=== PATIENT | female | born 1940 | race Caucasian/White ===

== ENCOUNTER 2022-12-30 10:27 | Outpatient (OUT) | payer MEDICARE, SELFPAY ==
[2022-12-30 11:38] LABS: Anion Gap 12.8; Carbon Dioxide 26.4 mmol/L (21.0-32.0); Chloride 93 mmol/L (98-107); Potassium 4.2 mmol/L (3.5-5.1); Sodium 128 mmol/L (136-145)
== END 2022-12-30 10:28 | disposition home or self-care (01) ==
LOC: LAB 10:27
PROVIDERS: PCP Internal Medicine
DX: E87.5 Hyperkalemia (principal)
CPT/HCPCS: 36415; 80051

== ENCOUNTER 2023-03-26 13:39 | Outpatient (OUT) | payer MEDICARE, SELFPAY ==
[2023-03-26 14:15] LABS: Bilirubin Urine NEGATIVE (NEGATIVE); Blood Urine NEGATIVE (NEGATIVE); Clarity Urine CLEAR (CLEAR); Color Urine LT. YELLOW (YELLOW); Glucose Urine UA NEGATIVE (NEGATIVE); Ketones Urine NEGATIVE (NEGATIVE); Leukocyte Esterase Urine NEGATIVE (NEGATIVE); Nitrite Urine NEGATIVE (NEGATIVE); Protein Urine NEGATIVE (NEG/TRACE); Specific Gravity Urine <=1.005 (1.005-1.025); Urobilinogen Urine 0.2 EU/dL (0.2-1.0)
[2023-03-26 14:23] LABS: Urine Microscopic Indicated NO
== END 2023-03-26 13:40 | disposition home or self-care (01) ==
LOC: LAB 13:39
DX: N39.0 Urinary tract infection, site not specified (principal)
CPT/HCPCS: 81003

== ENCOUNTER 2023-03-31 13:05 | Outpatient (REF) | payer MEDICARE, SELFPAY ==
[2023-03-31 14:43] LABS: SARS-CoV-2 Ag NEGATIVE (NEGATIVE)
[2023-03-31 16:39] LABS: SARS-CoV-2 NAA NOT DETECTED (NOT DETECTE)
== END 2023-03-31 13:06 | disposition home or self-care (01) ==
LOC: LAB 13:05
DX: Z20.822 Contact with and (suspected) exposure to COVID-19 (principal)
CPT/HCPCS: 87635; 87811; U0003

== ENCOUNTER 2023-05-22 12:22 | Outpatient (OUT) | payer MEDICARE, SELFPAY ==
[2023-05-22 13:47] LABS: Anion Gap 14.7; Carbon Dioxide 24.6 mmol/L (21.0-32.0); Chloride 94 mmol/L (98-107); Potassium 4.3 mmol/L (3.5-5.1); Sodium 129 mmol/L (136-145); Thyroid Stimulating Hormone 0.538 uIU/mL (0.358-3.740)
== END 2023-05-22 12:23 | disposition home or self-care (01) ==
LOC: LAB 12:22
PROVIDERS: PCP Internal Medicine; Visit Provider Internal Medicine
DX: E87.5 Hyperkalemia (principal); E87.1 Hypo-osmolality and hyponatremia; I50.40 Unspecified combined systolic (congestive) and diastolic (congestive) heart failure; I10 Essential (primary) hypertension
CPT/HCPCS: 36415; 80051; 83880; 84443

== ENCOUNTER 2023-10-22 13:05 | Outpatient (RCR) | payer MEDICARE, SELFPAY | END 2023-11-19 12:56 | disposition home or self-care (01) | LOC: PT 13:05 | PROVIDERS: PCP Internal Medicine; Visit Provider Internal Medicine | DX: R53.1 Weakness (principal); Z91.81 History of falling | CPT/HCPCS: 97110; 97112; 97162; 97530 ==

== ENCOUNTER 2023-11-13 13:03 | Outpatient (OUT) | payer MEDICARE, SELFPAY ==
--- NOTE | 2023-11-13 13:06 | MM_ITS ---
Patient Name: LELA CHAIREZ MR#: [id number] : 1940 Exam Date: 11/13/2023 Ordering Doctor: DR BART SCHULTZ D.O. RADIOLOGY REPORT PROCEDURE: MM SCREENING MAMMO BI COMPARISON: MG MAMM SCREEN ROSANGELA W CAD, 11/11/2022. MG MAMM SCREEN 3D ROSANGELA CAD, 11/06/2021. MG MAMM LT DIAG W CAD, 09/26/2020. MG MAMM ROSANGELA SCRN W CAD DIG, 10/25/2013. INDICATIONS: screening Calculator Name NCI Breast Cancer Risk Assessment Tool 5 Year Breast Cancer Risk 3.70% Lifetime Breast Cancer Risk 3.70% Personal Breast Cancer No Personal Ovarian Cancer No Treatments None Family Cancers Sister with breast cancer at age 45; Father with throat cancer at age 67; Brother with lung cancer at age 55. LOCATION: [facility] BREAST COMPOSITION: The breasts are heterogeneously dense,which may obscure small masses. FINDINGS: DIAGNOSTIC CATEGORY 2--BENIGN FINDING: RIGHT BREAST: No significant suspicious finding. Scattered benign-appearing calcifications are present. No significant change has occurred. LEFT BREAST: No significant suspicious finding. Scattered benign-appearing calcifications are present. No significant change has occurred. RECOMMENDATIONS: ROUTINE MAMMOGRAM AND CLINICAL EVALUATION IN 12 MONTHS. PLEASE NOTE: A NORMAL MAMMOGRAM DOES NOT EXCLUDE THE POSSIBILITY OF BREAST CANCER. A CLINICALLY SUSPICIOUS PALPABLE LUMP SHOULD BE BIOPSIED. Dictated by: Brady Harry M.D. on 11/14/2023 at 15:14 Approved by: Brady Harry M.D. on 11/14/2023 at 15:18
== END 2023-11-13 13:04 | disposition home or self-care (01) ==
LOC: MAMMO 13:03
PROVIDERS: PCP Internal Medicine; Visit Provider Internal Medicine
DX: Z12.31 Encounter for screening mammogram for malignant neoplasm of breast (principal)
CPT/HCPCS: 77067

== ENCOUNTER 2024-01-08 09:09 | Emergency (ER) | payer MEDICARE, SELFPAY ==
--- NOTE | 2024-01-08 | XR_ITS ---
The [address] [address] Patient Name: LELA CHAIREZ MRN: [id number] date: 1940 Sex: F Assigned Patient Location: ER Current Patient Location: ER Accession/Order Number: [id number] Exam Date: 01/08/2024 10:10 Report Date: 01/08/2024 11:32 At the request of: BARON REYES Procedure: XR hip RT 2V w/ pelvis PROCEDURE: XR lumbar spine 2-3V, XR hip RT 2V w/ pelvis, 01/08/2024 9:56 AM EDT CLINICAL INDICATIONS: Traumatic injury, fall, lumbar spine, right hip pain, weakness COMPARISON: None TECHNIQUE: Lumbar spine 2 views. AP pelvis right hip, 5 views. FINDINGS: LUMBAR SPINE: 5 lumbar type vertebral segments are seen with mild dextroconvex curvature, accentuated lumbar lordosis. There is grade 1 retrolisthesis; 0.8 cm L1-2 0.9 cm L2-3 0.5 cm L3-4 L4-5 interbody disc fusion, dorsal laminectomy, L4-S1 transpedicular screw and isis fixation, transverse stabilizer noted. There is fracture of the right proximal S1 pedicular screw, age undetermined. Additional hardware complication is not demonstrated. Multilevel disc degeneration spondylosis is severe throughout the lower thoracic, L1-L3 levels Acture of the proximal aspect of the sacral screw fixation likely on the right, Mid and lower lumbar facet arthropathy is seen. Convincing sign of acute fracture is not demonstrated. Paraspinal abnormality is not seen. Regional soft tissues normal. PELVIS: Generalized osteopenia the bony structures is noted. 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 Acute pelvic fracture is not demonstrated. Visualized sacral foramina and sacroiliac joints are symmetric. Pelvic and trochanteric enthesopathy is present bilaterally. Moderate left hip osteoarthrosis and chondrocalcinosis is seen. Pelvic phleboliths are seen. Regional soft tissues normal. RIGHT HIP: Severe right hip osteoarthrosis, [id number] abutment, marginal osteophytosis, buttressing the femoral neck is seen. Acute osseous pathology is not demonstrated. Regional soft tissues normal. XR/XR hip RT 2V w/ pelvis IMPRESSION: 1. No convincing sign of acute traumatic osseous lumbar spine, pelvic or right hip pathology. If the hip pain persists or if the patient cannot bear weight on the hip, then an MRI may be of benefit in evaluation of a possible occult fracture. 2. Mild dextroconvex curvature, accentuated lumbar lordosis with L1 through L4 grade 1 anterior spondylolisthesis 3. L4-5 interbody disc fusion, L4 through S1 transpedicular screw, isis fixation, transverse stabilizer. There is a fracture of the proximal right S1 pedicular screw, age undetermined. 4. Multilevel lumbar spine disc degeneration, spondylosis most apparent lower thoracic through L3 levels. 5. Mid and lower lumbar facet arthropathy 6. 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 Pelvic and bilateral trochanteric enthesopathy 8. Severe right, moderate left hip osteoarthrosis with chondrocalcinosis Electronically authenticated by: WILLIAM MARMOLEJO Date: 01/08/2024 11:32
--- OUTSIDE RECORDS SUMMARY | 2024-01-08 09:15 | XMS_ITS ---
Patient Summarization (C-CDA 2.1 CCD) Created on: January 08, 2024 MIHAELAASHLYLELA J : 1940 Sex: Female Author Organization Sample organization Care Team Providers Care Photographic Lithographer Name Role Phone Bigg Schultz Primary Care Provider BIGG SCHULTZ JR Primary Care Physician MARION, DR ARRIAGA Primary Care Unavailable VALONE, DR ARRIAGA Admitting Unavailable VALONE, DR ARRIAGA Attending Unavailable VALONE, DR ARRIAGA Primary Care Unavailable VALONE, DR ARRIAGA Admitting Unavailable VALONE, DR ARRIAGA Attending Unavailable VALONE, DR ARRIAGA Consulting Unavailable VALONE, DR ARRIAGA Primary Care Unavailable VALONE, DR ARRIAGA Admitting Unavailable VALONE, DR ARRIAGA Attending Unavailable VALONE, DR ARRIAGA Consulting Unavailable ZieberBrady Consulting Unavailable [facility], DR FAIRCHILD Attending Unavailable MISC, DR FAIRCHILD Admitting Unavailable VALONE, DR ARRIAGA Primary Care Unavailable YOGESH DEL REAL Attending Unavailable CARRENO, Lyle Feldman Attending Unavailable CARRENO, Lyle Feldman Attending Unavailable Allergies Allergy Classification Reported Allergen(s) Allergy Type Date of Onset Reaction(s) Facility (1 source) Meperidine Drug Allergy 7 [facility] (1 source) Risedronate Drug Allergy 8 [facility] (1 source) Sertraline Drug Allergy 7 [facility] (1 source) Sulfonamides (Antibiotic) Propensity to adverse reactions 7 [facility] (5 sources) Tetracycline; Translations: [tetracycline] Drug Allergy 7 Unknown (qualifier value) [facility] (1 source) venlafaxine Drug Allergy 7 [facility] (4 sources) Citalopram; Translations: [citalopram] Drug Allergy Unknown (qualifier value) [facility] (4 sources) DULoxetine; Translations: [duloxetine] Drug Allergy Unknown (qualifier value) [facility] (4 sources) Meperidine; Translations: [meperidine] Drug Allergy Unknown (qualifier value) [facility] (4 sources) Sertraline; Translations: [sertraline] Drug Allergy Unknown (qualifier value) [facility] (4 sources) Sulfonamides (Antibiotic); Translations: [sulfa drugs] Drug allergy Unknown (qualifier value) [facility] (4 sources) telmisartan; Translations: [telmisartan] Drug Allergy Unknown (qualifier value) [facility] (4 sources) venlafaxine; Translations: [venlafaxine] Drug Allergy Unknown (qualifier value) [facility] (1 source) Citalopram Drug Allergy [facility] (1 source) DULoxetine Drug Allergy 5 [facility] (1 source) Meperidine Drug Allergy 3 [facility] (1 source) Sertraline Drug Allergy 3 [facility] (1 source) Sulfonamides (Antibiotic) Drug allergy (disorder) 3 [facility] (1 source) telmisartan Drug Allergy 3 [facility] (1 source) Tetracycline Drug Allergy 3 [facility] (1 source) venlafaxine Drug Allergy 3 [facility] Encounters Encounter Date Encounter Type Care Provider Facility Start: 05-03-2024 ambulatory Lyle Evangelista ty:[facility] Start: 10-10-2023 End: 10-11-2023 ambulatory Lyle CARRENO Facility:[facility] Start: 10-10-2023 End: 10-10-2023 Patient encounter procedure Lyle CARRENO [facility] Start: 09-30-2023 End: 09-30-2023 ambulatory YOGESH DEL REAL Not Available Start: 11-11-2022 End: 11-12-[address] BIGG SCHULTZ Facility:[facility] Start: 10-04-2022 End: 10-04-2022 Patient encounter procedure Lyle CARRENO [facility] Start: 06-17-2022 End: 06-18-[address] BIGG SCHULTZ Facility:[facility] Start: 01-03-2022 End: 01-31-[address] BIGG SCHULTZ Facility:[facility] Start: 11-22-2021 End: 12-15-[address] DOCTOR COREAS Facility:[facility] Start: 10-01-2021 End: 10-01-2021 Patient encounter procedure Lyle CARRENO [facility] Start: 12-16-1920 End: 12-16-1920 Patient encounter procedure Jose Almonte Work Phone: [facility] Start: 12-16-1920 Results Only Jose Almonte Work Phone: [facility] Immunizations Immunization Date Immunization Notes Care Provider Fa [facility] 04-18-2023 influenza virus vacc ine, unspecified formulation Lyle CARRENO [facility] 03-29-2022 SARS-CoV-2 (COVID-19 ) [id number] Lyle CARRENO [facility] Comment on above: Result Comment: 2023: [id number] 11-02-2021 SARS-CoV-2 mRNA (ybcjzqbiayw-pcqm-uszsts e) vaccine Lyle CARRENO [facility] Comment on above: Result Comment: 2023: [id number] 04-16-2021 SARS-CoV-2 (COVID-19 ) mRNA BNT-162b2 vax Lyle CARRENO [facility] Comment on above: Result Comment: 2023: [id number] 08-23-2020 SARS-CoV-2 (COVID-19 ) mRNA BNT-162b2 vax Lyle CARRENO [facility] 07-31-2020 SARS-CoV-2 (COVID-19 ) mRNA BNT-162b2 vax Lyle CARRENO [facility] Comment on above: Result Comment: 2nd dose given 08/23/2020 07-23-2018 zoster vaccine recombinant Lyle CARRENO [facility] 11-28-2017 zoster vaccine recombinant Lylelexi CARRENO [facility] 03-23-2014 pneumococcal polysaccharide vaccine, 23 valent Lyle PASQUALE [facility] 05-05-2013 zoster vaccine, live Lyle CARRENO [facility] 04-25-2009 influenza, whole Lyle CARBALLO [facility] Medications Current Medications Medication Drug Class(es) Dates Sig (Normalized) Sig (Original) baclofen 10 mg oral tablet (3 sources) gamma-Aminobutyric Acid-ergic Agonist Start: 10-01-2021 baclofen 10 mg Tab Refills(s) 0 Start Date: 10/01/21 Status: Ordered busPIRone hydrochloride 10 mg oral tablet (3 sources) Start: 10-01-2021 busPIRone 10 mg Tab Refills(s) 0 Start Date: 10/01/21 Status: Ordered candesartan cilexetil 32 mg oral tablet (3 sources) Angiotensin 2 Receptor Kenney Start: 10-01-2021 candesartan 32 mg Tab Refills(s) 0 Start Date: 10/01/21 Status: Ordered carvedilol 6.25 mg oral tablet (3 sources) alpha-Adrenergic Kenney, beta-Adrenergic Kenney Start: 10-01-2021 carvedilol 6.25 mg Tab Refills(s) 0 Start Date: 10/01/21 Status: Ordered clobetasol propionate 0.0005 mg/mg topical ointment (1 source) Corticosteroid Start: 10-10-2023 clobetasol propionate 0.05% top oint 1 cornelia, Topical, Daily Rash, 45 gm, Refill(s) 1, Daily as needed for vaginal irritation, [id number], 165, cm, 10/10/23 10:56:00 EDT, Height/Length Dosing, 55, kg, 10/10/23 10:56:00 EDT, Weight Dosing Start Date: 10/10/23 Status: Ordered empagliflozin 10 mg oral tablet (1 source) Sodium-Glucose Cotransporter 2 Inhibitor Start: 10-04-2022 Jardiance 10 mg oral tablet Refills(s) 0 Start Date: 10/04/22 Status: Ordered estrogens, conjugated (fci) 0.625 mg/ml vaginal cream (2 sources) Estrogen Start: 08-12-2023 Premarin Vaginal 0.625 mg/g cream with applicator 1 gram, Vaginal, MonWedFri, 42.5 gram, Refill(s) 3, [facility], 165, cm, 10/04/22 10:37:00 EDT, Height/Length Dosing, 65, kg, 10/04/22 10:37:00 EDT, Weight Dosing Start Date: 08/12/23 Status: Ordered Start: 01-02-2022 Premarin Vagin al 0.625 mg/g cream with applicator 1 gram, Vaginal, MonWedFri, 42.5 gram, Refill(s) 3, [facility], 162, cm, 10/06/20 10:19:00 EDT, Height/Length Dosing, 70.5, kg, 04/02/21 10:19:00 EDT, Weight Dosing Start Date: 01/02/22 Status: Ordered famotidine 20 mg oral tablet (2 sources) Histamine-2 Receptor Antagonist Start: 10-04-2022 famotidine 20 mg Tab Refills(s) 0 Start Date: 10/04/22 Status: Ordered gabapentin 100 mg oral capsule (3 sources) Anti-epileptic Agent Start: 10-01-2021 gabapenti n 100 mg Cap Refills(s) 0 Start Date: 10/01/21 Status: Ordered levothyroxine sodium 0.025 mg oral tablet (3 sources) l-Thyroxine Start: 10-01-2021 levothyroxine 25 mcg (0.025 mg) Tab Refills(s) 0 Start Date: 10/01/21 Status: Ordered Start: 10-01-2021 levothyroxine 25 mcg (0.025 mg) Tab Refills(s) 0 Start Date: 10/01/21 Status: Ordered montelukast 10 mg oral tablet (3 sources) Leukotriene Receptor Antagonist Start: 10-01-2021 montelukast 10 mg Ta b Refills(s) 0 Start Date: 10/01/21 Status: Ordered Premarin Vaginal 0.625 mg/g cream with applicator (1 source) Start: 08-29-2020 Premarin Vagin al 0.625 mg/g cream with applicator 1 gram, Vaginal, MonWedFri, 42.5 gram, Refill(s) 3, [facility], 162, cm, 04/10/20 12:12:00 EDT, Height/Length Dosing, 70, kg, 04/10/20 12:12:00 EDT, Weight Dosing Start Date: 08/29/20 Status: Ordered Payers Date Payer Category Payer Medicare [id number] 1961 Medicare [id number] 1940 Unknown [id number] 2.16.84 [id number] 1940 Unknown [id number] 2.16.84 [id number] 1940 Unknown [id number] 2.16.84 [id number] 1940 Unknown [id number] 2.16.84 [id number] 1940 Unknown [id number] 2.16.84 [id number] 1940 Unknown [id number] 2.16.8 [id number] 1940 Unknown [id number] [id number] Plan of Treatment Date Care Activity Detail Author Start: 03-07-2020 Influenza vaccination INFLUENZA (#1) [facility] Start: 01-26-2010 DIABETES SCREEN DIABETES SCREEN [facility] Start: 2003 ADVANCE DIRECTIVE DISCUSSION ADVANCE DIRECTIVE DISCUSSION [facility] Start: 2003 BONE DENSITY BONE DENSITY [facility] Start: 2003 PNEUMOVAX AGE 65 AND OVER WITH 5YR LOOKBACK (#1) PNEUMOVAX AGE 65 AND OVER WITH 5YR LOOKBACK (#1) [facility] Start: 1988 SHINGRIX VACCINE (1 of 2) LOBATO GRIX VACCINE (1 of 2) [facility] Start: 1957 Urine microalbumin profile DTAP,TDAP ,TD (1 - Tdap) [facility] Problems Active Problems Problem Classification Problem Date Documented Da te Episodic/Chronic Anal and rectal conditions (2 sources) Disorder of rectum 10-04-2022 Episodic Essential hypertension (7 sources) Hypertensive disorder; Translations: [Essential (primary) hypertension] Onset: 06-17-2022 08-26-2019 Chronic Genitourinary symptoms and ill-defined conditions (7 sources) Overflow incontinence of urine; Translations: [Urge incontinence of urine] Onset: 10-10-2023 09-06-2019 Chronic Genitourinary symptoms and ill-defined conditions (9 sources) Nocturia; Translations: [Poor stream of urine] 10-06-2020 Episodic Osteoarthritis (3 sources) Osteoarthritis 08-26-2019 Chronic Other and unspecified benign neoplasm (3 sources) Adrenal adenoma 08-26-2019 Episodic Other bone disease and musculoskeletal deformities (3 sources) Osteopenia 08-26-2019 Episodic Other diseases of bladder and urethra (2 sources) Urethral stricture; Translations: [Unspecified urethral stricture, female] Onset: 10-10-2023 Episodic Other endocrine disorders (1 source) Disorder of adrenal gland; Translations: [Unspecified disorder of adrenal glands] Onset: 02-09-2008 02-09-2008 Chronic Other nervous system disorders (1 source) Other chronic pain; Translations: [OTHER CHRONIC PAIN] Onset: 01-03-2022 Chronic Other screening for suspected conditions (not mental disorders or infectious disease) (4 sources) Encounter for screening mammogram for malignant neoplasm of breast; Translations: [ENC SCR MAMMO MALIG NEOPLASM BREAST] Onset: 11-11-2022 Episodic Prolapse of female genital organs (6 sources) Uterovaginal prolapse; Translations: [Uterovaginal prolapse, unspecified] Onset: 10-04-2022 Chronic Residual codes; unclassified (3 sources) Sleep apnea 08-26-2019 Chronic Residual codes; unclassified (1 source) Family history of malignant neoplasm of breast; Translations: [FAMILY HX MALIG NEOPLASM OF BREAST] Onset: 11-14-2022 Episodic Residual codes; unclassified (1 source) Family history of malignant neoplasm of trachea, bronchus and lung; Translations: [FAM HX MALIG NEOPLSM TRACH BRON LNG] Onset: 11-14-2022 Episodic Residual codes; unclassified (1 source) Family history of malignant neoplasm of digestive organs; Translations: [FAM HX MALIG NEOPLASM DIGESTIV ORGN] Onset: 11-14-2022 Episodic Thyroid disorders (3 sources) Hypothyroidism 08-26-2019 Chronic Unclassified (1 source) LOW BACK PAIN, UNSPECIFIED; Translations: [LOW BACK PAIN, UNSPECIFIED] Onset: 01-03-2022 Urinary tract infections (6 sources) Chronic cystitis; Translations: [Other chronic cystitis without hematuria] Onset: 10-01-2021 Chronic Urinary tract infections (5 sources) Postinfective urethral stricture of female; Translations: [Postinfective urethral stricture, not elsewhere classified, female] Onset: 10-01-2021 Episodic Past or Other Problems Problem Classification Problem Date Documented Da te Episodic/Chronic Malaise and fatigue (1 source) Weakness; Translations: [WEAKNESS] Onset: 11-28-2021 Episodic Other connective tissue disease (4 sources) Impingement syndrome of right shoulder; Translations: [IMPINGEMENT SYNDROME RIGHT SHOULDER] Onset: 11-22-2021 Episodic Other nervous system disorders (4 sources) Ataxia, unspecified; Translations: [ATAXIA UNSPECIFIED] Onset: 01-03-2022 Episodic Other non-traumatic joint disorders (1 source) Pain in right shoulder; Translations: [PAIN IN RIGHT SHOULDER] Onset: 11-22-2021 Episodic Procedures Date Procedure Procedure Detail Performing Clinician Start: 10-01-2021 Dilation of urethra Pat lexi PASQUALE Start: 09-06-2019 Dilation of urethra Pat lexi CARRENO Start: 11-16-2018 Dilation of urethra Pat lexi CARRENO Start: 05-18-2018 Dilation of urethra Pat lexi CARRENO Start: 11-17-2017 Dilation of urethra Pat lexi CARRENO Start: 05-19-2017 Dilation of urethra Pat lexi PASQUALE Start: 09-10-2016 Cystourethroscopy wi th dilation of urethral stricture Lylelexi CARRENO Start: 01-19-2016 Dilation of urethra Pat lexi CARRENO Start: 07-21-2015 Dilation of urethra Pat lexi CARRENO Start: 07-18-2014 Dilation of urethra Pat lexi PASQUALE Start: 12-27-2013 Dilation of urethra Pat lexi PASQUALE Start: 07-14-2013 Procedure on neck Patri ck PASQUALE Start: 06-11-2013 Dilation of urethra Pat lexi PASQUALE Start: 08-07-2009 Dilation of urethra Pat lexi CARRENO Start: 09-04-2006 Cystourethroscopy wi th dilation of urethral stricture Lylelexi CARRENO Start: 12-16-1920 CONVERTED SURGICAL PATHOLOGY Jose Almonte Work Phone: Appendectomy Lylelexi CARRENO Breast biopsy and re lated procedures Lyle CARRENO Cataract surgery Lyle CARBALLO Colonoscopy Lyle CARRENO Dilation of urethra Lyle CARRENO Excision of lipoma Lyle FLORES eyelid lift Lyle CARRENO Hysterectomy Lyle CARRENO Nasal sinus procedure Andrea CARRENO Plantar fasciectomy Lyle CARRENO Procedure on elbow Lyle FLORSE Procedure on retina Lyle CARRENO Repair of single tendon Rosar katerin CARRENO Results Test Name Value Interpretation Reference Range Facility Ambulatory Visit Summaryon 0 10-10-2023 Ambulatory Visit Summary LELA CHAIREZ :1940 Visit Date:10/10/2023 Ambulatory Visit Instructions Your Diagnosis Unspecified urethral stricture, female Chronic cystitis without hematuria Urge incontinence Cystocele with prolapse Rectocele Your Care Team Attending Physician - PASQUALE MESA, Lyle Feldman Primary Care Physician - BIGG SCHULTZ JR, DO This Is Your Medications List clobetasol topical (clobetasol propionate 0.05% top oint) conjugated estrogens topical (Premarin Vaginal 0.625 mg/g cream with applicator) Contact prescribing physician if questions or concerns baclofen (baclofen 10 mg Tab) busPIRone (busPIRone 10 mg Tab) candesartan (candesartan 32 mg Tab) carvedilol (carvedilol 6.25 mg Tab) famotidine (famotidine 20 mg Tab) gabapentin (gabapentin 100 mg Cap) levothyroxine (levothyroxine 25 mcg (0.025 mg) Tab) montelukast (montelukast 10 mg Tab) Procedures Performed Dilation of urethra (10/01/2021), Dilation of urethra (09/06/2019), Dilation of urethra (11/16/2018), Dilation of urethra (05/18/2018), Dilation of urethra (11/17/2017), Dilation of urethra (05/19/2017), Cystourethroscopy with dilation of urethral stricture (09/10/2016), Dilation of urethra (01/19/2016), Dilation of urethra (07/21/2015), Dilation of urethra (07/18/2014), Dilation of urethra (12/27/2013), Procedure on neck (07/14/2013), Dilation of urethra (06/11/2013), Dilation of urethra (08/07/2009), Cystourethroscopy with dilation of urethral stricture (09/2006), Appendectomy, Breast biopsy and related procedures, Cataract surgery, Colonoscopy, Dilation of urethra, Excision of lipoma, eyelid lift, Hysterectomy, Nasal sinus procedure, Plantar fasciectomy, Procedure on elbow, Procedure on retina, Repair of single tendon. Discharge Vitals Heart Rate (Peripheral) 73 Respiratory Rate 16 Blood Pressure 127/79 Height 165 cm Height 65 in Weight 55 kg Weight 121 lb BMI 20.2 What to do next Scheduled Follow-Up Appointments Friday 9:15 AM EDT With: PASQUALE MESA, Lyle Feldman Where: [facility] Consent for Procedure/Surger yon 10-10-2023 Consent for Procedure/Surgery [id number] [facility] Patient Educationon 10-10-19 24 Patient Education Urology Urethral Stricture Urethral stricture is narrowing of the tube (urethra) that carries urine from the bladder out of the body. The urethra can become narrow due to scar tissue from an injury or infection. This can make it difficult to pass urine. In women, the urethra opens above the vaginal opening. In men, the urethra opens at the tip of the penis, and the urethra is much longer than it is in women. Because of the length of the male urethra, urethral stricture is much more common in men. This condition is treated with surgery. What are the causes? In both men and women, common causes of urethral stricture include: ? Urinary tract infection (UTI). ? Sexually transmitted infection (STI). ? Use of a tube placed into the urethra to drain urine from the bladder (urinary catheter). ? Urinary tract surgery. In men, common causes of urethral stricture include: ? A severe injury to the pelvis. ? Prostate surgery. ? Injury to the penis. In many cases, the cause of urethral stricture is not known. What increases the risk? You are more likely to develop this condition if you: ? Are male. Men who have had prostate surgery are at risk of developing this condition. ? Use a urinary catheter. ? Have had urinary tract surgery. What are the signs or symptoms? The main symptom of this condition is difficulty passing urine. This may cause decreased urine flow, dribbling, or spraying of urine. Other symptom of this condition may include: ? Frequent UTIs. ? Blood in the urine. ? Pain when urinating. ? Swelling of the penis in men. ? Inability to pass urine (urinary obstruction). How is this diagnosed? This condition may be diagnosed based on: ? Your medical history and a physical exam. ? Urine tests to check for infection or bleeding. ? X-rays. ? Ultrasound. ? Retrograde urethrogram. This is a type of test in which dye is injected into the urethra and then an X-ray is taken. ? Urethroscopy. This is when a thin tube with a light and camera on the end (urethroscope) is used to look at the urethra. How is this treated? This condition is treated with surgery. The type of surgery that you have depends on the severity of your condition. You may have: ? Urethral dilation. In this procedure, the narrow part of the urethra is stretched open (dilated) with dilating instruments or a small balloon. ? Urethrotomy. In this procedure, a urethroscope is placed into the urethra, and the narrow part of the urethra is cut open with a surgical blade inserted through the urethroscope. ? Open surgery. In this procedure, an incision is made in the urethra, the narrow part is removed, and the urethra is reconstructed. Follow these instructions at home: ? Take abpn-pas-csfybfz and prescription medicines only as told by your health care provider. ? If you were prescribed an antibiotic medicine, take it as told by your health care provider. Do not stop taking the antibiotic even if you start to feel better. ? Drink enough fluid to keep your urine pale yellow. ? Keep all follow-up visits as told by your health care provider. This is important. Contact a health care provider if: ? You have signs of a urinary tract infection, such as: ? Frequent urination or passing small amounts of urine frequently. ? Needing to urinate urgently. ? Pain or burning with urination. ? Urine that smells bad or unusual. ? Cloudy urine. ? Pain in the lower abdomen or back. ? Trouble urinating. ? Blood in the urine. ? Vomiting or being less hungry than normal. ? Diarrhea or abdominal pain. ? Vaginal discharge, if you are female. ? Your symptoms are getting worse instead of better. Get help right away if: ? You cannot pass urine. ? You have a fever. ? You have swelling, bruising, or discoloration of your genital area. This includes the penis, scrotum, and inner thighs for men, and the outer genital organs (vulva) and inner thighs for women. ? You develop swelling in your legs. ? You have difficulty breathing. Summary ? Urethral stricture is narrowing of the tube (urethra) that carries urine from the bladder out of the body. The urethra can become narrow due to scar tissue from an injury or infection. ? This condition can make it difficult to pass urine. ? This condition is treated with surgery. The type of surgery that you have depends on the severity of your condition. ? Contact a health care provider if your symptoms get worse or you have signs of a urinary tract infection. This information is not intended to replace advice given to you by your health care provider. Make sure you discuss any questions you have with your health care provider. Document Revised: 04/30/2022 Document Reviewed: 04/30/2022 [employer] Patient Education ? 2022 [employer]. [facility] Urology Office/Clinic Noteon 10-10-2023 Urology Office/Clinic Note Chief Complaint IO UD HPI Staff 1yr IO UD DX: Urethral Stricture, Chronic Cystitis, Cystocele w/prolapse & Rectocele *Premarin cream 1g Mon, Wed, Fri PT was having increased incontinence back in Apr/May. PCP did give Tamsulosin 0.4mg QD. Took for 1-2m then stopped due to pt not having another refill. Incontinence has improved. Has been doing Kegels. Still has mild urgency w/occasional leaking. Also when she stands up. States it is not a lot. She does feel like something has dropped down there Does wear a pad. Feels like the Lt side of her skin is sore, would like to discuss possible ointment to help. Denies UTI since last encounter. Denies current pain/burning and visible blood in urine. Stream is slower, does feel like she is done voiding, then has more when she goes to wipe. Thinks another UD would not hurt . History of Present Illness Tests reviewed: reviewed UA. I have reviewed the previous health record information and history for this patient from Dr. Carreno. I have reviewed and verified the staff HPI to be accurate for this encounter. There have been no associated fever, chills, flank pain, or blood in the urine. Denies any urinary infections since last encounter. Review of Systems PHQ Score Initial Depression Screen Score: 0 SCORE ROS - Provider Constitutional: denies weight loss, denies hot flashes. Eyes: denies eye problems. Gastrointestinal: denies nausea, denies vomiting. Cardiovascular: denies chest pain or angina. Integumentary: no dryness Musculoskeletal: denies musculoskeletal symptoms. ENMT: denies otolaryngeal symptoms. Respiratory: no shortness of breath. Heme/Lymph: denies easy bleeding tendency, denies easy bruising tendency. Psychiatric: no confusion, no anxiety. Genitourinary: See HPI. Physical Exam Vitals & Measurements HR: 73(Peripheral) RR: 16 BP: 127/79 HT: 65 in HT: 165 cm WT: 55 kg WT: 121 lb BMI: 20.2 General Appearance: alert , no acute distress, well nourished, well developed female. Procedure Operative Information Anesthesia Type: Local Procedure: Local Urethral Dilation Complications: None Surgical risks, benefits, details of the procedure have been explained to the patient. Full informed consent has been obtained. Intraoperative Information Prepped: Patient is brought back to the endoscopy suite. Patient is placed in modified dorso/lithotomy position. Patient prepped in the usual fashion with Betadine solution. 2% Xylocaine Jelly is placed per Urethra. The Urethra is: Tight The Urethra was dilated to: 22-32 Estonian with sounds. Specimens Removed: None Postoperative Information Patient is discharged home. Follow up arranged. Assessment/Plan 1. Unspecified urethral stricture, female (N35.92: Unspecified urethral stricture, female) Latest in office UD 10/04/22. Stream is slower, does feel like she is done voiding, then has more when she goes to wipe. IO UD performed today without complications. Tolerated well. Follow up in 6 months for IO UD. 2. Chronic cystitis without hematuria (N30.20: Other chronic cystitis without hematuria) Premarin cream 1g Mon, Wed, Fri. UA today shows trace-intact blood and small leuks. Asx. Denies infections since last encounter. 3. Urge incontinence (N39.41: Urge incontinence) Pt was having increased incontinence back in Apr/May. PCP did give Tamsulosin 0.4mg QD. Took for 1-2m then stopped due to pt not having another refill. Incontinence has improved. Has been doing Kegels. Still has mild urgency w/occasional leaking. Also when she stands up. Does wear a pad. Feels like the Lt side of her skin is sore, would like to discuss possible ointment to help. Will send script for Clobetasol 0.05% cream to apply daily as needed for vaginal irritation 4. Cystocele with prolapse (N81.4: Uterovaginal prolapse, unspecified) Grade 2-3. 5. Rectocele (N81.6: Rectocele) Grade 2. Follow-up With When Contact Information PASQUALE MESA, Lyle Feldman, URL [address] [id number]- Additional Instructions: 6 mos for IO UD Patient Education Urethral Stricture I, Kelly Hollis, personally scribed for Dr. Carreno on 10/10/2023 11:26:35. . Documentation recorded by the scribe, Kelly Hollis, accurately reflects the services(s) I performed and decisions made by me. Authenticated by Dr. Carreno on 10/10/2023 11:27:19. 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 Normal [facility] Comment on above: Result Comment: Elec tronically Signed By: Lyle CARRENO MD\.br\Date and Time Signed: 10/10/23 11:27 EDT\.br\Electronically Co-Signed By: Kelly Hollis.br\Date and Time Co-Signed: 10/10/23 11:26 EDT MG MAMM SCREEN ROSANGELA W CADon 0 11-11-2022 MG MAMM SCREEN ROSANGELA W CAD Patient: LELA CHAIREZ Exam Date: 11/11/2022 : 1940 Gender:F Ordering : DR BIGG SCHULTZ D.O. Admission #: [id number] Family : Order #: [id number] CLICK HERE TO VIEW EXAM RADIOLOGY REPORT PROCEDURE: MAMMOGRAM BILATERAL SCREENING DIGITAL WITH COMPUTER AIDED DETECTION COMPARISON: MG MAMM SCREEN 3D ROSANGELA CAD, 11/06/2021. MG MAMM LT DIAG W CAD, 09/26/2020. MAMMO POST BIOPSY LEFT, 02/03/2020. DIGITIZED_MAMMO, 07/06/2008. INDICATIONS: Screening mammography Calculator Name NCI Breast Cancer Risk Assessment Tool 5 Year Breast Cancer Risk 4.00% Lifetime Breast Cancer Risk 4.50% Personal Breast Cancer No Personal Ovarian Cancer No Treatments None Family Cancers Sister with breast cancer at age 45; Father with throat cancer at age 67; Brother with lung cancer at age 55. LOCATION: [facility] BREAST COMPOSITION: Heterogeneously dense,which may obscure small masses. FINDINGS: DIAGNOSTIC CATEGORY 2--BENIGN FINDING: RIGHT BREAST: No significant suspicious finding. Scattered benign-appearing calcifications are present. No significant change has occurred. LEFT BREAST: No significant suspicious finding. Scattered benign-appearing calcifications are present. Biopsy marker clip within posterior lower-inner quadrant. No significant change has occurred. RECOMMENDATIONS: ROUTINE MAMMOGRAM AND CLINICAL EVALUATION IN 12 MONTHS. PLEASE NOTE: A NORMAL MAMMOGRAM DOES NOT EXCLUDE THE POSSIBILITY OF BREAST CANCER. A CLINICALLY SUSPICIOUS PALPABLE LUMP SHOULD BE BIOPSIED. Dictated by: Brady Harry M.D. on 11/11/2022 at 13:40 Approved by: Brady Harry M.D. on 11/11/2022 at 13:50 Normal [facility] ELECTROLYTESon 12-12-2022 Anion gap [Moles/Vol] 10.9 mmol/L Normal [facility] Comment on above: Performed By: #### E LEC, TSH #### [facility] [address] [place] [address] Dr. Lillian Hurley Chloride [Moles/Vol] 92 mmol/L Critically low 98-107 [facility] Comment on above: Performed By: #### E LEC, TSH #### [facility] [address] [place] [address] Dr. Lillian Hurley CO2 [Moles/Vol] 30.4 mmol/L Normal 21.0-32.0 [facility] Comment on above: Performed By: #### E LEC, TSH #### [facility] [address] [place] [address] Dr. Lillian Hruley Potassium [Moles/Vol] 4.3 mmol/L Normal 3.5-5.1 [facility] Comment on above: Performed By: #### E LEC, TSH #### [facility] [address] [place] [address] Dr. Lillian Hurley Sodium [Moles/Vol] 129 mmol/L Critically low 136-145 [facility] Comment on above: Performed By: #### E LEC, TSH #### [facility] [address] [place] [address] Dr. Lillian Hurley TSHon 06-17-2022 TSH 0.675 uIU/mL Normal 0.358-3.740 [facility] Comment on above: Performed By: #### E LEC, TSH #### [facility] [address] [place] [address] Dr. Lillian Hurley Otheron 12-22-2000 CONVERTED ELECTRONIC SIGNATURE GNE HENDRIX M.D., PATHOLOGIST (Electronic signature on file) Final Signed Out: 12/22/2000 14:36 [facility] CONVERTED FINAL DIAGNOSIS BONE, RIGHT ELBOW, EXCISION - SEGMENTS OF OSSEOUS TISSUE WITH CHANGES CONSISTENT WITH CHANGES OF DEGENERATIVE OSTEOARTHROPATHY. REACTIVE SYNOVIUM WITH FOCAL OLD HEMORRHAGE. [facility] CONVERTED ORDERING PROVIDER Ordering Provider: JOSE ALMONTE [facility] Social History Date Type Detail Facility Start: 09-06-2019 End: 04-05-2024 Tobacco smoking status Never smoked tobacco (finding) [facility] Tobacco smoking stat us NHIS Unknown if ever smoked [facility] Sex Assigned At Not on file [facility] Sex Assigned At Female [facility] Tobacco smoking status Never [facility] Vital Signs Date Time Vital Sign Value Performing Clinician Dion ryan 10-10-2023 10:54-0400 Blood Pressure Location Lyle CARRNEO [facility] 10-10-2023 10:54-0400 Diastolic blood pressure 79 mm[Hg] Lyle CARRENO [facility] 10-10-2023 10:54-0400 Heart rate 73 /min Lyle CARRENO [facility] 10-10-2023 10:54-0400 Respiratory rate 16 /min Lyleelxi CARRENO [facility] 10-10-2023 10:54-0400 Systolic blood pressure 127 mm[Hg] Lyle CARRENO [facility] 10-04-2022 10:17-0400 Blood Pressure Location Lyle CARRENO [facility] 10-04-2022 10:17-0400 Diastolic blood pressure 71 mm[Hg] Lylelexi CARRENO [facility] 10-04-2022 10:17-0400 Heart rate 60 /min Lylelexi CARRENO [facility] 10-04-2022 10:17-0400 Respiratory rate 16 /min Lyle CARRENO [facility] 10-04-2022 10:17-0400 Systolic blood pressure 125 mm[Hg] Lyle CARRENO [facility] Functional Status Date Assessment Result Facility 10-10-2023 Functional Status N/A [facility] 10-04-2022 Functional Status N/A [facility] Hospital Discharge instructions 10-10-2023 Note Date & Type Note Facility 10-10-2023 Hospital Discharg e instructions Patient Education 10/10/2023 11:25:49 Urethral Stricture Urethral Stricture Urethral stricture is narrowing of the tube (urethra) that carries urine from the bladder out of the body. The urethra can become narrow due to scar tissue from an injury or infection. This can make it difficult to pass urine. In women, the urethra opens above the vaginal opening. In men, the urethra opens at the tip of the penis, and the urethra is much longer than it is in women. Because of the length of the male urethra, urethral stricture is much more common in men. This condition is treated with surgery. What are the causes? In both men and women, common causes of urethral stricture include: Urinary tract infection (UTI). Sexually transmitted infection (STI). Use of a tube placed into the urethra to drain urine from the bladder (urinary catheter). Urinary tract surgery. In men, common causes of urethral stricture include: A severe injury to the pelvis. Prostate surgery. Injury to the penis. In many cases, the cause of urethral stricture is not known. What increases the risk? You are more likely to develop this condition if you: Are male. Men who have had prostate surgery are at risk of developing this condition. Use a urinary catheter. Have had urinary tract surgery. What are the signs or symptoms? The main symptom of this condition is difficulty passing urine. This may cause decreased urine flow, dribbling, or spraying of urine. Other symptom of this condition may include: Frequent UTIs. Blood in the urine. Pain when urinating. Swelling of the penis in men. Inability to pass urine (urinary obstruction). How is this diagnosed? This condition may be diagnosed based on: Your medical history and a physical exam. Urine tests to check for infection or bleeding. X-rays. Ultrasound. Retrograde urethrogram. This is a type of test in which dye is injected into the urethra and then an X-ray is taken. Urethroscopy. This is when a thin tube with a light and camera on the end (urethroscope) is used to look at the urethra. How is this treated? This condition is treated with surgery. The type of surgery that you have depends on the severity of your condition. You may have: Urethral dilation. In this procedure, the narrow part of the urethra is stretched open (dilated) with dilating instruments or a small balloon. Urethrotomy. In this procedure, a urethroscope is placed into the urethra, and the narrow part of the urethra is cut open with a surgical blade inserted through the urethroscope. Open surgery. In this procedure, an incision is made in the urethra, the narrow part is removed, and the urethra is reconstructed. Follow these instructions at home: Take wpmu-bsr-xlfwrwv and prescription medicines only as told by your health care provider. If you were prescribed an antibiotic medicine, take it as told by your health care provider. Do not stop taking the antibiotic even if you start to feel better. Drink enough fluid to keep your urine pale yellow. Keep all follow-up visits as told by your health care provider. This is important. Contact a health care provider if: You have signs of a urinary tract infection, such as: ?Frequent urination or passing small amounts of urine frequently. ?Needing to urinate urgently. ?Pain or burning with urination. ?Urine that smells bad or unusual. ?Cloudy urine. ?Pain in the lower abdomen or back. ?Trouble urinating. ?Blood in the urine. ?Vomiting or being less hungry than normal. ?Diarrhea or abdominal pain. ?Vaginal discharge, if you are female. Your symptoms are getting worse instead of better. Get help right away if: You cannot pass urine. You have a fever. You have swelling, bruising, or discoloration of your genital area. This includes the penis, scrotum, and inner thighs for men, and the outer genital organs (vulva) and inner thighs for women. You develop swelling in your legs. You have difficulty breathing. Summary Urethral stricture is narrowing of the tube (urethra) that carries urine from the bladder out of the body. The urethra can become narrow due to scar tissue from an injury or infection. This condition can make it difficult to pass urine. This condition is treated with surgery. The type of surgery that you have depends on the severity of your condition. Contact a health care provider if your symptoms get worse or you have signs of a urinary tract infection. This information is not intended to replace advice given to you by your health care provider. Make sure you discuss any questions you have with your health care provider. Document Revised: 04/30/2022 Document Reviewed: 04/30/2022 [employer] Patient Education 2022 [employer]. Follow Up Care 10/04/2022 10:57:38 With:PASQUALE MESA, Lyle Feldman, URL Address: [address] [place] [address]- When: Unknown [facility] Hospital Discharge instructions 10-04-2022 Note Date & Type Note Facility 10-04-2022 Hospital Discharg e instructions Patient Education 10/04/2022 10:43:19 Urethral Dilation Urethral Dilation Urethral dilation is a procedure to stretch open (dilate) the urethra. The urethra is the tube that drains urine from the bladder out of the body. In women, the urethra opens above the vaginal opening. In men, the urethra opens at the tip of the penis. Urethral dilation is usually done to treat narrowing of the urethra (urethral stricture), which can make it difficult to pass urine. Urethral dilation widens the urethra so that you can pass urine normally. Urethral dilation is done through the urethral opening. There are no incisions made during the procedure. Tell a health care provider about: Any allergies you have. All medicines you are taking, including vitamins, herbs, eye drops, creams, and nxhp-mqp-fdudvih medicines. Any problems you or family members have had with anesthetic medicines. Any blood disorders you have. Any surgeries you have had. Any medical conditions you have. Whether you are or may be . What are the risks? Generally, this is a safe procedure. However, problems may occur, including: Bleeding. Infection. A return of urethral stricture, which requires repeating the dilation procedure. Damage to the urethra, which may require reconstructive surgery. Allergic reactions to medicines. What happens before the procedure? Medicines Ask your health care provider about: Changing or stopping your regular medicines. This is especially important if you are taking diabetes medicines or blood thinners. Taking medicines such as aspirin and ibuprofen. These medicines can thin your blood. Do not take these medicines unless your health care provider tells you to take them. Taking ypfe-dvn-zeajfgh medicines, vitamins, herbs, and supplements. General instructions Follow instructions from your health care provider about eating or drinking restrictions. Plan to have someone take you home from the hospital or clinic. If you will be going home right after the procedure, plan to have someone with you for 24 hours. Ask your health care provider what steps will be taken to help prevent infection. These may include: ?Washing skin with a germ-killing soap. ?Taking antibiotic medicine. What happens during the procedure? An IV may be inserted into one of your veins. You will be given one or more of the following medicines: ?A local anesthetic to numb your urethral opening. This will be applied as a gel that will also lubricate the urethral opening. ?A sedative to help you relax. A thin tube with a light and camera on the end (cystoscope) will be inserted into your urethra. Your urethra will be rinsed (irrigated) with a germ-free (sterile) water solution. Narrow parts of your urethra will be stretched open using a dilator tool. Your surgeon will start with a very thin dilator, then use wider dilators as needed. A thin tube with an inflatable balloon on the tip may be inserted into your urethra. The balloon may be inflated to help stretch your urethra open. Your urethra will be irrigated. The procedure may vary among health care providers and hospitals. What can I expect after the procedure? After the procedure, it is common to have: ?Burning pain when urinating. ?Blood in your urine. ?A need to urinate frequently. You will be asked to urinate before you leave the hospital or clinic. Your urine flow should improve within a few days. Follow these instructions at home: Medicines Take orda-yzz-csobign and prescription medicines only as told by your health care provider. If you were prescribed an antibiotic medicine, take it as told by your health care provider. Do not stop taking the antibiotic even if you start to feel better. Ask your health care provider if the medicine prescribed to you: ?Requires you to avoid driving or using heavy machinery. ?Can cause constipation. You may need to take these actions to prevent or treat constipation: ?Take xlrr-vjs-lbjiofp or prescription medicines. ?Eat foods that are high in fiber, such as beans, whole grains, and fresh fruits and vegetables. ?Limit foods that are high in fat and processed sugars, such as fried or sweet foods. General instructions Do not drive for 24 hours if you were given a sedative during your procedure. If you were sent home with a small, lubricated tube (catheter) to help keep your urethra open, follow your health care provider's instructions about how and when to use it. Drink enough fluid to keep your urine pale yellow. Return to your normal activities as told by your health care provider. Ask your health care provider what activities are safe for you. Keep all follow-up visits as told by your health care provider. This is important. Contact a health care provider if: Your urine is cloudy and smells bad. You develop new bleeding when you urinate. You pass blood clots when you urinate. You have pain that does not get better with medicine. You have a fever. You have swelling, bruising, or discoloration of your genital area. This includes the penis, scrotum, and inner thighs for men, and the outer genital organs (vulva) and inner thighs for women. Get help right away if: You develop new bleeding that does not stop. You cannot pass urine. Summary Urethral dilation is a procedure to stretch open (dilate) the urethra. Urethral dilation is usually done to treat narrowing of the urethra (urethral stricture), which can make it difficult to pass urine. Ask your health care provider about changing or stopping your regular medicines before the procedure. After the procedure, it is common to have burning pain when urinating, blood in your urine, and a need to urinate frequently. This information is not intended to replace advice given to you by your health care provider. Make sure you discuss any questions you have with your health care provider. Document Released: 07/19/2016 Document Revised: 08/05/2019 Document Reviewed: 08/05/2019 [employer] Patient Education 2020 [employer] Follow Up Care 10/01/2021 13:26:16 With:PASQUALE MESA, Lyle Feldman, URL Address: [address] [place] [address] [place] [address]- When: Unknown [facility] Hospital Discharge instructions 10-01-2021 Note Date & Type Note Facility 10-01-2021 Hospital Discharg e instructions Patient Education 10/01/2021 13:21:33 Urethral Stricture Urethral Stricture Urethral stricture is narrowing of the tube (urethra) that carries urine from the bladder out of the body. The urethra can become narrow due to scar tissue from an injury or infection. This can make it difficult to pass urine. In women, the urethra opens above the vaginal opening. In men, the urethra opens at the tip of the penis, and the urethra is much longer than it is in women. Because of the length of the male urethra, urethral stricture is much more common in men. This condition is treated with surgery. What are the causes? In both men and women, common causes of urethral stricture include: Urinary tract infection (UTI). Sexually transmitted infection (STI). Use of a tube placed into the urethra to drain urine from the bladder (urinary catheter). Urinary tract surgery. In men, common causes of urethral stricture include: A severe injury to the pelvis. Prostate surgery. Injury to the penis. In many cases, the cause of urethral stricture is not known. What increases the risk? You are more likely to develop this condition if you: Are male. Men who have had prostate surgery are at risk of developing this condition. Use a urinary catheter. Have had urinary tract surgery. What are the signs or symptoms? The main symptom of this condition is difficulty passing urine. This may cause decreased urine flow, dribbling, or spraying of urine. Other symptom of this condition may include: Frequent UTIs. Blood in the urine. Pain when urinating. Swelling of the penis in men. Inability to pass urine (urinary obstruction). How is this diagnosed? This condition may be diagnosed based on: Your medical history and a physical exam. Urine tests to check for infection or bleeding. X-rays. Ultrasound. Retrograde urethrogram. This is a type of test in which dye is injected into the urethra and then an X-ray is taken. Urethroscopy. This is when a thin tube with a light and camera on the end (urethroscope) is used to look at the urethra. How is this treated? This condition is treated with surgery. The type of surgery that you have depends on the severity of your condition. You may have: Urethral dilation. In this procedure, the narrow part of the urethra is stretched open (dilated) with dilating instruments or a small balloon. Urethrotomy. In this procedure, a urethroscope is placed into the urethra, and the narrow part of the urethra is cut open with a surgical blade inserted through the urethroscope. Open surgery. In this procedure, an incision is made in the urethra, the narrow part is removed, and the urethra is reconstructed. Follow these instructions at home: Take asly-kdd-lkqknvi and prescription medicines only as told by your health care provider. If you were prescribed an antibiotic medicine, take it as told by your health care provider. Do not stop taking the antibiotic even if you start to feel better. Drink enough fluid to keep your urine pale yellow. Keep all follow-up visits as told by your health care provider. This is important. Contact a health care provider if: You have signs of a urinary tract infection, such as: ?Frequent urination or passing small amounts of urine frequently. ?Needing to urinate urgently. ?Pain or burning with urination. ?Urine that smells bad or unusual. ?Cloudy urine. ?Pain in the lower abdomen or back. ?Trouble urinating. ?Blood in the urine. ?Vomiting or being less hungry than normal. ?Diarrhea or abdominal pain. ?Vaginal discharge, if you are female. Your symptoms are getting worse instead of better. Get help right away if: You cannot pass urine. You have a fever. You have swelling, bruising, or discoloration of your genital area. This includes the penis, scrotum, and inner thighs for men, and the outer genital organs (vulva) and inner thighs for women. You develop swelling in your legs. You have difficulty breathing. Summary Urethral stricture is narrowing of the tube (urethra) that carries urine from the bladder out of the body. The urethra can become narrow due to scar tissue from an injury or infection. This condition can make it difficult to pass urine. This condition is treated with surgery. The type of surgery that you have depends on the severity of your condition. Contact a health care provider if your symptoms get worse or you have signs of a urinary tract infection. This information is not intended to replace advice given to you by your health care provider. Make sure you discuss any questions you have with your health care provider. Document Released: 07/19/2016 Document Revised: 02/03/2019 Document Reviewed: 02/03/2019 [employer] Patient Education 2020 [employer]. [facility] [employer] Evaluation + Plan note Note Date & Type Note Facility Evaluation + Plan note Future Appointments Appointment Date:10/04/2022 09:45:00 AM Scheduled Provider:Lyle CARRENO MD Location:[facility] Appointment Type:URO Office Visit [facility] Outline Evaluation + Plan note Note Date & Type Note Facility Evaluation + Plan note Future Appointments Appointment Date:10/10/2023 10:15:00 AM Scheduled Provider:Lyle CARRENO MD Location:[facility] Appointment Type:URO Office Visit [facility] Outline Evaluation + Plan note Note Date & Type Note Facility Evaluation + Plan note Future Appointments Appointment Date:05/03/2024 09:15:00 AM Scheduled Provider:Lyle CARRENO MD Location:[facility] Appointment Type:URO Office Visit [facility] Outline Hospital course Narrative Note Date & Type Note Facility Hospital course Narrative No data available for this section [facility] Outline Progress note Note Date & Type Note Facility Progress note No data available for this section [facility] Outline Summary Purpose Family History No Family History Records FoundNo Family History Records FoundNo Family History Records Found No data available for this section Advance Directives No Advanced Directives Records FoundNo Advanced Directives Records FoundNo Advanced Directives Records Found Additional Source Comments Source Comments (unrecognize d section and content) In the event this informatio n is protected by the Federal Confidentiality of Alcohol and Drug Abuse Patient Records regulations: The Federal rules restrict any use of the information to criminally investigate or prosecute any alcohol or drug abuse patient.[facility] Patient Care team informatio n (unrecognized section and content) Personnel Name: BIGG SCHULTZ JR, DO Address: Address: [address] [place] [id number] Personnel Name: BIGG SCHULTZ JR, DO Address: Address: [address] [place] [id number] INFORMATION SOURCE (unrecogn ized section and content) DATE CREATED AUTHOR 11/15/2022 [facility] DATE CREATED AUTHOR AUTHOR'S ORGANIZ ATION 10/02/2023 [facility] EPIC DATE CREATED AUTHOR AUTHOR'S ORGANIZ ATION 10/10/2023 [facility] FOR RECORDS PERTAINING TO PATIENTS WHO ARE OR HAVE BEEN ENROLLED IN A CHEMICAL DEPENDENCY/SUBSTANCEABUSE PROGRAM, SOME INFORMATION MAY BE OMITTED. This clinical summary was aggregated from multiple sources. Caution should be exercised in using it in the provision of clinical care. This summary normalizes information from multiple sources, and as a consequence, information in this document may materially change the coding, format and clinical context of patient data. In addition, data may be omitted in some cases. CLINICAL DECISIONS SHOULD BE BASED ON THE PRIMARY CLINICAL RECORDS. [employer] [facility]. provides no warranty or guarantee of the accuracy or completeness of information in this document.
[2024-01-08 09:18] VITALS: BP 166/76; PULSE 74; TEMP 36.8; O2SAT 97; BMI 20.8
--- NOTE | 2024-01-08 09:25 | ED.FALL1 ---
HPI HPI - Fall General Chief Complaint: Head Injury Stated Complaint: fall Time Seen by Provider: 01/08/24 09:24 Source: patient and family Mode of arrival: Wheelchair Limitations: no limitations History of Present Illness HPI Narrative: This 83-year-old woman is here with a fall today. She was on her porch feeding the birds. She tried to walk backwards, even though she was using her walker there is no support when she is in reverse so to speak. She fell backwards and struck her head. Has got multiple complaint as to the trunk torso and extremities. There is no loss of consciousness. 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 She is not on any blood thinners. She has no head or neck pain and there is no loss of consciousness she is extremely bright and a very good historian. She is here with several family members. Apparently they have already started having some discussions before this fall about future living arrangements. She does not have any pain in her clavicular area or the rib area there is no shortness of breath she did not have any palpitations or fluttering before this she just merely lost her balance. Related Data Home Medications ?Medication ?Instructions ?Recorded ?Confirmed buspirone 10 mg tablet 10 mg PO DAILY 01/08/24 01/08/24 candesartan 32 mg tablet 32 mg PO DAILY 01/08/24 01/08/24 carvedilol 6.25 mg tablet 6.25 mg PO DAILY 01/08/24 01/08/24 famotidine 40 mg tablet 40 mg PO DAILY 01/08/24 01/08/24 levothyroxine 25 mcg tablet 25 mcg PO DAILY 01/08/24 01/08/24 montelukast 10 mg tablet 10 mg PO DAILY 01/08/24 01/08/24 Allergies Allergy/AdvReac Type Severity Reaction Status Date / Time Unable to Assess Allergy Verified 01/08/24 09:16 Opioid HPI Opioid Management Most Recent Pain and Opioid Data: No Data to Display Exam Narrative Exam Narrative: Awake alert [place] x 3 GCS 15 no evidence of head or neck injury. There is no confusion or evidence of a concussion syndrome. Her vital signs are stable her skin is warm and dry mucous membranes are moist and pink. It seems unlikely that there is a orthostatic event with this. Head and neck are nontender. There are some abrasions over the left temporal area there is no CSF otorrhea or rhinorrhea no hemotympanum. Cranial nerves II through XII are intact. She is not repeating herself. Her ribs chest and sternal area not tender. Abdomen she has no abdominal pain or nausea. Some abrasions are noted over the distal extremities. She does not have mid back pain. She has had previous surgery to the lower lumbar area and this is where most of the discomfort is at. Skin and integument were normal professional perfusion to the peripheral extremities is normal as well. Constitutional Vital Signs, click to edit/add: Last Vital Signs Temp 98.2 F 01/08/24 09:18 Pulse 72 01/08/24 10:24 Resp 18 01/08/24 10:24 BP 156/74 H 01/08/24 10:24 Pulse Ox 97 01/08/24 10:24 O2 Del Method Room Air 01/08/24 09:18 Course Vital Signs Vital signs: Vital Signs Temperature 98.2 F 01/08/24 09:18 Pulse Rate 74 01/08/24 09:18 Respiratory Rate 18 01/08/24 09:18 Blood Pressure 166/76 H 01/08/24 09:18 Pulse Oximetry 97 01/08/24 09:18 Oxygen Delivery Method Room Air 01/08/24 09:18 Temperature 98.2 F 01/08/24 09:18 Pulse Rate 72 01/08/24 10:24 Respiratory Rate 18 01/08/24 10:24 Blood Pressure 156/74 H 01/08/24 10:24 Pulse Oximetry 97 01/08/24 10:24 Oxygen Delivery Method Room Air 01/08/24 09:18 MDM - Fall MDM Narrative Medical decision making narrative: We were very liberal with imaging on this patient. Her head is normal. There is a lot of arthritic changes throughout the areas imaged. She may have a small avulsion type fracture off the tarsal navicular area of her ankle. We do not have a perfect immobilizing device but we will get her in the least cumbersome device and have her follow-up with Dr. Peyman Earl. Family members are going to try to help her out at home. She did get up and ambulate with no assistance here in the emergency room. Discharge Plan Discharge Stand Alone Forms: Portal Instructions Chief Complaint: Head Injury Clinical Impression: Closed head injury, Foot fracture, right Patient Disposition: Home, Self-Care Time of Disposition Decision: 12:01 Prescriptions / Home Meds: No Action buspirone 10 mg tablet 10 mg PO DAILY candesartan 32 mg tablet 32 mg PO DAILY carvedilol 6.25 mg tablet 6.25 mg PO DAILY famotidine 40 mg tablet 40 mg PO DAILY levothyroxine 25 mcg tablet 25 mcg PO DAILY montelukast 10 mg tablet 10 mg PO DAILY Print Language: Kazakh Additional Instructions: Follow-up with Dr. Peyman Earl on Friday for further evaluation of your foot. Ice/elevation Referrals: BART SCHULTZ DO [Primary Care Provider] - 1 week
--- NOTE | 2024-01-08 09:30 | XR_ITS ---
The [address] [address] Patient Name: LELA CHAIREZ MRN: [id number] date: 1940 Sex: F Assigned Patient Location: ER Current Patient Location: ER Accession/Order Number: [id number] Exam Date: 01/08/2024 09:56 Report Date: 01/08/2024 11:20 At the request of: BARON REYES Procedure: XR foot RT min 3V PROCEDURE: XR ankle RT min 3V, XR foot RT min 3V, XR knee RT 3V, 01/08/2024 9:56 AM EDT CLINICAL INDICATIONS: Traumatic injury, fall, right lower extremity abrasions, pain, weakness COMPARISON: None TECHNIQUE: Right knee 3 views. Right ankle 3 views. Right foot 3 views. FINDINGS: RIGHT KNEE: Generalized osteopenia noted. Tricompartment osteoarthrosis most apparent medial femoral-tibial and patellofemoral joint levels. Quadriceps enthesopathy. No knee effusion. Subcutaneous edema favored. Chondrocalcinosis seen. RIGHT ANKLE: Generalized osteopenia. Mild to moderate ankle osteoarthrosis seen. Minimal ossific irregularity inferior aspect of the medial malleolus. Age undetermined possibly remote. Ankle mortise is intact. No ankle effusion. Regional soft tissues normal. RIGHT FOOT: Acute closed traumatic avulsion fracture of the dorsal aspect of the tarsonavicular is likely. Localized soft tissue swelling at this level noted. Plantar calcaneal enthesopathy, mild calcific plantar fasciitis noted. Hallux valgus deformity with lateral subluxation and deviation of first phalanges is seen. Severe first metatarsophalangeal osteoarthrosis is noted with heterotopic calcification, median eminence hypertrophic change, heterotopic calcification and soft tissue swelling at this level. Intertarsal, tarsometatarsal and interphalangeal osteoarthrosis noted. There is likely hammertoe deformity of the forefoot. XR/XR foot RT min 3V IMPRESSION: 1. Acute closed traumatic avulsion fracture the dorsal tarsonavicular with mild distracted fragment, soft tissue swelling. 2. Ossific irregularity inferior medial malleolus. Avulsion fracture age-indeterminate considered. No localized soft tissue swelling at this level. 3. Generalized osteopenia without convincing sign of acute traumatic right knee pathology . 4. Osteoarthrosis of the right knee, ankle and foot as described. Right knee chondrocalcinosis noted. 5. Right quadriceps enthesopathy 6. Quadriceps and calcaneal enthesopathy, mild calcific plantar fasciitis. 7. Right foot hallux valgus deformity with lateral deviation, subluxation of first phalanges, median eminence hypertrophic change and heterotopic calcification. Possible hammertoe of the forefoot Electronically authenticated by: WILLIAM MARMOLEJO Date: 01/08/2024 11:20
--- NOTE | 2024-01-08 09:30 | XR_ITS ---
The [address] [address] Patient Name: LELA CHAIREZ MRN: [id number] date: 1940 Sex: F Assigned Patient Location: ER Current Patient Location: ER Accession/Order Number: [id number] Exam Date: 01/08/2024 09:56 Report Date: 01/08/2024 11:11 At the request of: BARON REYES Procedure: XR shoulder LT min 2V PROCEDURE: XR shoulder LT min 2V, 01/08/2024 9:56 AM EDT CLINICAL INDICATIONS: Traumatic injury and fall COMPARISON: None TECHNIQUE: Left shoulder, 3 views FINDINGS: Generalized osteopenia noted. Mild glenohumeral osteoarthrosis is seen. Superior glenohumeral subluxation is suspected. There is widening of the acromioclavicular joint up to 0.6 cm. Calcification adjacent to the greater tuberosity seen. Chest wall abnormality is not evident. Anterior superior endplate mid thoracic vertebral fracture identified. Anterior column involvement is seen. Age undetermined. Incompletely evaluated. Regional soft tissues are unremarkable. XR/XR shoulder LT min 2V IMPRESSION: 1. Generalized osteopenia, no acute traumatic osseous shoulder pathology 2. Mild superior glenohumeral subluxation, possible calcific rotator cuff tendinopathy. 3. Mild acromioclavicular joint space widening. Type II acromioclavicular strain considered, age undetermined. 4. Glenohumeral osteoarthrosis 5. Mid thoracic vertebral segment fracture, anterior column involvement, age undetermined, incompletely assessed Electronically authenticated by: WILLIAM MARMOLEJO Date: 01/08/2024 11:11
--- NOTE | 2024-01-08 09:30 | CT_ITS ---
The [address] [address] Patient Name: LELA CHAIREZ MRN: [id number] date: 1940 Sex: F Assigned Patient Location: ER Current Patient Location: ER Accession/Order Number: [id number] Exam Date: 01/08/2024 09:50 Report Date: 01/08/2024 10:56 At the request of: BARON REYES Procedure: CT head/brain wo con EXAMINATION: CT head/brain wo con HISTORY: fall COMPARISON: No relevant comparison available. TECHNIQUE: Axial CT images were obtained without IV contrast. Dose reduction techniques were achieved by using automated exposure control and/or adjustment of mA and/or kV according to patient size and/or use of iterative reconstruction technique. FINDINGS: BRAIN: No edema, hemorrhage, mass, acute infarction, or inappropriate atrophy. CSF SPACES: No hydrocephalus, subarachnoid hemorrhage, or mass. Appropriate for age. SKULL: No fracture, mass, or other significant visible lesion. SINUSES: Left maxillary chronic sinusitis. ORBITS: No appreciable abnormality on the limited views. OTHER: Subcutaneous bruising over left temporal region. CT/CT head/brain wo con IMPRESSION: 1. No acute cranial hemorrhage or acute abnormality brain. Age consistent chronic changes. 2. Left temporal region subcutaneous bruising. No fracture. Electronically authenticated by: ROBIN MITCHELL Date: 01/08/2024 10:56
--- NOTE | 2024-01-08 09:30 | XR_ITS ---
The [address] [address] Patient Name: LELA CHAIREZ MRN: [id number] date: 1940 Sex: F Assigned Patient Location: ER Current Patient Location: ER Accession/Order Number: [id number] Exam Date: 01/08/2024 09:56 Report Date: 01/08/2024 11:20 At the request of: BARON REYES Procedure: XR ankle RT min 3V PROCEDURE: XR ankle RT min 3V, XR foot RT min 3V, XR knee RT 3V, 01/08/2024 9:56 AM EDT CLINICAL INDICATIONS: Traumatic injury, fall, right lower extremity abrasions, pain, weakness COMPARISON: None TECHNIQUE: Right knee 3 views. Right ankle 3 views. Right foot 3 views. FINDINGS: RIGHT KNEE: Generalized osteopenia noted. Tricompartment osteoarthrosis most apparent medial femoral-tibial and patellofemoral joint levels. Quadriceps enthesopathy. No knee effusion. Subcutaneous edema favored. Chondrocalcinosis seen. RIGHT ANKLE: Generalized osteopenia. Mild to moderate ankle osteoarthrosis seen. Minimal ossific irregularity inferior aspect of the medial malleolus. Age undetermined possibly remote. Ankle mortise is intact. No ankle effusion. Regional soft tissues normal. RIGHT FOOT: Acute closed traumatic avulsion fracture of the dorsal aspect of the tarsonavicular is likely. Localized soft tissue swelling at this level noted. Plantar calcaneal enthesopathy, mild calcific plantar fasciitis noted. Hallux valgus deformity with lateral subluxation and deviation of first phalanges is seen. Severe first metatarsophalangeal osteoarthrosis is noted with heterotopic calcification, median eminence hypertrophic change, heterotopic calcification and soft tissue swelling at this level. Intertarsal, tarsometatarsal and interphalangeal osteoarthrosis noted. There is likely hammertoe deformity of the forefoot. XR/XR ankle RT min 3V IMPRESSION: 1. Acute closed traumatic avulsion fracture the dorsal tarsonavicular with mild distracted fragment, soft tissue swelling. 2. Ossific irregularity inferior medial malleolus. Avulsion fracture age-indeterminate considered. No localized soft tissue swelling at this level. 3. Generalized osteopenia without convincing sign of acute traumatic right knee pathology . 4. Osteoarthrosis of the right knee, ankle and foot as described. Right knee chondrocalcinosis noted. 5. Right quadriceps enthesopathy 6. Quadriceps and calcaneal enthesopathy, mild calcific plantar fasciitis. 7. Right foot hallux valgus deformity with lateral deviation, subluxation of first phalanges, median eminence hypertrophic change and heterotopic calcification. Possible hammertoe of the forefoot Electronically authenticated by: WILLIAM MARMOLEJO Date: 01/08/2024 11:20
--- NOTE | 2024-01-08 09:30 | XR_ITS ---
The [address] [address] Patient Name: LELA CHAIREZ MRN: [id number] date: 1940 Sex: F Assigned Patient Location: ER Current Patient Location: ER Accession/Order Number: [id number] Exam Date: 01/08/2024 09:56 Report Date: 01/08/2024 11:20 At the request of: BARON REYES Procedure: XR knee RT 3V PROCEDURE: XR ankle RT min 3V, XR foot RT min 3V, XR knee RT 3V, 01/08/2024 9:56 AM EDT CLINICAL INDICATIONS: Traumatic injury, fall, right lower extremity abrasions, pain, weakness COMPARISON: None TECHNIQUE: Right knee 3 views. Right ankle 3 views. Right foot 3 views. FINDINGS: RIGHT KNEE: Generalized osteopenia noted. Tricompartment osteoarthrosis most apparent medial femoral-tibial and patellofemoral joint levels. Quadriceps enthesopathy. No knee effusion. Subcutaneous edema favored. Chondrocalcinosis seen. RIGHT ANKLE: Generalized osteopenia. Mild to moderate ankle osteoarthrosis seen. Minimal ossific irregularity inferior aspect of the medial malleolus. Age undetermined possibly remote. Ankle mortise is intact. No ankle effusion. Regional soft tissues normal. RIGHT FOOT: Acute closed traumatic avulsion fracture of the dorsal aspect of the tarsonavicular is likely. Localized soft tissue swelling at this level noted. Plantar calcaneal enthesopathy, mild calcific plantar fasciitis noted. Hallux valgus deformity with lateral subluxation and deviation of first phalanges is seen. Severe first metatarsophalangeal osteoarthrosis is noted with heterotopic calcification, median eminence hypertrophic change, heterotopic calcification and soft tissue swelling at this level. Intertarsal, tarsometatarsal and interphalangeal osteoarthrosis noted. There is likely hammertoe deformity of the forefoot. XR/XR knee RT 3V IMPRESSION: 1. Acute closed traumatic avulsion fracture the dorsal tarsonavicular with mild distracted fragment, soft tissue swelling. 2. Ossific irregularity inferior medial malleolus. Avulsion fracture age-indeterminate considered. No localized soft tissue swelling at this level. 3. Generalized osteopenia without convincing sign of acute traumatic right knee pathology . 4. Osteoarthrosis of the right knee, ankle and foot as described. Right knee chondrocalcinosis noted. 5. Right quadriceps enthesopathy 6. Quadriceps and calcaneal enthesopathy, mild calcific plantar fasciitis. 7. Right foot hallux valgus deformity with lateral deviation, subluxation of first phalanges, median eminence hypertrophic change and heterotopic calcification. Possible hammertoe of the forefoot Electronically authenticated by: WILLIAM MARMOLEJO Date: 01/08/2024 11:20
--- NOTE | 2024-01-08 09:32 | XR_ITS ---
The [address] [address] Patient Name: LELA CHAIREZ MRN: [id number] date: 1940 Sex: F Assigned Patient Location: ER Current Patient Location: ER Accession/Order Number: [id number] Exam Date: 01/08/2024 09:56 Report Date: 01/08/2024 11:32 At the request of: BARON REYES Procedure: XR lumbar spine 2-3V PROCEDURE: XR lumbar spine 2-3V, XR hip RT 2V w/ pelvis, 01/08/2024 9:56 AM EDT CLINICAL INDICATIONS: Traumatic injury, fall, lumbar spine, right hip pain, weakness COMPARISON: None TECHNIQUE: Lumbar spine 2 views. AP pelvis right hip, 5 views. FINDINGS: LUMBAR SPINE: 5 lumbar type vertebral segments are seen with mild dextroconvex curvature, accentuated lumbar lordosis. There is grade 1 retrolisthesis; 0.8 cm L1-2 0.9 cm L2-3 0.5 cm L3-4 L4-5 interbody disc fusion, dorsal laminectomy, L4-S1 transpedicular screw and isis fixation, transverse stabilizer noted. There is fracture of the right proximal S1 pedicular screw, age undetermined. Additional hardware complication is not demonstrated. Multilevel disc degeneration spondylosis is severe throughout the lower thoracic, L1-L3 levels Acture of the proximal aspect of the sacral screw fixation likely on the right, Mid and lower lumbar facet arthropathy is seen. Convincing sign of acute fracture is not demonstrated. Paraspinal abnormality is not seen. Regional soft tissues normal. PELVIS: Generalized osteopenia the bony structures is noted. 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 Acute pelvic fracture is not demonstrated. Visualized sacral foramina and sacroiliac joints are symmetric. Pelvic and trochanteric enthesopathy is present bilaterally. Moderate left hip osteoarthrosis and chondrocalcinosis is seen. Pelvic phleboliths are seen. Regional soft tissues normal. RIGHT HIP: Severe right hip osteoarthrosis, [id number] abutment, marginal osteophytosis, buttressing the femoral neck is seen. Acute osseous pathology is not demonstrated. Regional soft tissues normal. XR/XR lumbar spine 2-3V IMPRESSION: 1. No convincing sign of acute traumatic osseous lumbar spine, pelvic or right hip pathology. If the hip pain persists or if the patient cannot bear weight on the hip, then an MRI may be of benefit in evaluation of a possible occult fracture. 2. Mild dextroconvex curvature, accentuated lumbar lordosis with L1 through L4 grade 1 anterior spondylolisthesis 3. L4-5 interbody disc fusion, L4 through S1 transpedicular screw, isis fixation, transverse stabilizer. There is a fracture of the proximal right S1 pedicular screw, age undetermined. 4. Multilevel lumbar spine disc degeneration, spondylosis most apparent lower thoracic through L3 levels. 5. Mid and lower lumbar facet arthropathy 6. 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 Pelvic and bilateral trochanteric enthesopathy 8. Severe right, moderate left hip osteoarthrosis with chondrocalcinosis Electronically authenticated by: WILLIAM MARMOLEJO Date: 01/08/2024 11:32
[2024-01-08 10:24] VITALS: BP 156/74; PULSE 72; O2SAT 97
== END 2024-01-08 12:15 | disposition home or self-care (01) ==
PROVIDERS: Emergency Provider Emergency Medicine Emergency Medical Services; PCP Internal Medicine
DX: S09.8XXA Other specified injuries of head, initial encounter (principal); S92.251A Displaced fracture of navicular [scaphoid] of right foot, initial encounter for closed fracture; W19.XXXA Unspecified fall, initial encounter
CPT/HCPCS: 70450; 72100; 73030; 73502; 73562; 73610; 73630; 99285

== ENCOUNTER 2024-02-27 10:20 | Outpatient (RCR) | payer MEDICARE, SELFPAY | END 2024-04-06 11:21 | disposition home or self-care (01) | LOC: PT 10:20 | PROVIDERS: PCP Internal Medicine; Visit Provider Internal Medicine | DX: R26.0 Ataxic gait (principal); R29.6 Repeated falls; R26.89 Other abnormalities of gait and mobility; R29.3 Abnormal posture | CPT/HCPCS: 97110; 97112; 97161; 97530 ==

== ENCOUNTER 2024-04-07 10:57 | Outpatient (OUT) | payer MEDICARE, SELFPAY ==
--- OUTSIDE RECORDS SUMMARY | 2024-04-07 11:16 | XMS_ITS | CCD ---
Author Organization [facility] Care Team Providers Care Chief Orthoptist Name Role Phone Bigg Schultz Primary Care Provider [phone] BIGG SCHULTZ JR Primary Care Physician MARION, DR ARRIAGA Primary Care Unavailable VALEUGENIA, DR ARRIAGA Admitting Unavailable VALEUGENIA, DR ARRIAGA Attending Unavailable VALONE, DR ARRIAGA Primary Care Unavailable VALONE, DR ARRIAGA Admitting Unavailable VALONE, DR ARRIAGA Attending Unavailable VALONE, DR ARRIAGA Consulting Unavailable VALONE, DR ARRIAGA Primary Care Unavailable VALONE, DR ARRIAGA Admitting Unavailable VALONE, DR ARRIAGA Attending Unavailable VALONE, DR ARRIAGA Consulting Unavailable ZiebBrady dove Consulting Unavailable MISC, DR FAIRCHILD Attending Unavailable MISC, DR FAIRCHILD Admitting Unavailable VALONE, DR ARRIAGA Primary Care Unavailable LIEBEYOGESH SHIRLEY Attending Unavailable CARRENO, Lyle Feldman Attending Unavailable CARRENO, Lyle Feldman Attending Unavailable Allergies Allergy Classification Reported Allergen(s) Allergy Type Date of Onset Reaction(s) Facility (1 source) Meperidine Drug Allergy 7 [facility] (1 source) Risedronate Drug Allergy 8 [facility] (1 source) Sertraline Drug Allergy 7 [facility] (1 source) Sulfonamides (Antibiotic) Propensity to adverse reactions 7 [facility] (5 sources) Tetracycline; Translations: [tetracycline] Drug Allergy 7 Unknown (qualifier value) [facility] (1 source) venlafaxine Drug Allergy 7 [facility] (4 sources) Citalopram; Translations: [citalopram] Drug Allergy Unknown (qualifier value) [facility] (4 sources) DULoxetine; Translations: [duloxetine] Drug Allergy Unknown (qualifier value) [facility] (4 sources) Meperidine; Translations: [meperidine] Drug Allergy Unknown (qualifier value) [facility] (4 sources) Sertraline; Translations: [sertraline] Drug Allergy Unknown (qualifier value) [facility] (4 sources) Sulfonamides (Antibiotic); Translations: [sulfa drugs] Drug allergy Unknown (qualifier value) [facility] (4 sources) telmisartan; Translations: [telmisartan] Drug Allergy Unknown (qualifier value) [facility] (4 sources) venlafaxine; Translations: [venlafaxine] Drug Allergy Unknown (qualifier value) [facility] (1 source) Citalopram Drug Allergy [facility] (1 source) DULoxetine Drug Allergy 5 [facility] (1 source) Meperidine Drug Allergy 3 [facility] (1 source) Sertraline Drug Allergy 3 [facility] (1 source) Sulfonamides (Antibiotic) Drug allergy (disorder) 3 [facility] (1 source) telmisartan Drug Allergy 3 [facility] (1 source) Tetracycline Drug Allergy 3 [facility] (1 source) venlafaxine Drug Allergy 3 [facility] Medications Current Medications Medication Drug Class(es) Dates [...] 1, Daily as needed for vaginal irritation, [facility]/pharmacy #[id number], 165, cm, 10/10/23 10:56:00 EDT, Height/Length Dosing, 55, kg, 10/10/23 10:56:00 EDT, Weight Dosing Start Date: 10/10/23 Status: Ordered empagliflozin 10 mg oral tablet (1 source) Sodium-Glucose Cotransporter 2 Inhibitor Start: 10-04-2022 Jardiance 10 mg oral tablet Refills(s) 0 Start Date: 10/04/22 Status: Ordered estrogens, conjugated (long term) 0.625 mg/ml vaginal cream (2 sources) Estrogen [...] 10/06/20 10:19:00 EDT, Height/Length Dosing, 70.5, kg, 10/06/20 10:19:00 EDT, Weight Dosing Start Date: 01/02/22 [...] Weight Dosing Start Date: 08/29/20 Status: Ordered Problems Active Problems Problem Classification Problem Date [...] [PAIN IN RIGHT SHOULDER] Onset: 11-22-2021 Episodic Results Test Name Value Interpretation Reference Range [...] MESA, Lyle Feldman Where: [facility] Consent for Procedure/Surger yon 10-10-2023 Consent for Procedure/Surgery [id number] [facility] Patient Educationon 10-10-19 24 Patient Education [...] Follow these instructions at home: ? Take qzlj-tip-ggsdame and prescription medicines only as told by [...] provider. Document Revised: 04/30/2022 Document Reviewed: 04/30/2022 [employer] Patient Education ? 2022 [employer]. Rahul [facility] Urology Office/Clinic Noteon 10-10-2023 Urology Office/Clinic Note [...] Tight The Urethra was dilated to: 22-32 Kinyarwanda with sounds. Specimens Removed: None Postoperative Information [...] When Contact Information PASQUALE MESA, Lyle Feldman, [place] [phone]- Additional Instructions: 6 mos for IO UD [...] (09/06/2019), Dila (more content not included)... Normal [facility] Comment on above: Result Comment: Elec tronically Signed By: PASQUALE MESA, Lyle Feldman\.br\Date and Time Signed: 10/10/23 11:27 EDT\.br\Electronically Co-Signed By: Kelly Hollis\Date and Time Co-Signed: 10/10/23 11:26 EDT MG MAMM SCREEN ROSANGELA W CADon 0 11-11-2022 MG MAMM SCREEN ROSANGELA W CAD Patient: LELA CHAIREZ Exam Date: 11/11/2022 : 1940 Gender:F Ordering : DR BIGG SCHULTZ D.O. Admission #: [id number] Family : Order #: [id number] CLICK HERE TO VIEW EXAM RADIOLOGY REPORT [...] age 53. LOCATION: [facility] BREAST COMPOSITION: Heterogeneously dense,which may obscure small [...] at 13:50 Normal [facility] ELECTROLYTESon 06-17-2022 Anion gap [Moles/Vol] 10.9 mmol/L Normal [facility] Comment on above: Performed By: #### E LEC, TSH #### [facility] [address] [place] [address] Dr. Lillian Hurley Chloride [Moles/Vol] 92 mmol/L Critically low 98-107 [facility] Comment on above: Performed By: #### E LEC, TSH #### [facility] [address] [address] [address] Lillian Hurley CO2 [Moles/Vol] 30.4 mmol/L Normal 21.0-32.0 [facility] Comment on above: Performed By: #### E LEC, TSH #### [facility] [address] [address] [address] Lillian Hurley Potassium [Moles/Vol] 4.3 mmol/L Normal 3.5-5.1 [facility] Comment on above: Performed By: #### E LEC, TSH #### [facility] [address] [place] [address] Dr. Lillian Hurley Sodium [Moles/Vol] 129 mmol/L Critically low 136-145 [facility] Comment on above: Performed By: #### E LEC, TSH #### [facility] [address] [place] [address] Dr. Lillian Hurley TSHon 06-17-2022 TSH 0.675 uIU/mL Normal 0.358-3.740 [facility] Comment on above: Performed By: #### E LEC, TSH #### [facility] [address] [place] [address] Dr. Lillian Hurley Otheron 12-22-2000 CONVERTED ELECTRONIC SIGNATURE GEN HENDRIX M.D., PATHOLOGIST (Electronic signature on file) Final Signed Out: 12/22/2000 14:36 [facility] CONVERTED FINAL DIAGNOSIS BONE, RIGHT ELBOW, EXCISION - SEGMENTS OF OSSEOUS TISSUE WITH CHANGES CONSISTENT WITH CHANGES OF DEGENERATIVE OSTEOARTHROPATHY. REACTIVE SYNOVIUM WITH FOCAL OLD HEMORRHAGE. [facility] CONVERTED ORDERING PROVIDER Ordering Provider: JOSE ALMONTE [facility] Vital Signs Date Time Vital Sign Value Performing Clinician Dion ryan 10-10-2023 10:54-0400 Blood Pressure Location Lyle CARRENO [facility] 10-10-2023 10:54-0400 Diastolic blood pressure 79 mm[Hg] Lyle CARRENO [facility] 10-10-2023 10:54-0400 Heart rate 73 /min Lylelexi CARRENO [facility] 10-10-2023 10:54-0400 Respiratory rate 16 /min Lylelexi CARRENO [facility] 10-10-2023 10:54-0400 Systolic blood pressure 127 mm[Hg] Lylelexi CARRENO [facility] 10-04-2022 10:17-0400 Blood Pressure Location Lyle CARRENO [facility] 10-04-2022 10:17-0400 Diastolic blood pressure 71 mm[Hg] Lyle CARRENO [facility] 10-04-2022 10:17-0400 Heart rate 60 /min Lylelexi CARRENO [facility] 10-04-2022 10:17-0400 Respiratory rate 16 /min Lyle CARRENO [facility] 10-04-2022 10:17-0400 Systolic blood pressure 125 mm[Hg] Lyle CARRENO [facility] Encounters Encounter Date Encounter Type Care Provider Facility Start: 05-03-2024 ambulatory Lyle Jacomei ty:[facility] Start: 10-10-2023 End: 10-11-2023 ambulatory Lyle CARRENO Facility:[facility] Start: 10-10-2023 End: 10-10-2023 Patient encounter procedure Lyle CARRENO [facility] Start: 09-30-2023 End: 09-30-2023 ambulatory YOGESH DEL REAL Not Available Start: 11-11-2022 End: 11-12-[address] BIGG SCHULTZ Facility:[facility] Start: 10-04-2022 End: 10-04-2022 Patient encounter procedure Lylelexi CARRENO [facility] Start: 06-17-2022 End: 06-18-[address] BIGG SCHULTZ Facility:[facility] Start: 01-03-2022 End: 01-31-[address] BIGG SCHULTZ Facility:[facility] Start: 11-22-2021 End: 12-15-[address] DOCTOR COREAS Facility:[facility] Start: 10-01-2021 End: 10-01-2021 Patient encounter procedure Lyle CARRENO [facility] Start: 12-16-1920 End: 12-16-1920 Patient encounter procedure Jose Almonte Work Phone: [facility] Start: 12-16-1920 Results Only Jose Almonte Work Phone: [facility] Procedures Date Procedure Procedure Detail Performing Clinician Start: 10-01-2021 Dilation of urethra Pat lexi CARRENO Start: 09-06-2019 Dilation of urethra Pat lexi CARRENO Start: 11-16-2018 Dilation of urethra Pat lexi CARRENO Start: 05-18-2018 Dilation of urethra Pat lexi CARRENO Start: 11-17-2017 Dilation of urethra Pat lexi CARRENO Start: 05-19-2017 Dilation of urethra Pat lexi CARRENO Start: 09-10-2016 Cystourethroscopy wi dilation of urethral stricture Lyle CARRENO Start: 07-15-2016 Dilation of urethra Pat lexi CARRENO Start: 07-21-2015 Dilation of urethra Rosa CARRENO Start: 07-18-2014 Dilation of urethra Rosa CARRENO Start: 12-27-2013 Dilation of urethra Rosa CARRENO Start: 07-14-2013 Procedure on neck Patri pernell CARRENO Start: 06-11-2013 Dilation of urethra Rosa CARRENO Start: 08-07-2009 Dilation of urethra Rosa CARRENO Start: 09-04-2006 [facility]roscopy [facility] dilation of urethral stricture Lyle CARRENO Start: 12-16-1920 CONVERTED SURGICAL PATHOLOGY Jose Feldman [place] Work Phone: Appendectomy Lyle CARRENO Breast biopsy and re lated procedures Lyle CARRENO Cataract surgery Lyle CARBALLO Colonoscopy Lyle CARRENO Dilation of urethra Lyle CARRENO Excision of lipoma Lyle FLORES eyelid lift Lyle CARRENO Hysterectomy Lyle CARRENO Nasal sinus procedure Andrea k PASQUALE Plantar fasciectomy Lyle CARRENO Procedure on elbow Lyle W ATERS Procedure on retina Lyle CARRENO Repair of single tendon Rosar katerin CARRENO Plan of Treatment Date Care Activity Detail Author Start: 03-07-2020 Influenza vaccination INFLUENZA (#1) [facility] Start: 01-26-2010 DIABETES SCREEN DIABETES SCREEN [facility] Start: 2003 ADVANCE DIRECTIVE DISCUSSION ADVANCE DIRECTIVE DISCUSSION [facility] Start: 2003 BONE DENSITY BONE DENSITY [facility] Start: 2003 PNEUMOVAX AGE 65 AND OVER WITH 5YR LOOKBACK (#1) PNEUMOVAX AGE 65 AND OVER WITH 5YR LOOKBACK (#1) [facility] Start: 1988 SHINGRIX VACCINE (1 of 2) LOBATO GRIX VACCINE (1 of 2) [facility] Start: 1957 Urine microalbumin profile DTAP,TDAP ,TD (1 - Tdap) [facility] Immunizations Immunization Date Immunization Notes Care Provider Fa keyanna 04-18-2023 influenza virus vacc ine, unspecified formulation Lyle CARRENO [facility] 03-29-2022 SARS-CoV-2 (COVID-19 ) [id number] Lyle CARRENO [facility] Comment on above: Result Comment: 2023: [id number] 11-02-2021 SARS-CoV-2 mRNA (zdcogxzjbcd-bimb-ximuit e) vaccine Lyle CARRENO [facility] Comment on above: Result Comment: 2023: TPV80 04-16-2021 SARS-CoV-2 (COVID-19 ) mRNA BNT-162b2 vax Lyle CARRENO [facility] Comment on above: Result Comment: 2023: TPV80 08-23-2020 SARS-CoV-2 (COVID-19 ) mRNA BNT-162b2 vax Lyle CARRENO [facility] 07-31-2020 SARS-CoV-2 (COVID-19 ) mRNA BNT-162b2 vax Lyel CARRENO [facility] Comment on above: Result Comment: 2nd dose given 08/23/2020 07-23-2018 zoster vaccine recombinant Lyle CARRENO [facility] 11-28-2017 zoster vaccine recombinant Lyle CARRENO [facility] 03-23-2014 pneumococcal polysaccharide vaccine, 23 valent Lyle CARRENO [facility] 05-05-2013 zoster vaccine, live Lyle CARRENO [facility] 04-25-2009 influenza, whole Lyle CONKLIN HARIS [facility] Payers Date Payer Category Payer Medicare [id number] 1961 Medicare [id number] 1940 Unknown [id number] 2.16.84 [id number] 1940 Unknown [id number] 2.16.84 [id number] 1940 Unknown [id number] 2.16.84 [id number] 1940 Unknown [id number] 2.16.84 [id number] 1940 Unknown [id number] 2.16.84 [id number] 1940 Unknown [id number] 2.16.8 [id number] 1940 Unknown [id number] 2.16.8 [id number] Social History Date Type Detail Facility Tobacco smoking stat [facility] Unknown if ever smoked [facility] Sex Assigned At Not on file [facility] Start: 09-06-2019 End: 10-10-2023 Tobacco smoking status Never smoked tobacco (finding) [facility] Sex Assigned At Female [facility] Tobacco smoking status Never [facility] Functional Status Date Assessment Result Facility 10-10-2023 Functional Status N/A [facility] 10-04-2022 Functional Status N/A [facility] Hospital Discharge instructions 10-10-2023 Note Date & [...] reconstructed. Follow these instructions at home: Take dpcl-hhj-rovyiqb and prescription medicines only as told by [...] provider. Document Revised: 04/30/2022 Document Reviewed: 04/30/2022 [employer] Patient Education 2022 [employer]. Follow Up Care 10/04/2022 10:57:38 With:PASQUALE MESA, Lyle Feldman, URL Address: [address] [place], [place] [id number]- When: Unknown [facility] Hospital Discharge instructions 10-04-2022 Note Date [...] including vitamins, herbs, eye drops, creams, and vugw-okn-tnqqwfo medicines. Any problems you or family members [...] provider tells you to take them. Taking rslv-rkg-xueoowv medicines, vitamins, herbs, and supplements. General instructions [...] Follow these instructions at home: Medicines Take nhdo-qkd-gdbimoo and prescription medicines only as told by [...] actions to prevent or treat constipation: ?Take zrsw-ilt-okwujpx or prescription medicines. ?Eat foods that are [...] 07/19/2016 Document Revised: 08/05/2019 Document Reviewed: 08/05/2019 Elsevier Patient Education 2020 [employer] Follow Up Care 10/01/2021 13:26:16 With:PASQUALE MESA, Lyle Feldman, URL Address: [address] [place] [address] When: Unknown [facility] Hospital Discharge instructions 10-01-2021 Note Date [...] reconstructed. Follow these instructions at home: Take alhz-yym-swjrvxv and prescription medicines only as told by [...] 07/19/2016 Document Revised: 02/03/2019 Document Reviewed: 02/03/2019 [employer] Patient Education 2020 [employer]. [facility] [employer] Evaluation + Plan note Note Date & Type Note Facility Evaluation + Plan note Future Appointments Appointment Date:10/04/2022 09:45:00 AM Scheduled Provider:Lyle CARRENO MD Location:[facility] Appointment Type:URO Office Visit [facility] [employer] Evaluation + Plan note Note Date & Type Note Facility Evaluation + Plan note Future Appointments Appointment Date:10/10/2023 10:15:00 AM Scheduled Provider:Lyle CARRENO MD Location:[facility] Appointment Type:URO Office Visit [facility] [employer] Evaluation + Plan note Note Date & Type Note Facility Evaluation + Plan note Future Appointments Appointment Date:05/03/2024 09:15:00 AM Scheduled Provider:Lyle CARRENO MD Location:[facility] Appointment Type:URO Office Visit [facility] [employer] Hospital course Narrative Note Date & Type Note Facility Hospital course Narrative No data available for this section [facility] [employer] Progress note Note Date & Type Note Facility Progress note No data available for this section [facility] [employer] Summary Purpose Family History No Family History [...] or prosecute any alcohol or drug abuse patient.[facility] Patient Care team informatio n (unrecognized section and content) Personnel Name: BIGG SCHULTZ JR, DO Address: Address: [address] [place] [phone] Personnel Name: BIGG SCHULTZ JR, DO Address: Address: [address] [place] [id number] INFORMATION SOURCE (unrecogn ized section and content) DATE CREATED AUTHOR 11/15/2022 [facility] DATE CREATED AUTHOR AUTHOR'S ORGANIZ ATION 10/02/2023 [facility] DATE CREATED AUTHOR AUTHOR'S ORGANIZ ATION 10/10/2023 [facility] FOR RECORDS PERTAINING TO PATIENTS WHO ARE [...] BE BASED ON THE PRIMARY CLINICAL RECORDS. [facility] [employer] provides no warranty or guarantee of the accuracy or completeness of information in this document.
--- NOTE | 2024-04-07 11:42 | P.CN_ITS ---
Consult Note: HPI Data of Consult Patient: new to practice Requesting Physician: Zakia Claros NP Primary Care Provider: BART SCHULTZ DO Consult Narrative Reason for consult: cervical radiculopathy Narrative: Hailey Cheng a pleasant 84 year old female presents for evaluation of cervical radiculopathy. Patient has a longstanding hx of neck pain and generalized pain, had 3 falls without injury January 2024 and has had increased pain since. Patient has had a C5-6 C6-7 fusion in 2013, aslo hx of right elbow replacement in 2000. Patient has been following with her PC and has completed 6 weeks of PT without improvement, mild relief with baclofen 5mg HS PRN gabapentin 100ma AM, tylenol 500-1000mg daily, CBD oil, voltaren cream HS with mild improvement. Patient rating pain 5-6 grabbing shooting lightening bolt pain 5- 6/10 increasing to 8/10 with reaching, pushing, pulling, learning on her arm, and lifting. Pain improved with massage heat and ice. no advanced imaging available for review. cc:: CC: Zakia Claros NP Review of Systems ROS Status of ROS 10 or more systems reviewed and unremark able except as noted in history and below Musculoskeletal Reports: neck pain and extremity pain Meds Home Medications and Allergies Home Medications ?Medication ?Instructions ?Recorded ?Confirmed ?Type buspirone 10 mg tablet 10 mg PO DAILY 01/08/24 01/08/24 History candesartan 32 mg tablet 32 mg PO DAILY 01/08/24 01/08/24 History carvedilol 6.25 mg tablet 6.25 mg PO DAILY 01/08/24 01/08/24 History famotidine 40 mg tablet 40 mg PO DAILY 01/08/24 01/08/24 History levothyroxine 25 mcg tablet 25 mcg PO DAILY 01/08/24 01/08/24 History montelukast 10 mg tablet 10 mg PO DAILY 01/08/24 01/08/24 History Allergies Allergy/AdvReac Type Severity Reaction Status Date / Time Unable to Assess Allergy Verified 01/08/24 09:16 Exam Constitutional Documenting provider has reviewed patient's vital signs: yes Common normals: no apparent distress, oriented x3, healthy appearing, alert and well nourished General appearance: cooperative HENMT Common normals: normocephalic, hearing grossly normal bilaterally and moist oral mucous membranes Head and scalp: normocephalic Eye Common normals: PERRL Pupil: PERRL Neck & C-Spine Common normals: full ROM General: normal visual inspection Cervical spine: pain with cervical ROM and cervical spine tenderness; no paracervical muscle tenderness, no paracervical muscle spasm and no trapezius muscle tenderness Other: positive spurlings strength 3.5/5 in RUE 5/5 in LUE decreased sensation to right C5,6,7 pattern Chest Common normals: inspection of chest normal Respiratory Common normals: normal respiratory effort, no retractions and no use of accessory muscles Neuro Common normals: oriented x3, CN's II-XII intact bilaterally, moves all extremities, no focal motor deficits, no sensory deficits noted and deep tendon reflexes 2+ bilaterally Sensorium/orientation: alert Motor exam: strength 5/5 throughout and no movement abnormalities noted Psych Common normals: mental status grossly normal, thought process normal, cooperative, affect normal, speech normal and activity/motor behavior normal Speech: normal speech Thought process: normal thought process Results Additional Findings Additional findings: If on a controlled substance or opioids, I have checked an OARRS report on this patient and there are no aberrancies noted in the prescribing history.??If on a controlled substance or opioid a drug screen was completed and reviewed within the last year, and if there has not been a drug screen completed we ordered one today to monitor higher risk, state monitored pain medication use. As part of providing excellent, safe, comprehensive care, the following was completed at our patient's visit: 1. A medication reconciliation and review to ensure accurate knowledge of c urrent/active medications, including asking our patients to inform us about any ldyl-ofy-okobyig medications or herbal remedies/nutritional supplements/alternative remedies. 2. A review to specifically ensure our patients have had annual screening for screening for depression, screening for tobacco use, and screening for unhealthy alcohol use. For concerning screenings had a discussion with the patient, provided patient education, and recommended follow-up with primary care provider when appropriate. If patient noted with a risk of falling, they received education on strength, gait, and balance training to prevent future risk of falling. Assessment and Plan Assessment and Plan (1) Cervical radiculopathy: (2) Status post cervical spinal fusion: Plan update cervical MRI without contrast to evaluate cervical radiculopathy unresponsive to greater than 6 weeks of PT, tylenol, heat/ice, and rest. 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
== END 2024-04-07 10:58 | disposition home or self-care (01) ==
LOC: PM 10:57
PROVIDERS: PCP Internal Medicine; Visit Provider Nurse Practitioner
DX: M54.12 Radiculopathy, cervical region (principal); M43.22 Fusion of spine, cervical region
CPT/HCPCS: G0463

== ENCOUNTER 2024-04-13 07:33 | Outpatient (OUT) | payer MEDICARE, SELFPAY ==
--- OUTSIDE RECORDS SUMMARY | 2024-04-13 07:37 | XMS_ITS | CCD ---
Author Organization [facility] Care Team Providers Care Fisher Line Name Role Phone Bigg Schultz Primary Care [...] Facility (1 source) Meperidine Drug Allergy 7 [facility] (1 source) Risedronate Drug Allergy 8 [facility] (1 source) Sertraline Drug Allergy 7 [facility] (1 source) Sulfonamides (Antibiotic) Propensity to adverse reactions 7 [facility] (5 sources) Tetracycline; Translations: [tetracycline] Drug Allergy 7 Unknown (qualifier value) [facility] (1 source) venlafaxine Drug Allergy 7 [facility] (4 sources) Citalopram; Translations: [citalopram] Drug Allergy Unknown (qualifier value) [facility] (4 sources) DULoxetine; Translations: [duloxetine] Drug Allergy Unknown (qualifier value) [facility] (4 sources) Meperidine; Translations: [meperidine] Drug Allergy Unknown (qualifier value) [facility] (4 sources) Sertraline; Translations: [sertraline] Drug Allergy Unknown (qualifier value) [facility] (4 sources) Sulfonamides (Antibiotic); Translations: [sulfa drugs] Drug allergy Unknown (qualifier value) [facility] (4 sources) telmisartan; Translations: [telmisartan] Drug Allergy Unknown (qualifier value) [facility] (4 sources) venlafaxine; Translations: [venlafaxine] Drug Allergy Unknown (qualifier value) [facility] (1 source) Citalopram Drug Allergy [facility] (1 source) DULoxetine Drug Allergy 5 [facility] (1 source) Meperidine Drug Allergy 3 [facility] (1 source) Sertraline Drug Allergy 3 [facility] (1 source) Sulfonamides (Antibiotic) Drug allergy (disorder) 3 [facility] (1 source) telmisartan Drug Allergy 3 [facility] (1 source) Tetracycline Drug Allergy 3 [facility] (1 source) venlafaxine Drug Allergy 3 [facility] Medications Current Medications Medication Drug Class(es) [...] 1, Daily as needed for vaginal irritation, [facility]/pharmacy #[id number], 165, cm, 10/10/23 10:56:00 EDT, Height/Length Dosing, 55, kg, 10/10/23 10:56:00 EDT, Weight Dosing Start Date: 10/10/23 Status: Ordered empagliflozin 10 mg oral tablet (1 source) Sodium-Glucose Cotransporter 2 Inhibitor Start: 10-04-2022 Jardiance 10 mg oral tablet Refills(s) 0 Start Date: 10/04/22 Status: Ordered estrogens, conjugated (alf) 0.625 mg/ml vaginal cream (2 sources) Estrogen [...] MESA, Lyle Feldman Where: [facility] Consent for Procedure/Surger yon 10-10-2023 Consent for Procedure/Surgery [id number] [facility] Patient Educationon 10-10-19 24 Patient Education [...] Follow these instructions at home: ? Take wota-wxe-uqyouuu and prescription medicines only as told by [...] provider. Document Revised: 04/30/2022 Document Reviewed: 04/30/2022 [employer] Patient Education ? 2022 [email or web address]. Rahul [facility] Urology Office/Clinic Noteon 10-10-2023 Urology Office/Clinic Note [...] Tight The Urethra was dilated to: 22-32 Indonesian with sounds. Specimens Removed: None Postoperative Information [...] When Contact Information PASQUALE MESA, Lyle Feldman, [place] [id number]- Additional Instructions: 6 mos for IO UD [...] (09/06/2019), Dila (more content not included)... Normal [facility] Comment on above: Result Comment: Elec tronically Signed By: PASQUALE MESA, Lyle Feldman\.br\Date and Time Signed: 10/10/23 11:27 EDT\.br\Electronically Co-Signed By: Kelly Hollis\Date and Time Co-Signed: 10/10/23 11:26 EDT MG MAMM SCREEN ROSANGELA W CADon 0 11-11-2022 MG MAMM SCREEN ROSANGELA W CAD Patient: LELA CHAIREZ Exam Date: 11/11/2022 : 1940 Gender:F Ordering : DR BIGG SCHULTZ D.O. Admission #: [id number] Family : Order #: [id number] CLICK HERE TO VIEW EXAM RADIOLOGY REPORT [...] lung cancer at age 53. LOCATION: [facility] BREAST COMPOSITION: Heterogeneously dense,which may obscure small [...] M.D. on 11/11/2022 at 13:50 Normal [facility] ELECTROLYTESon 06-17-2022 Anion gap [Moles/Vol] 10.9 mmol/L Normal [facility] Comment on above: Performed By: #### E LEC, TSH #### [facility] [address] [place] [address] Dr. Lillian Hurley Chloride [Moles/Vol] 92 mmol/L Critically low 98-107 [facility] Comment on above: Performed By: #### E LEC, TSH #### [facility] [address] [address] [address] Lillian Hurley CO2 [Moles/Vol] 30.4 mmol/L Normal 21.0-32.0 [facility] Comment on above: Performed By: #### E LEC, TSH #### [facility] [address] [address] [address] Lillian Hurley Potassium [Moles/Vol] 4.3 mmol/L Normal 3.5-5.1 [facility] Comment on above: Performed By: #### E LEC, TSH #### [facility] [address] [place] [address] Dr. Lillian Hurley Sodium [Moles/Vol] 129 mmol/L Critically low 136-145 [facility] Comment on above: Performed By: #### E LEC, TSH #### [facility] [address] [place] [address] Dr. Lillian Hurley TSHon 06-17-2022 TSH 0.675 uIU/mL Normal 0.358-3.740 [facility] Comment on above: Performed By: #### E LEC, TSH #### [facility] [address] [place] [address] Dr. Lillian Hurley Otheron 12-22-2000 CONVERTED ELECTRONIC SIGNATURE GEN HENDRIX M.D., PATHOLOGIST (Electronic signature on file) Final Signed Out: 12/22/2000 14:36 [facility] CONVERTED FINAL DIAGNOSIS BONE, RIGHT ELBOW, EXCISION - SEGMENTS OF OSSEOUS TISSUE WITH CHANGES CONSISTENT WITH CHANGES OF DEGENERATIVE OSTEOARTHROPATHY. REACTIVE SYNOVIUM WITH FOCAL OLD HEMORRHAGE. [facility] CONVERTED ORDERING PROVIDER Ordering Provider: JOSE ALMONTE [facility] Vital Signs Date Time Vital Sign Value Performing Clinician Dion ryan 10-10-2023 10:54-0400 Blood Pressure Location Lyle CARRENO [facility] 10-10-2023 10:54-0400 Diastolic blood pressure 79 mm[Hg] Lyle CARRENO [facility] 10-10-2023 10:54-0400 Heart rate 73 /min Lylelexi CARRENO [facility] 10-10-2023 10:54-0400 Respiratory rate 16 /min Lylelexi CARRENO [facility] 10-10-2023 10:54-0400 Systolic blood pressure 127 mm[Hg] Lylelexi CARRENO [facility] 10-04-2022 10:17-0400 Blood Pressure Location Lyle CARRENO [facility] 10-04-2022 10:17-0400 Diastolic blood pressure 71 mm[Hg] Lyle CARRENO [facility] 10-04-2022 10:17-0400 Heart rate 60 /min Lylelexi CARRENO [facility] 10-04-2022 10:17-0400 Respiratory rate 16 /min Lyle CARRENO [facility] 10-04-2022 10:17-0400 Systolic blood pressure 125 mm[Hg] Lyle CARRENO [facility] Encounters Encounter Date Encounter Type Care Provider Facility Start: 05-03-2024 ambulatory Lyle Jacomei ty:[facility] Start: 10-10-2023 End: 10-11-2023 ambulatory Lyle CARRENO Facility:[facility] Start: 10-10-2023 End: 10-10-2023 Patient encounter procedure Lyle CARRENO [facility] Start: 09-30-2023 End: 09-30-2023 ambulatory YOGESH DEL REAL Not Available Start: 11-11-2022 End: 11-12-[address] BIGG SCHULTZ Facility:[facility] Start: 10-04-2022 End: 10-04-2022 Patient encounter procedure Lylelexi CARRENO [facility] Start: 06-17-2022 End: 06-18-[address] BIGG SCHULTZ Facility:[facility] Start: 01-03-2022 End: 01-31-[address] BIGG SCHULTZ Facility:[facility] Start: 11-22-2021 End: 12-15-[address] DOCTOR COREAS Facility:[facility] Start: 10-01-2021 End: 10-01-2021 Patient encounter procedure Lyle CARRENO [facility] Start: 12-16-1920 End: 12-16-1920 Patient encounter procedure Jose Almonte Work Phone: [facility] Start: 12-16-1920 Results Only Jose Almonte Work Phone: [facility] Procedures Date Procedure Procedure Detail Performing [...] of urethra Rosa CARRENO Start: 09-04-2006 [facility]ral stricture Lyle CARRENO [...] Author Start: 03-07-2020 Influenza vaccination INFLUENZA (#1) [facility] Start: 01-26-2010 DIABETES SCREEN DIABETES SCREEN [facility] Start: 2003 ADVANCE DIRECTIVE DISCUSSION ADVANCE DIRECTIVE DISCUSSION [facility] Start: 2003 BONE DENSITY BONE DENSITY [facility] Start: 2003 PNEUMOVAX AGE 65 AND OVER WITH 5YR LOOKBACK (#1) PNEUMOVAX AGE 65 AND OVER WITH 5YR LOOKBACK (#1) [facility] Start: 1988 SHINGRIX VACCINE (1 of 2) LOBATO GRIX VACCINE (1 of 2) [facility] Start: 1957 Urine microalbumin profile DTAP,TDAP ,TD (1 - Tdap) [facility] Immunizations Immunization Date Immunization Notes Care Provider Fa keyanna 04-18-2023 influenza virus vacc ine, unspecified formulation Lyle CARRENO [facility] 03-29-2022 SARS-CoV-2 (COVID-19 ) [id number] Lyle CARRENO [facility] Comment on above: Result Comment: 2023: [id number] 11-02-2021 SARS-CoV-2 mRNA (snebcmdiyrn-ljuz-cwfpig e) vaccine Lyle CARRENO [facility] Comment on above: Result Comment: 2023: TPV80 04-16-2021 SARS-CoV-2 (COVID-19 ) mRNA BNT-162b2 vax Lyle CARRENO [facility] Comment on above: Result Comment: 2023: TPV80 08-23-2020 SARS-CoV-2 (COVID-19 ) mRNA BNT-162b2 vax Lyle CARRENO [facility] 07-31-2020 SARS-CoV-2 (COVID-19 ) mRNA BNT-162b2 vax Lyle CARRENO [facility] Comment on above: Result Comment: 2nd dose given 08/23/2020 07-23-2018 zoster vaccine recombinant Lyle CARRENO [facility] 11-28-2017 zoster vaccine recombinant Lyle CARRENO [facility] 03-23-2014 pneumococcal polysaccharide vaccine, 23 valent Lyle CARRENO [facility] 05-05-2013 zoster vaccine, live Lyle CARRENO [facility] 04-25-2009 influenza, whole Lyle CONKLIN HARIS [facility] Payers Date Payer Category Payer Medicare [id number] 1961 Medicare [id number] 1940 Unknown [id number] 2.16.84 [id number] 1940 Unknown [id number] 2.16.84 [id number] 1940 Unknown [id number] 2.16.84 [id number] 1940 Unknown [id number] 2.16.84 [id number] 1940 Unknown [id number] 2.16.84 [id number] 1940 Unknown [id number] 2.16.8 [id number] 1940 Unknown [id number] 2.16.8 [id number] Social History Date Type Detail Facility Tobacco smoking stat [facility] Unknown if ever smoked [facility] Sex Assigned At Not on file [facility] Start: 09-06-2019 End: 10-10-2023 Tobacco smoking status Never smoked tobacco (finding) [facility] Sex Assigned At Female [facility] Tobacco smoking status Never [facility] Functional Status Date Assessment Result Facility 10-10-2023 Functional Status N/A [facility] 10-04-2022 Functional Status N/A [facility] Hospital Discharge instructions 10-10-2023 Note Date [...] reconstructed. Follow these instructions at home: Take drdn-cog-hqgeyvh and prescription medicines only as told by [...] provider. Document Revised: 04/30/2022 Document Reviewed: 04/30/2022 [employer] Patient Education 2022 [email or web address]. Follow Up Care 10/04/2022 10:57:38 With:PASQUALE MESA, Lyle Feldman, URL Address: [address] [place], [place] [id number]- When: Unknown [facility] Hospital Discharge instructions 10-04-2022 Note Date [...] including vitamins, herbs, eye drops, creams, and uwxt-lzy-dqkbuit medicines. Any problems you or family members [...] provider tells you to take them. Taking hvdv-zkl-sasgqmf medicines, vitamins, herbs, and supplements. General instructions [...] Follow these instructions at home: Medicines Take gwtu-upc-feelyrl and prescription medicines only as told by [...] actions to prevent or treat constipation: ?Take mahy-ugv-spssshr or prescription medicines. ?Eat foods that are [...] Document Reviewed: 08/05/2019 Elsevier Patient Education 2020 [employer] Follow Up Care 10/01/2021 13:26:16 With:PASQUALE MESA, Lyle Feldman, URL Address: [address] [place] [id number]- When: Unknown [facility] Hospital Discharge instructions 10-01-2021 Note Date [...] reconstructed. Follow these instructions at home: Take yhsb-rjb-qaxcbfs and prescription medicines only as told by [...] 07/19/2016 Document Revised: 02/03/2019 Document Reviewed: 02/03/2019 [employer] Patient Education 2020 [email or web address]. [facility] [place] Evaluation + Plan note Note Date & Type Note Facility Evaluation + Plan note Future Appointments Appointment Date:10/04/2022 09:45:00 AM Scheduled Provider:Lyle CARRENO MD Location:[facility] Appointment Type:URO Office Visit [facility] [place] Evaluation + Plan note Note Date & Type Note Facility Evaluation + Plan note Future Appointments Appointment Date:10/10/2023 10:15:00 AM Scheduled Provider:Lyle CARRENO MD Location:[facility] Appointment Type:URO Office Visit [facility] [place] Evaluation + Plan note Note Date & Type Note Facility Evaluation + Plan note Future Appointments Appointment Date:05/03/2024 09:15:00 AM Scheduled Provider:Lyle CARRENO MD Location:[facility] Appointment Type:URO Office Visit [facility] Hospital course Narrative Note Date & Type Note Facility Hospital course Narrative No data available for this section [facility] Progress note Note Date & Type Note Facility Progress note No data available for this section [facility] Summary Purpose Family History No Family History [...] or prosecute any alcohol or drug abuse patient.[facility] Patient Care team informatio n (unrecognized section and content) Personnel Name: BIGG SCHULTZ JR, DO Address: Address: [address] [place] [id number] Personnel Name: BIGG SCHULTZ JR, DO Address: Address: [address] [place] [id number] INFORMATION SOURCE (unrecogn ized section and content) DATE CREATED AUTHOR 11/15/2022 [facility] DATE CREATED AUTHOR AUTHOR'S ORGANIZ ATION 10/02/2023 [facility] DATE CREATED AUTHOR AUTHOR'S ORGANIZ ATION 10/10/2023 [facility] FOR RECORDS PERTAINING TO PATIENTS WHO ARE [...] BE BASED ON THE PRIMARY CLINICAL RECORDS. [facility] [employer] provides no warranty or guarantee of the accuracy or completeness of information in this document.
--- NOTE | 2024-04-13 07:43 | MR_ITS ---
The [address] [address] Patient Name: LELA CHAIREZ MRN: [facility]:[id number] date: 1940 Sex: F Assigned Patient Location: MRI Current Patient Location: MRI Accession/Order Number: [id number] Exam Date: 04/13/2024 07:52 Report Date: 04/13/2024 15:24 At the request of: HAIR CRUMP Procedure: MR cervical spine wo con EXAM: MR cervical spine wo con HISTORY: Cervical Radiculopathy COMPARISON: None. TECHNIQUE: Multiplanar multisequence MR imaging of the cervical spine was performed without intravenous contrast. FINDINGS: Alignment: There is straightening of the normal cervical lordosis. Approximately 3 mm anterolisthesis of C6 on C7 and trace anterolisthesis of C7 on T1. Vertebrae: Chronic minimal anterior wedging of C7. No marrow signal abnormality to suggest neoplasm. Spinal cord: Spinal cord demonstrates normal signal and contour. Craniocervical junction: Prominent soft tissue enhancement circumferentially surrounding the dens with associated cystic change of the dens and significant dental erosive change which does place patient at increased risk for fracture. The pannus measures approximately 9.4 mm in AP diameter moderately narrowing the craniocervical junction. Degenerative changes: C1-C2: Mild degenerative change of the C1-C2 articulation bilaterally. C2-C3: No substantial canal or foraminal stenosis. C3-C4: Mild bilateral uncovertebral arthropathy. Moderate right and mild left facet arthropathy. No substantial canal stenosis at mild left and minimal right foraminal stenosis. C4-C5: Mild bilateral uncovertebral arthropathy with minimal posterior disc osteophyte complex. Moderate to advanced bilateral facet arthropathy. Moderate canal stenosis. Moderate left and siyx-de-fyggqmef right foraminal stenosis. C5-C6: Fusion across the disc space. Mild to moderate bilateral uncovertebral and moderate left, mild right facet arthropathy. Bnxs-ij-lrmiwjbr canal stenosis. Moderate left and mild/moderate right foraminal stenosis. C6-C7: Advanced disc height loss with uncovering of the disks secondary to anterolisthesis. Advanced uncovertebral arthropathy. Moderate to advanced left facet arthropathy. Mild right facet arthropathy. Mild canal stenosis. Moderate to advanced bilateral foraminal stenosis. C7-T1: Moderate left uncovertebral arthropathy. Moderate left facet arthropathy. No substantial canal stenosis. Moderate left foraminal stenosis. No substantial canal or foraminal stenosis. Visualized portion of the thoracic spine: Disc bulge resulting in moderate canal stenosis with superimposed facet arthropathy and thickening of ligamentum flavum at T1-T2. Visualized soft tissues of the neck appear grossly unremarkable. MR/MR cervical spine wo con IMPRESSION: 1. Prominent circumferential soft tissue pannus surrounding the dens with dental erosive change and cystic change involving the central dense with resulting moderate narrowing of the craniocervical junction. No overt fractures seen at this time although this does place patient at increased risk for dens fracture. This finding is nonspecific most commonly relating to sequela of calcium pyrophosphate deposition disorder of the seen in the setting of other spondyloarthropathies. 2. Moderate degenerative change of the cervical spine with moderate canal stenosis at C4-C5 and to a lesser extent C5-C6. 3. There are degrees of foraminal stenosis, moderate and/or advanced at multiple levels. 4. No abnormal spinal cord signal. Electronically authenticated by: JAI HEATH Date: 04/13/2024 15:24
== END 2024-04-13 07:34 | disposition home or self-care (01) ==
LOC: MRI 07:34
PROVIDERS: PCP Internal Medicine; Visit Provider Nurse Practitioner
DX: M54.12 Radiculopathy, cervical region (principal); M48.02 Spinal stenosis, cervical region
CPT/HCPCS: 72141

== ENCOUNTER 2024-04-27 09:45 | Outpatient (OUT) | payer MEDICARE, SELFPAY ==
--- NOTE | 2024-04-27 | CONS_ITS ---
CONSULTATION DATE: 04/27/2024 TO: Bigg Otero D.O. CHIEF COMPLAINT: Includes right arm pain. HISTORY OF PRESENT ILLNESS: Review of systems, past medical/surgical history were obtained and documented on the health questionnaire and is available upon request. She is an 84-year-old female, who has undergone previous anterior cervical fusion, details of which are unavailable. She had good response, and she was doing quite well until approximately six months ago, when she has had gradual recurrence of her pain symptoms. She has undergone what was described as a trigger point injection, which also offered her significant reduction in pain symptoms. Despite this, she reports that she still has significant pain rated at least 5-7/10 pain, exacerbated with lifting maneuvers, pushing/pulling maneuvers. She feels most comfortable in the semi-recumbent position. She denies any change in bowel and bladder. Reports progressive weakness of her right upper extremity. Her MARILYN on today?s visit was 35. MEDICATION: Includes gabapentin, baclofen and Voltaren, as well as Tylenol. She reports that she has significant reduction of pain with the use of gabapentin, as well as the baclofen. She denies any side effects with the use of the same. EXAM: Her examination is notable for patient having hypoesthesia along the right C5-C6 dermatome, weakness of her right deltoid, right biceps and right brachioradialis, depressed right brachioradialis reflux. She also had reduced strength for finger flexion on the right side. Her strength overall is rated 3- 5/10 in the above mentioned muscle groups that were weak. She had no appreciable Spurling?s sign. She had no signs consistent with myelopathy involving her upper or lower extremities. She had significant myofascial spasm with myalgia of the cervical paravertebral muscles, as well as the trapezius. IMAGING: The cervical MRI was reviewed. Details of the MRI were discussed with the patient. The patient does express the desire to avoid surgery if at all possible. IMPRESSION: Our impression is patient with right C5-C6 radiculopathy. RECOMMENDATIONS: I recommend she continue with the gabapentin and baclofen as ordered, and proceed with a right sided C5 and C6 transforaminal epidural steroid injection under fluoroscopic guidance, and added physical therapy with modalities to include cervical traction. As part of providing excellent, safe, comprehensive care, the following was completed at our patient's visit: 1. A medication reconciliation and review to ensure accurate knowledge of current/active medications, including asking our patients to inform us about any lfkf-jjh-gzmfpfh medications or herbal remedies/nutritional supplements/alternative remedies. 2. A review to specifically ensure our patients have had annual screening for: elevated body mass index (BMI, see intake chart for exact total), tobacco use, screening for depression, and screening for unhealthy alcohol use. When screening is concerning, patients are provided with education and the specific recommendation to discuss the concerning health issue and treatment options with their primary care provider. KAROLYN
--- OUTSIDE RECORDS SUMMARY | 2024-04-28 10:54 | XMS_ITS | CCD ---
Author Organization [facility] Care Team Providers Care [place] Man Name Role Phone Bigg Schultz Primary Care [...] Facility (1 source) Meperidine Drug Allergy 7 [facility] (1 source) Risedronate Drug Allergy 8 [facility] (1 source) Sertraline Drug Allergy 7 [facility] (1 source) Sulfonamides (Antibiotic) Propensity to adverse reactions 7 [facility] (5 sources) Tetracycline; Translations: [tetracycline] Drug Allergy 7 Unknown (qualifier value) [facility] (1 source) venlafaxine Drug Allergy 7 [facility] (4 sources) Citalopram; Translations: [citalopram] Drug Allergy Unknown (qualifier value) [facility] (4 sources) DULoxetine; Translations: [duloxetine] Drug Allergy Unknown (qualifier value) [facility] (4 sources) Meperidine; Translations: [meperidine] Drug Allergy Unknown (qualifier value) [facility] (4 sources) Sertraline; Translations: [sertraline] Drug Allergy Unknown (qualifier value) [facility] (4 sources) Sulfonamides (Antibiotic); Translations: [sulfa drugs] Drug allergy Unknown (qualifier value) [facility] (4 sources) telmisartan; Translations: [telmisartan] Drug Allergy Unknown (qualifier value) [facility] (4 sources) venlafaxine; Translations: [venlafaxine] Drug Allergy Unknown (qualifier value) [facility] (1 source) Citalopram Drug Allergy [facility] (1 source) DULoxetine Drug Allergy 5 [facility] (1 source) Meperidine Drug Allergy 3 [facility] (1 source) Sertraline Drug Allergy 3 [facility] (1 source) Sulfonamides (Antibiotic) Drug allergy (disorder) 3 [facility] (1 source) telmisartan Drug Allergy 3 [facility] (1 source) Tetracycline Drug Allergy 3 [facility] (1 source) venlafaxine Drug Allergy 3 [facility] Medications Current Medications Medication Drug Class(es) [...] Daily as needed for vaginal irritation, [facility]/pharmacy #[id number], 165, cm, 10/10/23 10:56:00 EDT, Height/Length Dosing, 55, kg, 10/10/23 10:56:00 EDT, Weight Dosing Start Date: 10/10/23 Status: Ordered empagliflozin 10 mg oral tablet (1 source) Sodium-Glucose Cotransporter 2 Inhibitor Start: 10-04-2022 Jardiance 10 mg oral tablet Refills(s) 0 Start Date: 10/04/22 Status: Ordered estrogens, conjugated (detention) 0.625 mg/ml vaginal cream (2 sources) Estrogen [...] MESA, Lyle Feldman Where: [facility] Consent for Procedure/Surger yon 10-10-2023 Consent for Procedure/Surgery [id number] [facility] Patient Educationon 10-10-19 24 Patient Education [...] Follow these instructions at home: ? Take prnl-etm-gzsbqmw and prescription medicines only as told by [...] provider. Document Revised: 04/30/2022 Document Reviewed: 04/30/2022 [employer] Patient Education ? 2022 [employer]. Rahul [facility] Urology Office/Clinic Noteon 10-10-2023 Urology Office/Clinic [...] Tight The Urethra was dilated to: 22-32 [place] with sounds. Specimens Removed: None Postoperative Information [...] When Contact Information PASQUALE MESA, Lyle Feldman, [place] [id number]- Additional Instructions: 6 mos for IO UD [...] (09/06/2019), Dila (more content not included)... Normal [facility] Comment on above: Result Comment: Elec tronically Signed By: PASQUALE MESA, Lyle Feldman\.br\Date and Time Signed: 10/10/23 11:27 EDT\.br\Electronically Co-Signed By: Kelly Hollis\Date and Time Co-Signed: 10/10/23 11:26 EDT MG MAMM SCREEN ROSANGELA W CADon 0 11-11-2022 MG MAMM SCREEN ROSANGELA W CAD Patient: LELA CHAIREZ Exam Date: 11/11/2022 : 1940 Gender:F Ordering : DR BIGG SCHULTZ D.O. Admission #: [id number] Family : Order #: [id number] CLICK HERE TO VIEW EXAM RADIOLOGY REPORT [...] lung cancer at age 53. LOCATION: [facility] BREAST COMPOSITION: Heterogeneously dense,which may obscure small [...] M.D. on 11/11/2022 at 13:50 Normal [facility] ELECTROLYTESon 06-17-2022 Anion gap [Moles/Vol] 10.9 mmol/L Normal [facility] Comment on above: Performed By: #### E LEC, TSH #### [facility] [address] [place] [address] Dr. Lillian Hurley Chloride [Moles/Vol] 92 mmol/L Critically low 98-107 [facility] Comment on above: Performed By: #### E LEC, TSH #### [facility] [address] [address] [address] Lillian Hurley CO2 [Moles/Vol] 30.4 mmol/L Normal 21.0-32.0 [facility] Comment on above: Performed By: #### E LEC, TSH #### [facility] [address] [address] [address] Lillian Hurley Potassium [Moles/Vol] 4.3 mmol/L Normal 3.5-5.1 [facility] Comment on above: Performed By: #### E LEC, TSH #### [facility] [address] [place] [address] Dr. Lillian Hurley Sodium [Moles/Vol] 129 mmol/L Critically low 136-145 [facility] Comment on above: Performed By: #### E LEC, TSH #### [facility] [address] [place] [address] Dr. Lillian Hurley TSHon 06-17-2022 TSH 0.675 uIU/mL Normal 0.358-3.740 [facility] Comment on above: Performed By: #### E LEC, TSH #### [facility] [address] [place] [address] Dr. Lillian Hurley Otheron 12-22-2000 CONVERTED ELECTRONIC SIGNATURE GEN HENDRIX M.D., PATHOLOGIST (Electronic signature on file) Final Signed Out: 12/22/2000 14:36 [facility] CONVERTED FINAL DIAGNOSIS BONE, RIGHT ELBOW, EXCISION - SEGMENTS OF OSSEOUS TISSUE WITH CHANGES CONSISTENT WITH CHANGES OF DEGENERATIVE OSTEOARTHROPATHY. REACTIVE SYNOVIUM WITH FOCAL OLD HEMORRHAGE. [facility] CONVERTED ORDERING PROVIDER Ordering Provider: JOSE ALMONTE [facility] Vital Signs Date Time Vital Sign Value Performing Clinician Dion ryan 10-10-2023 10:54-0400 Blood Pressure Location Lyle CARRENO [facility] 10-10-2023 10:54-0400 Diastolic blood pressure 79 mm[Hg] Lyle CARRENO [facility] 10-10-2023 10:54-0400 Heart rate 73 /min Lylelexi CARRENO [facility] 10-10-2023 10:54-0400 Respiratory rate 16 /min Lylelexi CARRENO [facility] 10-10-2023 10:54-0400 Systolic blood pressure 127 mm[Hg] Lylelexi CARRENO [facility] 10-04-2022 10:17-0400 Blood Pressure Location Lyle CARRENO [facility] 10-04-2022 10:17-0400 Diastolic blood pressure 71 mm[Hg] Lyle CARRENO [facility] 10-04-2022 10:17-0400 Heart rate 60 /min Lylelexi CARRENO [facility] 10-04-2022 10:17-0400 Respiratory rate 16 /min Lyle CARRENO [facility] 10-04-2022 10:17-0400 Systolic blood pressure 125 mm[Hg] Lyle CARRENO [facility] Encounters Encounter Date Encounter Type Care Provider Facility Start: 05-03-2024 ambulatory Lyle Jacomei ty:[facility] Start: 10-10-2023 End: 10-11-2023 ambulatory Lyle CARRENO Facility:[facility] Start: 10-10-2023 End: 10-10-2023 Patient encounter procedure Lyle CARRENO [facility] Start: 09-30-2023 End: 09-30-2023 ambulatory YOGESH DEL REAL Not Available Start: 11-11-2022 End: 11-12-[address] BIGG SCHULTZ Facility:[facility] Start: 10-04-2022 End: 10-04-2022 Patient encounter procedure Lylelexi CARRENO [facility] Start: 06-17-2022 End: 06-18-[address] BIGG SCHULTZ Facility:[facility] Start: 01-03-2022 End: 01-31-[address] BIGG SCHULTZ Facility:[facility] Start: 11-22-2021 End: 12-15-[address] DOCTOR COREAS Facility:[facility] Start: 10-01-2021 End: 10-01-2021 Patient encounter procedure Lyle CARRENO [facility] Start: 12-16-1920 End: 12-16-1920 Patient encounter procedure Jose Almonte Work Phone: [facility] Start: 12-16-1920 Results Only Jose Almonte Work Phone: [facility] Procedures Date Procedure Procedure Detail Performing Clinician [...] of urethra Rosa CARRENO Start: 09-04-2006 Cystourethroscopy [facility] dilation of urethral stricture Lyle CARRENO [...] Author Start: 03-07-2020 Influenza vaccination INFLUENZA (#1) [facility] Start: 01-26-2010 DIABETES SCREEN DIABETES SCREEN [facility] Start: 2003 ADVANCE DIRECTIVE DISCUSSION ADVANCE DIRECTIVE DISCUSSION [facility] Start: 2003 BONE DENSITY BONE DENSITY [facility] Start: 2003 PNEUMOVAX AGE 65 AND OVER WITH 5YR LOOKBACK (#1) PNEUMOVAX AGE 65 AND OVER WITH 5YR LOOKBACK (#1) [facility] Start: 1988 SHINGRIX VACCINE (1 of 2) LOBATO GRIX VACCINE (1 of 2) [facility] Start: 1957 Urine microalbumin profile DTAP,TDAP ,TD (1 - Tdap) [facility] Immunizations Immunization Date Immunization Notes Care Provider Fa keyanna 04-18-2023 influenza virus vacc ine, unspecified formulation Lyle CARRENO [facility] 03-29-2022 SARS-CoV-2 (COVID-19 ) [id number] Lyle CARRENO [facility] Comment on above: Result Comment: 2023: TPV80 11-02-2021 SARS-CoV-2 mRNA (thfrbntceev-tioi-owfpse e) vaccine Lyle CARRENO [facility] Comment on above: Result Comment: 2023: TPV80 04-16-2021 SARS-CoV-2 (COVID-19 ) mRNA BNT-162b2 vax Lyle CARRENO [facility] Comment on above: Result Comment: 2023: TPV80 08-23-2020 SARS-CoV-2 (COVID-19 ) mRNA BNT-162b2 vax Lyle CARRENO [facility] 07-31-2020 SARS-CoV-2 (COVID-19 ) mRNA BNT-162b2 vax Lyle CARRENO [facility] Comment on above: Result Comment: 2nd dose given 08/23/2020 07-23-2018 zoster vaccine recombinant Lyle CARRENO [facility] 11-28-2017 zoster vaccine recombinant Lyle CARRENO [facility] 03-23-2014 pneumococcal polysaccharide vaccine, 23 valent Lyle CARRENO [facility] 05-05-2013 zoster vaccine, live Lyle CARRENO [facility] 04-25-2009 influenza, whole Lyle CONKLIN HARIS [facility] Payers Date Payer Category Payer Medicare [id number] 1961 Medicare [id number] 1940 Unknown [id number] 2.16.84 [id number] 1940 Unknown [id number] 2.16.84 [id number] 1940 Unknown [id number] 2.16.84 [id number] 1940 Unknown [id number] 2.16.84 [id number] 1940 Unknown [id number] 2.16.84 [id number] 1940 Unknown [id number] 2.16.8 [id number] 1940 Unknown [id number] 2.16.8 [id number] Social History Date Type Detail Facility Tobacco smoking stat [facility] Unknown if ever smoked [facility] Sex Assigned At Not on file [facility] Start: 09-06-2019 End: 10-10-2023 Tobacco smoking status Never smoked tobacco (finding) [facility] Sex Assigned At Female [facility] Tobacco smoking status Never [facility] Functional Status Date Assessment Result Facility 10-10-2023 Functional Status N/A [facility] 10-04-2022 Functional Status N/A [facility] Hospital Discharge instructions 10-10-2023 Note Date [...] reconstructed. Follow these instructions at home: Take ysyq-zel-ingdhve and prescription medicines only as told by [...] provider. Document Revised: 04/30/2022 Document Reviewed: 04/30/2022 [employer] Patient Education 2022 [employer]. Follow Up Care 10/04/2022 10:57:38 With:PASQUALE MESA, Lyle Feldman, URL Address: [address] [place], [place] [id number]- When: Unknown [facility] Hospital Discharge instructions 10-04-2022 Note Date [...] including vitamins, herbs, eye drops, creams, and tdro-jqf-vnpbfho medicines. Any problems you or family members [...] provider tells you to take them. Taking oztc-ske-tdjerva medicines, vitamins, herbs, and supplements. General instructions [...] Follow these instructions at home: Medicines Take pjrf-nwu-lnftpqa and prescription medicines only as told by [...] actions to prevent or treat constipation: ?Take orec-qeo-cntluso or prescription medicines. ?Eat foods that are [...] Document Reviewed: 08/05/2019 Elsevier Patient Education 2020 [employer] Follow Up Care 10/01/2021 13:26:16 With:PASQUALE MESA, Lyle Feldman, URL Address: [address] [place] [id number]- When: Unknown [facility] Hospital Discharge instructions 10-01-2021 Note Date [...] reconstructed. Follow these instructions at home: Take cwas-vdz-kamyvnq and prescription medicines only as told by [...] 07/19/2016 Document Revised: 02/03/2019 Document Reviewed: 02/03/2019 [employer] Patient Education 2020 [employer]. [facility] Evaluation + Plan note Note Date & Type Note Facility Evaluation + Plan note Future Appointments Appointment Date:10/04/2022 09:45:00 AM Scheduled Provider:Lyle CARRENO MD Location:[facility] Appointment Type:URO Office Visit [facility] Evaluation + Plan note Note Date & Type Note Facility Evaluation + Plan note Future Appointments Appointment Date:10/10/2023 10:15:00 AM Scheduled Provider:Lyle CARRENO MD Location:[facility] Appointment Type:URO Office Visit [facility] Evaluation + Plan note Note Date & Type Note Facility Evaluation + Plan note Future Appointments Appointment Date:05/03/2024 09:15:00 AM Scheduled Provider:Lyle CARRENO MD Location:[facility] Appointment Type:URO Office Visit [facility] Hospital course Narrative Note Date & Type Note Facility Hospital course Narrative No data available for this section [facility] Progress note Note Date & Type Note Facility Progress note No data available for this section [facility] Summary Purpose Family History No Family History [...] or prosecute any alcohol or drug abuse patient.[facility] Patient Care team informatio n (unrecognized section and content) Personnel Name: BIGG SCHULTZ JR, DO Address: Address: [address] [place] [id number] Personnel Name: BIGG SCHULTZ JR, DO Address: Address: [address] [place] [phone] INFORMATION SOURCE (unrecogn ized section and content) DATE CREATED AUTHOR 11/15/2022 [facility] DATE CREATED AUTHOR AUTHOR'S ORGANIZ ATION 10/02/2023 [facility] DATE CREATED AUTHOR AUTHOR'S ORGANIZ ATION 10/10/2023 [facility] FOR RECORDS PERTAINING TO PATIENTS WHO ARE [...] BE BASED ON THE PRIMARY CLINICAL RECORDS. [facility] [employer] provides no warranty or guarantee of the accuracy or completeness of information in this document.
== END 2024-04-27 09:46 | disposition home or self-care (01) ==
LOC: PM 04-28 10:33
PROVIDERS: PCP Internal Medicine; Visit Provider Nurse Practitioner
DX: M54.12 Radiculopathy, cervical region (principal); M54.2 Cervicalgia
CPT/HCPCS: G0463

== ENCOUNTER 2024-05-03 09:15 | Day surgery (SDC) | payer MEDICARE, SELFPAY ==
[2024-05-03 09:30] VITALS: BP 118/61; PULSE 73; TEMP 36.2; O2SAT 99
--- OUTSIDE RECORDS SUMMARY | 2024-05-03 09:34 | XMS_ITS | CCD ---
Author Organization [facility] Care Team Providers Care Chief Learning Officer Name Role Phone Bigg Schultz Primary Care Provider BIGG SCHULTZ JR Primary Care Physician [phone] MARION, DR ARRIAGA Primary Care Unavailable VALEUGENIA, [...] MISC, DR FAIRCHILD Attending Unavailable MISC, DR FAIRCHIDL Admitting Unavailable VALONE, DR ARRIAGA Primary Care Unavailable LIEBEYOGESH SHIRLEY Attending Unavailable CARRENO, Lyle Feldman Attending Unavailable CARRENO, Lyle Feldman Attending Unavailable Allergies Allergy Classification Reported Allergen(s) Allergy Type Date of Onset Reaction(s) Facility (1 source) Meperidine Drug Allergy 7 [facility] (1 source) Risedronate Drug Allergy 8 [facility] (1 source) Sertraline Drug Allergy 7 [facility] (1 source) Sulfonamides (Antibiotic) Propensity to adverse reactions 7 [facility] (5 sources) Tetracycline; Translations: [tetracycline] Drug Allergy 7 Unknown (qualifier value) [facility] (1 source) venlafaxine Drug Allergy 7 [facility] (4 sources) Citalopram; Translations: [citalopram] Drug Allergy Unknown (qualifier value) [facility] (4 sources) DULoxetine; Translations: [duloxetine] Drug Allergy Unknown (qualifier value) [facility] (4 sources) Meperidine; Translations: [meperidine] Drug Allergy Unknown (qualifier value) [facility] (4 sources) Sertraline; Translations: [sertraline] Drug Allergy Unknown (qualifier value) [facility] (4 sources) Sulfonamides (Antibiotic); Translations: [sulfa drugs] Drug allergy Unknown (qualifier value) [facility] (4 sources) telmisartan; Translations: [telmisartan] Drug Allergy Unknown (qualifier value) [facility] (4 sources) venlafaxine; Translations: [venlafaxine] Drug Allergy Unknown (qualifier value) [facility] (1 source) Citalopram Drug Allergy [facility] (1 source) DULoxetine Drug Allergy 5 [facility] (1 source) Meperidine Drug Allergy 3 [facility] (1 source) Sertraline Drug Allergy 3 [facility] (1 source) Sulfonamides (Antibiotic) Drug allergy (disorder) 3 [facility] (1 source) telmisartan Drug Allergy 3 [facility] (1 source) Tetracycline Drug Allergy 3 [facility] (1 source) venlafaxine Drug Allergy 3 [facility] Medications Current Medications Medication Drug [...] 1, Daily as needed for vaginal irritation, [facility][id number], 165, cm, 10/10/23 10:56:00 EDT, Height/Length Dosing, 55, kg, 10/10/23 10:56:00 EDT, Weight Dosing Start Date: 10/10/23 Status: Ordered empagliflozin 10 mg oral tablet (1 source) Sodium-Glucose Cotransporter 2 Inhibitor Start: 10-04-2022 Jardiance 10 mg oral tablet Refills(s) 0 Start Date: 10/04/22 Status: Ordered estrogens, conjugated (nursing home) 0.625 mg/ml vaginal cream (2 sources) Estrogen [...] for Procedure/Surger yon 10-10-2023 Consent for Procedure/Surgery [id number] [facility] Patient Educationon 10-10-19 24 Patient Education [...] Follow these instructions at home: ? Take wvan-cue-ctcelbh and prescription medicines only as told by [...] provider. Document Revised: 04/30/2022 Document Reviewed: 04/30/2022 [employer] Patient Education ? 2022 [employer] Rahul [facility] Urology Office/Clinic Noteon 10-10-2023 Urology Office/Clinic Note [...] Tight The Urethra was dilated to: 22-32 Singaporean with sounds. Specimens Removed: None Postoperative Information [...] When Contact Information PASQUALE MESA, Lyle Feldman, [place] [id number]- Additional Instructions: 6 mos for IO UD [...] (09/06/2019), Dila (more content not included)... Normal [facility] Comment on above: Result Comment: Elec tronically Signed By: PASQUALE MESA, Lyle Feldman\.br\Date and Time Signed: 10/10/23 11:27 EDT\.br\Electronically Co-Signed By: Kelly Hollis\Date and Time Co-Signed: 10/10/23 11:26 EDT MG MAMM SCREEN ROSANGELA W CADon 0 11-11-2022 MG MAMM SCREEN ROSANGELA W CAD Patient: LELA CHAIREZ Exam Date: 11/11/2022 : 1940 Gender:F Ordering : DR BIGG SCHULTZ D.O. Admission #: [id number] Family : Order #: [id number] CLICK HERE TO VIEW EXAM RADIOLOGY REPORT [...] lung cancer at age 53. LOCATION: [facility] BREAST COMPOSITION: Heterogeneously dense,which may obscure [...] M.D. on 11/11/2022 at 13:50 Normal [facility] ELECTROLYTESon 06-17-2022 Anion gap [Moles/Vol] 10.9 mmol/L Normal [facility] Comment on above: Performed By: #### E LEC, TSH #### [facility] [address] [place] [address] Dr. Lillian Hurley Chloride [Moles/Vol] 92 mmol/L Critically low 98-107 [facility] Comment on above: Performed By: #### E LEC, TSH #### [facility] [address] [address] [address] Lillian Hurley CO2 [Moles/Vol] 30.4 mmol/L Normal 21.0-32.0 [facility] Comment on above: Performed By: #### E LEC, TSH #### [facility] [address] [address] [address] Lillian Hurley Potassium [Moles/Vol] 4.3 mmol/L Normal 3.5-5.1 [facility] Comment on above: Performed By: #### E LEC, TSH #### [facility] [address] [place] [address] Dr. Lillian Hurley Sodium [Moles/Vol] 129 mmol/L Critically low 136-[address] [facility] Comment on above: Performed By: #### E LEC, TSH #### [facility] [address] [place] [address] Dr. Lillian Hurley TSHon 06-17-2022 TSH 0.675 uIU/mL Normal 0.358-3.740 [facility] Comment on above: Performed By: #### E LEC, TSH #### [facility] [address] [place] [address] Dr. Lillian Hurley Otheron 12-22-2000 CONVERTED ELECTRONIC SIGNATURE GEN HENDRIX M.D., PATHOLOGIST (Electronic signature on file) Final Signed Out: 12/22/2000 14:36 [facility] CONVERTED FINAL DIAGNOSIS BONE, RIGHT ELBOW, EXCISION - SEGMENTS OF OSSEOUS TISSUE WITH CHANGES CONSISTENT WITH CHANGES OF DEGENERATIVE OSTEOARTHROPATHY. REACTIVE SYNOVIUM WITH FOCAL OLD HEMORRHAGE. [facility] CONVERTED ORDERING PROVIDER Ordering Provider: JOSE ALMONTE [facility] Vital Signs Date Time Vital Sign Value Performing Clinician Dion ryan 10-10-2023 10:54-0400 Blood Pressure Location Lyle CARRENO [facility] 10-10-2023 10:54-0400 Diastolic blood pressure 79 mm[Hg] Lyle CARRENO [facility] 10-10-2023 10:54-0400 Heart rate 73 /min Lylelexi CARRENO [facility] 10-10-2023 10:54-0400 Respiratory rate 16 /min Lylelexi CARRENO [facility] 10-10-2023 10:54-0400 Systolic blood pressure 127 mm[Hg] Lylelexi CARRENO [facility] 10-04-2022 10:17-0400 Blood Pressure Location Lyle CARRENO [facility] 10-04-2022 10:17-0400 Diastolic blood pressure 71 mm[Hg] Lyle CARRNEO [facility] 10-04-2022 10:17-0400 Heart rate 60 /min Lylelexi CARRENO [facility] 10-04-2022 10:17-0400 Respiratory rate 16 /min Lyle CARRENO [facility] 10-04-2022 10:17-0400 Systolic blood pressure 125 mm[Hg] Lyle CARRENO [facility] Encounters Encounter Date Encounter Type Care Provider Facility Start: 05-24-2024 ambulatory Lyle CARRENO Facili ty:[facility] Start: 10-10-2023 End: 10-10-2023 ambulatory Lyle CARRENO Facility:[facility] Start: 10-10-2023 End: 10-10-2023 Patient encounter procedure Lyle CARRENO [facility] Start: 09-30-2023 End: 09-30-2023 ambulatory YOGESH DEL REAL Not Available Start: 11-11-2022 End: 11-12-[address] BIGG SCHULTZ Facility:[facility] Start: 10-04-2022 End: 10-04-2022 Patient encounter procedure Lylelexi CARRENO [facility] Start: 06-17-2022 End: 06-18-[address] BIGG SCHULTZ Facility:[facility] Start: 01-03-2022 End: 01-31-[address] BIGG SCHULTZ Facility:[facility] Start: 11-22-2021 End: 12-15-[address] DOCTOR COREAS Facility:[facility] Start: 10-01-2021 End: 10-01-2021 Patient encounter procedure Lyle CARRENO [facility] Start: 12-16-1920 End: 12-16-1920 Patient encounter procedure Jose Almonte Work Phone: [facility] Start: 12-16-1920 Results Only Jose Almonte Work Phone: [facility] Procedures Date Procedure Procedure Detail Performing [...] of urethra Rosa CARRENO Start: 09-04-2006 Cystourethroscopy [facility] dilation of urethral stricture Lyle CARRENO Start: [...] Author Start: 03-07-2020 Influenza vaccination INFLUENZA (#1) [facility] Start: 01-26-2010 DIABETES SCREEN DIABETES SCREEN [facility] Start: 2003 ADVANCE DIRECTIVE DISCUSSION ADVANCE DIRECTIVE DISCUSSION [facility] Start: 2003 BONE DENSITY BONE DENSITY [facility] Start: 2003 PNEUMOVAX AGE 65 AND OVER WITH 5YR LOOKBACK (#1) PNEUMOVAX AGE 65 AND OVER WITH 5YR LOOKBACK (#1) [facility] Start: 1988 SHINGRIX VACCINE (1 of 2) LOBATO GRIX VACCINE (1 of 2) [facility] Start: 1957 Urine microalbumin profile DTAP,TDAP ,TD (1 - Tdap) [facility] Immunizations Immunization Date Immunization Notes Care Provider Fa keyanna 04-18-2023 influenza virus vacc ine, unspecified formulation Lyle CARRENO [facility] 03-29-2022 SARS-CoV-2 (COVID-19 ) [id number] Lyle CARRENO [facility] Comment on above: Result Comment: 2023: TPV80 11-02-2021 SARS-CoV-2 mRNA (ssnzdroiruf-plvy-qntxtg e) vaccine Lyle CARRENO [facility] Comment on above: Result Comment: 2023: TPV80 04-16-2021 SARS-CoV-2 (COVID-19 ) mRNA BNT-162b2 vax Lyle CARRENO [facility] Comment on above: Result Comment: 2023: TPV80 08-23-2020 SARS-CoV-2 (COVID-19 ) mRNA BNT-162b2 vax Llye CARRENO [facility] 07-31-2020 SARS-CoV-2 (COVID-19 ) mRNA BNT-162b2 vax Lyle CARRENO [facility] Comment on above: Result Comment: 2nd dose given 08/23/2020 07-23-2018 zoster vaccine recombinant Lyle CARRENO [facility] 11-28-2017 zoster vaccine recombinant Lyle CARRENO [facility] 03-23-2014 pneumococcal polysaccharide vaccine, 23 valent Lyle CARRENO [facility] 05-05-2013 zoster vaccine, live Lyle CARRENO [facility] 04-25-2009 influenza, whole Lyle CONKLIN HARIS [facility] Payers Date Payer Category Payer Medicare [id number] 1961 Medicare [id number] 1940 Unknown [id number] 2.16.84 [id number] 1940 Unknown [id number] 2.16.84 [id number] 1940 Unknown [id number] 2.16.84 [id number] 1940 Unknown [id number] 2.16.84 [id number] 1940 Unknown [id number] 2.16.84 [id number] 1940 Unknown [id number] 2.16.8 [id number] 1940 Unknown [id number] 2.16.8 [id number] Social History Date Type Detail Facility Tobacco smoking stat [facility] Unknown if ever smoked [facility] Sex Assigned At Not on file [facility] Start: 09-06-2019 End: 10-10-2023 Tobacco smoking status Never smoked tobacco (finding) [facility] Sex Assigned At Female [facility] Tobacco smoking status Never [facility] Functional Status Date Assessment Result Facility 10-10-2023 Functional Status N/A [facility] 10-04-2022 Functional Status N/A [facility] Hospital Discharge instructions 10-10-2023 Note [...] reconstructed. Follow these instructions at home: Take xcii-rtf-qageuhr and prescription medicines only as told by [...] provider. Document Revised: 04/30/2022 Document Reviewed: 04/30/2022 [employer] Patient Education 2022 [employer]. Follow Up Care 10/04/2022 10:57:38 With:PASQUALE MESA, Lyle Feldman, URL Address: [address] [place], [place] [id number]- When: Unknown [facility] Discharge instructions 10-04-2022 Note Date & [...] including vitamins, herbs, eye drops, creams, and hifh-rrn-mfrizzv medicines. Any problems you or family members [...] provider tells you to take them. Taking izua-rjw-qgxrygf medicines, vitamins, herbs, and supplements. General instructions [...] Follow these instructions at home: Medicines Take tgmw-sqe-sxojzjt and prescription medicines only as told by [...] actions to prevent or treat constipation: ?Take allz-fiu-wzjynni or prescription medicines. ?Eat foods that are [...] Document Reviewed: 08/05/2019 Else[employer] Patient Education 2020 [employer] Follow Up Care 10/01/2021 13:26:16 With:PASQUALE MESA, Lyle Feldman, URL Address: [address] [place] [address]- When: Unknown [facility] Discharge instructions 10-01-2021 Note Date & [...] reconstructed. Follow these instructions at home: Take edij-eht-ascxtfx and prescription medicines only as told by [...] 07/19/2016 Document Revised: 02/03/2019 Document Reviewed: 02/03/2019 [employer] Patient Education 2020 [employer] [facility] Evaluation + Plan note Note Date & Type Note Facility Evaluation + Plan note Future Appointments Appointment Date:10/04/2022 09:45:00 AM Scheduled Provider:Lyle CARRENO MD Location:[facility] Appointment Type:URO Office Visit [facility] Evaluation + Plan note Note Date & Type Note Facility Evaluation + Plan note Future Appointments Appointment Date:10/10/2023 10:15:00 AM Scheduled Provider:Lyle CARRENO MD Location:[facility] Appointment Type:URO Office Visit [facility] Evaluation + Plan note Note Date & Type Note Facility Evaluation + Plan note Future Appointments Appointment Date:05/03/2024 09:15:00 AM Scheduled Provider:Lyle CARRENO MD Location:[facility] Appointment Type:URO Office Visit [facility] Hospital course Narrative Note Date & Type Note Facility Hospital course Narrative No data available for this section [facility] Progress note Note Date & Type Note Facility Progress note No data available for this section [facility] Summary Purpose Family History No Family History Records FoundNo Family History Records Found No data available for this section No Family History Records Found Advance Directives No Advanced Directives Records FoundNo [...] or prosecute any alcohol or drug abuse patient.[facility] Patient Care team informatio n (unrecognized section and content) Personnel Name: BIGG SCHULTZ JR, DO Address: Address: [address] [place] [phone] Personnel Name: BIGG SCHULTZ JR, DO Address: Address: [address] [place] [id number] INFORMATION SOURCE (unrecogn ized section and content) DATE CREATED AUTHOR 11/15/2022 [facility] DATE CREATED AUTHOR AUTHOR'S ORGANIZ ATION 10/02/2023 [facility] DATE CREATED AUTHOR AUTHOR'S ORGANIZ ATION 04/29/2024 [facility] FOR RECORDS PERTAINING TO PATIENTS WHO [...] BE BASED ON THE PRIMARY CLINICAL RECORDS. [facility] [employer] provides no warranty or guarantee of the accuracy or completeness of information in this document.
[2024-05-03 10:00] VITALS: BP 131/62; BP 135/63; PULSE 71; PULSE 73; O2SAT 95; O2SAT 96
--- NOTE | 2024-05-03 10:02 | P.ON_ITS ---
Date of procedure: 05/03/24 Pre-op diagnosis: M54.12 Post-op diagnosis: same as pre-op Procedure: Procedure: Right C5-6 transforaminal epidural steroid injection Medications: Bupivacaine 0.25% 1cc, lidocaine 2% 1cc, dexamethasone 10mg The patient was seen and examined in the preoperative holding area.? Informed consent was obtained and placed on the chart.? Patient was brought to the medical procedure unit and placed in the prone position where a timeout was completed verifying the correct patient, procedure site, position, and planned special equipment using sterile aseptic technique.? Under direct fluoroscopic visualization a 25-gauge Quincke tipped spinal needle was advanced to the designated neural foramen where contrast dye was injected to show adequate spread.? The needle was inserted at level right C5-6. There was no evidence of vascular or adverse uptake.? Epidural spread was appreciated.? The above- mentioned injectate was then placed in a 1.5 mL aliquot preceded by negative aspiration.? The needle was removed.? The surgery site was covered.? Patient was taken to the postprocedural recovery area and monitored for an appropriate length of time before found suitable for discharge in the accompaniment of a responsible adult. Anesthesia: Local Surgeon: Rhoda Gutierrez Pathology: none sent Condition: stable Disposition: no change
[2024-05-03] MEDS: LIDOCAINE HCL 2% 400 MG/20 ML MDV INJ (10:03)
[2024-05-03] MEDS: DEXAMETHASONE SOD PHOS 10 MG/ML VIAL INJ (10:03)
[2024-05-03] MEDS: BUPIVACAINE HCL 0.25% PF 25 MG/10 ML VIAL INJ (10:03)
[2024-05-03] MEDS: IOHEXOL 240 MG/ML - 10 ML VIAL 12 MG INJ (10:03)
== END 2024-05-03 10:08 | disposition home or self-care (01) ==
LOC: SURGOUT 09:15
PROVIDERS: PCP Internal Medicine; Visit Provider Anesthesiology
DX: M54.12 Radiculopathy, cervical region (principal)
CPT/HCPCS: 64479; J0665; J1100; Q9966

== ENCOUNTER 2024-05-12 10:28 | Outpatient (OUT) | payer MEDICARE, SELFPAY ==
--- NOTE | 2024-05-12 12:31 | P.CN_ITS ---
Consult Note: HPI Data of Consult Patient: new to practice Requesting Physician: Zakia Claros NP Primary Care Provider: BART SCHULTZ DO Consult Narrative Reason for consult: cervical radiculopathy Narrative: Hailey Cheng a pleasant 84 year old female presents for evaluation of cervical radiculopathy. Patient has a longstanding hx of neck pain and generalized pain, had 3 falls without injury January 2024 and has had increased pain since. Patient has had a C5-6 C6-7 fusion in 2013, aslo hx of right elbow replacement in 2000. Patient has been following with her PC and has completed 6 weeks of PT without improvement, mild relief with baclofen 5mg HS PRN gabapentin 100mg AM, tylenol 500-1000mg daily, CBD oil, voltaren cream HS with mild improvement. Patient rating pain 4 deep ache increasing to 5/10 with reaching, pushing, pulling, learning on her arm, and lifting. Pain improved with massage heat and ice. recently underwent right C5/6 TFESI with 70% improvement overall. Patient reports increased right thoracic and subscapular pain. cc:: CC: Zakia Claros NP Review of Systems 2 ROS0 Status of ROS 10 or more systems reviewed and unremark able except as noted in history and below Musculoskeletal Reports: back pain and neck pain Meds Home Medications and Allergies Home Medications ?Medication ?Instructions ?Recorded ?Confirmed ?Type buspirone 10 mg tablet 5 mg PO BID 01/08/24 05/03/24 History candesartan 32 mg tablet 32 mg PO DAILY 01/08/24 05/03/24 History carvedilol 6.25 mg tablet 6.25 mg PO Q12H 01/08/24 05/03/24 History levothyroxine 25 mcg tablet 25 mcg PO DAILY 01/08/24 05/03/24 History montelukast 10 mg tablet 10 mg PO DAILY 01/08/24 05/03/24 History CALCIUM D3 04/07/24 History CBD OIL 04/07/24 History EYE PROMISE 04/07/24 History Lactobacillus acidophilus 25 mmu cells PO DAILY 04/07/24 05/03/24 History VOLTAREN CREAM PRN pain 04/07/24 History acetaminophen 500 mg tablet 500 mg PO BID PRN pain 04/07/24 05/03/24 History (Tylenol Extra Strength) baclofen 10 mg tablet mg 04/07/24 History calcium 333 mg 1 tab PO DAILY 04/07/24 05/03/24 History (carbonate)-magnesium 133 mg-zinc 5 mg (sulfate) tablet famotidine 20 mg tablet mg 04/07/24 History fluticasone propionate 50 1 spray intranasal DAILY PRN 04/07/24 05/03/24 History mcg/actuation nasal allergy symptoms spray,suspension (24 Hour Allergy Relief) folic acid 1 mg tablet 1 mg PO BID 04/07/24 05/03/24 History gabapentin 100 mg capsule 100 mg PO DAILY 04/07/24 05/03/24 History melatonin 3 mg capsule 3 mg PO DAILY 04/07/24 05/03/24 History vitamin B complex (Vitamins B 1 cap PO DAILY 04/07/24 05/03/24 History Complex capsule) polyethylene glycol 3350 17 17 g PO BID 05/03/24 05/03/24 History gram/dose oral powder (ClearLax) Allergies Allergy/AdvReac Type Severity Reaction Status Date / Time citalopram (From Celexa) Allergy Mild Confusion Verified 05/03/24 09:45 duloxetine (From Cymbalta) Allergy Mild Confusion Verified 05/03/24 09:45 meperidine (From Demerol) Allergy Mild Unknown Verified 05/03/24 09:45 sertraline (From Zoloft) Allergy Mild Confusion Verified 05/03/24 09:45 Sulfa (Sulfonamide Allergy Mild Abdominal Verified 05/03/24 09:45 Antibiotics) Pain telmisartan (From Micardis) Allergy Mild Unknown Verified 05/03/24 09:45 tetracycline Allergy Mild Abdominal Verified 05/03/24 09:45 Pain venlafaxine (From Effexor) Allergy Mild Confusion Verified 05/03/24 09:45 Exam Constitutional Documenting provider has reviewed patient's vital signs: yes Common normals: no apparent distress, oriented x3, healthy appearing, alert and well nourished General appearance: cooperative HENMT Common normals: normocephalic, hearing grossly normal bilaterally and moist oral mucous membranes Head and scalp: normocephalic Eye Common normals: PERRL Pupil: PERRL Neck & C-Spine Common normals: full ROM General: normal visual inspection Cervical spine: pain with cervical ROM, paracervical muscle tenderness, paracervical muscle spasm and trapezius muscle tenderness; no cervical spine tenderness Other: negative spurlings strength 5/5 in BUE sensation intact BUE Chest Common normals: inspection of chest normal Respiratory Common normals: normal respiratory effort, no retractions and no use of accessory muscles Back & Pelvis Thoracic spine/upper back: pain with ROM, paraspinal muscle tenderness and paraspinal muscle spasm Other: chronic pain noted below, increased with bending twisting and overhead ROM facet tenderness noted on multiple levels Back image (female): 2 1. increased chronic pain Extremity Common normals: normal to inspection and full ROM Neuro Common normals: oriented x3, CN's II-XII intact bilaterally, moves all extremities, no focal motor deficits, no sensory deficits noted and deep tendon reflexes 2+ bilaterally Sensorium/orientation: alert Motor exam: strength 5/5 throughout and no movement abnormalities noted Psych Common normals: mental status grossly normal, thought process normal, cooperative, affect normal, speech normal and activity/motor behavior normal Speech: normal speech Thought process: normal thought process Assessment and Plan Assessment and Plan (1) Thoracic spondylosis: (2) Status post cervical spinal fusion: (3) Cervical radiculopathy: (4) Cervical spondylosis: (5) Degenerative disc disease, cervical: (6) Myalgia: Plan >50% improvement ongoing from recent cervical OK update thoracic xray to assess chronic pain/tx spondylosis PT encouraged for chronic thoracic pain/spondylosis, pt declining at this time will call to schedule TENS discussed and ordered for chronic pain, myofascial pain, cervical DDD. to be utilized QID PRN for pain/spasms defer additional medication management at this time f/u 2 months, sooner if needed
== END 2024-05-12 10:29 | disposition home or self-care (01) ==
LOC: PM 10:28
PROVIDERS: PCP Internal Medicine; Visit Provider Nurse Practitioner
DX: M47.814 Spondylosis without myelopathy or radiculopathy, thoracic region (principal); Z98.1 Arthrodesis status; M47.22 Other spondylosis with radiculopathy, cervical region; M50.10 Cervical disc disorder with radiculopathy, unspecified cervical region; M79.10 Myalgia, unspecified site; M54.12 Radiculopathy, cervical region
CPT/HCPCS: 72070; G0463

== ENCOUNTER 2024-05-12 11:16 | Outpatient (OUT) | payer MEDICARE, SELFPAY ==
--- NOTE | 2024-05-12 11:22 | XR_ITS ---
The [address] [address] Patient Name: LELA CHAIREZ MRN: [id number] date: 1940 Sex: F Assigned Patient Location: [facility] Current Patient Location: [facility] Accession/Order Number: [id number] Exam Date: 05/12/2024 11:28 Report Date: 05/17/2024 07:24 At the request of: HAIR CRUMP Procedure: XR thoracic spine 2V EXAMINATION: XR thoracic spine 2V HISTORY: Thoracic Spondylosis COMPARISON: No relevant comparison available. FINDINGS: BONES: Mild widespread spondylosis and facet osteoarthritis. No visible acute bony abnormality. DISC SPACES: Normal. No significant disc height narrowing, subluxation, or endplate abnormality. PARASPINOUS: Negative. No paraspinous abnormality is seen. OTHER: Negative. XR/XR thoracic spine 2V IMPRESSION: Moderate degenerative change Electronically authenticated by: YARI DE LA O Date: 05/17/2024 07:24
--- OUTSIDE RECORDS SUMMARY | 2024-05-12 11:40 | XMS_ITS | CCD ---
Author Organization [facility] Care Team Providers Care Staff Radiologist Name Role Phone Bigg Schultz Primary Care Provider BIGG SCHULTZ JR Primary Care Physician [phone] MARION, DR ARRIAGA Primary Care Unavailable VALONE, DR ARRIAGA Admitting Unavailable VALEUGENIA, DR ARRIAGA Attending Unavailable VALONE, DR ARRIAGA Primary Care Unavailable VALONE, DR ARRIAGA Admitting Unavailable VALONE, DR ARRIAGA Attending Unavailable VALONE, DR ARRIAGA Consulting Unavailable VALEUGENIA, DR ARRIAGA Primary Care Unavailable VALONE, DR ARRIAGA Admitting Unavailable VALONE, DR ARRIAGA Attending Unavailable VALONE, DR ARRIAGA Consulting Unavailable ZiebBrady dove Consulting Unavailable MISC, DR FAIRCHILD Attending Unavailable MISC, DR FAIRCHILD Admitting Unavailable MARION, DR ARRIAGA Primary Care Unavailable YOGESH DEL REAL Attending Unavailable Lyle CARRENO Attending Unavailable Lyle CARRENO Attending Unavailable Brenda MESA, Rhoda Cervantes Attending Unavailable Allergies Allergy Classification Reported Allergen(s) Allergy Type Date of Onset Reaction(s) Facility (1 source) Meperidine Drug Allergy 7 [facility] (1 source) Risedronate Drug Allergy 8 [facility] (1 source) Sertraline Drug Allergy 7 [facility] (1 source) Sulfonamides (Antibiotic) Propensity to adverse reactions 7 [facility] (5 sources) Tetracycline; Translations: [tetracycline] Drug Allergy 7 Unknown (qualifier value) [facility] (1 source) venlafaxine Drug Allergy 7 [facility] (4 sources) Citalopram; Translations: [citalopram] Drug Allergy Unknown (qualifier value) [facility] (4 sources) DULoxetine; Translations: [duloxetine] Drug Allergy Unknown (qualifier value) [facility] (4 sources) Meperidine; Translations: [meperidine] Drug Allergy Unknown (qualifier value) [facility] (4 sources) Sertraline; Translations: [sertraline] Drug Allergy Unknown (qualifier value) [facility] (4 sources) Sulfonamides (Antibiotic); Translations: [sulfa drugs] Drug allergy Unknown (qualifier value) [facility] (4 sources) telmisartan; Translations: [telmisartan] Drug Allergy Unknown (qualifier value) [facility] (4 sources) venlafaxine; Translations: [venlafaxine] Drug Allergy Unknown (qualifier value) [facility] (1 source) Citalopram Drug Allergy [facility] (1 source) DULoxetine Drug Allergy 5 [facility] (1 source) Meperidine Drug Allergy 3 [facility] (1 source) Sertraline Drug Allergy 3 [facility] (1 source) Sulfonamides (Antibiotic) Drug allergy (disorder) 3 [facility] (1 source) telmisartan Drug Allergy 3 [facility] (1 source) Tetracycline Drug Allergy 3 [facility] (1 source) venlafaxine Drug Allergy 3 [facility] Medications Current Medications Medication [...] 1, Daily as needed for vaginal irritation, [facility]/pharmacy #[id number], 165, cm, 10/10/23 10:56:00 EDT, Height/Length [...] MESA, Lyle Feldman Where: [facility] Consent for Procedure/Surger yon 10-10-2023 Consent for Procedure/Surgery [id number] [facility] Patient Educationon 10-10-19 24 Patient [...] Follow these instructions at home: ? Take sepv-ddt-epzhqqu and prescription medicines only as told by [...] provider. Document Revised: 04/30/2022 Document Reviewed: 04/30/2022 [employer] Patient Education ? 2022 [employer]. Rahul [facility] Urology Office/Clinic Noteon 10-10-2023 Urology Office/Clinic [...] Tight The Urethra was dilated to: 22-32 [place] with sounds. Specimens Removed: None Postoperative Information [...] Contact Information PASQUALE MESA, Lyle Feldman, URL [address] [place] [address]- Additional Instructions: 6 mos for IO UD [...] Dila (more content not included)... Normal [facility] Comment on above: Result Comment: Elec tronically Signed By: Lyle CARRENO MD.br\Date and Time Signed: 10/10/23 11:27 EDT\.br\Electronically Co-Signed By: Kelly Hollis.br\Date and Time Co-Signed: 10/10/23 11:26 EDT MG MAMM SCREEN ROSANGELA W CADon 0 11-11-2022 MG MAMM SCREEN ROSANGELA W CAD Patient: LELA CHAIREZ Exam Date: 11/11/2022 : 1940 Gender:F Ordering : DR BIGG SCHULTZ D.O. Admission #: [id number] Family : Order #: [id number] CLICK HERE TO VIEW EXAM RADIOLOGY REPORT [...] lung cancer at age 53. LOCATION: [facility] BREAST COMPOSITION: Heterogeneously dense,which may [...] M.D. on 11/11/2022 at 13:50 Normal [facility] ELECTROLYTESon 06-17-2022 Anion gap [Moles/Vol] 10.9 mmol/L Normal [facility] Comment on above: Performed By: #### E LEC, TSH #### [facility] [address] [address] [address] Lillian Hurley Chloride [Moles/Vol] 92 mmol/L Critically low 98-107 [facility] Comment on above: Performed By: #### E LEC, TSH #### [facility] [address] [address] [address] Lillian Hurley CO2 [Moles/Vol] 30.4 mmol/L Normal 21.0-32.0 [facility] Comment on above: Performed By: #### E LEC, TSH #### [facility] [address] [address] [address] Lillian Hurley Potassium [Moles/Vol] 4.3 mmol/L Normal 3.5-5.1 [facility] Comment on above: Performed By: #### E LEC, TSH #### [facility] [address] [address] [address] Lillian Hurley Sodium [Moles/Vol] 129 mmol/L Critically low 136-145 [facility] Comment on above: Performed By: #### E LEC, TSH #### [facility] [address] [address] [address] [facility] TSH 0.675 uIU/mL Normal 0.358-3.740 [facility] Comment on above: Performed By: #### E LEC, TSH #### [facility] [address] [address] [address] Lillian Hurley Otheron 12-22-2000 CONVERTED ELECTRONIC SIGNATURE GEN HENDRIX M.D., PATHOLOGIST (Electronic signature on file) Final Signed Out: 12/22/2000 14:36 [facility] CONVERTED FINAL DIAGNOSIS BONE, RIGHT ELBOW, EXCISION - SEGMENTS OF OSSEOUS TISSUE WITH CHANGES CONSISTENT WITH CHANGES OF DEGENERATIVE OSTEOARTHROPATHY. REACTIVE SYNOVIUM WITH FOCAL OLD HEMORRHAGE. [facility] CONVERTED ORDERING PROVIDER Ordering Provider: JOSE ALMONTE [facility] Vital Signs Date Time Vital Sign Value Performing Clinician Dion ryan 10-10-2023 10:54-0400 Blood Pressure Location Lyle PASQUALE [facility] 10-10-2023 10:54-0400 Diastolic blood pressure 79 mm[Hg] Lyle CARRENO [facility] 10-10-2023 10:54-0400 Heart rate 73 /min Lylelexi CARRENO [facility] 10-10-2023 10:54-0400 Respiratory rate 16 /min Lylelexi CARRENO [facility] 10-10-2023 10:54-0400 Systolic blood pressure 127 mm[Hg] Lylelexi CARRENO [facility] 10-04-2022 10:17-0400 Blood Pressure Location Lylelexi CARRENO [facility] 10-04-2022 10:17-0400 Diastolic blood pressure 71 mm[Hg] Lylelexi CARRENO [facility] 10-04-2022 10:17-0400 Heart rate 60 /min Lylelexi CARRENO [facility] 10-04-2022 10:17-0400 Respiratory rate 16 /min Lyle CARRENO [facility] 10-04-2022 10:17-0400 Systolic blood pressure 125 mm[Hg] Lylelexi CARRENO [facility] Encounters Encounter Date Encounter Type Care Provider Facility Start: 05-24-2024 ambulatory Lyle Evangelista ty:[facility] Start: 05-03-2024 End: 05-03-2024 ambulatory Rhoda Gutierrez MD Facility:[facility] Start: 10-10-2023 End: 10-10-2023 ambulatory Lyle CARRENO Facility:[facility] Start: 10-10-2023 End: 10-10-2023 Patient encounter procedure Lyle CARRENO [facility] Start: 09-30-2023 End: 09-30-2023 ambulatory YOGESH DEL REAL Not Available Start: 11-11-2022 End: 11-12-[address] BIGG SCHULTZ Facility:[facility] Start: 10-04-2022 End: 10-04-2022 Patient encounter procedure Lyle CARRENO [facility] Start: 06-17-2022 End: 06-18-[address] BIGG SCHULTZ Facility:[facility] Start: 01-03-2022 End: 01-31-[address] BIGG SCHULTZ Facility:[facility] Start: 11-22-2021 End: 12-15-[address] DOCTOR COREAS Facility:[facility] Start: 10-01-2021 End: 10-01-2021 Patient encounter procedure Lyle CARRENO [facility] Start: 12-16-1920 End: 12-16-1920 Patient encounter procedure Jose Almonte Work Phone: [facility] Start: 12-16-1920 Results Only Jose Almonte Work Phone: [facility] Procedures Date Procedure Procedure Detail Performing Clinician Start: 10-01-2021 Dilation of urethra Pat lexi CARRENO Start: 09-06-2019 Dilation of urethra Pat lexi CARRENO Start: 11-16-2018 Dilation of urethra Pat lexi CARRENO Start: 05-18-2018 Dilation of urethra Pat lexi CARRENO Start: 11-17-2017 Dilation of urethra Pat lexi CARRENO Start: 05-19-2017 Dilation of urethra Pat lexi CARRENO Start: 09-10-2016 Cystourethroscopy wi th dilation of urethral stricture Lyle CARRENO Start: 01-19-2016 Dilation of urethra Rosa CARRENO Start: 07-21-2015 Dilation of urethra Pat lexi CARRENO Start: 07-18-2014 Dilation of urethra Pat lexi CARRENO Start: 12-27-2013 Dilation of urethra Pat lexi CARRENO Start: 07-14-2013 Procedure on neck Patri pernell CARRENO Start: 06-11-2013 Dilation of urethra Rosa CARRENO Start: 08-07-2009 Dilation of urethra Rosa CARRENO Start: 09-04-2006 Cystourethroscopy wi th dilation of urethral stricture Lyle CARRENO Start: 12-16-1920 CONVERTED SURGICAL PATHOLOGY Jose Almonte Work Phone: Appendectomy Lyle CARRENO Breast biopsy and re lated procedures Lyle CARRENO Cataract surgery Lyle CARBALLO Colonoscopy Lyle CARRENO Dilation of urethra Lyle CARRENO Excision of lipoma Lyle Banerjee ATELUCI eyelid lift Lyle CARRENO Hysterectomy Lyle CARRENO Nasal sinus procedure Andrea k PASQUALE Plantar fasciectomy Lyle CARRENO Procedure on elbow Lyle W ATERS Procedure on retina Lyle CARRENO Repair of single tendon Patr katerin CARRENO Plan of Treatment Date Care Activity Detail Author Start: 03-07-2020 Influenza vaccination INFLUENZA (#1) [facility] Start: 01-26-2010 DIABETES SCREEN DIABETES SCREEN [facility] Start: 2003 ADVANCE DIRECTIVE DISCUSSION ADVANCE DIRECTIVE DISCUSSION [facility] Start: 2003 BONE DENSITY BONE DENSITY [facility] Start: 2003 PNEUMOVAX AGE 65 AND OVER WITH 5YR LOOKBACK (#1) PNEUMOVAX AGE 65 AND OVER WITH 5YR LOOKBACK (#1) [facility] Start: 1988 SHINGRIX VACCINE (1 of 2) LOBATO GRIX VACCINE (1 of 2) [facility] Start: 1957 Urine microalbumin profile DTAP,TDAP ,TD (1 - Tdap) [facility] Immunizations Immunization Date Immunization Notes Care Provider Stephanie briceño 04-18-2023 influenza virus vacc ine, unspecified formulation Lyle CARRENO [facility] 03-29-2022 SARS-CoV-2 (COVID-19 ) [id number] Lyle CARRENO [facility] Comment on above: Result Comment: 2023: [id number] 11-02-2021 SARS-CoV-2 mRNA (vvqvdgjcgnd-nnmv-hcvikn e) vaccine Lyle CARRENO [facility] Comment on above: Result Comment: 2023: [id number] 04-16-2021 SARS-CoV-2 (COVID-19 ) mRNA BNT-162b2 vax Lyle CARRENO [facility] Comment on above: Result Comment: 2023: TPV80 08-23-2020 SARS-CoV-2 (COVID-19 ) mRNA BNT-162b2 vax Lyle CARRENO [facility] 07-31-2020 SARS-CoV-2 (COVID-19 ) mRNA BNT-162b2 vax Lyle CARRENO [facility] Comment on above: Result Comment: 2nd dose given 08/23/2020 07-23-2018 zoster vaccine recombinant Lyle CARRENO [facility] 11-28-2017 zoster vaccine recombinant Lyle CARRENO [facility] 03-23-2014 pneumococcal polysaccharide vaccine, 23 valent Lyle CARRENO [facility] 05-05-2013 zoster vaccine, live Lyle CARREON [facility] 04-25-2009 influenza, whole Lyle KATERIN CARBALLO [facility] Payers Date Payer Category Payer Medicare 1961 Medicare [id number] 1961 Medicare [id number] 1940 Unknown [id number] 2.16.84 [id number] 1940 Unknown [id number] 2.16.84 [id number] 1940 Unknown [id number] 2.16.84 [id number] 1940 Unknown [id number] 2.16.84 [id number] 1940 Unknown [id number] 2.16.84 [id number] 1940 Unknown [id number] 2.16.8 [id number] 1940 Unknown [id number] 2.16.8 [id number] 1940 Unknown [id number] [id number] Social History Date Type Detail Facility Tobacco smoking stat [facility] Unknown if ever smoked [facility] Sex Assigned At Not on file [facility] Start: 09-06-2019 End: 10-10-2023 Tobacco smoking status Never smoked tobacco (finding) [facility] Sex Assigned At Female [facility] Tobacco smoking status Never [facility] Functional Status Date Assessment Result Facility 10-10-2023 Functional Status N/A [facility] 10-04-2022 Functional Status N/A [facility] Hospital Discharge instructions 10-10-2023 Note Date [...] reconstructed. Follow these instructions at home: Take kvqe-zqf-beqenus and prescription medicines only as told by [...] provider. Document Revised: 04/30/2022 Document Reviewed: 04/30/2022 [employer] Patient Education 2022 [employer]. Follow Up Care 10/04/2022 10:57:38 With:PASQUALE MESA, Lyle Feldman, URL Address: [address] [place], [place] [id number]- When: Unknown [facility] Hospital Discharge instructions 10-04-2022 Note [...] including vitamins, herbs, eye drops, creams, and qhjj-gow-mxxcrkf medicines. Any problems you or family members [...] provider tells you to take them. Taking wpzm-alf-sqkulem medicines, vitamins, herbs, and supplements. General instructions [...] Follow these instructions at home: Medicines Take vzyd-mcz-lbplfgw and prescription medicines only as told by [...] actions to prevent or treat constipation: ?Take plsv-qwv-nracoit or prescription medicines. ?Eat foods that are [...] 08/05/2019 Document Reviewed: 08/05/2019 Elsevier Patient Education 2019 [employer]. Follow Up Care 10/01/2021 13:26:16 With:PASQUALE MESA, Lyle Feldman, URL Address: [address] [place] [address] [place] [address]- When: Unknown [facility] Discharge instructions 10-01-2021 Note Date & [...] reconstructed. Follow these instructions at home: Take hsde-bwk-xeadqcv and prescription medicines only as told by [...] 07/19/2016 Document Revised: 02/03/2019 Document Reviewed: 02/03/2019 [employer] Patient Education 2020 [employer]. [facility] Evaluation + Plan note Note Date & Type Note Facility Evaluation + Plan note Future Appointments Appointment Date:10/04/2022 09:45:00 AM Scheduled Provider:Lyle CARRENO MD Location:[facility] Appointment Type:URO Office Visit [facility] Evaluation + Plan note Note Date & Type Note Facility Evaluation + Plan note Future Appointments Appointment Date:10/10/2023 10:15:00 AM Scheduled Provider:Lyle CARRENO MD Location:[facility] Appointment Type:URO Office Visit [facility] [employer] Evaluation + Plan note Note Date & Type Note Facility Evaluation + Plan note Future Appointments Appointment Date:05/03/2024 09:15:00 AM Scheduled Provider:Lyle CARRENO MD Location:[facility] Appointment Type:URO Office Visit [facility] Hospital course Narrative Note Date & Type Note Facility Hospital course Narrative No data available for this section [facility] Progress note Note Date & Type Note Facility Progress note No data available for this section [facility] Summary Purpose Family History No Family History Records FoundNo Family History Records Found No data available for this section No Family History Records FoundNo Family History Records Found Advance Directives No [...] drug abuse patient.[facility] Patient Care team informatio n (unrecognized section and content) Personnel Name: MARION BIGG PARR DO Address: Address: [address] [place] [phone] Personnel Name: BIGG SCHULTZ JR, DO Address: Address: [address] [place] [id number] INFORMATION SOURCE (unrecogn ized section and content) DATE CREATED AUTHOR 11/15/2022 [facility] pital DATE CREATED AUTHOR AUTHOR'S ORGANIZ ATION 10/02/2023 [facility] dical [facility] DATE CREATED AUTHOR AUTHOR'S ORGANIZ ATION 04/29/2024 [facility] DATE CREATED AUTHOR AUTHOR'S ORGANIZ ATION 05/07/2024 [facility] FOR RECORDS PERTAINING TO PATIENTS WHO [...] BE BASED ON THE PRIMARY CLINICAL RECORDS. [employer] provides no warranty or guarantee of the accuracy or completeness of information in this document.
== END 2024-05-12 11:17 | disposition home or self-care (01) ==
LOC: RAD 11:17
PROVIDERS: PCP Internal Medicine; Visit Provider Nurse Practitioner
DX: M47.814 Spondylosis without myelopathy or radiculopathy, thoracic region (principal)
CPT/HCPCS: 72070

== ENCOUNTER 2024-07-14 10:40 | Outpatient (OUT) | payer MEDICARE, SELFPAY ==
--- NOTE | 2024-07-14 11:00 | P.CN_ITS ---
Consult Note: HPI Data of Consult Patient: new to practice Requesting Physician: Zakia Claros NP Primary Care Provider: BART SCHULTZ DO Consult Narrative Reason for consult: cervical radiculopathy Narrative: Hailey Cheng a pleasant 84 year old female presents for evaluation of cervical radiculopathy. Patient has a longstanding hx of neck pain and generalized pain, had 3 falls without injury January 2024 and has had increased pain since. Patient has had a C5-6 C6-7 fusion in 2013, aslo hx of right elbow replacement in 2000. Patient has been following with her PC and has completed 6 weeks of PT without improvement, mild relief with baclofen 5mg HS PRN gabapentin 100mg AM, tylenol 500-1000mg daily, CBD oil, voltaren cream HS with mild improvement. Patient rating pain 4 deep ache increasing to 5/10 with reaching, pushing, pulling, learning on her arm, and lifting. Pain improved with massage heat and ice. recently underwent right C5/6 TFESI with 70% improvement overall. Patient reports increased bilateral elbow pain. cc:: CC: Zakia Claros NP Review of Systems ROS Status of ROS 10 or more systems reviewed and unremark able except as noted in history and below Musculoskeletal Reports: extremity pain; Denies: back pain or neck pain Meds Home Medications and Allergies Home Medications ?Medication ?Instructions ?Recorded ?Confirmed ?Type buspirone 10 mg tablet 5 mg PO BID 01/08/24 05/03/24 History candesartan 32 mg tablet 32 mg PO DAILY 01/08/24 05/03/24 History carvedilol 6.25 mg tablet 6.25 mg PO Q12H 01/08/24 05/03/24 History levothyroxine 25 mcg tablet 25 mcg PO DAILY 01/08/24 05/03/24 History montelukast 10 mg tablet 10 mg PO DAILY 01/08/24 05/03/24 History CALCIUM D3 04/07/24 History CBD OIL 04/07/24 History EYE PROMISE 04/07/24 History Lactobacillus acidophilus 25 mmu cells PO DAILY 04/07/24 05/03/24 History VOLTAREN CREAM PRN pain 04/07/24 History acetaminophen 500 mg tablet 500 mg PO BID PRN pain 04/07/24 05/03/24 History (Tylenol Extra Strength) baclofen 10 mg tablet mg 04/07/24 History calcium 333 mg 1 tab PO DAILY 04/07/24 05/03/24 History (carbonate)-magnesium 133 mg-zinc 5 mg (sulfate) tablet famotidine 20 mg tablet mg 04/07/24 History fluticasone propionate 50 1 spray intranasal DAILY PRN 04/07/24 05/03/24 History mcg/actuation nasal allergy symptoms spray,suspension (24 Hour Allergy Relief) folic acid 1 mg tablet 1 mg PO BID 04/07/24 05/03/24 History gabapentin 100 mg capsule 100 mg PO DAILY 04/07/24 05/03/24 History melatonin 3 mg capsule 3 mg PO DAILY 04/07/24 05/03/24 History vitamin B complex (Vitamins B 1 cap PO DAILY 04/07/24 05/03/24 History Complex capsule) polyethylene glycol 3350 17 17 g PO BID 05/03/24 05/03/24 History gram/dose oral powder (ClearLax) Allergies Allergy/AdvReac Type Severity Reaction Status Date / Time citalopram (From Celexa) Allergy Mild Confusion Verified 05/03/24 09:45 duloxetine (From Cymbalta) Allergy Mild Confusion Verified 05/03/24 09:45 meperidine (From Demerol) Allergy Mild Unknown Verified 05/03/24 09:45 sertraline (From Zoloft) Allergy Mild Confusion Verified 05/03/24 09:45 Sulfa (Sulfonamide Allergy Mild Abdominal Verified 05/03/24 09:45 Antibiotics) Pain telmisartan (From Micardis) Allergy Mild Unknown Verified 05/03/24 09:45 tetracycline Allergy Mild Abdominal Verified 05/03/24 09:45 Pain venlafaxine (From Effexor) Allergy Mild Confusion Verified 05/03/24 09:45 Exam Constitutional Documenting provider has reviewed patient's vital signs: yes Common normals: no apparent distress, oriented x3, healthy appearing, alert and well nourished General appearance: cooperative HENMT Common normals: normocephalic, hearing grossly normal bilaterally and moist oral mucous membranes Head and scalp: normocephalic Eye Common normals: PERRL Pupil: PERRL Neck & C-Spine Common normals: full ROM General: normal visual inspection Cervical spine: no pain with cervical ROM, no cervical spine tenderness, no paracervical muscle tenderness, no paracervical muscle spasm and no trapezius muscle tenderness Other: negative spurlings strength 5/5 in BUE sensation intact BUE Chest Common normals: inspection of chest normal Respiratory Common normals: normal respiratory effort, no retractions and no use of accessory muscles Back & Pelvis Thoracic spine/upper back: pain with ROM, paraspinal muscle tenderness and paraspinal muscle spasm Other: chronic pain noted below, increased with bending twisting and overhead ROM facet tenderness noted on multiple levels Extremity Common normals: normal to inspection and full ROM Other: bilateral elbows tender to touch, full ROM, no edema Neuro Common normals: oriented x3, CN's II-XII intact bilaterally, moves all extremities, no focal motor deficits, no sensory deficits noted and deep tendon reflexes 2+ bilaterally Sensorium/orientation: alert Motor exam: strength 5/5 throughout and no movement abnormalities noted Psych Common normals: mental status grossly normal, thought process normal, cooperative, affect normal, speech normal and activity/motor behavior normal Speech: normal speech Thought process: normal thought process Assessment and Plan Assessment and Plan (1) Cervical radiculopathy: (2) Degenerative disc disease, cervical: (3) Cervical spondylosis: (4) Thoracic spondylosis: (5) Status post cervical spinal fusion: (6) Myalgia: (7) Bilateral elbow joint pain: Plan >50% improvement ongoing from recent cervical OK thoracic xray consistent with degenerative changes, continue chiropractor PRN defer additional medication management at this time, pt interested in trialing OTC tumeric f/u PRN
== END 2024-07-14 10:41 | disposition home or self-care (01) ==
LOC: PM 10:42
PROVIDERS: PCP Internal Medicine; Visit Provider Nurse Practitioner
DX: M54.12 Radiculopathy, cervical region (principal); M50.30 Other cervical disc degeneration, unspecified cervical region; M47.812 Spondylosis without myelopathy or radiculopathy, cervical region; M47.814 Spondylosis without myelopathy or radiculopathy, thoracic region; M43.22 Fusion of spine, cervical region; M79.18 Myalgia, other site; M25.521 Pain in right elbow; M25.522 Pain in left elbow
CPT/HCPCS: G0463

== ENCOUNTER 2025-01-06 11:31 | Outpatient (OUT) | payer MEDICARE, SELFPAY ==
--- OUTSIDE RECORDS SUMMARY | 2024-01-14 10:15 | XMS_ITS ---
Author Organization [facility] in [place] Address [address] [place] [address] Care Team Providers Care Physician Assistant Primary Care Name Role Phone None, Unknown or Primary Care Provider Unavailab Costa Cardona Unavailable [phone] Allergies Allergen (clinical drug ingredient) Drug/Non Drug Allergy documented on EMR Reaction Allergy Type Onset Date Status citalopram CeleXA Unknown Drug Allergy Active duloxetine Cymbalta Unknown Drug Allergy Active meperidine Demerol [...] Encounters Encounter Location Date Provider Diagnosis [facility] (PODIATRY) [address] [place] [address] [place] [address] 01/14/2024 Costa Lombardo Right foot pain M79.671 [...] (ICD-10 - M25.571) 01/14/2024 Other Referral from [facility] emergency department Plan Of Treatment Treatment Notes [...] new x-rays are needed Other Referral from [facility] emergency department Progress Notes * Fco CHENGhollisDOB:[birth year] (83 yo F)Acc No.[id number]:01/14/2024 New Patient Patient: Hailey MAK Provider: Lizy Lombardo DPM, MS :1940 A ge:83 Y S ex:Female Date:01/14/2024 Address:[facility] [place], [id number] Pcp:Unknown or None Check In:01:56 PM ESTCheck [...] enies. F ever d enies. W eight gain�denies. W eight loss d enies. S kin: Skin Ulcers d enies. S kin lesion(s) d enies. � C ardiovascular: Difficulty breathing on exertion d enies. L eg cramps�denies. E charles d enies. C hest pain d enies. R espiratory: Difficulty breathing d enies. D yspnea d enies.�Cough d enies. G astrointestinal: Diarrhea d enies. N ausea d enies. V omiting�denies. M usculoskeletal: Bone/Joint Symptoms d enies. C senior care Pain d enies.�Leg cramps d enies. N eurologic: Numbness d enies. T ingling d enies . G ait abnormality d enies. � H ematology: Anemia D enies. E asy bruising d enies. � A ll Other Systems: Review of Systems [...] 2010anterior cervical fusion C5-6 C6-7 2011PLIF L-45 2013RT open reduction internal fixation of condyle of humerus; Poly exchange total eblow revision; triceps repair and synovectomy of rt elbow 2015endovenous laser ablation Left 2018sclerotherapy Left Leg 2017marker left breast 2020RT elbow Replacement 2000 * [...] Cancelled) 4. O thers Notes: Referral from [facility] emergency department * Procedure Codes: * Preventive Medicine: Screenings/Counseling: B [place] ACTION PLAN Above Normal BMI Follow-up D ietary management education, guidance, and counseling F ALL RISK SCREENING Fall Risk Assessment: N o falls in the past year * * Sign off status: Completed Visit Status: C HK (Check Out) true * Provider: Lizy Lombardo DPM, MS Date: 01/14/2024 Generated for Lizandro cristina/Agustin/Macieitting on: 01/06/2025 11:33 AM EDT History and Physical Notes * [...]
--- OUTSIDE RECORDS SUMMARY | 2024-02-05 06:40 | XMS_ITS ---
Author Organization [facility] in [place] Address [address] [place] [address] Care Team Providers Care Stencil Sprayer Name Role Phone None, Unknown or Primary Care Provider Unavailab Lakisha Mercado Unavailable [phone] Allergies Allergen (clinical drug ingredient) Drug/Non Drug [...] Drug Allergy A ctive REASON FOR VISIT 3 week f/u Medications Medication SIG (Take, Route, Frequency, Duration) Notes Start Date End Date Status Famotidine 20 MG 1 tablet at bedtime as needed Orally Once a day Active Gabapentin 100 MG 1 capsule Orally Onc e a day Active Levothyroxine Sodium 25 MCG 1 tablet in the morning on an empty stomach Orally Once a day Active Montelukast Sodium 10 MG 1 tablet Orally Once a day Active Olmesartan Medoxomil 40 MG 1 tablet Oral ly Once a day Active Carvedilol 6.25 MG 1 tablet with food Orally Twice a day Active Benefiber Active busPIRone HCl 10 MG 1 tablet Orally Twic e a day Active Calcium Active Candesartan Cilexetil 32 MG 1 tablet Ora lly Once a day Active Baclofen 10 MG 1 tablet as needed Orally Twice a day Active Social History Tobacco Use: Social History Observation Description Date Details (start date - stop date) Never Smoker NA - NA Tobacco Control (Standard) Question Answer Notes Tobacco use: Nonsmoker Vital Signs Temperature 98 degrees Fahrenheit 02/05/2024 Heart Rate 73 /min 02/05/2024 Respiratory Rate 16 /min 02/05/2024 Encounters Encounter Location Date Provider Diagnosis [facility] (PODIATRY) [address] [place] [address] [place] [address] 02/05/2024 Lakisha Parnell Displaced fracture of navicular [scaphoid] of right foot, subsequent encounter for fracture with routine healing S92.251D Assessments Encounter Date Diagnosis (ICD Code) Assessment Notes Treatment Notes Treatment Clinical Notes Section Notes 02/05/2024 Displaced fracture of navicular [scaphoid] of right foot, subsequent encounter for fracture with routine healing (ICD-10 - S92.251D) Ms. Cheng presents for reevaluation of avulsion fracture of the dorsal navicular, DOI: 01/08/24. The patient states pain has resolved. She has transition to normal shoes and has no complaints in regards to her foot. She may continue to increase activities at her tolerance. Follow-up as needed. Plan Of Treatment Treatment Notes Assessment Notes Displaced fracture of navicu lar [scaphoid] of right foot, subsequent encounter for fracture with routine healing Ms. Cheng presents for reevaluation of avulsion fracture of the dorsal navicular, DOI: 01/08/24. The patient states pain has resolved. She has transition to normal shoes and has no complaints in regards to her foot. She may continue to increase activities at her tolerance. Follow-up as needed. Next Appt Details Follow Up: prn, Reason: Progress Notes * Hailey CHENGDOB:[birth year] (83 yo F)Acc No.[id number]:02/05/2024 Follow Up Patient: Hailey MAK Provider: Denise Parnell PA-C :1940 A ge:83 Y S ex:Female Date:02/05/2024 Address:[place], [id number] Pcp:Unknown or None Check In:10:30 AM ESTCheck O ut:11:29 AM EST Subjective: * Chief Complaints: * 3 week f/u * HPI: G eneral: Pt here for follow up fx right foot. States has had no pain since last visit and has been wearing normal shoes. * ROS: G eneral/Constitutional: Chills d enies. [...] M usculoskeletal: Bone/Joint Symptoms d enies. C group home Pain d enies.�Leg cramps d enies. N [...] h ysterectomy 1983breast biopsy 1988deviated septum repair 1989heel spur surgery, RT 1991Plate w/ 7 screws rt elbow 1996cataract removal 2000detached retina pneumatic retinopexy, R 2002virectomy with gas [...] Replacement 2000 * Hospitalization/Major Diagno stic Procedure: s ee above * Family History: N o Family History documented.. * Social History: T obacco Use: T [...] AllergyCeleXA: AllergyCymbalta: Allergyno[Allergies Verified] Objective: * Vitals: W t: Not Taken - Declined by Patient, Ht: Not Taken - Declined by Patient, Temp:98F, HR:73/min, RR:16/min, Pain scale:01-10. * Examination: P odiatry Examination: SKIN: s kin intact, n o sign of infection. MUSCULOSKELETAL: N o pain on palpation, Range of motion of ankle and foot is within normal limits, Muscle strength is 5/5 in all planes. NEUROLOGICAL: L ight touch sensation is intact in all nerve distributions, Negative Tinel sign. VASCULAR: P alpable pedal pulses, No swelling, No calf pain on squeeze. Assessment: * Assessment: 1. D isplaced fracture of navicular [scaphoid] of right foot, subsequent encounter for fracture with routine healing - S92.251D (Primary) Plan: * Treatment: * Procedure Codes: * Preventive Medicine: Screenings/Counseling: B [place] ACTION PLAN Above Normal BMI Follow-up D ietary management education, guidance, and counseling F ALL RISK SCREENING Fall Risk Assessment: N o falls in the past year * Follow Up: p rn * * Sign off status: Completed Visit Status: C HK (Check Out) true * Provider: Denise Parnell PA-C Date: 02/05/2024 Generated for Lizandro cristina/Agustin/Macieitting on: 01/06/2025 11:33 AM EDT History and Physical Notes * HPI (History of Present Illness) Category Sub-Category Detail Notes Category Not es General Pt here for fol low up fx right foot. States has had no pain since last visit and has been wearing normal shoes. Examination Category Sub-Category Detail Notes Category Not es Podiatry Examination SKIN: skin intact, no sign of infection MUSCULOSKELETAL: No pain on palpation , Range of motion of ankle and foot is within normal limits, Muscle strength is 5/5 in all planes NEUROLOGICAL: Light touch sensatio n is intact in all nerve distributions, Negative Tinel sign VASCULAR: Palpable pedal pulse s, No swelling, No calf pain on squeeze
--- NOTE | 2025-01-06 11:05 | PM.CN ---
Consult Note: HPI Data of Consult Patient: known to practice within the last 3 years Consult date: 01/06/25 Requesting Physician: Zakia Claros NP Primary Care Provider: BART SCHULTZ DO Consult Narrative Reason for consult: cervical radiculopathy Narrative: Hailey Cheng a pleasant 84 year old female presents for evaluation of cervical radiculopathy. Patient has a longstanding hx of neck pain and generalized pain, had 3 falls without injury January 2024 and has had increased pain since. Patient has had a C5-6 C6-7 fusion in 2013, aslo hx of right elbow replacement in 2000. Patient has been following with her PCP and has completed 6 weeks of PT without improvement, mild relief with baclofen 5mg HS PRN gabapentin 100mg AM, tylenol 500-1000mg daily, CBD oil, voltaren cream HS with mild improvement. prior right C5/6 TFESI provided >50% improvement greater than 4 months. noting increase numbness tingling weakness to BUE as well as neck pain over the last 2 months. pain today 2/10 increasing to 6/10 with activity. cc:: CC: Zakia Claros NP Review of Systems ROS Status of ROS 10 or more systems reviewed and unremarkable except as noted in history and below Musculoskeletal Reports: extremity pain; Denies: back pain or neck pain Meds Home Medications and Allergies Home Medications �Medication �Instructions �Recorded �Confirmed �Type buspirone 10 mg tablet 5 mg PO BID 01/08/24 05/03/24 History candesartan 32 mg tablet 32 mg PO DAILY 01/08/24 05/03/24 History carvedilol 6.25 mg tablet 6.25 mg PO Q12H 01/08/24 05/03/24 History levothyroxine 25 mcg tablet 25 mcg PO DAILY 01/08/24 05/03/24 History montelukast 10 mg tablet 10 mg PO DAILY 01/08/24 05/03/24 History CALCIUM D3 04/07/24 History CBD OIL 04/07/24 History EYE PROMISE 04/07/24 History Lactobacillus acidophilus 25 mmu cells PO DAILY 04/07/24 05/03/24 History VOLTAREN CREAM PRN pain 04/07/24 History acetaminophen 500 mg tablet 500 mg PO BID PRN pain 04/07/24 05/03/24 History (Tylenol Extra Strength) baclofen 10 mg tablet mg 04/07/24 History calcium 333 mg 1 tab PO DAILY 04/07/24 05/03/24 History (carbonate)-magnesium 133 mg-zinc 5 mg (sulfate) tablet famotidine 20 mg tablet mg 04/07/24 History fluticasone propionate 50 1 spray intranasal DAILY PRN 04/07/24 05/03/24 History mcg/actuation nasal allergy symptoms spray,suspension (24 Hour Allergy Relief) folic acid 1 mg tablet 1 mg PO BID 04/07/24 05/03/24 History gabapentin 100 mg capsule 100 mg PO DAILY 04/07/24 05/03/24 History melatonin 3 mg capsule 3 mg PO DAILY 04/07/24 05/03/24 History vitamin B complex (Vitamins B 1 cap PO DAILY 04/07/24 05/03/24 History Complex capsule) polyethylene glycol 3350 17 17 g PO BID 05/03/24 05/03/24 History gram/dose oral powder (ClearLax) Allergies Allergy/AdvReac Type Severity Reaction Status Date / Time citalopram (From Celexa) Allergy Mild Confusion Verified 05/03/24 09:45 duloxetine (From Cymbalta) Allergy Mild Confusion Verified 05/03/24 09:45 meperidine (From Demerol) Allergy Mild Unknown Verified 05/03/24 09:45 sertraline (From Zoloft) Allergy Mild Confusion Verified 05/03/24 09:45 Sulfa (Sulfonamide Allergy Mild Abdominal Verified 05/03/24 09:45 Antibiotics) Pain telmisartan (From Micardis) Allergy Mild Unknown Verified 05/03/24 09:45 tetracycline Allergy Mild Abdominal Verified 05/03/24 09:45 Pain venlafaxine (From Effexor) Allergy Mild Confusion Verified 05/03/24 09:45 Exam Constitutional Documenting provider has reviewed patient's vital signs: yes Common normals: no apparent distress, oriented x3, healthy appearing, alert and well nourished General appearance: cooperative HENMT Common normals: normocephalic, hearing grossly normal bilaterally and moist oral mucous membranes Head and scalp: normocephalic Eye Common normals: PERRL Pupil: PERRL Neck & C-Spine Common normals: full ROM General: normal visual inspection Cervical spine: pain with cervical ROM; no cervical spine tenderness, no paracervical muscle tenderness, no paracervical muscle spasm and no trapezius muscle tenderness Other: positive spurlings decreased sensation to bilateral c5,6 strength 4/5 in BUE Chest Common normals: inspection of chest normal Respiratory Common normals: normal respiratory effort, no retractions and no use of accessory muscles Back & Pelvis Thoracic spine/upper back: pain with ROM, paraspinal muscle tenderness and paraspinal muscle spasm Other: chronic pain noted below, increased with bending twisting and overhead ROM facet tenderness noted on multiple levels Extremity Common normals: normal to inspection and full ROM Other: bilateral elbows tender to touch, full ROM, no edema Neuro Common normals: oriented x3, CN's II-XII intact bilaterally, moves all extremities, no focal motor deficits, no sensory deficits noted and deep tendon reflexes 2+ bilaterally Sensorium/orientation: alert Motor exam: strength 5/5 throughout and no movement abnormalities noted Psych Common normals: mental status grossly normal, thought process normal, cooperative, affect normal, speech normal and activity/motor behavior normal Speech: normal speech Thought process: normal thought process Assessment and Plan Assessment and Plan (1) Cervical radiculopathy: Assessment and Plan: The patient has had over 3 months of moderate to severe neck and BUE pain with functional impairment and inadequate response to conservative care including NSAIDS (unless there are contraindication such as concurrent blood thinners), multiple oral or topical pain medications, and home exercise program/physical therapy.� Patient has completed >6 weeks of guided home exercise program and/or formal physical therapy program without relief of their symptoms.� I have reviewed the imaging of the cervical spine and no red flags were identified.� The Oswestry Disability Index was completed, and the patient scored a 22%.� We discussed the risks and benefits of the procedure with the patient, and we are NOT planning on using sedation as outlined in the guidelines from Medicare unless there is a documented reason that sedation would be strongly recommended.��The procedure will be completed with fluoroscopic guidance.� (2) Degenerative disc disease, cervical: (3) Cervical spondylosis: (4) Status post cervical spinal fusion: Plan proceed with bilateral C5,6 TFESI under fluoroscopy for cervical stenosis and cervical radiculopathy continue medication management through PCP continue HEP as tolerated continue healthcare network consultant PRN f/u 2 weeks after OK
--- OUTSIDE RECORDS SUMMARY | 2025-01-06 11:33 | XMS_ITS | Patient Health Record ---
Author Organization [facility] [place] Address [address] [place] [address] Care Team Providers Care Grounds Supervisor Name Role Phone None, Unknown or Primary Care Provider Unavailab Costa Cardona Unavailable [phone] Lakisha Parnell Unavailable [phone] Allergies Allergen (clinical drug ingredient) Drug/Non Drug [...] tetracycline Tetracycline Unknown Drug Allergy A ctive Reason For Referral No Information Medications Medication SIG (Take, Route, Frequency, Duration) Notes Start Date End Date Status Carvedilol 6.25 MG 1 tablet with food Orally Twice a day Active Famotidine 20 MG 1 tablet at bedtime as needed Orally Once a day Active Gabapentin 100 MG 1 capsule Orally Onc e a day Active Benefiber Active busPIRone HCl 10 MG 1 tablet Orally Twic e a day Active Calcium Active Candesartan Cilexetil 32 MG 1 tablet Ora lly Once a day Active Levothyroxine Sodium 25 MCG 1 tablet in the morning on an empty stomach Orally Once a day Active Montelukast Sodium 10 MG 1 tablet Orally Once a day Active Olmesartan Medoxomil 40 MG 1 tablet Oral ly Once a day Active Baclofen 10 MG 1 tablet as needed Orally Twice a day Active Social History Tobacco Use: Social History Observation Description Date Details (start date - stop date) Never Smoker NA - NA Tobacco Control (Standard) Question Answer Notes Tobacco use: Nonsmoker Problems Problem Type SNOMED Code ICD Code Onset Dates Problem Status W/U Status Risk Notes Problem Pain in right foot (458483373053248 ) Right foot pain (M79.671) Active confirmed Problem Arthralgia of the ankle and/or foot (990929392) Right ankle pain (M25.571) Active confirmed Vital Signs Heart Rate 73 /min 02/05/2024 Temperature 98 degrees Fahrenheit 02/05/2024 Respiratory Rate 16 /min 02/05/2024 Encounters Encounter Location Date Provider Diagnosis [facility] (PODIAT[facility]) [address] [place] [address] [place] [address] 02/05/2024 Lakisha Parnell Displaced fracture of navicular [scaphoid] of right foot, subsequent encounter for fracture with routine healing S92.251D [facility] (PODIATRY) [address] [place] [address] [place] [address] 01/14/2024 Costa Lombardo Right foot pain M79.671 [...] 4 weeks no new x-rays are needed 02/05/2024 Displaced fracture of navicular [scaphoid] of [...] activities at her tolerance. Follow-up as needed. 01/14/2024 Right ankle pain (ICD-10 - M25.571) 01/14/2024 Other Referral from [place] emergency department Plan Of Treatment No Information Insurance Providers Payer Name Payer Address Payer Phone Subscriber Number Group Number Insured Name Patient Relationship to Insured Coverage Start Date Coverage End Date [facility] MEDICARE [employer] [address] [address] [place] [address] [id number] Hailey Chapin Self - patient is the insured Medical (General) History Medical History History ICD Code Arthritis gastroesophageal reflux disease (GERD) high blood pressure thyroid disease joint replacement arm Surgical History Surgery Date(Month/Year) marker left breast 2019 sclerotherapy Left Leg 2018 endovenous laser ablation Left 2018 RT open reduction internal f ixation of condyle of humerus; Poly exchange total eblow revision; triceps repair and synovectomy of rt elbow 2015 eyelid surgery 2009 rt arm tendon repair 2009 repair to elbow replacement 2005 recurrent detachment w/buckle R 2004 virectomy with gas fluid exchange, R 200 3 detached retina pneumatic retinopexy, R 2001 cataract removal 2000 Plate w/ 7 screws rt elbow 1995 heel spur surgery, RT 1990 deviated septum repair 1989 breast biopsy 1988 hysterectomy 1983 RT elbow Replacement 2000 anterior cervical fusion C5-6 C6-7 2010 PLIF L-45 2013 Hospitalization History Reason Date(Month/Year) see above
--- OUTSIDE RECORDS SUMMARY | 2025-01-06 11:33 | XMS_ITS | Clinical Summary ---
Author Organization [facility] Address [address] [place], [place] [address] Care Team Providers Care Manager Floral Name Role Phone Shanna Ceja DO, Charles Lewis Primary Care Provi alok Allergies Active Allergy Reactions Criticality Noted Date Comments Risedronate Sodium 03/10/2008 cramps Meperidine (Pf) 01/26/2007 Venlafaxine Hcl 01/26/2007 Sulfa (Sulfonamide Antibiotics) 01/05 Tetracycline 01/26/2007 Sertraline Hcl 01/26/2007 Medications levothyroxine (LEVOXYL) 25 mcg ORAL Tab Take one half tablet daily. 0 01/26/2007 Active triamcinolone acetonide 55 mcg NASAL SprA as directed 0 01/26/2007 Ac tive azelastine (ASTELIN) 137 mcg NASAL SprA as needed 0 01/26/2007 Acti ve irbesartan (AVAPRO) 150 mg ORAL Tab Take one(1) tablet daily. 0 01/26/2007 Active Calcium Carbonate-Vitam in D2 (CALCIUM + VITAMIN D) 600 (1,500)-200 mg-unit ORAL Tab Take one(1) tablet daily. 0 01/26/2007 Active Flaxseed Oil 1,000 mg ORAL Cap Take one(1) tablet daily. 0 01/26/2007 Active Vit C-Vit K-Dybzoh-Xlfepy ls (OCUVITE LUTEIN) ORAL Cap Take one(1) tablet daily. 0 01/26/2007 Active [place]-3 Fatty Acids (FISH OIL) 500-100 mg ORAL Cap Take one(1) capsule daily. 0 01/26/2007 Active vitamin b complex (B-COMPLEX) ORAL Tab Take one(1) tablet daily. 0 01/26/2007 Active Guar Gum (BENEFIBER) ORAL Pack as directed 0 01/26/2007 Active Lecithin (SOYA LECITHIN) 1,200 mg ORAL Cap Take one(1) tablet daily. 0 01/26/2007 Active Ibuprofen (ADVIL) 100 mg ORAL Chew as needed 0 01/26/2007 Active lidocaine (LIDODERM) 5 %(700 mg/patch) TOPICAL PtMd as directed 0 01/26/2007 Acti ve iron ag&fum/c/fa/mv cmb11/ca-t(REPL LAN 24/01 (NEW FORMULATION) 151 MG-200 MG-1 MG-0.8 MG TAB) Take one(1) tablet daily. 0 0 03/10/2008 Active carisoprodol(SO MA 250 MG TAB) Take one(1) tablet daily at bedtime. 0 0 03/10/2008 Active famotidine(PEPC ID 20 MG TAB) Take one(1) tablet daily.at Hs 0 0 03/10/2008 Active Active Problems Problem Noted Date Diagnosed Date Unspecified disorder of adrenal glands 8 Family History Medical History Relation Comments ALS [Other] Brother At age 72 Cancer Brother Close to the aor ta. Killed him Ischemic Heart Disease Brother Cancer Father Throat cancer. U sed to smoke. Valvular heart disease [Other] Mother R heumatic fever No adrenal gland problem [Other] Other Breast Cancer Sister Diagnosed at age 50 Diabetes Son DM-1 Relation Status Comments Brother Father Mother Other Sister Son Social History Tobacco Use Types Packs/Day Years Used Date Smoking Tobacco: Never Alcohol Use Standard Drinks/Week Comments No 0 (1 standard drink = 0.6 oz pur e alcohol) Comments No Sex and Gender Information Value Date Recorded Sex Assigned at Not on file Legal Sex Female 8:07 AM EST Gender Identity Not on file Sexual Orientation Not on file Occupation Industry Job Start Date Job End Date She does not work Not on file Not on file Not on daniel e Last Filed Vital Signs Vital Sign Reading Time Taken Comments Blood Pressure 134/70 03/10/2008 8:23 AM EDT Pulse 74 03/10/2008 8:23 AM EDT Temperature - - Respiratory Rate - - Oxygen Saturation - - Inhaled Oxygen Concentration - - Weight 80.1 kg (176 lb 9.6 oz) 03/10/2008 8:23 A M EDT Height 161.3 cm (5' 3.5 ) 01/26/2007 10:59 AM ED T Body Mass Index 30.79 01/26/2007 10:59 AM EDT Plan of Treatment Health Maintenance Due Date Last Done Comments Anxiety Screening 1958 Depression Screening 1958 DTaP,Tdap,Td Vaccine (1 - Tdap) 1957 Pneumococcal Vaccine: 50+ (1 of 1 - PCV) 1988 Shingrix Vaccine (1 of 2) 1988 Bone Density Screening 2003 Diabetes Screening 01/26/2010 01/26/2007 RSV Vaccine (1 - 1-dose 75+ series) 2013 Covid-19 Vaccine ( - season) 2024 Advance Directive Discussion 07/07/2024 Influenza Vaccine (Season Ended) 2025 Procedures Procedure Name Priority Date/Time Associated Diagnosis Comments BASIC METABOLIC PANEL Routine 01/26/2007 12:26 PM EDT Abd/Pel Swell/Mass/Lump Unsp Site from Last 3 Months or Most Recently Relevant to Health Maintenance Results * (ABNORMAL) BASIC METABOLIC PNL (01/26/2007 12:26 PM EDT) Glucose 103(H) 65 - 100 mg/dL [facility] BUN 15 8 - 25 mg/dL [facility] Creatinine 0.8 0.7 - 1.4 mg/dL [facility] Sodium 134 132 - 148 mmol/L [facility] Potassium 5.4(H) 3.5 - 5.0 mmol/L [facility] Chloride 98 98 - 110 mmol/L [facility] CO2 23 23 - 32 mmol/L [facility] Anion Gap 13 0 - 15 mmol/L [facility] Calcium 9.5 8.5 - 10.5 mg/dL [facility] Blood specimen (specimen) BLOOD SPECIMEN / Unknown 01/26/2007 12:26 PM EDT Aamir Salazar MD LABORATORY Final Result [facility] [address] [place] [address] from Last 3 Months or Most Recently Relevant to Health Maintenance Insurance MEDICARE BLUE CARD PPO OOS Member Subscriber Plan / Payer (Ef fective 2014-Present) Name:Hailey Cheng Relation to Subscriber:Spouse Name:YOGESH CHENG Date of :1928 (Home) Address: [address] [place] [address] Payer ID:[id number] (NAIC) Type:PPO Address: [address] [place] [id number] Care Teams Manager Floral Relationship Specialty Start Date End Date Bigg Otero Jr., [facility] [place] [address] PCP - General 10/01/06
--- OUTSIDE RECORDS SUMMARY | 2025-01-06 11:34 | XMS_ITS | Clinical Summary ---
Author Organization [facility] Address [address] [place] [address] Care Team Providers Care Office Equipment Technician Name Role Phone Bigg Otero Primary Care Provider + [phone] Allergies Active Allergy Reactions Criticality Noted Date Comments Azithromycin 09/11/2017 Citalopram Hydrobromide 09/11/2017 Duloxetine Hcl 09/11/2017 Meperidine 09/11/2017 Duloxetine Other (See Comments),Nausea And Vomiting Low 01/24/2015 Venlafaxine 09/11/2017 Telmisartan 09/11/2017 Omeprazole 09/30/2023 Other Reaction(s): GI upset w diarrhea Risedronate Sodium 03/10/2008 cramps Sulfa Antibiotics 09/11/2017 Sulfamethoxazole-Trimeth oprim 09/30/2023 Other Reaction(s): Unknown Tetracyclines & Related 09/11/2017 Unable To Assess 01/08/2024 Sertraline Hcl 09/11/2017 Medications acetaminophen (TYLENOL) 500 MG tablet Take 1 tablet by mouth every 4 hours as needed 4 Active baclofen (LIORESAL) 10 MG tablet Take 1 tablet by mouth every 8 hours as needed Active busPIRone (BUSPAR) 10 MG tablet Take 1 tablet by mouth 2 times daily Active calcium carbonate 1500 (600 Ca) MG TABS tablet Take 1 tablet by mouth daily as needed Active CALCIUM PO CALCIUM D3 Active April 06, 2024 11:00pm 4 Active candesartan (ATACAND) 32 MG tablet Take 1 tablet by mouth daily Active carvedilol (COREG) 6.25 MG tablet Take 0.5 tablets by mouth in the morning and 0.5 tablets in the evening. Active clobetasol (TEMOVATE) 0.05 % ointment Apply topically 2 times daily 4 Active estrogens conjugated (PREMARIN) 0.625 MG/GM CREA vaginal cream Place 0.5 g vaginally daily Active folic acid (FOLVITE) 1 MG tablet Take 1 tablet by mouth daily 4 Active gabapentin (NEURONTIN) 100 MG capsule Take 1 capsule by mouth 3 times daily. Active levothyroxine (SYNTHROID) 25 MCG tablet Take 1 tablet by mouth daily Active melatonin 3 MG TABS tablet Take 1 tablet by mouth nightly as needed 4 Active montelukast (SINGULAIR) 10 MG tablet Take 1 tablet by mouth nightly Active B Complex-C (VITAMIN B + C COMPLEX PO) Take by mouth 4 Active Active Problems No known active problems Social History Tobacco Use Types Packs/Day Years Used Date Smoking Tobacco: Never Smokeless Tobacco: Never Tobacco Cessation:Counseling Given: Not Answered Alcohol Use Standard Drinks/Week Comments Never 0 (1 standard drink = 0.6 oz pur e alcohol) Comments No Sex and Gender Information Value Date Recorded Sex Assigned at Not on file Legal Sex Female 10:02 AM EST Gender Identity Not on file Sexual Orientation Not on file Last Filed Vital Signs Vital Sign Reading Time Taken Comments Blood Pressure 149/87 09/13/2024 2:28 PM EDT Pulse 79 09/13/2024 2:28 PM EDT Temperature 36.6 C (97.9 F) 09/13/2024 2:28 PM EDT Respiratory Rate - - Oxygen Saturation 95% 09/13/2024 2:28 PM EDT Inhaled Oxygen Concentration - - Weight 63.5 kg (140 lb) 07/23/2019 10:53 AM EST Height 157.5 cm (5' 2 ) 07/23/2019 10:53 AM EST Body Mass Index 25.61 07/23/2019 10:53 AM EST Plan of Treatment Health Maintenance Due Date Last Done Comments Depression Screen 1950 DTaP/Tdap/Td vaccine (1 - Tdap) 1957 Pneumococcal 50+ years Vaccine (2 of 2 - PCV) 03/23/2015 03/23/2014 Annual Wellness Visit (Medicare Advantage) 07/07/2024 COVID-19 Vaccine ( season) 2024 04/08/2024, 04/18/2023, 03/29/2022, Additional history exists Flu vaccine (#1) 02/04/2025 04/18/2023, 04/25/2009 DEXA (modify frequency per FRAX score) Discontinued 12/09/2017 Shingles vaccine Completed 07/23/2018, , 05/05/2013 Respiratory Syncytial Virus (RSV) or age 60 yrs+ Completed 04/08/2024 Hepatitis A vaccine Aged Out No longe r eligible based on patient's age to complete this topic Hepatitis B vaccine Aged Out No longe r eligible based on patient's age to complete this topic Hib vaccine Aged Out No longer eligi ble based on patient's age to complete this topic Meningococcal (ACWY) vaccine Aged Out No longer eligible based on patient's age to complete this topic Meningococcal B vaccine Aged Out No l onger eligible based on patient's age to complete this topic Polio vaccine Aged Out No longer elig ible based on patient's age to complete this topic Procedures Procedure Name Priority Date/Time Associated Diagnosis Comments DEXA BONE DENSITY AXIAL Routine 12/09/2017 from Last 3 Months or Most Recently Relevant to Health Maintenance Results * DEXA Bone Density Axial (12/09/2017) Anatomical Region Laterality Modality Hip, C-spine, T-spine, L-spine [facility] Historical Provider IMG DEXA ORDERABLES Elaine l Result from Last 3 Months or Most Recently Relevant to Health Maintenance [place] [id number] [facility] Advance Directives Documents on File Type Date Recorded Patient Surgery Scheduler Expl anation ACP-Power of Personal Lines Advisor 06/17/2018 5:06 PM [facility] POWER OF ATTORNE 06/25/18 Care Teams Office Equipment Technician Relationship Specialty Start Date End Date Bigg Otero DO [address] [place] [phone] PCP - General Internal Medicine 09/09/17
--- OUTSIDE RECORDS SUMMARY | 2025-01-06 11:34 | XMS_ITS | Clinical Summary ---
Author Organization [facility] Address [address] [place] [address] Care Team Providers Care Curb Supervisor Name Role Phone Bigg Otero MD Primary Care Provider Allergies Active Allergy Reactions Criticality Noted Date Comments Azithromycin 09/11/2017 Citalopram 09/11/2017 Other Reaction(s): Unknown Duloxetine Hcl 09/11/2017 Other Reaction(s): Unknown Meperidine 01/26/2007 Meperidine Hcl 09/30/2023 Other Reaction(s): Unknown Omeprazole 09/30/2023 Other Reaction(s): GI upset w diarrhea Risedronate Sodium 03/10/2008 cramps Sertraline 01/26/2007 Other Reaction(s): Unknown Sulfa Antibiotics 01/26/2007 Other Reaction(s): Unknown Sulfamethoxazole-Trimethoprim 2023 Other Reaction(s): Unknown Telmisartan 09/11/2017 Other Reaction(s): Unknown Tetracyclines & Related 01/26/2007 Other Reaction(s): Unknown Venlafaxine Hcl 01/26/2007 Medications baclofen (Lioresal) 10 MG tablet Take 10 mg by mouth every 8 (eight) hours if needed Active busPIRone (Buspar) 10 MG tablet Take 10 mg by mouth in the morning and 10 mg before bedtime. Active calcium carbonate 1500 (600 Ca) MG tablet every 12 (twelve) hours Active candesartan (Atacand) 32 MG tablet 1 (one) time each day at the same time Active carvedilol (Coreg) 6.25 MG tablet every 12 (twelve) hours Active Premarin 0.625 MG/GM cream as directed Vaginal Active montelukast (Singulair) 10 MG tablet 1 (one) time each day at the same time Active gabapentin (Neurontin) 100 MG capsule Take 100 capsules by mouth Active levothyroxine (Synthroid, Levoxyl) 25 MCG tablet Take 25 mcg by mouth Daily Active Active Problems Problem Noted Date Diagnosed Date Thyroid disease 09/30/2023 HTN (hypertension) 09/30/2023 GERD (gastroesophageal reflux disease) Depression 09/30/2023 Social History Tobacco Use Types Packs/Day Years Used Date Smoking Tobacco: Never Smokeless Tobacco: Never Tobacco Cessation:Counseling Given: Not Answered Comments Unknown Sex and Gender Information Value Date Recorded Sex Assigned at Not on file Legal Sex Female 7:36 PM EDT Gender Identity Not on file Sexual Orientation Not on file Last Filed Vital Signs Vital Sign Reading Time Taken Comments Blood Pressure 128/70 08/11/2024 1:54 PM EST Pulse - - Temperature - - Respiratory Rate - - Oxygen Saturation - - Inhaled Oxygen Concentration - - Weight 62.5 kg (137 lb 12.8 oz) 08/11/2024 1:54 PM EST Height 161.3 cm (5' 3.5 ) 02/22/2019 12 :00 PM EDT Body Mass Index 24.03 02/22/2019 12:00 PM EDT Plan of Treatment Health Maintenance Due Date Last Done Comments Pneumococcal Vaccine: 65+ Ye ars (2 of 2 - PCV) 03/23/2015 03/23/2014 Influenza Vaccine (Season Ended) 2025 04/18/20 23, 04/25/2009 Insurance [place] [address] Care Teams Curb Supervisor Relationship Specialty Start Date End Date Bigg Otero MD [facility] [place] [address] PCP - General Internal Medicine 09/30/23
== END 2025-01-06 11:32 | disposition home or self-care (01) ==
LOC: PM 11:31
PROVIDERS: PCP Internal Medicine; Visit Provider Nurse Practitioner
DX: M54.12 Radiculopathy, cervical region (principal); M50.30 Other cervical disc degeneration, unspecified cervical region; M47.812 Spondylosis without myelopathy or radiculopathy, cervical region; M43.22 Fusion of spine, cervical region
CPT/HCPCS: G0463

== ENCOUNTER 2025-01-10 09:52 | Day surgery (SDC) | payer MEDICARE, SELFPAY ==
--- OUTSIDE RECORDS SUMMARY | 2024-09-24 11:05 | XMS_ITS ---
Author Name Auto Generated Organization OHIP Care Team Providers Care Dual Rate Dealer Name Role Phone AALIYAH DREW Attending Unavailable Lyle CARRENO Attending Unavailable Lyle CARRENO Attending Unavailable Brenda MESA, Rhoda Cervantes Attending Unavailable PROBLEMS No Problem Records Found PROCEDURES No Procedure Records Found RESULTS PATIENT EDUCATION Observed: 09/24/2024 12:55 PM Status: F Source: [facility] Patient Education Urology Urethral Dilation Urethral dilation is a procedure to stretch open (dilate) the urethra. The urethra is the tube that drains pee (urine) from the bladder out of the body. In females, the urethra opens above the vaginal opening. In males, the urethra opens at the tip of the penis. Urethral dilation is usually done to treat narrowing of the urethra (urethral stricture), which can make it difficult to pee (urinate). Urethral strictures can be caused by scar tissue, infection, injury, or surgery. Urethral dilation widens the urethra so that you can pee normally. Urethral dilation is done through the opening of the urethra. There are no incisions made during the procedure. Tell a health care provider about: ??? Any allergies you have. ??? All medicines you are taking, including vitamins, herbs, eye drops, creams, and onwg-ytc-stvuglr medicines. ??? Any problems you or family members have had with anesthesia. ??? Any bleeding problems you have. ??? Any surgeries you have had. ??? Any medical conditions you have. ??? Whether you are or may be . What are the risks? Your health care provider will talk with you about risks. These may include: ??? Bleeding. ??? Infection. ??? A return of urethral stricture, which requires repeating the dilation procedure or more surgery. ??? Damage to the urethra, which may require reconstructive surgery. ??? Allergic reactions to medicines. What happens before the procedure? Medicines Ask your provider about: ??? Changing or stopping your regular medicines. These include any diabetes medicines or blood thinners you take. ??? Taking medicines such as aspirin and ibuprofen. These medicines can thin your blood. Do not take them unless your provider tells you to. ??? Taking lmcb-shq-kwdppvs medicines, vitamins, herbs, and supplements. General instructions ??? Follow instructions from your provider about what you may eat and drink. ??? If you will be going home right after the procedure, plan to have a responsible adult: ? Take you home from the hospital or clinic. You will not be allowed to drive. ? Care for you for the time you are told. ??? Ask your provider: ? How your surgery site will be marked. ? What steps will be taken to help prevent infection. These steps may include: ? Removing hair at the surgery site. ? Washing skin with a soap that kills germs. ? Taking antibiotics. What happens during the procedure? An IV may be inserted into one of your veins. ??? You may be given: ? A local anesthetic to numb your urethral opening. This will be applied as a gel that will also lubricate the opening of the urethra. ? A sedative. This helps you relax. ? Anesthesia. This keeps you from feeling pain. It will make you fall asleep for surgery. ??? A thin tube with a light and camera on the end (cystoscope) will be inserted into your urethra. ??? Your urethra will be rinsed (irrigated) with a germ-free (sterile) water solution. ??? Narrow parts of your urethra will be stretched open using a dilator tool. Your surgeon will start with a very thin dilator, then use wider dilators as needed. ??? A thin tube with an inflatable balloon on the tip may be inserted into your urethra. The balloon may be inflated to help stretch your urethra open. The balloon may be coated with a medicine to help the urethra stay open longer. ??? Your urethra will be irrigated. ??? A catheter will be inserted into your bladder at the end of the procedure. The procedure may vary among providers and hospitals. What happens after the procedure? After the procedure, it is common to have: ? Burning pain when peeing. ? Blood in your pee. ? A need to pee frequently. ??? You will be asked to pee before you leave the hospital or clinic. ??? Your pee flow should improve within a few days. ??? You may have a catheter in your bladder for 2?3 days following your procedure. Follow these instructions at home: Medicines ??? Take gjqf-mpv-uiaqrug and prescription medicines only as told by your provider. ??? If you were prescribed antibiotics, take them as told by your provider. Do not stop using the antibiotic even if you start to feel better. ??? Ask your provider if the medicine prescribed to you: ? Requires you to avoid driving or using machinery. ? Can cause constipation. You may need to take these actions to prevent or treat constipation: ? Take fuuj-zho-mbqgcpf or prescription medicines. ? Eat foods that are high in fiber, such as beans, whole grains, and fresh fruits and vegetables. ? Limit foods that are high in fat and processed sugars, such as fried or sweet foods. General instructions ??? If you were given a sedative during the procedure, it can affect you for several hours. Do not drive or operate machinery until your provider says that it is safe. ??? If you were sent home with a soft tube (catheter) to help keep your urethra open, follow your provider's instructions about how and when to use it. ??? Drink enough fluid to keep your pee pale yellow. ??? Return to your normal activities as told by your provider. Ask your provider what activities are safe for you. ??? Keep all follow-up visits. Your provider will check your healing and adjust your treatment plan as needed. Contact a health care provider if: ??? Your pee is cloudy and smells bad. ??? You develop new bleeding when you pee. ??? You pass blood clots when you pee. ??? You have pain that does not get better with medicine. ??? You have a fever. ??? Your genital area is swollen, bruised, or discolored. This includes: ? The penis, scrotum, and inner thighs for males. ? The outer genital organs (vulva) and inner thighs for females. Get help right away if: ??? You develop new bleeding that does not stop. ??? You cannot pee. ??? Your catheter stops draining pee. ??? You cannot pee after your catheter is removed. These symptoms may be an emergency. Get help right away. Call 911. ??? Do not wait to see if the symptoms will go away. ??? Do not drive yourself to the hospital. This information is not intended to replace advice given to you by your health care provider. Make sure you discuss any questions you have with your health care provider. Document Revised: 04/17/2023 Document Reviewed: 04/17/2023 [employer] Patient Education ? 2023 [employer] UROLOGY OFFICE/CLINIC NOTE Observed: 11:05 AM Status: F Source: [facility] Urology Office/Clinic Note Chief Complaint 6 month UD HPI Staff 84 yr old female here for 6 mth f/u with UD only Previous dx: unspecified urethral stricture in female, chronic cystitis wo hematuria, cystocele w prolapse, rectocele. *Premarin cream 1g 3x/wk History of Present Illness Tests reviewed: UA I have reviewed the previous health record information and history for this patient from Dr. Carreno. I have reviewed and verified the staff HPI to be accurate for this encounter. Review of Systems PHQ Score Initial [...] See HPI. Physical Exam Vitals & Measurements T: 37 ???C(Temporal Artery) HR: 49(Peripheral) RR: 16 BP: 124/55 HT: 165 cm HT: 65 in WT: 60 kg WT: 132.277 lb BMI: 22.04 General Appearance: alert, no distress, well nourished, well developed female. Procedure [...] is: Tight The Urethra was dilated to: 20-32 Turkmen with sounds. Specimens Removed: None Postoperative Information Patient is discharged home. Follow up arranged. Assessment/Plan 1. Postinfective urethral stricture in female (N35.12: Postinfective urethral stricture, not elsewhere classified, female) Last UD 05/24/24. Pt had IO UD today wo complications. Follow up 6 mo UD or sooner if needed. Pt understands and agrees with plan. 2. Chronic cystitis (N30.20: Other chronic cystitis without hematuria) UA shows small blood (small) wo signs of infection (small leuks). Uses Premarin cream 1g MWF. Also Clobetasol 0.05% cream qd prn for vaginal irritation. 3. Cystocele with prolapse Grade 2-3. [1] -Re-refer to Dr Drew for pessary Follow-up With When Contact Information PASQUALE MESA, Lyle Feldman, URL [facility] [address], [place] [address]- Additional Instructions: 6 mo UD Patient Education Urethral Dilation I, Katey Barraza, personally scribed for Dr. Carreno on 09/24/2024 12:57:17. . Documentation recorded by the scribe, Katey Barraza, accurately reflects the services(s) I performed and decisions made by me. Authenticated by Dr. Carreno on 09/24/2024 13:12:31. Problem List/Past Medical History Ongoing Adrenal adenoma Chronic cystitis Cystocele with prolapse Hypertension Hypothyroidism Nocturia OAB (overactive bladder) Osteoarthritis Osteopenia Overflow incontinence Postinfective urethral stricture in female Rectocele Sleep apnea Unspecified urethral stricture, female Urge incontinence Urinary urgency Vaginal wall cyst Weak urinary stream Historical No qualifying data Procedure/Surgical History Urethral dilation - female (09/24/2024), Dilation of urethra (05/24/2024), Dilation of urethra (10/01/2021), Dilation of urethra [...] Procedure on retina, Repair of single tendon. Medications baclofen 10 mg Tab busPIRone 10 mg Tab candesartan 32 mg Tab carvedilol 6.25 mg Tab clobetasol propionate 0.05% top oint, 1 cornelia, Topical, Daily, PRN, 1 refills famotidine 20 mg Tab gabapentin 100 mg Cap levothyroxine 25 mcg (0.025 mg) Tab montelukast 10 mg Tab Premarin Vaginal 0.625 mg/g cream with applicator, 1 gm, Vaginal, MonWedFri, 3 refills Allergies CeleXA (Unknown) Cymbalta (Unknown) Demerol (Unknown) Effexor (Unknown) Micardis (Unknown) Zoloft (Unknown) sulfa drugs (Unknown) tetracycline (Unknown) Social History Tobacco Never (less than 100 in lifetime) Tobacco Use:. Never Smokeless Tobacco Use:. Household tobacco concerns: No. Yes, 09/24/2024 Family History Primary malignant neoplasm of female breast: Sister. Primary malignant neoplasm of lung: Brother. Immunizations Vaccine Date Status Comments influenza virus vaccine, inactivated 04/18/2023 Recorded SARS-CoV-2 (COVID-19) mRNAMUL.[id number] 03/29/2022 Recorded 2023-10-10: TPV80 SARSCoV2 mRNA(upszdfset-gqpe-lbzadc) vac 11/02/2021 Recorded 2023-10-10: TPV80 SARS-CoV-2 (COVID-19) mRNA BNT-162b2 vax 04/16/2021 Recorded 2023-10-10: TPV80 SARS-CoV-2 (COVID-19) mRNA BNT-162b2 vax 08/23/2020 Recorded SARS-CoV-2 (COVID-19) mRNA BNT-162b2 vax 07/31/2020 Recorded 2nd dose given 08/23/2020 zoster vaccine, inactivated 07/23/2018 Recorded zoster vaccine, inactivated 11/28/2017 Recorded pneumococcal 23-valent vaccine 03/23/2014 Recorded zoster vaccine live 05/05/2013 Recorded influenza, whole 04/25/2009 Recorded Lab Results Ambulatory Point of Care Results Bilirubin Urine Dipstick: Negative (09/24/24 11:52:00) Blood Urine Dipstick: 1+ Small (09/24/24 11:52:00) Glucose Urine Dipstick: Negative (09/24/24 11:52:00) Ketones Urine Dipstick: Negative (09/24/24 11:52:00) Leukocytes Urine Dipstick: Negative (09/24/24 11:52:00) Nitrite Urine Dipstick: Negative (09/24/24 11:52:00) Protein Urine Dipstick: Negative (09/24/24 11:52:00) Specific [place] Urine Dipstick: 1.010 (09/24/24 11:52:00) Urine Appearance Urine Dipstick: Clear (09/24/24 11:52:00) Urine Color Urine Dipstick: Yellow (09/24/24 11:52:00) Urobilinogen Urine Dipstick: Normal 0.2-1 EU/dl (09/24/24 11:52:00) pH Urine Dipstick: 6 (09/24/24 11:52:00) [1] URO- IO UD; Lyle CARRENO MD 05/24/2024 10:10 EST Result Comment: Electronical ly Signed By: Lyle CARRENO MD\.br\Date and Time Signed: 09/24/24 13:12 EDT\.br\Electronically Co-Signed By: Katey Barraza\.br\Date and Time Co-Signed: 09/24/24 13:11 EDT AMBULATORY VISIT SUMMARY Observed: 09/24 11:05 AM Status: F Source: [facility] Ambulatory Visit Summary LELA CHIAREZ :1940 Visit Date:09/24/2024 Ambulatory Visit Instructions Your Diagnosis Postinfective urethral stricture in female Chronic cystitis Your Care Team Attending Physician - Lyle CARRENO MD Primary Care Physician - BART CSHULTZ JR, DO This Is Your Medications List [...] montelukast (montelukast 10 mg Tab) Procedures Performed Urethral dilation - female (09/24/2024), Dilation of urethra (05/24/2024), Dilation of urethra (10/01/2021), Dilation of urethra [...] retina, Repair of single tendon. Discharge Vitals Temperature (Temporal Artery) 37 ???C Heart Rate (Peripheral) 49 Respiratory Rate 16 Blood Pressure 124/55 Height 165 cm Height 65 in Weight 60 kg Weight 132.277 lb BMI 22.04 What to do next Scheduled Follow-Up Appointments Friday 11:30 AM EDT With: Lyle CARRENO MD Where: [facility] [address] [place] [address]- You Need to Schedule the Following Appointments Follow Up with Lyle CARRENO MD, URL When: Where: [facility] [address], [place] [address]- Medications What How Much When Instructions Unchanged clobetasol topical (clobetasol propionate 0.05% top oint) 1 Application Topical Every day as needed for Rash Daily as needed for vaginal irritation Unchanged conjugated estrogens topical (Premarin Vaginal 0.625 mg/ g cream with applicator) 1 Gram Vaginal Friday Unchanged baclofen (baclofen 10 mg Tab) Contact prescribing physician if questions or concerns Unchanged busPIRone (busPIRone 10 mg Tab) Contact prescribing physician if questions or concerns Unchanged candesartan (candesartan 32 mg Tab) Contact prescribing physician if questions or concerns Unchanged carvedilol (carvedilol 6.25 mg Tab) Contact prescribing physician if questions or concerns Unchanged famotidine (famotidine 20 mg Tab) Contact prescribing physician if questions or concerns Unchanged gabapentin (gabapentin 100 mg Cap) Contact prescribing physician if questions or concerns Unchanged levothyroxine (levothyroxine 25 mcg (0.025 mg) Tab) Contact prescribing physician if questions or concerns Unchanged montelukast (montelukast 10 mg Tab) Contact prescribing physician if questions or concerns Medications and Immunizations Administered Given lidocaine Top 2% Gel w/Appl 6 mL, 6 mL, Topical. For: Postinfective urethral stricture in female, Chronic cystitis Allergies CeleXA (Unknown) Cymbalta (Unknown) Demerol (Unknown) Effexor (Unknown) Micardis (Unknown) Zoloft (Unknown) sulfa drugs (Unknown) tetracycline (Unknown) Problems Ongoing - Any problem that you are currently receiving treatment for. Adrenal adenoma Chronic cystitis Cystocele with prolapse Hypertension Hypothyroidism Nocturia OAB (overactive bladder) Osteoarthritis Osteopenia Overflow incontinence Postinfective urethral stricture in female Rectocele Sleep apnea Unspecified urethral stricture, female Urge incontinence Urinary urgency Vaginal wall cyst Weak urinary stream Patient Survey You may receive a survey via text or e-mail asking about your office visit. Please share your experience with us by completing your survey. We appreciate your feedback and thank you for choosing us for your care. Education Materials Urethral Dilation Urethral dilation is a procedure to stretch open (dilate) the urethra. The urethra is the tube that drains pee (urine) from the bladder out of the body. In females, the urethra opens above the vaginal opening. In males, the urethra opens at the tip of the penis. Urethral dilation is usually done to treat narrowing of the urethra (urethral stricture), which can make it difficult to pee (urinate). Urethral strictures can be caused by scar tissue, infection, injury, or surgery. Urethral dilation widens the urethra so that you can pee normally. Urethral dilation is done through the opening of the urethra. There are no incisions made during the procedure. Tell a health care provider about: ??? Any allergies you have. ??? All medicines you are taking, including vitamins, herbs, eye drops, creams, and sjlk-cqo-kwxplrx medicines. ??? Any problems you or family members have had with anesthesia. ??? Any bleeding problems you have. ??? Any surgeries you have had. ??? Any medical conditions you have. ??? Whether you are or may be . What are the risks? Your health care provider will talk with you about risks. These may include: ??? Bleeding. ??? Infection. ??? A return of urethral stricture, which requires repeating the dilation procedure or more surgery. ??? Damage to the urethra, which may require reconstructive surgery. ??? Allergic reactions to medicines. What happens before the procedure? Medicines Ask your provider about: ??? Changing or stopping your regular medicines. These include any diabetes medicines or blood thinners you take. ??? Taking medicines such as aspirin and ibuprofen. These medicines can thin your blood. Do not take them unless your provider tells you to. ??? Taking qvlr-eqb-ohhfngc medicines, vitamins, herbs, and supplements. General instructions ??? Follow instructions from your provider about what you may eat and drink. ??? If you will be going home right after the procedure, plan to have a responsible adult: ? Take you home from the hospital or clinic. You will not be allowed to drive. ? Care for you for the time you are told. ??? Ask your provider: ? How your surgery site will be marked. ? What steps will be taken to help prevent infection. These steps may include: ? Removing hair at the surgery site. ? Washing skin with a soap that kills germs. ? Taking antibiotics. What happens during the procedure? An IV may be inserted into one of your veins. ??? You may be given: ? A local anesthetic to numb your urethral opening. This will be applied as a gel that will also lubricate the opening of the urethra. ? A sedative. This helps you relax. ? Anesthesia. This keeps you from feeling pain. It will make you fall asleep for surgery. ??? A thin tube with a light and camera on the end (cystoscope) will be inserted into your urethra. ??? Your urethra will be rinsed (irrigated) with a germ-free (sterile) water solution. ??? Narrow parts of your urethra will be stretched open using a dilator tool. Your surgeon will start with a very thin dilator, then use wider dilators as needed. ??? A thin tube with an inflatable balloon on the tip may be inserted into your urethra. The balloon may be inflated to help stretch your urethra open. The balloon may be coated with a medicine to help the urethra stay open longer. ??? Your urethra will be irrigated. ??? A catheter will be inserted into your bladder at the end of the procedure. The procedure may vary among providers and hospitals. What happens after the procedure? After the procedure, it is common to have: ? Burning pain when peeing. ? Blood in your pee. ? A need to pee frequently. ??? You will be asked to pee before you leave the hospital or clinic. ??? Your pee flow should improve within a few days. ??? You may have a catheter in your bladder for 2???3 days following your procedure. Follow these instructions at home: Medicines ??? Take vxft-gxd-zgpmsjm and prescription medicines only as told by your provider. ??? If you were prescribed antibiotics, take them as told by your provider. Do not stop using the antibiotic even if you start to feel better. ??? Ask your provider if the medicine prescribed to you: ? Requires you to avoid driving or using machinery. ? Can cause constipation. You may need to take these actions to prevent or treat constipation: ? Take ewtr-cxc-rflzxhc or prescription medicines. ? Eat foods that are high in fiber, such as beans, whole grains, and fresh fruits and vegetables. ? Limit foods that are high in fat and processed sugars, such as fried or sweet foods. General instructions ??? If you were given a sedative during the procedure, it can affect you for several hours. Do not drive or operate machinery until your provider says that it is safe. ??? If you were sent home with a soft tube (catheter) to help keep your urethra open, follow your provider's instructions about how and when to use it. ??? Drink enough fluid to keep your pee pale yellow. ??? Return to your normal activities as told by your provider. Ask your provider what activities are safe for you. ??? Keep all follow-up visits. Your provider will check your healing and adjust your treatment plan as needed. Contact a health care provider if: ??? Your pee is cloudy and smells bad. ??? You develop new bleeding when you pee. ??? You pass blood clots when you pee. ??? You have pain that does not get better with medicine. ??? You have a fever. ??? Your genital area is swollen, bruised, or discolored. This includes: ? The penis, scrotum, and inner thighs for males. ? The outer genital organs (vulva) and inner thighs for females. Get help right away if: ??? You develop new bleeding that does not stop. ??? You cannot pee. ??? Your catheter stops draining pee. ??? You cannot pee after your catheter is removed. These symptoms may be an emergency. Get help right away. Call 911. ??? Do not wait to see if the symptoms will go away. ??? Do not drive yourself to the hospital. This information is not intended to replace advice given to you by your health care provider. Make sure you discuss any questions you have with your health care provider. Document Revised: 04/17/2023 Document Reviewed: 04/17/2023 [employer] Patient Education ??? 2023 [employer] AMBULATORY VISIT SUMMARY Observed: 05/24 10:14 AM Status: F Source: [facility] Ambulatory Visit Summary LELA CHAIREZ :1940 Visit Date:05/24/2024 Ambulatory Visit Instructions Your Diagnosis Unspecified urethral stricture, female Chronic cystitis without hematuria Cystocele with prolapse OAB (overactive bladder) Rectocele Vaginal wall cyst Your Care Team Attending Physician - PASQUALE MESA, Lyle Feldman Primary Care Physician - BART SCHULTZ JR, DO This Is Your Medications [...] mg Tab) Procedures Performed Dilation of urethra (05/24/2024), Dilation of urethra (10/01/2021), Dilation of urethra [...] retina, Repair of single tendon. Discharge Vitals Temperature (Temporal Artery) 36.9 ???C Heart Rate (Peripheral) 67 Respiratory Rate 18 Blood Pressure 108/66 Height 165 cm Height 65 in Weight 53.8 kg Weight 118.609 lb BMI 19.76 What to do next Scheduled Follow-Up Appointments Friday. 2024 10:30 AM EDT With: Lyle CARRENO MD Where: [facility] [address] [place] [address]- You Need to Schedule the Following Appointments Follow Up with Lyle CARRENO MD, URL When: Comments: 6 mos for UD Where: [facility] [address], [facility] [place] [address] [phone] Someone Will Contact You Regarding These Appointments [facility] External Ambulatory Referral, Other (needs to be filled in), Other Referral, Referral to Gynecology for vaginal wall cyst and to discuss possible pessary, 05/24/24 10:12:00 EST, Vaginal wall cyst Cystocele with prolapse Medications What How Much When Instructions Unchanged clobetasol topical (clobetasol propionate 0.05% top oint) 1 Application Topical Every day as needed for Rash Daily as needed for vaginal irritation Unchanged conjugated estrogens topical (Premarin Vaginal 0.625 mg/ g cream with applicator) 1 Gram Vaginal Friday Unchanged baclofen (baclofen 10 mg Tab) Contact prescribing physician if questions or concerns Unchanged busPIRone (busPIRone 10 mg Tab) Contact prescribing physician if questions or concerns Unchanged candesartan (candesartan 32 mg Tab) Contact prescribing physician if questions or concerns Unchanged carvedilol (carvedilol 6.25 mg Tab) Contact prescribing physician if questions or concerns Unchanged famotidine (famotidine 20 mg Tab) Contact prescribing physician if questions or concerns Unchanged gabapentin (gabapentin 100 mg Cap) Contact prescribing physician if questions or concerns Unchanged levothyroxine (levothyroxine 25 mcg (0.025 mg) Tab) Contact prescribing physician if questions or concerns Unchanged montelukast (montelukast 10 mg Tab) Contact prescribing physician if questions or concerns Allergies CeleXA (Unknown) Cymbalta (Unknown) Demerol (Unknown) Effexor (Unknown) Micardis (Unknown) Zoloft (Unknown) sulfa drugs (Unknown) tetracycline (Unknown) Problems Ongoing - Any problem that you are currently receiving treatment for. Adrenal adenoma Chronic cystitis without hematuria Cystocele with prolapse Hypertension Hypothyroidism Nocturia OAB (overactive bladder) Osteoarthritis Osteopenia Overflow incontinence Postinfective urethral stricture in female Rectocele Sleep apnea Unspecified urethral stricture, female Urge incontinence Urinary urgency Vaginal wall cyst Weak urinary stream Patient Survey You may receive a survey via text or e-mail asking about your office visit. Please share your experience with us by completing your survey. We appreciate your feedback and thank you for choosing us for your care. Education Materials Urethral Dilation Urethral dilation is a procedure to stretch open (dilate) the urethra. The urethra is the tube that drains pee (urine) from the bladder out of the body. In females, the urethra opens above the vaginal opening. In males, the urethra opens at the tip of the penis. Urethral dilation is usually done to treat narrowing of the urethra (urethral stricture), which can make it difficult to pee (urinate). Urethral strictures can be caused by scar tissue, infection, injury, or surgery. Urethral dilation widens the urethra so that you can pee normally. Urethral dilation is done through the opening of the urethra. There are no incisions made during the procedure. Tell a health care provider about: ??? Any allergies you have. ??? All medicines you are taking, including vitamins, herbs, eye drops, creams, and ccko-dyw-yrqtnpd medicines. ??? Any problems you or family members have had with anesthesia. ??? Any bleeding problems you have. ??? Any surgeries you have had. ??? Any medical conditions you have. ??? Whether you are or may be . What are the risks? Your health care provider will talk with you about risks. These may include: ??? Bleeding. ??? Infection. ??? A return of urethral stricture, which requires repeating the dilation procedure or more surgery. ??? Damage to the urethra, which may require reconstructive surgery. ??? Allergic reactions to medicines. What happens before the procedure? Medicines Ask your provider about: ??? Changing or stopping your regular medicines. These include any diabetes medicines or blood thinners you take. ??? Taking medicines such as aspirin and ibuprofen. These medicines can thin your blood. Do not take them unless your provider tells you to. ??? Taking yuru-dms-rdazjcq medicines, vitamins, herbs, and supplements. General instructions ??? Follow instructions from your provider about what you may eat and drink. ??? If you will be going home right after the procedure, plan to have a responsible adult: ? Take you home from the hospital or clinic. You will not be allowed to drive. ? Care for you for the time you are told. ??? Ask your provider: ? How your surgery site will be marked. ? What steps will be taken to help prevent infection. These steps may include: ? Removing hair at the surgery site. ? Washing skin with a soap that kills germs. ? Taking antibiotics. What happens during the procedure? An IV may be inserted into one of your veins. ??? You may be given: ? A local anesthetic to numb your urethral opening. This will be applied as a gel that will also lubricate the opening of the urethra. ? A sedative. This helps you relax. ? Anesthesia. This keeps you from feeling pain. It will make you fall asleep for surgery. ??? A thin tube with a light and camera on the end (cystoscope) will be inserted into your urethra. ??? Your urethra will be rinsed (irrigated) with a germ-free (sterile) water solution. ??? Narrow parts of your urethra will be stretched open using a dilator tool. Your surgeon will start with a very thin dilator, then use wider dilators as needed. ??? A thin tube with an inflatable balloon on the tip may be inserted into your urethra. The balloon may be inflated to help stretch your urethra open. The balloon may be coated with a medicine to help the urethra stay open longer. ??? Your urethra will be irrigated. ??? A catheter will be inserted into your bladder at the end of the procedure. The procedure may vary among providers and hospitals. What happens after the procedure? After the procedure, it is common to have: ? Burning pain when peeing. ? Blood in your pee. ? A need to pee frequently. ??? You will be asked to pee before you leave the hospital or clinic. ??? Your pee flow should improve within a few days. ??? You may have a catheter in your bladder for 2???3 days following your procedure. Follow these instructions at home: Medicines ??? Take tyse-dhf-nsoepdi and prescription medicines only as told by your provider. ??? If you were prescribed antibiotics, take them as told by your provider. Do not stop using the antibiotic even if you start to feel better. ??? Ask your provider if the medicine prescribed to you: ? Requires you to avoid driving or using machinery. ? Can cause constipation. You may need to take these actions to prevent or treat constipation: ? Take iiev-hdi-mcbczzm or prescription medicines. ? Eat foods that are high in fiber, such as beans, whole grains, and fresh fruits and vegetables. ? Limit foods that are high in fat and processed sugars, such as fried or sweet foods. General instructions ??? If you were given a sedative during the procedure, it can affect you for several hours. Do not drive or operate machinery until your provider says that it is safe. ??? If you were sent home with a soft tube (catheter) to help keep your urethra open, follow your provider's instructions about how and when to use it. ??? Drink enough fluid to keep your pee pale yellow. ??? Return to your normal activities as told by your provider. Ask your provider what activities are safe for you. ??? Keep all follow-up visits. Your provider will check your healing and adjust your treatment plan as needed. Contact a health care provider if: ??? Your pee is cloudy and smells bad. ??? You develop new bleeding when you pee. ??? You pass blood clots when you pee. ??? You have pain that does not get better with medicine. ??? You have a fever. ??? Your genital area is swollen, bruised, or discolored. This includes: ? The penis, scrotum, and inner thighs for males. ? The outer genital organs (vulva) and inner thighs for females. Get help right away if: ??? You develop new bleeding that does not stop. ??? You cannot pee. ??? Your catheter stops draining pee. ??? You cannot pee after your catheter is removed. These symptoms may be an emergency. Get help right away. Call 911. ??? Do not wait to see if the symptoms will go away. ??? Do not drive yourself to the hospital. This information is not intended to replace advice given to you by your health care provider. Make sure you discuss any questions you have with your health care provider. Document Revised: 04/17/2023 Document Reviewed: 04/17/2023 [employer] Patient Education ??? 2023 [employer]. UROLOGY OFFICE/CLINIC NOTE Observed: 10:10 AM Status: F Source: [facility] Urology Office/Clinic Note Chief Complaint urethral stricture HPI Staff 7 months for IO UD. Previous dx: unspecified urethral stricture in female, chronic cystitis wo hematuria, cystocele w prolapse, rectocele. *Premarin cream 1g 3x/wk Rx'd Clobetasol 0.05% cream as needed for vaginal irritation at prior OV Last UD 10/10/23. Dysuria: burning and pressure for the past couple of days Incomplete bladder emptying: unsure Hematuria: denies Frequency: not during the day Urgency: yes Nocturia: 2-4x Stream: pt states she has been straining Leaking: yes Post void dripping: yes Wearing pads/ Depends: pads changes multiple times daily Urge incontinence: yes Stress incontinence: with coughing and sneezing Incontinence without Sensory Awareness: pt states that she is not feeling the urge to void and will have incontinence Abdominal pain: denies Flank pain: denies Sexual complaints: denies History of Present Illness Tests reviewed: reviewed UA I have reviewed the previous health record information and history for this patient from Dr. Carreno. I have reviewed and verified the staff HPI to be accurate for this encounter. Review of Systems PHQ Score Initial [...] See HPI. Physical Exam Vitals & Measurements T: 36.9 ???C(Temporal Artery) HR: 67(Peripheral) RR: 18 BP: 108/66 HT: 65 in HT: 165 cm WT: 53.8 kg WT: 118.609 lb BMI: 19.76 General Appearance: alert , no acute distress, well nourished, well developed female. Big ecchymotic area on lower leg with central blister. Procedure Operative Information Anesthesia Type: Local Procedure: [...] is: Tight The Urethra was dilated to: 22-30 Turkmen with sounds. Specimens Removed: None Postoperative Information Patient is discharged home. Follow up arranged. Vaginal exam: Left anterior vaginal wall cyst. Assessment/Plan PE: Big ecchymotic area on lower leg with central blister. Referring to dermatology. 1. Unspecified urethral stricture, female (N35.92: Unspecified urethral stricture, female) Last IO UD 10/10/23. Has to strain to void, unsure if she empties after voiding. IO UD performed today without complications. Tolerated well. -F/u in 6 mos for UD 2. Chronic cystitis without hematuria (N30.20: Other chronic cystitis without hematuria) Uses Premarin cream 1g MWF. Rx'd Clobetasol 0.05% cream at prior OV to apply daily as needed for vaginal irritation. UA today shows small blood and small leuks, neg for nitrites. Reports increased pain/pressure recently. Feels like everything is falling out . Likely related to cystocele with prolapse. -See #3 3. Cystocele with prolapse (N81.4: Uterovaginal prolapse, unspecified) Grade 2-3. [1] Has been leaking with urge and coughing/sneezing. Also leaks without awareness. Getting up 2-4x/night to void, which has recently worsened. Wears pads, changes multiples per day. Discussed possibility of pessary and risks/benefits. Recommended referral to ENGINE MONITOR to discuss this. Pt wishes to proceed. -Referral to ENGINE MONITOR 4. OAB (overactive bladder) (N32.81: Overactive bladder) See #3. 5. Rectocele (N81.6: Rectocele) Grade 2. [2] 6. 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 3cm L -Referral to ENGINE MONITOR Follow-up With When Contact Information PASQUALE MESA, Lyle Feldman, [facility] [address], [place] [id number]- [phone] Additional Instructions: 6 mos for UD Patient Education Urethral Dilation I, Magalis Chávez, personally scribed for Dr. Carreno on 05/24/2024 10:11:32. . Problem List/Past Medical History Ongoing Adrenal adenoma Chronic cystitis without hematuria Cystocele with prolapse Hypertension Hypothyroidism Nocturia OAB (overactive bladder) Osteoarthritis Osteopenia Overflow incontinence Postinfective urethral stricture in female Rectocele Sleep apnea Unspecified urethral stricture, female Urge incontinence Urinary urgency Vaginal wall cyst Weak urinary stream Historical No qualifying data Procedure/Surgical History Dilation of urethra (05/24/2024), Dilation of urethra (10/01/2021), Dilation of urethra [...] Procedure on retina, Repair of single tendon. Medications baclofen 10 mg Tab busPIRone 10 mg Tab candesartan 32 mg Tab carvedilol 6.25 mg Tab clobetasol propionate 0.05% top oint, 1 cornelia, Topical, Daily, PRN, 1 refills famotidine 20 mg Tab gabapentin 100 mg Cap levothyroxine 25 mcg (0.025 mg) Tab montelukast 10 mg Tab Premarin Vaginal 0.625 mg/g cream with applicator, 1 gm, Vaginal, MonWedFri, 3 refills Allergies CeleXA (Unknown) Cymbalta (Unknown) Demerol (Unknown) Effexor (Unknown) Micardis (Unknown) Zoloft (Unknown) sulfa drugs (Unknown) tetracycline (Unknown) Social History Tobacco Never (less than 100 in lifetime) Tobacco Use:. Never Smokeless Tobacco Use:. Household tobacco concerns: No. Yes, 05/24/2024 Family History Primary malignant neoplasm of female breast: Sister. Primary malignant neoplasm of lung: Brother. Immunizations Vaccine Date Status Comments influenza virus vaccine, inactivated 04/18/2023 Recorded SARS-CoV-2 (COVID-19) mRNAMUL.ORD![id number] 03/29/2022 Recorded 2023-10-10: TPV80 SARSCoV2 mRNA(bswiaotfo-hogf-inaodk) vac 11/02/2021 Recorded 2023-10-10: TPV80 SARS-CoV-2 (COVID-19) mRNA BNT-162b2 vax 04/16/2021 Recorded 2023-10-10: TPV80 SARS-CoV-2 (COVID-19) mRNA BNT-162b2 vax 08/23/2020 Recorded SARS-CoV-2 (COVID-19) mRNA BNT-162b2 vax 07/31/2020 Recorded 2nd dose given 08/23/2020 zoster vaccine, inactivated 07/23/2018 Recorded zoster vaccine, inactivated 11/28/2017 Recorded pneumococcal 23-valent vaccine 03/23/2014 Recorded zoster vaccine live 05/05/2013 Recorded influenza, whole 04/25/2009 Recorded Lab Results Ambulatory Point of Care Results Bilirubin Urine Dipstick: Negative (05/24/24 09:37:00) Blood Urine Dipstick: 1+ Small (05/24/24 09:37:00) Glucose Urine Dipstick: Negative (05/24/24 09:37:00) Ketones Urine Dipstick: Negative (05/24/24 09:37:00) Leukocytes Urine Dipstick: 1+ Small (05/24/24 09:37:00) Nitrite Urine Dipstick: Negative (05/24/24 09:37:00) Protein Urine Dipstick: Negative (05/24/24 09:37:00) Specific [place] Urine Dipstick: 1.010 (05/24/24 09:37:00) Urine Appearance Urine Dipstick: Slightly cloudy (05/24/24 09:37:00) Urine Color Urine Dipstick: Yellow (05/24/24 09:37:00) Urobilinogen Urine Dipstick: Normal 0.2-1 EU/dl (05/24/24 09:37:00) pH Urine Dipstick: 6 (05/24/24 09:37:00) [1] URO IO UD; Lyle CARRENO MD 10/10/2023 11:25 EDT [2] URO IO UD; Lyle CARRENO MD 10/10/2023 11:25 EDT Result Comment: Electronical ly Signed By: Lyle CARRENO MD\.br\Date and Time Signed: 05/24/24 10:13 EST\.br\Electronically Co-Signed By: Magalis Chávez\.br\Date and Time Co-Signed: 05/24/24 10:11 EST PATIENT EDUCATION Observed: 05/24/2024 10:05 AM Status: F Source: [facility] Patient Education Urology Urethral Dilation Urethral dilation is a procedure to stretch open (dilate) the urethra. The urethra is the tube that drains pee (urine) from the bladder out of the body. In females, the urethra opens above the vaginal opening. In males, the urethra opens at the tip of the penis. Urethral dilation is usually done to treat narrowing of the urethra (urethral stricture), which can make it difficult to pee (urinate). Urethral strictures can be caused by scar tissue, infection, injury, or surgery. Urethral dilation widens the urethra so that you can pee normally. Urethral dilation is done through the opening of the urethra. There are no incisions made during the procedure. Tell a health care provider about: ??? Any allergies you have. ??? All medicines you are taking, including vitamins, herbs, eye drops, creams, and rtsz-sos-ghwnxsl medicines. ??? Any problems you or family members have had with anesthesia. ??? Any bleeding problems you have. ??? Any surgeries you have had. ??? Any medical conditions you have. ??? Whether you are or may be . What are the risks? Your health care provider will talk with you about risks. These may include: ??? Bleeding. ??? Infection. ??? A return of urethral stricture, which requires repeating the dilation procedure or more surgery. ??? Damage to the urethra, which may require reconstructive surgery. ??? Allergic reactions to medicines. What happens before the procedure? Medicines Ask your provider about: ??? Changing or stopping your regular medicines. These include any diabetes medicines or blood thinners you take. ??? Taking medicines such as aspirin and ibuprofen. These medicines can thin your blood. Do not take them unless your provider tells you to. ??? Taking qgvd-ppi-gjdwbvq medicines, vitamins, herbs, and supplements. General instructions ??? Follow instructions from your provider about what you may eat and drink. ??? If you will be going home right after the procedure, plan to have a responsible adult: ? Take you home from the hospital or clinic. You will not be allowed to drive. ? Care for you for the time you are told. ??? Ask your provider: ? How your surgery site will be marked. ? What steps will be taken to help prevent infection. These steps may include: ? Removing hair at the surgery site. ? Washing skin with a soap that kills germs. ? Taking antibiotics. What happens during the procedure? An IV may be inserted into one of your veins. ??? You may be given: ? A local anesthetic to numb your urethral opening. This will be applied as a gel that will also lubricate the opening of the urethra. ? A sedative. This helps you relax. ? Anesthesia. This keeps you from feeling pain. It will make you fall asleep for surgery. ??? A thin tube with a light and camera on the end (cystoscope) will be inserted into your urethra. ??? Your urethra will be rinsed (irrigated) with a germ-free (sterile) water solution. ??? Narrow parts of your urethra will be stretched open using a dilator tool. Your surgeon will start with a very thin dilator, then use wider dilators as needed. ??? A thin tube with an inflatable balloon on the tip may be inserted into your urethra. The balloon may be inflated to help stretch your urethra open. The balloon may be coated with a medicine to help the urethra stay open longer. ??? Your urethra will be irrigated. ??? A catheter will be inserted into your bladder at the end of the procedure. The procedure may vary among providers and hospitals. What happens after the procedure? After the procedure, it is common to have: ? Burning pain when peeing. ? Blood in your pee. ? A need to pee frequently. ??? You will be asked to pee before you leave the hospital or clinic. ??? Your pee flow should improve within a few days. ??? You may have a catheter in your bladder for 2?3 days following your procedure. Follow these instructions at home: Medicines ??? Take zojy-lic-zmhnchb and prescription medicines only as told by your provider. ??? If you were prescribed antibiotics, take them as told by your provider. Do not stop using the antibiotic even if you start to feel better. ??? Ask your provider if the medicine prescribed to you: ? Requires you to avoid driving or using machinery. ? Can cause constipation. You may need to take these actions to prevent or treat constipation: ? Take gvpg-ltq-tpzjryz or prescription medicines. ? Eat foods that are high in fiber, such as beans, whole grains, and fresh fruits and vegetables. ? Limit foods that are high in fat and processed sugars, such as fried or sweet foods. General instructions ??? If you were given a sedative during the procedure, it can affect you for several hours. Do not drive or operate machinery until your provider says that it is safe. ??? If you were sent home with a soft tube (catheter) to help keep your urethra open, follow your provider's instructions about how and when to use it. ??? Drink enough fluid to keep your pee pale yellow. ??? Return to your normal activities as told by your provider. Ask your provider what activities are safe for you. ??? Keep all follow-up visits. Your provider will check your healing and adjust your treatment plan as needed. Contact a health care provider if: ??? Your pee is cloudy and smells bad. ??? You develop new bleeding when you pee. ??? You pass blood clots when you pee. ??? You have pain that does not get better with medicine. ??? You have a fever. ??? Your genital area is swollen, bruised, or discolored. This includes: ? The penis, scrotum, and inner thighs for males. ? The outer genital organs (vulva) and inner thighs for females. Get help right away if: ??? You develop new bleeding that does not stop. ??? You cannot pee. ??? Your catheter stops draining pee. ??? You cannot pee after your catheter is removed. These symptoms may be an emergency. Get help right away. Call 911. ??? Do not wait to see if the symptoms will go away. ??? Do not drive yourself to the hospital. This information is not intended to replace advice given to you by your health care provider. Make sure you discuss any questions you have with your health care provider. Document Revised: 04/17/2023 Document Reviewed: 04/17/2023 [employer] Patient Education ? 2023 [employer] ALLERGIES DATE TYPE / CODE NAME / CODE REACTION SEVERITY SOURCE [id number](SNOMED CT) tetracycline [id number] [facility] /[id number](SNOMED CT) Demerol [id number] [facility] [id number](SNOMED CT) sulfa drugs [id number] [facility] [id number](SNOMED CT) Effexor [id number] [facility] [id number](SNOMED CT) Zoloft [id number] [facility] [id number](SNOMED CT) Micardis [id number] [facility] [id number](SNOMED CT) Cymbalta 058106845 [facility] [id number](SNOMED CT) CeleXA [id number] [facility] ENCOUNTERS ADMIT/DISCHARGE ACCOUNT NUMBER ADMITTING ENCOUNTER CLASS LOCATION SOURCE 09/24/2024/ 5 [id number] Ambulatory EU Yakelin ding:TEMITOPE Laurentm : CD:[id number] [facility] 08/11/2024/ 5 [id number] Ambulatory Building:NOM S BCP OB [facility] 05/24/2024/ 4 [id number] Ambulatory EU BellkyleeBuil ding:EU Ermelindaoom : Exam 4 [facility] 05/03/2024/ 4 [id number] Ambulatory PM BellusmanueBuil ding:PM [facility] PAYERS ENCOUNTER GUARANTOR PAYER SUBSCRIBER SOURCE 09/24/2026 LELAKaur CHAIREZDOB: [birth year] CTTel: (HP) [facility] [id number] Date:1799-07-06 LELA J JOSE [facility] 08/11/2024 LELA TUTTLEORYDOB: [place] [address]Ixw: (HP) Primary Insurance:UNITED HEALTHCARE MEDICAREPolicy Number: [id number] Date:2023-07-07 LELAKaur CHAIREZDOB: [id number] [place] [address] [facility] 05/24/2024 LELAKaur CHAIREZDOB: YESENIA CTTel: (HP) [facility] Insurance:[facility] Number: [id number] Date:1799-07-06 LELA Isaiah JOSE [facility] 05/03/2024 Lela TuttleoryDOB: [place] [address] Primary Insurance:[employer] Healthcare Medicare SolutionsPolicy Number: Effective Date:[id number] Name:ALICJA Jama [address] [address]EQ: Lela TuttleoryDOB: [id number] [place] [address] [facility]
--- OUTSIDE RECORDS SUMMARY | 2025-01-10 09:55 | XMS_ITS | Encounter Summary ---
Author Organization [facility] Address [address] [place] [address] Care Team Providers Care Rotary Soil Stabilizer Operator Name Role Phone Bigg Otero DO Primary Care Provider + [phone] Encounter Details Date Type Department Care Team (Late st Contact Info) Description 09/09/2017 Orders Only [employer] [address], [address] [place] [address] Gregg Jacob MD Lumbar spondylosis Social History Tobacco Use Types Packs/Day Years Used Date Smoking Tobacco: Never Assessed Comments Unknown Sex and Gender Information Value Date Recorded Sex Assigned at Not on file Legal Sex Female 10:02 AM EST Gender Identity Not on file Sexual Orientation Not on file documented as of this encounter Plan of Treatment Not on file documented as of this encounter Procedures Procedure Name Priority Date/Time Associated Diagnosis Comments XR LUMBAR SPINE (MIN 4 VIEWS) Routine 09/09/2017 Lumbar spondylosis XR CERVICAL SPINE (2-3 VIEWS) Routine 09/09/2017 documented in this encounter Results * XR LUMBAR SPINE (MIN 4 VIEWS) (09/09/2017) Anatomical Region Laterality Modality T-spine, L-spine, Pelvis Radiogr aphic Imaging us Gregg [facility] ORDERABLE S Final Result * XR CERVICAL SPINE (2-3 VIEWS) (09/09/2017) Anatomical Region Laterality Modality C-spine, T-spine, Neck Radiograp hic Imaging Gregg [facility]DRICH DIAGNOST[facility] IMAGING ORDERABLE S Final Result documented in this encounter Visit Diagnoses Diagnosis Lumbar spondylosis Lumbosacral spondylosis without myelopathy documented in this encounter Care Teams Rotary Soil Stabilizer Operator Relationship Specialty Start Date End Date Bigg Otero DO [facility] [place] [address] PCP - General Internal Medicine 09/09/17 documented as of this encounter
--- OUTSIDE RECORDS SUMMARY | 2025-01-10 09:55 | XMS_ITS | Clinical Summary ---
Author Organization [facility] Address [address] [place] [address] Care Team Providers Care Team Truck Driver Name Role Phone Bigg Otero Primary Care Provider + [phone] Allergies Active Allergy Reactions Criticality Noted Date [...] Modality Hip, C-spine, T-spine, L-spine O [facility] Historical Provider IMG DEXA ORDERABLES Elaine l Result from Last 3 Months or Most Recently Relevant to Health Maintenance [place] [id number] [facility] Advance Directives Documents on File Type Date Recorded Patient Stock Analyst Expl anation ACP-Power of Rubber Goods Repairer 06/17/2018 5:06 PM [facility] POWER OF ATTORNE 06/25/18 Care Teams Team Truck Driver Relationship Specialty Start Date End Date Bigg Otero DO [address] [place] [phone] PCP - General Internal Medicine 09/09/17
--- OUTSIDE RECORDS SUMMARY | 2025-01-10 09:55 | XMS_ITS | Clinical Summary ---
Author Organization [facility] Address [address] [place] [address] Care Team Providers Care Supervisor Buffing And Pasting Name Role Phone Bigg Otero MD Primary [...] 2 - PCV) 03/23/2015 03/23/2014 Influenza Vaccine (#1) 2025 04/18/2023, 2008 Insurance [employer] MEDICARE Care Teams Supervisor Buffing And Pasting Relationship Specialty Start Date End Date Bigg Otero MD [facility] [place] [address] PCP - General Internal Medicine 09/30/23
--- OUTSIDE RECORDS SUMMARY | 2025-01-10 09:55 | XMS_ITS | Clinical Summary ---
Author Organization [facility] Address [address] [place], [place] [id number] Care Team Providers Care Mems Process Engineer Name Role Phone Shanna Ceja DO, Charles [...] tablet daily. 0 01/26/2007 Active Vit C-Vit F-Wcoguq-Fweeat ls (OCUVITE LUTEIN) ORAL Cap Take one(1) tablet daily. 0 01/26/2007 Active [place]-3 Fatty Acids (FISH OIL) 500-100 mg ORAL [...] EDT) Glucose 103(H) 65 - 100 mg/dL [facility] BUN 15 8 - 25 mg/dL [facility] Creatinine 0.8 0.7 - 1.4 mg/dL [facility] Sodium 134 132 - 148 mmol/L [facility] Potassium 5.4(H) 3.5 - 5.0 mmol/L [facility] Chloride 98 98 - 110 mmol/L [facility] CO2 23 23 - 32 mmol/L [facility] Anion Gap 13 0 - 15 mmol/L [facility] Calcium 9.5 8.5 - 10.5 mg/dL [facility] Blood specimen (specimen) BLOOD SPECIMEN / Unknown 01/26/2007 12:26 PM EDT Aamir Salazar MD LABORATORY Final Result [facility] [address] [place] [address] from Last 3 Months or Most Recently Relevant to Health Maintenance Insurance MEDICARE BLUE CARD PPO OOS Member Subscriber Plan / Payer (Ef fective 2014-Present) Name:Hailey Cheng Relation to Subscriber:Spouse Name:YOGESH CHENG Date of :1928 (Home) Address: [address] [place] [address] Payer ID:[id number] (NAIC) Type:PPO Address: [address] [place] [id number] Care Teams Mems Process Engineer Relationship Specialty Start Date End Date Bigg Otero Jr., [facility] [place] [address] PCP - General 10/01/06
[2025-01-10 10:16] VITALS: BP 154/64; PULSE 83; TEMP 36.3; O2SAT 98
[2025-01-10 10:38] VITALS: BP 149/70; PULSE 76; O2SAT 98
[2025-01-10 10:41] VITALS: BP 153/71; PULSE 76; O2SAT 99
[2025-01-10] MEDS: LIDOCAINE HCL 2% 400 MG/20 ML MDV 3 ML INJ (10:41)
[2025-01-10] MEDS: DEXAMETHASONE SOD PHOS 10 MG/ML VIAL INJ (10:41)
[2025-01-10] MEDS: IOHEXOL 240 MG/ML - 10 ML VIAL 12 MG INJ (10:41)
[2025-01-10] MEDS: BUPIVACAINE HCL 0.25% PF 25 MG/10 ML VIAL INJ (10:41)
--- NOTE | 2025-01-10 10:42 | W.PM.PROCNOT ---
Date of procedure: 01/10/25 Pre-op diagnosis: M54.12 Post-op diagnosis: same as pre-op Procedure: Procedure: Bilateral C5-6 transforaminal epidural steroid injection Medications: Bupivacaine 0.25% 2cc, lidocaine 2% 1cc, dexamethasone 10mg The patient was seen and examined in the preoperative holding area.? Informed consent was obtained and placed on the chart.? Patient was brought to the medical procedure unit and placed in the prone position where a timeout was completed verifying the correct patient, procedure site, position, and planned special equipment using sterile aseptic technique.? Under direct fluoroscopic visualization a 25-gauge Quincke tipped spinal needle was advanced at level left C5-6 to the designated neural foramen where contrast dye was injected to show adequate spread.? There was no evidence of vascular or adverse uptake.? Epidural spread was appreciated.? The above-mentioned injectate was then placed in a 1.5 mL aliquot preceded by negative aspiration.? The needle was removed. The same procedure, at the same level, was completed on the opposite side. ? Patient was taken to the postprocedural recovery area and monitored for an appropriate length of time before found suitable for discharge in the accompaniment of a responsible adult.? Anesthesia: Local Surgeon: Rhoda Gutierrez Pathology: none sent Condition: stable Disposition: no change
== END 2025-01-10 10:48 | disposition home or self-care (01) ==
LOC: SURGOUT 09:53
PROVIDERS: PCP Internal Medicine; Visit Provider Anesthesiology
DX: M54.12 Radiculopathy, cervical region (principal)
CPT/HCPCS: 64479; J0665; J1100; Q9966

== ENCOUNTER 2025-01-20 10:24 | Outpatient (OUT) | payer MEDICARE, SELFPAY ==
--- OUTSIDE RECORDS SUMMARY | 2024-01-14 10:15 | XMS_ITS ---
Author Organization [facility] in [place] Address [address] [place] [address] Care Team Providers Care Money Laundering Investigator Name Role Phone None, Unknown or Primary Care Provider Unavailab Costa Cardona Unavailable [phone] Allergies Allergen (clinical drug ingredient) Drug/Non Drug [...] Encounters Encounter Location Date Provider Diagnosis [facility] (PODIATRY) [address] [place] [address] [place] [address] 01/14/2024 Costa Lombardo Right foot pain M79.671 [...] (ICD-10 - M25.571) 01/14/2024 Other Referral from [facility] [facility] emergency department Plan Of Treatment Treatment Notes [...] new x-rays are needed Other Referral from [facility] emergency department Progress Notes * Fco CHENGhollisDOB:[birth year] (83 yo F)Acc No.[id number]:01/14/2024 New Patient Patient: Hailey MAK Provider: Lizy Lombardo DPM, MS :1940 A ge:83 Y S ex:Female Date:01/14/2024 Address:[facility] [place], [id number] Pcp:Unknown or None Check In:01:56 PM ESTCheck [...] Symptoms d enies. C heide Pain d enies.�Leg cramps d enies. N [...] Cancelled) 4. O thers Notes: Referral from [place] emergency department * Procedure Codes: * Preventive Medicine: Screenings/Counseling: B [place] ACTION PLAN Above Normal BMI Follow-up D ietary management education, guidance, and counseling F ALL RISK SCREENING Fall Risk Assessment: N o falls in the past year * * Sign off status: Completed Visit Status: C HK (Check Out) true * Provider: Lizy Lombardo DPM, MS Date: 01/14/2024 Generated for Lizandro cristina/Agustin/Macieitting on: 01/20/2025 10:26 AM EDT History and Physical Notes * [...]
--- OUTSIDE RECORDS SUMMARY | 2024-02-05 06:40 | XMS_ITS ---
Author Organization The [facility] [place] in [place] Address [address] [place] [address] Care Team Providers Care Meat Service Team Member Name Role Phone None, Unknown or Primary Care Provider Unavailab Lakisha Mercado Unavailable [phone] Allergies Allergen (clinical drug ingredient) Drug/Non Drug [...] Encounters Encounter Location Date Provider Diagnosis [facility] (PODIATRY) [address] [place] [address] [place] [address] 02/05/2024 Lakisha Parnell Displaced fracture of navicular [...] Notes * Hailey CHENGDOB:[birth year] (83 yo F)Acc No.[id number]:02/05/2024 Follow Up Patient: Hailey MAK Provider: Denise Parnell PA-C :1940 A ge:83 Y S ex:Female Date:02/05/2024 Address:[place], [id number] Pcp:Unknown or None Check In:10:30 AM ESTCheck [...] Procedure Codes: * Preventive Medicine: Screenings/Counseling: B KS ACTION PLAN Above Normal BMI Follow-up D ietary management education, guidance, and counseling F ALL RISK SCREENING Fall Risk Assessment: N o falls in the past year * Follow Up: p rn * * Sign off status: Completed Visit Status: C HK (Check Out) true * Provider: Denise Parnell PA-C Date: 02/05/2024 Generated for Lizandro cristina/Agustin/Macieitting on: 0 01/20/2025 10:26 AM EDT History and Physical [...]
--- OUTSIDE RECORDS SUMMARY | 2025-01-20 10:26 | XMS_ITS | Patient Health Record ---
Author Organization [facility] [place] Address [address] [place] [address] Care Team Providers Care Lumber Sales Supervisor Name Role Phone None, Unknown or Primary Care Provider Unavailab gloria Lakisha Parnell Unavailable [phone] Allergies Allergen (clinical drug ingredient) Drug/Non Drug [...] Risk Notes Problem Pain in right foot ([id number]) Right foot pain (M79.671) Active confirmed Problem Right ankle pain (M25.571) Active confirmed Vital Signs Heart Rate 73 /min 02/05/2024 Temperature 98 degrees Fahrenheit 02/05/2024 Respiratory Rate 16 /min 02/05/2024 Encounters Encounter Location Date Provider Diagnosis [facility] [place] ([facility]) [address] [place] [address] [place] [address] 02/05/2024 Lakisha Parnell Displaced fracture of navicular [...] tolerance. Follow-up as needed. Plan Of Treatment No Information Insurance Providers Payer Name Payer Address Payer Phone Subscriber Number Group Number Insured Name Patient Relationship to Insured Coverage Start Date Coverage End Date [employer] [facility] MEDICARE SOL[employer]IONS [address] [address] [place] [address] [id number] Hailey Chapin Self - patient is the insured Medical (General) History Medical History History ICD Code Arthritis gastroesophageal reflux disease (GERD) high blood pressure thyroid disease joint replacement arm Surgical History Surgery Date(Month/Year) hysterectomy 1983 breast biopsy 1988 deviated septum repair 1989 heel spur surgery, RT 1991 Plate w/ 7 screws rt elbow 1995 cataract removal 2000 detached retina pneumatic retinopexy, R 2002 virectomy with gas fluid exchange, R 200 3 recurrent detachment w/buckle R 2004 repair to elbow replacement 2004 rt arm tendon repair 2009 eyelid surgery 2010 RT open reduction internal f ixation of condyle of humerus; Poly exchange total eblow revision; triceps repair and synovectomy of rt elbow 2015 endovenous laser ablation Left 2018 sclerotherapy Left Leg 2018 marker left breast 2020 RT elbow Replacement 2000 anterior cervical fusion C5-6 C6-7 2010 PLIF L-45 2014 Hospitalization History Reason Date(Month/Year) see above
--- OUTSIDE RECORDS SUMMARY | 2025-01-20 10:26 | XMS_ITS | Clinical Summary ---
Author Organization [facility] Address [address] [place], [place] [address] Care Team Providers Care Mixer Slagman Name Role Phone Shanna Ceja DO, Charles [...] tablet daily. 0 01/26/2007 Active Vit C-Vit R-Ycrrfh-Jqdwkz ls (OCUVITE LUTEIN) ORAL Cap Take one(1) tablet daily. 0 01/26/2007 Active [place]-3 Fatty Acids (FISH OIL) 500-100 mg ORAL [...] - 1-dose 75+ series) 2013 Covid-19 Vaccine (1 - season) 2024 Advance Directive Discussion 07/07/2024 Influenza Vaccine (#1) 2025 Procedures Procedure Name Priority Date/Time Associated Diagnosis Comments BASIC METABOLIC PANEL Routine 01/26/2007 12:26 PM EDT Abd/Pel Swell/Mass/Lump Unsp Site from Last 3 Months or Most Recently Relevant to Health Maintenance Results * (ABNORMAL) BASIC METABOLIC PNL (01/26/2007 12:26 PM EDT) Glucose 103(H) 65 - 100 mg/dL [facility] BUN 15 8 - 25 mg/dL [facility] Creatinine 0.8 0.7 - 1.4 mg/dL [facility] Sodium 134 132 - 148 mmol/L [facility] Potassium 5.4(H) 3.5 - 5.0 mmol/L [facility] Chloride 98 98 - 110 mmol/L [facility] CO2 23 23 - 32 mmol/L [facility] Anion Gap 13 0 - 15 mmol/L [facility] Calcium 9.5 8.5 - 10.5 mg/dL [facility] Blood specimen (specimen) BLOOD SPECIMEN / Unknown 01/26/2007 12:26 PM EDT Aamir Salazar MD LABORATORY Final Result [facility] [address] [place] [address] from Last 3 Months or Most Recently Relevant to Health Maintenance Insurance MEDICARE BLUE CARD PPO OOS Member Subscriber Plan / Payer (Ef fective 2014-Present) Name:Hailey Cheng Relation to Subscriber:Spouse Name:YOGESH CHENG Date of :1930 (Home) Address: [address] [place] [address] Payer ID:[id number] (NAIC) Type:PPO Address: [address] [place] [id number] Care Teams Mixer Slagman Relationship Specialty Start Date End Date Bigg Otero Jr., [facility] [place] [address] PCP - General 10/01/06
--- OUTSIDE RECORDS SUMMARY | 2025-01-20 10:27 | XMS_ITS | Clinical Summary ---
Author Organization [facility] Address [address] [place] [address] Care Team Providers Care Experiential Therapist Name Role Phone Bigg Otero MD Primary [...] 2008 Insurance [employer] MEDICARE Care Teams Experiential Therapist Relationship Specialty Start Date End Date Bigg Otero MD [facility] [place] [address] PCP - General Internal Medicine 09/30/23
--- OUTSIDE RECORDS SUMMARY | 2025-01-20 10:27 | XMS_ITS | Clinical Summary ---
Author Organization [facility] Address [address] [facility], [address] [place] [address] Care Team Providers Care Terminal Gauger Supervisor Name Role Phone Bigg Otero Primary Care Provider + [phone] Allergies Active Allergy Reactions Criticality Noted Date [...] Modality Hip, C-spine, T-spine, L-spine [facility] Historical Provider IMG DEXA ORDERABLES Elaine l Result from Last 3 Months or Most Recently Relevant to Health Maintenance Insurance [employer] MEDICARE [facility] Advance Directives Documents on File Type Date Recorded Patient Garbage Worker Expl anation ACP-Power of Specialty Person 06/17/2018 5:06 PM [facility] POWER OF ATTORNE 06/25/18 Care Teams Terminal Gauger Supervisor Relationship Specialty Start Date End Date Bigg Otero DO [address] [place] [phone] PCP - General Internal Medicine 09/09/17
--- OUTSIDE RECORDS SUMMARY | 2025-01-20 10:34 | XMS_ITS | CCD ---
Author Organization [facility] Care Team Providers Care Home Sales Service Professional Name Role Phone Bigg Schultz Primary Care Provider BIGG SCHULTZ JR Primary Care Physician [phone] MARION, DR ARRIAGA Primary Care Unavailable VALONE, [...] Unavailable VALONE, DR ARRIAGA Primary Care Unavailable Rhoda Gutierrez MD Attending Unavailable Bigg Schultz MD Primary Care Provider AALIYAH DREW Attending Unavailable YOGESH DEL REAL Attending Unavailable Lyle CARRENO Attending Unavailable Lyle CARRENO Attending Unavailable PASQUALE, Lyle Feldman Attending Unavailable Lyle CARRENO Attending Unavailable Allergies Allergy Classification Reported Allergen(s) Allergy Type Date of Onset Reaction(s) Facility (1 source) Meperidine Drug Allergy 01-27-20 07 [facility] (4 sources) Risedronate Drug Allergy 03-10-20 08 [facility] (1 source) Sertraline Drug Allergy 01-27-20 07 [facility] (1 source) Sulfonamides (Antibiotic) Propensity to adverse reactions 01-27-20 07 [facility] (6 sources) Tetracycline; Translations: [tetracycline] Drug Allergy 01-27-20 07 Unknown (qualifier value) [facility] (4 sources) venlafaxine Drug Allergy 01-27-20 07 [facility] (8 sources) Citalopram; Translations: [citalopram] Drug Allergy 09-12-19 18 Unknown (qualifier value) [facility] (5 sources) DULoxetine; Translations: [duloxetine] Drug Allergy Unknown (qualifier value) [facility] (8 sources) Meperidine; Translations: [meperidine] Drug Allergy 01-27-20 07 Unknown (qualifier value) [facility] (8 sources) Sertraline; Translations: [sertraline] Drug Allergy 01-27-20 07 Unknown (qualifier value) [facility] (5 sources) Sulfonamides (Antibiotic); Translations: [sulfa drugs] Drug allergy Unknown (qualifier value) [facility] (5 sources) telmisartan; Translations: [telmisartan] Drug Allergy Unknown (qualifier value) [facility] (5 sources) venlafaxine; Translations: [venlafaxine] Drug Allergy Unknown (qualifier value) [facility] (1 source) Citalopram Drug Allergy [facility] (1 source) DULoxetine Drug Allergy 01-25-20 15 [facility] (1 source) Meperidine Drug Allergy 11-30-19 13 [facility] (1 source) Sertraline Drug Allergy 11-30-19 13 [facility] (1 source) Sulfonamides (Antibiotic) Drug allergy (disorder) 11-30-19 13 [facility] (1 source) telmisartan Drug Allergy 11-30-19 13 [facility] (1 source) Tetracycline Drug Allergy 11-30-19 13 [facility] (1 source) venlafaxine Drug Allergy 11-30-19 13 [facility] (3 sources) Azithromycin Drug Allergy 09-12-19 18 [facility] (3 sources) DULoxetine Drug Allergy 09-12-19 18 [facility] (3 sources) Meperidine Drug Allergy 09-30-19 24 [facility] (3 sources) Omeprazole Drug Allergy 09-30-19 24 [facility] (3 sources) Sulfamethoxazole / Trimethoprim Drug Allergy 09-30-19 24 [facility] (3 sources) Sulfonamides (Antibiotic) Drug Intolerance 01-27-20 07 [facility] (3 sources) Telmisartan Propensity to adverse reactions 09-12-19 18 [facility] (3 sources) Tetracycline (class of antibiotic) Drug Intolerance 01-27-20 07 [facility] Medications Current Medications Medication Drug Class(es) Dates Sig (Normalized) Sig (Original) baclofen 10 mg oral tablet (7 sources) gamma-Aminobutyric Acid-ergic Agonist Start: 10-01-2021 baclofen 10 mg Tab Refills(s) 0 Start Date: 10/01/21 Status: Ordered busPIRone hydrochloride 10 mg oral tablet (7 sources) Start: 10-01-2021 busPIRone 10 mg Tab Refills(s) 0 Start Date: 10/01/21 Status: Ordered calcium carbonate 1500 mg oral tablet (3 sources) calcium carbonat e 1500 (600 Ca) MG tablet every 12 (twelve) hours Active candesartan cilexetil 32 mg oral tablet (7 sources) Angiotensin 2 Receptor Kenney Start: 10-01-2021 candesartan 32 mg Tab Refills(s) 0 Start Date: 10/01/21 Status: Ordered carvedilol 6.25 mg oral tablet (7 sources) alpha-Adrenergic Kenney, beta-Adrenergic Kenney Start: 10-01-2021 carvedilol 6.25 mg Tab Refills(s) 0 Start Date: 10/01/21 Status: Ordered carvedilol (Core g) 6.25 MG tablet every 12 (twelve) hours Active clobetasol propionate 0.0005 mg/mg topical ointment (2 sources) Corticosteroid Start: 10-10-2023 clobetasol pro pionate 0.05% top oint 1 cornelia, Topical, Daily Rash, 45 gm, Refill(s) 1, Daily as needed for vaginal irritation, [facility]/pharmacy #[id number], 165, cm, 10/10/23 10:56:00 EDT, Height/Length Dosing, 55, kg, 10/10/23 10:56:00 EDT, Weight Dosing Start Date: 10/10/23 Status: Ordered estrogens, conjugated (custodial) 0.625 mg/ml vaginal cream (6 sources) Estrogen Start: 08-12-2023 Premarin Vagin al 0.625 mg/g cream with [...] Weight Dosing Start Date: 01/02/22 Status: Ordered Premarin 0.625 M G/GM cream as directed Vaginal Active gabapentin 100 mg oral capsule (7 sources) Anti-epileptic Agent Start: 10-01-2021 gabapenti n 100 mg Cap Refills(s) 0 Start Date: 10/01/21 Status: Ordered levothyroxine sodium 0.025 mg oral tablet (7 sources) l-Thyroxine Start: 10-01-2021 levothyroxine 25 mcg (0.025 mg) Tab Refills(s) 0 Start Date: 10/01/21 Status: Ordered Start: 10-01-2021 levothyroxine 25 mcg (0.025 mg) Tab Refills(s) 0 Start Date: 10/01/21 Status: Ordered montelukast 10 mg oral tablet (7 sources) Leukotriene Receptor Antagonist Start: 10-01-2021 montelukast [...] Weight Dosing Start Date: 08/29/20 Status: Ordered Completed/Discontinued Medications Medication Drug Class(es) Dates Sig (Normalized) Sig (Original) aspirin 81 mg chewable tablet (3 sources) Platelet Aggregation Inhibitor, Nonsteroidal Anti-inflammatory Drug End: 08-11-2024 take 1 tablet by mouth every week aspirin 81 MG chewable tablet 1 tablet Orally Once a week 08/11/2024 Discontinued empagliflozin 10 mg oral tablet (4 sources) Sodium-Glucose Cotransporter 2 Inhibitor Start: 03-18-2023 End: 08-11-2024 Jardiance 10 MG 03/18/2023 08/11/2024 Discontinued Start: 10-04-2022 Jardiance 10 m g oral tablet Refills(s) 0 Start Date: 10/04/22 Status: Ordered famotidine 20 mg oral tablet (6 sources) Histamine-2 Receptor Antagonist Start: 10-04-2022 End: 08-11-2024 famotidine (Pepcid) 20 MG tablet 07/21/2023 08/11/2024 Discontinued Problems Active Problems Problem Classification Problem Date Documented Date Episodic/Chronic Anal and rectal conditions (3 sources) Disorder of rectum 10-04-2022 Episodic Esophageal disorders (3 sources) Gastroesophageal reflux disease; Translations: [Gastro-esophageal reflux disease without esophagitis] Onset: 09-30-2023 09-30-2023 Chronic Essential hypertension (11 sources) Hypertensive disorder; Translations: [Essential (primary) hypertension] Onset: 06-17-2022 08-26-2019 Chronic Genitourinary symptoms and ill-defined conditions (9 sources) Overflow incontinence of urine; Translations: [Urge incontinence of urine] Onset: 10-10-2023 09-06-2019 Chronic Genitourinary symptoms and ill-defined conditions (12 sources) Nocturia; Translations: [Poor stream of urine] 10-06-2020 Episodic Mood disorders (3 sources) Depressive disorder; Translations: [Depression] Onset: 09-30-2023 09-30-2023 Chronic Osteoarthritis (4 sources) Osteoarthritis 08-26-2019 Chronic Other and unspecified benign neoplasm (4 sources) Adrenal adenoma 08-26-2019 Episodic Other bone disease and musculoskeletal deformities (4 sources) Osteopenia 08-26-2019 Episodic Other diseases of bladder and urethra (1 source) Detrusor overactivity; Translations: [Overactive bladder] Onset: 05-24-2024 Chronic Other diseases of bladder and urethra (1 source) Overactive bladder 05-24-2024 Chronic Other diseases of bladder and urethra (4 sources) Urethral stricture; Translations: [Unspecified urethral stricture, female] Onset: 10-10-2023 Episodic Other endocrine disorders (1 source) Disorder of adrenal gland; Translations: [Unspecified disorder of adrenal glands] Onset: 02-09-2008 02-09-2008 Chronic Other female genital disorders (1 source) Noninflammatory disorder of the vagina; Translations: [Other specified noninflammatory disorders of vagina] Onset: 05-24-2024 Episodic Other female genital disorders (1 source) Cyst of vagina 05-24-2024 Episodic Other nervous system disorders (1 source) Other chronic pain; Translations: [OTHER CHRONIC PAIN] Onset: 01-03-2022 Chronic Other screening for suspected conditions (not mental disorders or infectious disease) (4 sources) Encounter for screening mammogram for malignant neoplasm of breast; Translations: [ENC SCR MAMMO MALIG NEOPLASM BREAST] Onset: 11-11-2022 Episodic Prolapse of female genital organs (9 sources) Uterovaginal prolapse; Translations: [Uterovaginal prolapse, unspecified] Onset: 10-04-2022 Chronic Rehabilitation care; fitting of prostheses; and adjustment of devices (2 sources) Patient encounter status; Translations: [Encounter for fitting and adjustment of other specified devices] 08-11-2024 Chronic Residual codes; unclassified (4 sources) Sleep apnea 08-26-2019 Chronic Residual codes; [...] DIGESTIV ORGN] Onset: 11-14-2022 Episodic Thyroid disorders (4 sources) Hypothyroidism 08-26-2019 Chronic Unclassified (1 source) LOW BACK PAIN, UNSPECIFIED; Translations: [LOW BACK PAIN, UNSPECIFIED] Onset: 01-03-2022 Urinary tract infections (8 sources) Chronic cystitis; Translations: [Other chronic cystitis without hematuria] Onset: 10-01-2021 Chronic Urinary tract infections (6 sources) Postinfective urethral stricture of female; Translations: [...] [PAIN IN RIGHT SHOULDER] Onset: 11-22-2021 Episodic Thyroid disorders (3 sources) Disorder of thyroid gland; Translations: [Disorder of thyroid, unspecified] Onset: 09-30-2023 09-30-2023 Episodic Results Test Name Value Interpretation Reference Range Facility Ambulatory Visit Summaryon 0 09-24-2024 Ambulatory Visit Summary Ambulatory Visit Summary LELA CHENG :1940 Visit Date:09/24/2024 Ambulatory Visit Instructions Your Diagnosis Postinfective urethral stricture in female Chronic cystitis Your Care Team Attending Physician - PASQUALE [...] Lyle CARRENO MD Where: [facility] [address] [place] [address]- You Need to Schedule the Following Appointments Follow Up with Lyle CARRENO MD, URL When: Where: [facility] [address] , [place] [address]- Medications What How Much When Instructions Unchanged [...] males, the urethra opens at the tip o (more content not included)... Normal [facility] Urology Office/Clinic Noteon 09-24-2024 Urology Office/Clinic Note Urology Office/Clinic Note Chief Complaint 6 month [...] Tight The Urethra was dilated to: 20-32 Eritrean with sounds. Specimens Removed: None Postoperative Information [...] Feldman, URL [facility] [address], [place] [address]- Additional Instructions: 6 mo UD Patient Education [...] Allergies CeleXA (Unknown) Cymbalta (Unknown) Demerol (Unknown) E (more content not included)... Normal [facility] Comment on above: Result Comment: Elec tronically Signed By: Lyle CARRENO MD\.br\Date and Time Signed: 09/24/24 13:12 EDT\.br\Electronically Co-Signed By: Katey Barraza\.br\Date and Time Co-Signed: 09/24/24 13:11 EDT Ambulatory Visit Summaryon 1 07-24-2023 Ambulatory Visit Summary Ambulatory Visit Summary ERIK CHENGKaur Colon :1940 Visit Date:05/24/2024 Ambulatory Visit Instructions Your Diagnosis Unspecified urethral stricture, female Chronic cystitis without hematuria Cystocele with prolapse OAB (overactive bladder) Rectocele Vaginal wall cyst Your Care Team Attending Physician - Lyle CARRENO MD Primary Care Physician - BIGG SCHULTZ JR, [...] Lyle CARRENO MD Where: [facility] [address] [place] [address]- You Need to Schedule the Following Appointments Follow Up with Lyle CARRENO MD, URL When: Comments: 6 mos for UD Where: [facility] [address] , [place] [address] [phone] Someone Will Contact You Regarding These Appointments [facility] External Ambulatory Referral, Other (needs to be [...] your care. Education Materials Urethral Dilation Urethral dilati (more content not included)... Normal [facility] Urology Office/Clinic Noteon 05-24-2024 Urology Office/Clinic Note Urology Office/Clinic Note Chief Complaint urethral stricture [...] Tight The Urethra was dilated to: 22-30 Eritrean with sounds. Specimens Removed: None Postoperative Information [...] of pessary and risks/benefits. Recommended referral to [facility] to discuss this. Pt wishes to proceed. -Referral to [facility] 4. OAB (overactive bladder) (N32.81: Overactive bladder) See #3. 5. Rectocele (N81.6: Rectocele) Grade 2. [2] 6. 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 3cm L -Referral to [facility] Follow-up With When Contact Information PASQUALE MESA, Lyle Feldman, URL [facility] [address] , [place] [address]- [phone] Additional Instructions: 6 mos for UD Patient Education Urethral Dilation I, Magalis Chávez, personally scribed for Dr. Carreno on 05/24/2024 10:11:32. . Problem List/Past Medical History Ongoing Adrenal adenoma Chronic cystitis without hematuria Cystocele with prolapse Hypertension Hypothyroidism Nocturia OAB (overactive bladder) Osteoarthritis Osteopenia Overflow incontinence Postinfective urethral stricture in female Rectocele Sleep apnea Unspecified urethral stricture, female Urge incontinence Urinary urg (more content not included)... Normal [facility] Comment on above: Result Comment: Elec tronically Signed By: Lyle CARRENO MD\.br\Date and Time Signed: 05/24/24 10:13 EST\.br\Electronically Co-Signed By: Magalis Chávez\.br\Date and Time Co-Signed: 05/24/24 10:11 EST Ambulatory Visit Summaryon 0 10-10-2023 Ambulatory Visit Summary LELA CHENG :1940 Visit Date:10/10/2023 Ambulatory Visit Instructions Your Diagnosis Unspecified urethral stricture, female Chronic cystitis without hematuria Urge incontinence Cystocele with prolapse Rectocele Your Care Team Attending Physician - Lyle CARRENO MD Primary Care Physician - BIGG SCHULTZ JR, [...] MESA, Lyle Feldman Where: [facility] Consent for Procedure/Surger yon 10-10-2023 Consent for Procedure/Surgery [id number] [facility] Patient Educationon 10-10-19 Patient Education Urology Urethral Stricture Urethral stricture [...] Follow these instructions at home: ? Take lauc-sjh-ogkkihc and prescription medicines only as told by [...] provider. Document Revised: 04/30/2022 Document Reviewed: 04/30/2022 [employer] Patient Education ? 2022 [employer]. Normal [facility] Urology Office/Clinic Noteon 10-10-2023 Urology Office/Clinic Note [...] Tight The Urethra was dilated to: 22-32 Eritrean with sounds. Specimens Removed: None Postoperative Information [...] Contact Information PASQUALE MESA, Lyle Feldman, URL [facility] [place] [address]- Additional Instructions: 6 mos for IO UD [...] (09/06/2019), Dila (more content not included)... Normal [facility] Comment on above: Result Comment: Elec tronically Signed By: Lyle CARRENO MD\.br\Date and Time Signed: 10/10/23 11:27 EDT\.br\Electronically Co-Signed By: Kelly Hollisbr\Date and Time Co-Signed: 10/10/23 11:26 EDT MG MAMM SCREEN ROSANGELA W CADon 0 11-11-2022 MG MAMM SCREEN ROSANGELA W CAD Patient: SANGREGORY, LELA J. Exam Date: 11/11/2022 : 1940 Gender:F Ordering : DR BIGG SCHULTZ D.O. Admission #: [id number] Family : Order #: [id number] CLICK HERE TO VIEW EXAM RADIOLOGY REPORT [...] lung cancer at age 53. LOCATION: [facility] BREAST COMPOSITION: Heterogeneously dense,which may [...] M.D. on 11/11/2022 at 13:50 Normal [facility] ELECTROLYTESon 06-17-2022 Anion gap [Moles/Vol] 10.9 mmol/L Normal [facility] Comment on above: Performed By: #### E LEC, TSH #### [facility] [address] [address] [address] Lillian Hurley Chloride [Moles/Vol] 92 mmol/L Critically low 98-107 [facility] Comment on above: Performed By: #### E LEC, TSH #### [facility] [address] [address] [address] Lillian Hurley CO2 [Moles/Vol] 30.4 mmol/L Normal 21.0-32.0 [facility] Comment on above: Performed By: #### E LEC, TSH #### [facility] [address] [place] [address] Dr. Lillian Hurley Potassium [Moles/Vol] 4.3 mmol/L Normal 3.5-5.1 [facility] Comment on above: Performed By: #### E LEC, TSH #### [facility] [address] [address] [address] Lillian Hurley Sodium [Moles/Vol] 129 mmol/L Critically low 136-145 [facility] Comment on above: Performed By: #### E LEC, TSH #### [facility] [address] [place] [address] Dr. Lillian Hurley TSHon 06-17-2022 TSH 0.675 uIU/mL Normal 0.358-3.740 [facility] Comment on above: Performed By: #### E LEC, TSH #### [facility] [address] [place] [address] Dr. Lillian Hurley Otheron 12-22-2000 CONVERTED ELECTRONIC SIGNATURE GEN HENDRIX M.D., PATHOLOGIST (Electronic signature on file) Final Signed Out: 12/22/2000 14:36 [facility] CONVERTED FINAL DIAGNOSIS BONE, RIGHT ELBOW, EXCISION - SEGMENTS OF OSSEOUS TISSUE WITH CHANGES CONSISTENT WITH CHANGES OF DEGENERATIVE OSTEOARTHROPATHY. REACTIVE SYNOVIUM WITH FOCAL OLD HEMORRHAGE. [facility] CONVERTED ORDERING PROVIDER Ordering Provider: JOSE ALMONTE [facility] Vital Signs Date Time Vital Sign Value Performing Clinician Facility 08-11-2024 13:54-0500 Body mass index (BMI) [Ratio] 24.03 kg/m2 [employer] Work Phone: [facility] 08-11-2024 13:54-0500 Body weight 62.51 kg [employer] Work Phone: [facility] 08-11-2024 13:54-0500 Diastolic blood pressure 70 mm[Hg] [employer] Work Phone: [facility] 08-11-2024 13:54-0500 Systolic blood pressure 128 mm[Hg] Aaliyah Drew DO Work Phone: [facility] 05-24-2024 09:38-0500 Blood Pressure Location Lyle CARRENO [facility] 05-24-2024 09:38-0500 Body temperature 98.42 [degF] Lyle CARRENO [facility] 05-24-2024 09:38-0500 Diastolic blood pressure 66 mm[Hg] Lyle CARRENO [facility] 05-24-2024 09:38-0500 Heart rate 67 /min Lyle CARRENO [facility] 05-24-2024 09:38-0500 Respiratory rate 18 /min Lyle CARRENO [facility] 05-24-2024 09:38-0500 Systolic blood pressure 108 mm[Hg] Lyle CARRENO [facility] 10-10-2023 10:54-0400 Blood Pressure Location Lyle CARRENO [facility] 10-10-2023 10:54-0400 Diastolic blood pressure 79 mm[Hg] Lyle CARRENO [facility] 10-10-2023 10:54-0400 Heart rate 73 /min Lyle CARRENO [facility] 10-10-2023 10:54-0400 Respiratory rate 16 /min Lyle CARRENO [facility] 10-10-2023 10:54-0400 Systolic blood pressure 127 mm[Hg] Lyle CARRENO [facility] 10-04-2022 10:17-0400 Blood Pressure Location Lyle CARRENO [facility] 10-04-2022 10:17-0400 Diastolic blood pressure 71 mm[Hg] Lyle CARRENO [facility] 10-04-2022 10:17-0400 Heart rate 60 /min Lyle CARRENO [facility] 10-04-2022 10:17-0400 Respiratory rate 16 /min Lyle CARRENO [facility] 10-04-2022 10:17-0400 Systolic blood pressure 125 mm[Hg] Lyle CARRENO [facility] Encounters Encounter Date Encounter Type Care Provider Facility Start: 01-31-2025 ambulatory Lyle CARRENO Facili ty:[facility] Start: 09-24-2024 End: 09-24-2024 ambulatory Lyle CARRENO Facility:[facility] Start: 08-11-2024 End: 08-11-2024 Bamboo flowsheet Aaliyah Rajendra DO Work Phone: [facility] Start: 08-11-2024 End: 08-11-2024 Bamboo flowsheet Aaliyah Rajendra DO Work Phone: [facility] Start: 08-11-2024 End: 08-11-2024 ambulatory AALIYAH RAJENDRA Not Available Start: 08-11-2024 End: 08-11-2024 Office outpatient new 20 minutes Aaliyah Rajendra DO Work Phone: [facility] Comment on above: Encounter for fittin g and adjustment of pessary Start: 05-24-2024 End: 05-24-2024 ambulatory [facility] Start: 05-24-2024 End: 05-24-2024 Patient encounter procedure [facility] Francia [facility]ARRENO [facility] Start: 05-03-2024 End: 05-03-2024 ambulatory Rhoda Gutierrez MD Facility:[facility] Start: 10-10-2023 End: 10-10-2023 ambulatory Lyle CARRENO Facility:[facility] Start: 10-10-2023 End: 10-10-2023 Patient encounter procedure Lyle CARRENO [facility] Start: 09-30-2023 End: 09-30-2023 ambulatory YOGESH DEL REAL Not Available Start: 11-11-2022 End: 11-12-[address] BIGG SCHULTZ Facility:[facility] Start: 10-04-2022 End: 10-04-2022 Patient encounter procedure Lyle CARRENO [facility] Start: 06-17-2022 End: 06-18-[address] BIGG SCHULTZ Facility:[facility] Start: 01-03-2022 End: 01-31-[address] BIGG SCHULTZ Facility:[facility] Start: 11-22-2021 End: 12-15-[address] DOCTOR COREAS Facility:[facility] Start: 10-01-2021 End: 10-01-2021 Patient encounter procedure Lyle CARRENO [facility] Start: 12-16-1920 End: 12-16-1920 Patient encounter procedure Jose Almonte Work Phone: [facility] Start: 12-16-1920 Results Only Jose Almonte Work Phone: [facility] Procedures Date Procedure Procedure Detail Performing Clinician Start: 05-24-2024 Dilation of urethra Pat lexi CARRENO Start: 10-01-2021 Dilation of urethra Pat lexi PASQUALE Start: 09-06-2019 Dilation of urethra Pat lexi PASQUALE Start: 11-16-2018 Dilation of urethra Pat lexi PASQUALE Start: 05-18-2018 Dilation of urethra Pat lexi PASQUALE Start: 11-17-2017 Dilation of urethra Pat lexi PASQUALE Start: 05-19-2017 Dilation of urethra Pat lexi [...] pernell CARRENO Start: 06-11-2013 Dilation of urethra Pat lexi CARRENO Start: 08-07-2009 Dilation of urethra Pat lexi PASQUALE Start: 09-04-2006 Cystourethroscopy wi th dilation of urethral stricture Lylelexi CARRENO Start: 12-16-1920 CONVERTED SURGICAL PATHOLOGY Jose Almonte Work Phone: Appendectomy Lyle CARRENO Breast biopsy and re lated procedures Lyle CARRENO Cataract surgery yLle [facility] Colonoscopy Lyle CARRENO Dilation of urethra Lyle CARRENO Excision of lipoma Lyle FLORES eyelid lift Lyle CARRENO Hysterectomy Lyle CARRENO Nasal sinus procedure Andrea CARRENO Plantar fasciectomy Lyle CARRENO Procedure on elbow Lyle FLORES Procedure on retina Lyle CARRENO Repair of single tendon Rosar katerin CARRENO Plan of Treatment Date Care Activity Detail Author Start: 03-07-2024 Influenza vaccination Influenza Vacc ine (#1) [facility] Start: 03-07-2020 Influenza vaccination INFLUENZA (#1) [facility] Start: 03-23-2015 Pneumococcal Vaccine : 65+ Years (2 of 2 - PCV) Pneumococcal Vaccine: 65+ Years (2 of 2 - PCV) [facility] Start: 01-26-2010 DIABETES SCREEN DIABETES SCREEN [facility] Start: 2003 ADVANCE DIRECTIVE DISCUSSION ADVANCE DIRECTIVE DISCUSSION [facility] Start: 2003 BONE DENSITY BONE DENSITY [facility] Start: 2003 PNEUMOVAX AGE 65 AND OVER WITH 5YR LOOKBACK (#1) PNEUMOVAX AGE 65 AND OVER WITH 5YR LOOKBACK (#1) [facility] Start: 1988 SHINGRIX VACCINE (1 of 2) SHINGRIX V ACCINE (1 of 2) [facility] Start: 1957 Urine microalbumin profile DTAP,TDAP,TD (1 - Tdap) [facility] Immunizations Immunization Date Immunization Notes Care Provider Fa keyanna 04-18-2023 influenza virus vacc ine, unspecified formulation Lyle CARRENO [facility] 03-29-2022 SARS-CoV-2 (COVID-19 ) [id number] Lyle CARRENO [facility] Comment on above: Result Comment: 2023: [id number] 11-02-2021 SARS-CoV-2 mRNA (mwujpncaifb-vqrj-vtfohk e) vaccine Lyle CARRENO [facility] Comment on above: Result Comment: 2023: [id number] 04-16-2021 SARS-CoV-2 (COVID-19 ) mRNA BNT-162b2 vax Lyle CARRENO [facility] Comment on above: Result Comment: 2023: [id number] 08-23-2020 SARS-CoV-2 (COVID-19 ) mRNA BNT-162b2 vax Lyle CARRENO [facility] 07-31-2020 SARS-CoV-2 (COVID-19 ) mRNA BNT-162b2 vax Lyle CARRENO [facility] Comment on above: Result Comment: 2nd dose given 08/23/2020 07-23-2018 zoster vaccine recombinant Lyle CARRENO [facility] 11-28-2017 zoster vaccine recombinant Lyle CARRENO [facility] 03-23-2014 pneumococcal polysaccharide vaccine, 23 valent Lyle CARRENO [facility] 05-05-2013 zoster vaccine, live Lyle CARRENO [facility] 04-25-2009 influenza, whole Lyle CARBALLO [facility] Payers Date Payer Category Payer Medicare (Managed Care) [facility] MEDIC[facility] [id number] 2023 Medicare 1961 Medicare [id number] 1961 Medicare [id number] 1938 Unknown [id number]. 593 1938 Unknown [id number] 2.16.840.1.870180.3.579.2. 593 1938 Unknown [id number] 2.16.840.1.253079.3.579.2. 593 1938 Unknown [id number] 2.16.840.1.675444.3.579.2. 593 1938 Unknown [id number] 2.16.840.1.885656.3.579.2. 196 1938 Unknown [id number] 2.16.840.1.801981.3.579.2. 1259 1938 Unknown [id number] 2.16.840.1.149324.3.579.2. 1259 1938 Unknown [id number] 2.16.840.1.676711.3.579.2. 727 1938 Unknown [id number] 2.16.840.1.085888.3.579.2. 727 1938 Unknown [id number] 2.16.840.1.296396.3.579.2. 727 1938 Unknown [id number] 2.16.840.1.271733.3.579.2. 727 Social History Date Type Detail Facility Tobacco smoking stat us NHIS Unknown if ever smoked [facility] Start: 1940 Sex Assigned At Not on file [facility] Start: 09-06-2019 End: 09-30-2023 Tobacco smoking status Never smoked tobacco (finding) [facility] Start: 09-30-2023 Sex Assigned At Female [facility] Tobacco smoking status Never [facility] Start: 09-30-2023 Tobacco use and exposure Smokeless tobacco non-user [facility] Start: 09-30-2023 History of Social function [facility] Functional Status Date Assessment Result Facility 05-24-2024 Functional Status N/A [facility] 10-10-2023 Functional Status N/A [facility] 10-04-2022 Functional Status N/A [facility] Clinical Notes 10-01-2021 to 09-24-2024 Aaliyah Drew DO - 08/11/2024 1:30 PM EST Note Date & Type Note Facility 09-24-2024 Note Patient Education Urology Urethral Dilation Urethral dilation [...] including vitamins, herbs, eye drops, creams, and aznx-keb-nfrfxgk medicines. ??? Any problems you or family [...] your provider tells you to. ??? Taking dsli-ftp-gxtwcxv medicines, vitamins, herbs, and supplements. General instructions [...] these instructions at home: Medicines ??? Take satx-ayp-jplgvnz and prescription medicines only as told by [...] to prevent or treat constipation: ? Take fqph-hoy-jrtvfhh or prescription medicines. ? Eat foods that [...] sent home with a soft tube (catheter) (more content not included)... [facility] 08-11-2024 History of Presen t illness Narrative Reason for Appointment: Patient ID: Lela Cheng is a 84 y.o. female who presents for pessary fitting Patient presents today for Acute Visit. Current Medications: has a current medication list which includes the following prescription(s): baclofen, buspirone, calcium carbonate, candesartan, carvedilol, gabapentin, levothyroxine, montelukast, and premarin. Medical History: Active Ambulatory Problems Diagnosis Date Noted Thyroid disease ([facility]) 09/30/2023 HTN (hypertension) ([facility]) 09/30/2023 GERD (gastroesophageal reflux disease) 09/30/2023 Depression ([facility]) 09/30/2023 Resolved Ambulatory Problems Diagnosis Date Noted No Resolved Ambulatory Problems No Additional Past Medical History No family history on file. Social History Tobacco Use Smoking status: Never Smokeless tobacco: Never Substance Use Topics Alcohol use: Not on file Drug use: Not on file Past Surgical History: Procedure Laterality Date CERVICAL FUSION ELBOW SURGERY Right HEEL SPUR SURGERY Right HYSTERECTOMY NASAL SEPTUM SURGERY N/A Allergies Allergen Reactions Azithromycin Citalopram Other Reaction(s): Unknown Duloxetine Hcl Other Reaction(s): Unknown Meperidine Meperidine Hcl Other Reaction(s): Unknown Omeprazole Other Reaction(s): GI upset w diarrhea Risedronate Sodium cramps Sertraline Other Reaction(s): Unknown Sulfa Antibiotics Other Reaction(s): Unknown Sulfamethoxazole-Trimethoprim Other Reaction(s): Unknown Telmisartan Other Reaction(s): Unknown Tetracyclines & Related Other Reaction(s): Unknown Venlafaxine Hcl Review of Systems: Review of Systems Objective Physical Exam Constitutional: Appearance: Normal appearance. She is well-developed. Cardiovascular: Rate and Rhythm: Normal rate and regular rhythm. Pulmonary: Effort: Pulmonary effort is normal. Breath sounds: Normal breath sounds. Abdominal: General: Bowel sounds are normal. There is no distension. Palpations: Abdomen is soft. Tenderness: There is no abdominal tenderness. There is no guarding or rebound. Musculoskeletal: General: No swelling. Normal range of motion. Right lower leg: No edema. Left lower leg: No edema. Neurological: Mental Status: She is alert and oriented to person, place, and time. Skin: General: Skin is warm and dry. Psychiatric: Mood and Affect: Mood normal. Behavior: Behavior normal. Vitals and nursing note reviewed. Exam conducted with a automobile service writer present. Vitals: Estimated body mass index is 24.03 kg/m as calculated from the following: Height as of 02/22/19: 5' 3.5 . Weight as of this encounter: 137 lb 12.8 oz. BP: 128/70 No LMP recorded. Assessment/Plan Encounter Diagnosis: ICD-10-CM 1. Encounter for fitting and adjustment of pessary Z46.[address] stoner, pt refusing pessary at this time, all options reviewed including conservative mgmt Documented by Aaliyah Drew DO on behalf of: Aaliyah Drew DO documented in this encounter [facility] 05-24-2024 Hospital Discharg e instructions Patient Education 05/24/2024 10:05:26 Urethral Dilation Urethral Dilation Urethral dilation is [...] including vitamins, herbs, eye drops, creams, and atgn-wky-kaoxtfq medicines. Any problems you or family members have had with anesthesia. Any bleeding problems you have. Any surgeries you have had. Any medical conditions you have. Whether you are or may be . What are the risks? Your health care provider will talk with you about risks. These may include: Bleeding. Infection. A return of urethral stricture, which requires repeating the dilation procedure or more surgery. Damage to the urethra, which may require reconstructive surgery. Allergic reactions to medicines. What happens before the procedure? Medicines Ask your provider about: Changing or stopping your regular medicines. These include any diabetes medicines or blood thinners you take. Taking medicines such as aspirin and ibuprofen. These medicines can thin your blood. Do not take them unless your provider tells you to. Taking wpac-sig-mfmmplz medicines, vitamins, herbs, and supplements. General instructions Follow instructions from your provider about what you may eat and drink. If you will be going home right after the procedure, plan to have a responsible adult: ?Take you home from the hospital or clinic. You will not be allowed to drive. ?Care for you for the time you are told. Ask your provider: ?How your surgery site will be marked. ?What steps will be taken to help prevent infection. These steps may include: ?Removing hair at the surgery site. ?Washing skin with a soap that kills germs. ?Taking antibiotics. What happens during the procedure? An IV may be inserted into one of your veins. You may be given: ?A local anesthetic to numb your urethral opening. This will be applied as a gel that will also lubricate the opening of the urethra. ?A sedative. This helps you relax. ?Anesthesia. This keeps you from feeling pain. It will make you fall asleep for surgery. A thin tube with a light and [...] to help the urethra stay open longer. Your urethra will be irrigated. A catheter will be inserted into your bladder at the end of the procedure. The procedure may vary among providers and hospitals. What happens after the procedure? After the procedure, it is common to have: ?Burning pain when peeing. ?Blood in your pee. ?A need to pee frequently. You will be asked to pee before you leave the hospital or clinic. Your pee flow should improve within a few days. You may have a catheter in your bladder for 2 3 days following your procedure. Follow these instructions at home: Medicines Take jitk-wrf-akdghxe and prescription medicines only as told by your provider. If you were prescribed antibiotics, take them as told by your provider. Do not stop using the antibiotic even if you start to feel better. Ask your provider if the medicine prescribed to you: ?Requires you to avoid driving or using machinery. ?Can cause constipation. You may need to take these actions to prevent or treat constipation: ?Take geus-ieq-nrvmhae or prescription medicines. ?Eat foods that are high in fiber, such as beans, whole grains, and fresh fruits and vegetables. ?Limit foods that are high in fat and processed sugars, such as fried or sweet foods. General instructions If you were given a sedative during the procedure, it can affect you for several hours. Do not drive or operate machinery until your provider says that it is safe. If you were sent home with a soft tube (catheter) to help keep your urethra open, follow your provider's instructions about how and when to use it. Drink enough fluid to keep your pee pale yellow. Return to your normal activities as told by your provider. Ask your provider what activities are safe for you. Keep all follow-up visits. Your provider will check your healing and adjust your treatment plan as needed. Contact a health care provider if: Your pee is cloudy and smells bad. You develop new bleeding when you pee. You pass blood clots when you pee. You have pain that does not get better with medicine. You have a fever. Your genital area is swollen, bruised, or discolored. This includes: ?The penis, scrotum, and inner thighs for males. ?The outer genital organs (vulva) and inner thighs for females. Get help right away if: You develop new bleeding that does not stop. You cannot pee. Your catheter stops draining pee. You cannot pee after your catheter is removed. These symptoms may be an emergency. Get help right away. Call 911. Do not wait to see if the symptoms will go away. Do not drive yourself to the hospital. This information is not intended to replace advice given to you by your health care provider. Make sure you discuss any questions you have with your health care provider. Document Revised: 04/17/2023 Document Reviewed: 04/17/2023 [employer] Patient Education 2023 [employer]dex. Follow Up Care 10/10/2023 11:32:21 With:PASQUALE MESA, Lyle Feldman, URL Address: [facility] [address], [place] [address]- [phone] When: Unknown Comments:6 mos for UD [facility] [place] 05-24-2024 Note Patient Education Urology Urethral Dilation Urethral dilation [...] including vitamins, herbs, eye drops, creams, and eqev-xaw-gfzlklc medicines. ??? Any problems you or family [...] your provider tells you to. ??? Taking zslg-hwr-bcaooba medicines, vitamins, herbs, and supplements. General instructions [...] these instructions at home: Medicines ??? Take ytdq-rpz-clnpdax and prescription medicines only as told by [...] to prevent or treat constipation: ? Take vkmr-kdm-otndyqz or prescription medicines. ? Eat foods that [...] sent home with a soft tube (catheter) (more content not included)... [facility] 10-10-2023 Hospital Discharg e instructions Patient Education [...] reconstructed. Follow these instructions at home: Take mocp-quk-vrrjjuo and prescription medicines only as told by [...] provider. Document Revised: 04/30/2022 Document Reviewed: 04/30/2022 Elsevier Patient Education 2022 Linkdex. Follow Up Care 10/04/2022 10:57:38 With:PASQUALE MESA, Lyle Feldman, URL Address: [address] [place] [id number]- When: Unknown [facility] 10-04-2022 Hospital Discharg e instructions Patient Education [...] including vitamins, herbs, eye drops, creams, and cwin-shf-errgzpw medicines. Any problems you or family members [...] provider tells you to take them. Taking qyyv-avj-pxflnpt medicines, vitamins, herbs, and supplements. General instructions [...] Follow these instructions at home: Medicines Take zpcv-zte-iuqhjll and prescription medicines only as told by [...] actions to prevent or treat constipation: ?Take vbrd-oyt-mdzxkeq or prescription medicines. ?Eat foods that are [...] 07/19/2016 Document Revised: 08/05/2019 Document Reviewed: 08/05/2019 [employer] Patient Education 2019 Linkdex. Follow Up Care 10/01/2021 13:26:16 With:PASQUALE MESA, Lyle Feldman, URL Address: [address] [place] [id number]- When: Unknown [facility] 10-01-2021 Hospital Discharg e instructions Patient Education [...] reconstructed. Follow these instructions at home: Take oomo-ebb-jwivpth and prescription medicines only as told by [...] 07/19/2016 Document Revised: 02/03/2019 Document Reviewed: 02/03/2019 [employer] Patient Education 2020 Linkdex. [facility] Evaluation + Plan note Future Appointments Appointment Date:10/04/2022 09:45:00 AM Scheduled Provider:Lyle CARRENO MD Location:[facility] Appointment Type:URO Office Visit [facility] Evaluation + Plan note Future Appointments Appointment Date:10/10/2023 10:15:00 AM Scheduled Provider:Lyle CARRENO MD Location:[facility] Appointment Type:URO Office Visit [facility] Evaluation + Plan note Future Appointments Appointment Date:05/03/2024 09:15:00 AM Scheduled Provider:Lyle CARRENO MD Location:[facility] Appointment Type:URO Office Visit [facility] [employer] Evaluation + Plan note Future Appointments Appointment Date:11/22/2024 10:30:00 AM Scheduled Provider:yLle CARRENO MD Location:[facility] Appointment Type:URO Procedure 15 min [facility] [employer] Evaluation note Diagnosis Encounter for fitting and adjustment of pessary [facility] Narrative No data available for this section [facility] [employer] progress note No data available for this section [facility] [employer] reason for referral (narrative) Referred by: Lyle CARRENO MD Referred by: Lyle CARRENO MD [facility] [employer] Summary Purpose Family History No Family History Records Found No data available for this section No Family History Records Found No data available [...] or prosecute any alcohol or drug abuse patient.[facility] Patient Care team informatio n (unrecognized section and content) Home Sales Service Professional Relationship Specialty Start Date End Date Bigg Schultz MD [address] [place] [id number] PCP - General Internal Medicine 09/30/23 Home Sales Service Professional Relationship Specialty Start Date End Date Bigg Schultz MD [facility] [place] [address] PCP - General Internal Medicine 09/30/23 INFORMATION SOURCE (unrecogn ized section and content) DATE CREATED AUTHOR 11/15/2022 [facility] DATE CREATED AUTHOR AUTHOR'S ORGANIZ ATION 05/07/2024 [facility] DATE CREATED AUTHOR AUTHOR'S ORGANIZ ATION 08/13/2024 [facility] DATE CREATED AUTHOR AUTHOR'S ORGANIZ ATION 09/26/2024 [facility] Reason for Visit (unrecogniz ed section and content) Reason Comments pessary fitting FOR RECORDS PERTAINING TO PATIENTS WHO ARE [...] BE BASED ON THE PRIMARY CLINICAL RECORDS. [employer] provides no warranty or guarantee of the accuracy or completeness of information in this document.
--- NOTE | 2025-01-20 10:37 | PM.CN ---
Consult Note: HPI Data of Consult Patient: known to practice within the last 3 years Consult date: 01/20/25 Requesting Physician: Zakia Claros NP Primary Care Provider: BART SCHULTZ DO Consult Narrative Reason for consult: cervical radiculopathy and low back pain Narrative: Hailey Cheng a pleasant 84 year old female presents for evaluation of cervical radiculopathy and low back pain. Patient has a longstanding hx of neck pain, low back pain, and generalized pain, had 3 falls without injury January 2024 and has had increased pain since, 1 fall in the last 6 months. Patient has had a C5-6 C6-7 fusion in 2013, aslo hx of right elbow replacement in 2000. Patient has been following with her PCP and has completed 6 weeks of PT without improvement for cervical radiculopathy, mild relief with baclofen 5mg HS PRN gabapentin 100mg AM, tylenol 500-1000mg daily, CBD oil, voltaren cream HS with mild improvement. recently underwent bilateral C5-6 TFESI with significant ongoing relief. as for low back she has a hx of L4-S1 fusion. she is noticing significant increase in low back pain over the last 6 months. not finding benefit to adult live in caregiver and HEP. cc:: CC: Zakia Claros NP Review of Systems ROS Status of ROS 10 or more systems reviewed and unremarkable except as noted in history and below Musculoskeletal Reports: extremity pain; Denies: back pain or neck pain [facility] Medical History (Updated 01/20/25 @ 10:56 by Zakia Claros NP) Deviated septum �J34.2 - Deviated nasal septum (ICD-10) Osteoarthritis �M19.90 - Unspecified osteoarthritis, unspecified site (ICD-10) Low back pain �M54.50 - Low back pain, unspecified (ICD-10) Acid reflux �K21.9 - Gastro-esophageal reflux disease without esophagitis (ICD-10) Hypothyroid �E03.9 - Hypothyroidism, unspecified (ICD-10) Sleep apnea �G47.30 - Sleep apnea, unspecified (ICD-10) Hypertension �I10 - Essential (primary) hypertension (ICD-10) Cataract fragments in eye following surgery �H59.029 - Cataract (lens) fragments in eye following cataract surgery, unspecified eye (ICD-10) Heel spur �M77.30 - Calcaneal spur, unspecified foot (ICD-10) History of deviated nasal septum �Z87.09 - Personal history of other diseases of the respiratory system (ICD-10) Surgical History (Updated 01/11/25 @ 14:16 by Malini Cox) H/O vein stripping �Z98.890 - Other specified postprocedural states (ICD-10) H/O vitrectomy �Z98.890 - Other specified postprocedural states (ICD-10) S/P sclerotherapy of varicose veins �Z98.890 - Other specified postprocedural states (ICD-10) �Z86.79 - Personal history of other diseases of the circulatory system (ICD-10) History of fusion of cervical spine �Z98.1 - Arthrodesis status (ICD-10) History of lumbar surgery �Z98.890 - Other specified postprocedural states (ICD-10) H/O elbow replacement �Z96.629 - Presence of unspecified artificial elbow joint (ICD-10) H/O elbow surgery �Z98.890 - Other specified postprocedural states (ICD-10) History of hysterectomy �Z90.710 - Acquired absence of both cervix and uterus (ICD-10) Meds Home Medications and Allergies Home Medications �Medication �Instructions �Recorded �Confirmed �Type buspirone 10 mg tablet 5 mg PO BID 01/08/24 01/10/25 History candesartan 32 mg tablet 32 mg PO DAILY 01/08/24 01/10/25 History carvedilol 6.25 mg tablet 6.25 mg PO Q12H 01/08/24 01/10/25 History levothyroxine 25 mcg tablet 25 mcg PO DAILY 01/08/24 01/10/25 History montelukast 10 mg tablet 10 mg PO DAILY 01/08/24 01/10/25 History CALCIUM D3 04/07/24 History CBD OIL 04/07/24 History EYE PROMISE 04/07/24 History Lactobacillus acidophilus 25 mmu cells PO DAILY 04/07/24 01/10/25 History VOLTAREN CREAM PRN pain 04/07/24 History acetaminophen 500 mg tablet 500 mg PO BID PRN pain 04/07/24 01/10/25 History (Tylenol Extra Strength) baclofen 10 mg tablet mg 04/07/24 History calcium 333 mg 1 tab PO DAILY 04/07/24 01/10/25 History (carbonate)-magnesium 133 mg-zinc 5 mg (sulfate) tablet famotidine 20 mg tablet mg 04/07/24 History fluticasone propionate 50 1 spray intranasal DAILY PRN 04/07/24 01/10/25 History mcg/actuation nasal allergy symptoms spray,suspension (24 Hour Allergy Relief) folic acid 1 mg tablet 1 mg PO BID 04/07/24 01/10/25 History gabapentin 100 mg capsule 100 mg PO DAILY 04/07/24 01/10/25 History melatonin 3 mg capsule 3 mg PO DAILY 04/07/24 01/10/25 History vitamin B complex (Vitamins B 1 cap PO DAILY 04/07/24 01/10/25 History Complex capsule) polyethylene glycol 3350 17 17 g PO BID 05/03/24 01/10/25 History gram/dose oral powder (ClearLax) Allergies Allergy/AdvReac Type Severity Reaction Status Date / Time citalopram (From Celexa) Allergy Mild Confusion Verified 01/10/25 10:26 duloxetine (From Cymbalta) Allergy Mild Confusion Verified 01/10/25 10:26 meperidine (From Demerol) Allergy Mild Unknown Verified 01/10/25 10:26 sertraline (From Zoloft) Allergy Mild Confusion Verified 01/10/25 10:26 Sulfa (Sulfonamide Allergy Mild Abdominal Verified 01/10/25 10:26 Antibiotics) Pain telmisartan (From Micardis) Allergy Mild Unknown Verified 01/10/25 10:26 tetracycline Allergy Mild Abdominal Verified 01/10/25 10:26 Pain venlafaxine (From Effexor) Allergy Mild Confusion Verified 01/10/25 10:26 Exam Constitutional Documenting provider has reviewed patient's vital signs: yes Common normals: no apparent distress, oriented x3, healthy appearing, alert and well nourished General appearance: cooperative [facility] Common normals: normocephalic, hearing grossly normal bilaterally and moist oral mucous membranes Head and scalp: normocephalic Eye Common normals: PERRL Pupil: PERRL Neck & C-Spine Common normals: full ROM General: normal visual inspection Cervical spine: pain with cervical ROM; no cervical spine tenderness, no paracervical muscle tenderness, no paracervical muscle spasm and no trapezius muscle tenderness Other: negative spurlings strength 5/5 in BUE Chest Common normals: inspection of chest normal Respiratory Common normals: normal respiratory effort, no retractions and no use of accessory muscles Back & Pelvis Lumbar spine/lower back: pain with ROM, lumbar spinal tenderness and straight leg raise negative bilaterally Sacroiliac joints: SI joint(s) abnormal Other: bilateral sij positive gabe(patricks), gaenslens, thigh thrust, compression test strength 4/5 in BLE decreased sensation bilateral L4,5,S1 Extremity Common normals: normal to inspection and full ROM Other: bilateral elbows tender to touch, full ROM, no edema Neuro Common normals: oriented x3 Sensorium/orientation: alert Motor exam: no movement abnormalities noted Psych Common normals: mental status grossly normal, thought process normal, cooperative, affect normal, speech normal and activity/motor behavior normal Speech: normal speech Thought process: normal thought process Results Additional Findings Additional findings: If on a controlled substance or opioids, I have checked an [place] report on this patient and there are no aberrancies noted in the prescribing history.��If on a controlled substance or opioid a drug screen was completed and reviewed within the last year, and if there has not been a drug screen completed we ordered one today to monitor higher risk, state monitored pain medication use. As part of providing excellent, safe, comprehensive care, the following was completed at our patient's visit: 1. A medication reconciliation and review to ensure accurate knowledge of current/active medications, including asking our patients to inform us about any vukl-nkf-rizgutu medications or herbal remedies/nutritional supplements/alternative remedies. 2. A review to specifically ensure our patients have had annual screening for screening for depression, screening for tobacco use, and screening for unhealthy alcohol use. For concerning screenings had a discussion with the patient, provided patient education, and recommended follow-up with primary care provider when appropriate. If patient noted with a risk of falling, they received education on strength, gait, and balance training to prevent future risk of falling. Portions of this note may have been carried over from the previous visit and updated as appropriate. Please note this office utilizes paper charting in addition to the electronic medical record. A list of current medications, vitals, and PMH is available there as the clinical staff outside of myself do not have access to [facility] charting during the clinic day operations. As part of providing quality comprehensive care the current medications, vitals, and PMH were reviewed in the paper chart. Assessment and Plan Assessment and Plan (1) Cervical radiculopathy: Assessment and Plan: 01/10/25 bilateral C5-6 TFESI 80% improvement ongoing (2) Degenerative disc disease, cervical: (3) Cervical spondylosis: (4) Status post cervical spinal fusion: (5) Failed back syndrome: Assessment and Plan: The patient has had over 3 months of moderate to severe low back pain with functional impairment and inadequate response to conservative care including NSAIDS (unless there are contraindication such as concurrent blood thinners), multiple oral or topical pain medications, and home exercise program/physical therapy.� Patient has completed >6 weeks of guided home exercise program and/or formal physical therapy program without relief of their symptoms.� The Oswestry Disability Index was completed, and the patient scored a 8%.� (6) Bilateral sacroiliitis: (7) Lumbar stenosis with neurogenic claudication: Plan update lumbar mri without contrast to assess lumbar stenosis with nc and failed back syndrome in consideration of interventional therapy continue medication management through PCP continue HEP as tolerated continue adult live in caregiver PRN f/u to review lumbar MRI
== END 2025-01-20 10:25 | disposition home or self-care (01) ==
LOC: PM 10:24
PROVIDERS: PCP Internal Medicine; Visit Provider Nurse Practitioner
DX: M54.12 Radiculopathy, cervical region (principal); M50.30 Other cervical disc degeneration, unspecified cervical region; M47.812 Spondylosis without myelopathy or radiculopathy, cervical region; M96.1 Postlaminectomy syndrome, not elsewhere classified; M43.22 Fusion of spine, cervical region; M46.1 Sacroiliitis, not elsewhere classified; M48.062 Spinal stenosis, lumbar region with neurogenic claudication
CPT/HCPCS: G0463

== ENCOUNTER 2025-02-02 08:34 | Outpatient (OUT) | payer MEDICARE, SELFPAY ==
--- OUTSIDE RECORDS SUMMARY | 2024-01-14 10:15 | XMS_ITS ---
Author Organization The [facility] in [place] Address [address] [place] [address] Care Team Providers Care Mobile Disc Jockey Name Role Phone None, Unknown or Primary Care Provider Unavailab Costa Cardona Unavailable [phone] Allergies Allergen (clinical drug ingredient) Drug/Non Drug Allergy documented on EMR Reaction Allergy Type Onset Date Status citalopram CeleXA Unknown Drug Allergy Active Cymbalta Unknown Drug Allergy Active meperidine Demerol Unknown Drug Allergy Active Effexor Unknown Drug Allergy Active telmisartan Micardis Unknown Drug Allergy Activ e sertraline Zoloft Unknown Drug Allergy Active Substance with sulfonamide structure and antibacterial mechanism of action (substance) Sulfa Antibiotics Unknown Drug Allergy Active tetracycline Tetracycline Unknown Drug Allergy A ctive REASON FOR VISIT ER f/u RT foot fx Medications Medication SIG (Take, Route, Frequency, Duration) Notes Start Date End Date Status Candesartan Cilexetil 32 MG 1 tablet Ora lly Once a day Active Famotidine 20 MG 1 tablet at bedtime as needed Orally Once a day Active Carvedilol 6.25 MG 1 tablet with food Orally Twice a day Active Levothyroxine Sodium 25 MCG 1 tablet in the morning on an empty stomach Orally Once a day Active Gabapentin 100 MG 1 capsule Orally Onc e a day Active busPIRone HCl 10 MG 1 tablet Orally Twic e a day Active Benefiber Active Calcium Active Baclofen 10 MG 1 tablet as needed Orally Twice a day Active Olmesartan Medoxomil 40 MG 1 tablet Oral ly Once a day Active Montelukast Sodium 10 MG 1 tablet Orally Once a day Active Social History Tobacco Use: Social History Observation Description Date Details (start date - stop date) Never Smoker NA - NA Tobacco Control (Standard) Question Answer Notes Tobacco use: Nonsmoker Encounters Encounter Location Date Provider Diagnosis [facility] (PODIATRY) [address] [place] [address] 01/14/2024 Costa Lombardo Right foot pain M79.671 ; Displaced fracture of navicular [scaphoid] of right foot, initial encounter for closed fracture S92.251A and Right ankle pain M25.571 Assessments Encounter Date Diagnosis (ICD Code) Assessment Notes Treatment Notes Treatment Clinical Notes Section Notes 01/14/2024 Right foot pain (ICD-10 - M79.671) 01/14/2024 Displaced fracture of navicular [scaphoid] of right foot, initial encounter for closed fracture (ICD-10 - S92.251A) Patient seen and evaluated and x-rays from the emergency department were reviewed showing a small dorsal avulsion fracture. She may continue weightbearing as tolerated in a surgical shoe or a stiff soled shoe. I recommended RICE therapy and OTC pain medicine such as Tylenol for pain. Ice and elevation. Follow-up in 3 to 4 weeks no new x-rays are needed 01/14/2024 Right ankle pain (ICD-10 - M25.571) 01/14/2024 Other Referral from [facility] emergency department Plan Of Treatment Treatment Notes Assessment Notes Displaced fracture of navicu lar [scaphoid] of right foot, initial encounter for closed fracture Patient seen and evaluated and x-rays fr om the emergency department were reviewed showing a small dorsal avulsion fracture. She may continue weightbearing as tolerated in a surgical shoe or a stiff soled shoe. I recommended RICE therapy and OTC pain medicine such as Tylenol for pain. Ice and elevation. Follow-up in 3 to 4 weeks no new x-rays are needed Other Referral from [facility] emergency department Progress Notes * Fco CHENGhollisDOB:[birth year] (83 yo F)Acc No.[id number]:01/14/2024 New Patient Patient: Hailey MAK Provider: Lizy Lombardo DPM, MS :1940 A ge:83 Y S ex:Female Date:01/14/2024 Address:[address] [place] [address] [place], [id number] Pcp:Unknown or None Check In:01:56 PM ESTCheck O ut:03:00 PM EST Subjective: * Chief Complaints: * E R f/u RT foot fx * HPI: G eneral: PT was on porch feeding birds and tried to walk backwards, lost balance and fell. Went to ER [facility] 01/08/24. States hit her head, left shoulder, knee and right foot. Denies pain in right foot right now. States since they put her surgical shoe on. She hasn't taken surgical shoe off since injury. * ROS: G eneral/Constitutional: Chills d enies. F ever d enies. W eight gain?denies. W eight loss d enies. S kin: Skin Ulcers d enies. S kin lesion(s) d enies. ? C ardiovascular: Difficulty breathing on exertion d enies. L eg cramps?denies. E charles d enies. C hest pain d enies. R espiratory: Difficulty breathing d enies. D yspnea d enies.?Cough d enies. G astrointestinal: Diarrhea d enies. N ausea d enies. V omiting?denies. M usculoskeletal: Bone/Joint Symptoms d enies. C heide Pain d enies.?Leg cramps d enies. N eurologic: Numbness d enies. T ingling d enies . G ait abnormality d enies. ? H ematology: Anemia D enies. E asy bruising d enies. ? A ll Other Systems: Review of Systems (ROS) S ee HPI for details,All others negative except those mentioned in HPI. * Active Problem List M79.671 Right foot pain Modified On:01/14/2024W/U Status:confirmed M25.571 Right ankle pain Modified On:01/14/2024W/U Status:confirmed * Medical History: * Surgical History: h ysterectomy 1983breast biopsy 1988deviated septum repair 1990heel spur surgery, RT 1991Plate w/ 7 screws rt elbow 1996cataract removal 2001detached retina pneumatic retinopexy, R 2002virectomy with gas fluid exchange, R 2003recurrent detachment w/buckle R 2004repair to elbow replacement 2005rt arm tendon repair 2009eyelid surgery 2010anterior cervical fusion C5-6 C6-7 2011PLIF L-45 2014RT open reduction internal fixation of condyle of humerus; Poly exchange total eblow revision; triceps repair and synovectomy of rt elbow 2015endovenous laser ablation Left 2018sclerotherapy Left Leg 2018marker left breast 2020RT elbow Replacement 2000 * Hospitalization/Major Diagno stic Procedure: N o Hospitalization History. * Family History: N on-Contributory. * Social History: T obacco Use: T obacco Control (Standard) T obacco use: N onsmoker * Medications: T akingBaclofen 10 MG Tablet 1 tablet as needed Orally Twice a day Benefiber busPIRone HCl 10 MG Tablet 1 tablet Orally Twice a day Calcium Candesartan Cilexetil 32 MG Tablet 1 tablet Orally Once a day Carvedilol 6.25 MG Tablet 1 tablet with food Orally Twice a day Famotidine 20 MG Tablet 1 tablet at bedtime as needed Orally Once a day Gabapentin 100 MG Capsule 1 capsule Orally Once a day Levothyroxine Sodium 25 MCG Tablet 1 tablet in the morning on an empty stomach Orally Once a day Montelukast Sodium 10 MG Tablet 1 tablet Orally Once a day Olmesartan Medoxomil 40 MG Tablet 1 tablet Orally Once a day Medication List reviewed and reconciled with the patientTaking Baclofen 10 MG Tablet 1 tablet as needed Orally Twice a day Taking Benefiber Taking busPIRone HCl 10 MG Tablet 1 tablet Orally Twice a day Taking Calcium Taking Candesartan Cilexetil 32 MG Tablet 1 tablet Orally Once a day Taking Carvedilol 6.25 MG Tablet 1 tablet with food Orally Twice a day Taking Famotidine 20 MG Tablet 1 tablet at bedtime as needed Orally Once a day Taking Gabapentin 100 MG Capsule 1 capsule Orally Once a day Taking Levothyroxine Sodium 25 MCG Tablet 1 tablet in the morning on an empty stomach Orally Once a day Taking Montelukast Sodium 10 MG Tablet 1 tablet Orally Once a day Taking Olmesartan Medoxomil 40 MG Tablet 1 tablet Orally Once a day Medication List reviewed and reconciled with the patient * Allergies: T etracycline: AllergySulfa Antibiotics: AllergyDemerol: AllergyZoloft: AllergyEffexor: AllergyMicardis: AllergyCeleXA: AllergyCymbalta: Allergyno[Allergies Verified] Objective: * Vitals: * Examination: P odiatry Examination: SKIN: s kin intact, n o sign of infection. MUSCULOSKELETAL: M ild POP dorsal rightfoot. mild swelling. No deformity or instability. NEUROLOGICAL: l ight touch sensation intact, n egative tinel's sign. VASCULAR: P edal pulses palpable, C apillaryrefill is brisk to toe, no calf pain on squeeze. X -rays: x-rays were obtained & reviewed in my office. Ankle x-rays show intact mortise without cortical fracture of the malleoli. Avulsion fracture noted on dorsal midfoot. Alignment preserved. Assessment: * Assessment: 1. D isplaced fracture of navicular [scaphoid] of right foot, initial encounter for closed fracture - S92.251A (Primary) 2 . R ight foot pain - M79.671 3 . R ight ankle pain - M25.571 Plan: * Treatment: 2. R ight foot pain I maging: XR Foot RT (3 views) * (Order Cancelled) 3. R ight ankle pain I maging: XR Ankle RT (3 views) * (161) (Order Cancelled) 4. O thers Notes: Referral from [facility] emergency department * Procedure Codes: * Preventive Medicine: Screenings/Counseling: B [place] ACTION PLAN Above Normal BMI Follow-up D ietary management education, guidance, and counseling F ALL RISK SCREENING Fall Risk Assessment: N o falls in the past year * * Sign off status: Completed Visit Status: C HK (Check Out) true * Provider: Lizy Lombardo DPM, MS Date: 01/14/2024 Generated for Lizandro cristina/Agustin/aMcieitting on: 02/02/2025 08:39 AM EDT History and Physical Notes * HPI (History of Present Illness) Category Sub-Category Detail Notes Category Not es General PT was on porch feeding birds and tried to walk backwards, lost balance and fell. Went to ER [facility] 01/08/24. States hit her head, left shoulder, knee and right foot. Denies pain in right foot right now. States since they put her surgical shoe on. She hasn't taken surgical shoe off since injury. Examination Category Sub-Category Detail Notes Category Not es Podiatry Examination SKIN: skin intact, no sign of infection X-rays: x-rays were obtained & reviewed in my office. Ankle x-rays show intact mortise without cortical fracture of the malleoli. Avulsion fracture noted on dorsal midfoot. Alignment preserved MUSCULOSKELETAL: Mild POP dorsal righ tfoot. mild swelling. No deformity or instability NEUROLOGICAL: light touch sensatio n intact, negative tinel's sign VASCULAR: Pedal pulses palpable, Capillary refill is brisk to toe, no calf pain on squeeze
--- OUTSIDE RECORDS SUMMARY | 2024-02-05 06:40 | XMS_ITS ---
Author Organization The [facility] in [place] Address [address] [place] [address] Care Team Providers Care Retaining Room Cutter Name Role Phone None, Unknown or Primary Care Provider Unavailab Lakisha Mercado Unavailable [phone] Allergies Allergen (clinical drug ingredient) Drug/Non Drug [...] Encounters Encounter Location Date Provider Diagnosis [facility] (PODIATRY) [address] [place] [address] [place] [address] 02/05/2024 Lakisha Parnell Displaced fracture of navicular [...] Notes * Hailey CHENGDOB:[birth year] (83 yo F)Acc No.[id number]:02/05/2024 Follow Up Patient: Hailey MAK Provider: Denise Parnell PA-C :1940 A ge:83 Y S ex:Female Date:02/05/2024 Address:[address] [place], [id number] Pcp:Unknown or None Check In:10:30 AM ESTCheck [...] Procedure Codes: * Preventive Medicine: Screenings/Counseling: B ND ACTION PLAN Above Normal BMI Follow-up D ietary management education, guidance, and counseling F ALL RISK SCREENING Fall Risk Assessment: N o falls in the past year * Follow Up: p rn * * Sign off status: Completed Visit Status: C HK (Check Out) true * Provider: Denise Parnell PA-C Date: 02/05/2024 Generated for Lizandro cristina/Agustin/Rickysmitting on: 0 02/02/2025 08:39 AM EDT History and Physical [...]
--- OUTSIDE RECORDS SUMMARY | 2025-01-31 23:59 | XMS_ITS | Continuity of Care Document ---
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) - 01/31/25 Chronic cystitis(Discharge Diagnosis) - 01/31/25 Cystocele with prolapse(Discharge Diagnosis) - 01/31/25 Discharge Disposition: Home (Routine DC) Attending Physician: Lyle GIORDANO MD Encounter Type: Clinic Allergies, Adverse Reactions, Alerts Substance Criticality Severity Reaction Reaction Severity Status tetracycline Unknown Active Demerol Unknown Active sulfa drugs Unknown Active Effexor Unknown Active Zoloft Unknown Active Micardis Unknown Active Cymbalta Unknown Active CeleXA Unknown Active Assessment and Plan Future Appointments Appointment Date:08/08/2025 11:15:00 AM Scheduled Provider:Lyle GIORDANO MD Location:[facility] Appointment Type:URO Office Visit Immunizations Given and Recorded Vaccine Date Status Refusal Reason influenza virus vaccine, inactivated 04/18/23 Venu rded SARS-CoV-2 (COVID-19) [id number].[id number] 1 03/29/22 Recorded SARSCoV2 mRNA(esfwjyoxj-ufth-rtfkmc) vac 2 11/02/21 Recorded SARS-CoV-2 (COVID-19) mRNA BNT-162b2 vax 3 04/16/21 Recorded SARS-CoV-2 (COVID-19) mRNA BNT-162b2 vax 08/23/20 Recorded SARS-CoV-2 (COVID-19) mRNA BNT-162b2 vax 4 07/31/20 Recorded zoster vaccine, inactivated 07/23/18 Recorded zoster vaccine, inactivated 11/28/17 Recorded pneumococcal 23-valent vaccine 03/23/14 Recorded zoster vaccine live 05/05/13 Recorded influenza, whole 04/25/09 Recorded 1Result Comment: 2023-10-10: [id number] 2Result Comment: 2023-10-10: [email or web address] 3Result Comment: 2023-10-10: [email or web address] 4Result Comment: 2nd dose given 08/23/2020 Medications baclofen 10 mg Tab Refills(s) 0 Start Date: 10/01/21 Status: Ordered Repeat number: 1 busPIRone 10 mg Tab Refills(s) 0 Start Date: 10/01/21 Status: Ordered Repeat number: 1 candesartan 32 mg Tab Refills(s) 0 Start Date: 10/01/21 Status: Ordered Repeat number: 1 carvedilol 6.25 mg Tab Refills(s) 0 Start Date: 10/01/21 Status: Ordered Repeat number: 1 clobetasol propionate 0.05% top oint 1 cornelia, Topical, Daily Rash, 45 gm, Refill(s) 1, Daily as needed for vaginal irritation, [facility]/pharmacy #[id number], 165, cm, 10/10/23 10:56:00 EDT, Height/Length Dosing, 55, kg, 10/10/23 10:56:00 EDT, WeightDosing Start Date: 10/10/23 Status: Ordered Quantity: 45.0 Unit: g Repeat number: 2 famotidine 20 mg Tab Refills(s) 0 Start Date: 10/04/22 Status: Ordered Repeat number: 1 gabapentin 100 mg Cap Refills(s) 0 Start Date: 10/01/21 Status: Ordered Repeat number: 1 Keflex 250 mg Cap 250 mg = 1 cap(s), Oral, q12hr, X 5 day(s), # 10 cap(s), Refills(s) 0, Pharmacy: [facility]/pharmacy #[id number], 165, cm, 01/31/25 12:15:00 EDT, Height/Length Dosing, 62, kg, 01/31/25 12:15:00 EDT, Weight Dosing Start Date: 01/31/25 Stop Date: 02/05/25 Status: Ordered Quantity: 10.0 Unit: cap(s) Repeat number: 1 Indications: Other chronic cystitis without hematuria; levothyroxine 25 mcg (0.025 mg) Tab Refills(s) 0 Start Date: 10/01/21 Status: Ordered Repeat number: 1 montelukast 10 mg Tab Refills(s) 0 Start Date: 10/01/21 Status: Ordered Repeat number: 1 Premarin Vaginal 0.625 mg/g cream with applicator 1 gram, Vaginal, MonWedFri, 42.5 gram, Refill(s) 3, [facility], 165, cm, 09/24/24 12:05:00EDT, Height/Length Dosing, 60, kg, 09/24/24 12:05:00 EDT, Weight Dosing Start Date: 12/08/24 Status: Ordered Quantity: 42.5 Unit: g Repeat number: 4 Problem List Condition Confirmation Course Effective Dates Status H ealth Status Informant Adrenal adenoma Confirmed Active Chronic cystitis Confirmed Active Vaginal wall cyst Confirmed Active Cystocele with prolapse Confirmed Active Rectocele Confirmed Active Hypertension Confirmed Active Hypothyroidism Confirmed Active Nocturia Confirmed Active Osteoarthritis Confirmed Active Osteopenia Confirmed Active OAB (overactive bladder) Confirmed Active Overflow incontinence Confirmed Active Weak urinary stream Confirmed Active Postinfective urethral stricture in female Confirmed Active Sleep apnea Confirmed Active Unspecified urethral stricture, female Confirmed Active Urge incontinence Confirmed Active Urinary urgency Confirmed Active Procedures Procedure Date Related Diagnosis Body Site Status Urethral dilation - female 09/24/24 Completed Dilation of urethra 05/24/24 Compl eted Dilation of urethra 10/01/21 Compl eted IO UD 09/06/19 Completed IO UD 11/16/18 Completed IO UD 05/18/18 Completed IO UD 11/17/17 Completed IO UD 05/19/17 Completed Cysto/ UD 09/10/16 Completed IO UD 01/19/16 Completed IO UD 07/21/15 Completed IO UD 07/18/14 Completed IO UD 12/27/13 Completed Procedure on neck 07/14/13 Complet ed IO UD 06/11/13 Completed IO UD 08/07/09 Completed Cysto/ UD 09/2006 Completed Appendectomy Completed Breast biopsy and related procedures Completed Cataract surgery Complete d Colonoscopy Completed Dilation of urethra Compl eted Excision of lipoma- on toes Completed eyelid lift Completed Hysterectomy Completed Nasal sinus procedure Com pleted Plantar fasciectomy- heel spur Completed Procedure on elbow- artificial x4 Completed Procedure on retina Compl eted Repair of single tendon- right forearm Completed Social History Social History Type Response Smoking Status Never (less than 100 in lifetime);Never; Concerns about tobacco use in household: No; Smoking Cessation Yes entered on: 09/24/24 Sex Female Sex Representation Female (finding) Hospital Discharge Instructions Patient Education 01/31/2025 12:24:56 Urinary Tract Infection, Adult Urinary Tract Infection, Adult A urinary tract infection (UTI) is an infection of any part of the urinary tract. The urinary tractincludes the kidneys, ureters, bladder, and urethra. These organs make, store, and get rid of urinein the body. An upper UTI affects the ureters and kidneys. A lower UTI affects the bladder and urethra. What are the causes? Most urinary tract infections are caused by bacteria in your genital area around your urethra, where urine leaves your body. These bacteria grow and cause inflammation of your urinary tract. What increases the risk? You are more likely to develop this condition if: ??? You have a urinary catheter that stays in place. ??? You are not able to control when you urinate or have a bowel movement (incontinence). ??? You are female and you: ??? Use a spermicide or diaphragm for control. ??? Have low estrogen levels. ??? Are . ??? You have certain genes that increase your risk. ??? You are sexually active. ??? You take antibiotic medicines. ??? You have a condition that causes your flow of urine to slow down, such as: ??? An enlarged prostate, if you are male. ??? Blockage in your urethra. ??? A kidney stone. ??? A nerve condition that affects your bladder control (neurogenic bladder). ??? Not getting enough to drink, or not urinating often. ??? You have certain medical conditions, such as: ??? Diabetes. ??? A weak disease-fighting system (immunesystem). ??? Sickle cell disease. ??? Gout. ??? Spinal cord injury. What are the signs or symptoms? Symptoms of this condition include: ??? Needing to urinate right away (urgency). ??? Frequent urination. This may include small amounts of urine each time you urinate. ??? Pain or burning with urination. ??? Blood in the urine. ??? Urine that smells bad or unusual. ??? Trouble urinating. ??? Cloudy urine. ??? Vaginal discharge, if you are female. ??? Pain in the abdomen or the lower back. You may also have: ??? Vomiting or a decreased appetite. ??? Confusion. ??? Irritability or tiredness. ??? A fever or chills. ??? Diarrhea. The first symptom in older adults may be confusion. In some cases, they may not have any symptoms until the infection has worsened. How is this diagnosed? This condition is diagnosed based on your medical history and a physical exam. You may also have other tests, including: ??? Urine tests. ??? Blood tests. ??? Tests for STIs (sexually transmitted infections). If you have had more than one UTI, a cystoscopy or imaging studies may be done to determine the cause of the infections. How is this treated? Treatment for this condition includes: ??? Antibiotic medicine. ??? Mdxn-uoc-ioxkjda medicines to treat discomfort. ??? Drinking enough water to stay hydrated. If you have frequent infections or have other conditions such as a kidney stone, you may need to see a health care provider who specializes in the urinary tract (urologist). In rare cases, urinary tract infections can cause sepsis. Sepsis is a life- threatening condition that occurs when the body responds to an infection. Sepsis is treated in the hospital with IV antibiotics, fluids, and other medicines. Follow these instructions at home: Medicines ??? Take hqlw-jem-tfqkxtc and prescription medicines only as told by your health care provider. ??? If you were prescribed an antibiotic medicine, take it as told by your health care provider. Donot stop using the antibiotic even if you start to feel better. General instructions ??? Make sure you: ??? Empty your bladder often and completely. Do not hold urine for long periods of time. ??? Empty your bladder after sex. ??? Wipe from front to back after urinating or having a bowel movement if you are female. Use each tissue only one time when you wipe. ??? Drink enough fluid to keep your urine pale yellow. ??? Keep all follow-up visits. This is important. Contact a health care provider if: ??? Your symptoms do not get better after 1???2 days. ??? Your symptoms go away and then return. Get help right away if: ??? You have severe pain in your back or your lower abdomen. ??? You have a fever or chills. ??? You have nausea or vomiting. Summary ??? A urinary tract infection (UTI) is an infection of any part of the urinary tract, which includes the kidneys, ureters, bladder, and urethra. ??? Most urinary tract infections are caused by bacteria in your genital area. ??? Treatment for this condition often includes antibiotic medicines. ??? If you were prescribed an antibiotic medicine, take it as told by your health care provider. Donot stop using the antibiotic even if you start to feel better. ??? Keep all follow-up visits. This is important. This information is not intended to replace advice given to you by your health care provider. Make sure you discuss any questions you have with your health care provider. Document Revised: 01/28/2021 Document Reviewed: 02/02/2021 [employer] Patient Education ?? 2023 [email or web address]. Follow Up Care 09/24/2024 13:22:42 With:PASQUALE MESA, Lyle R, URL Address: [facility] [address], [place] [id number] When: Unknown Comments:6 mos for IO Patient Care team information Care Team Personnel Name: BART SCHULTZ JR, DO Position: FT Physician Member Role: Primary Care Physician Address: [address] [place] [id number] Telecom: Care Team Related Persons Name: DANIELLA CHAIREZ Insurance Providers Guarantor name: LELA Colon [facility] Plan Information #: 1 Payer: NA Payer Identifier: [id number] Member Number: [id number] Group Number: [id number] Subscriber Identifier: [id number] Relationship to Subscriber: Self Coverage Type: MEDICARE Coverage Verification Date: 25 Telecom: Address:
--- NOTE | 2025-02-02 08:37 | MR_ITS ---
[place] [id number] Patient Name: LELA CHAIREZ MRN: [id number] date: 1940 Sex: F Assigned Patient Location: MRI Current Patient Location: MRI Accession/Order Number: [id number] Exam Date: 02/02/2025 10:34 Report Date: 02/02/2025 10:38 At the request of: HAIR CRUMP NP Procedure: MR lumbar spine wo con EXAMINATION: MRI LUMBAR SPINE WITHOUT IV CONTRAST CLINICAL HISTORY: Worsening chronic back pain. COMPARISON: Lumbar spine 01/08/2024 TECHNIQUE: Multiecho imaging was performed in the sagittal and axial planes without contrast administration. FINDINGS: Posterior hardware fixation L4-S1 with associated blooming artifact limiting evaluation. Vertebral body heights appear maintained. No bone marrow edema is present. Spinal cord terminates in normal position without abnormal cord signal. No paraspinal mass. Visualized retroperitoneum demonstrates no acute findings. At L1-L2: Diffuse broad-based disc bulge is present with ligamentum flavum hypertrophy and facet joint degenerative changes causing moderate canal and severe bilateral neural foraminal stenosis. At L2-L3: 5 mm of retrolisthesis. Diffuse broad-based disc bulge is present with ligamentum flavum hypertrophy and facet joint degenerative changes causing severe canal and bilateral neural foraminal stenosis. At L3-L4: Diffuse broad-based disc bulge is present with ligamentum flavum hypertrophy and facet joint degenerative changes causing moderate canal and bilateral neural foraminal stenosis. At L4-L5: Postsurgical changes. No significant canal stenosis. At L5-S1: Postsurgical changes. No significant canal stenosis. MR/MR lumbar spine wo con IMPRESSION: Multilevel degenerative disease as described above, worst at L2-L3. Impression dictated by: Daryn Banegas Jr., D.O. 02/02/2025 10:38 AM Dictation Location: [place] [address] Electronically authenticated by: [id number] Y Date: 02/02/2025 10:38
--- OUTSIDE RECORDS SUMMARY | 2025-02-02 08:39 | XMS_ITS | Encounter Summary ---
Author Organization [facility] Address [address], [address] [place] [address] Care Team Providers Care Petrologist Name Role Phone Bigg Otero DO Primary Care Provider + [phone] Encounter Details Date Type Department Care Team (Late st Contact Info) Description 09/09/2017 Orders Only [facility] [address], [address] [place] [address] Gregg Jacob MD Lumbar spondylosis Social History [...] myelopathy documented in this encounter Care Teams Petrologist Relationship Specialty Start Date End Date Bigg Otero DO [facility] [place] [address] PCP - General Internal Medicine 09/09/17 documented as of this encounter
--- OUTSIDE RECORDS SUMMARY | 2025-02-02 08:39 | XMS_ITS | Clinical Summary ---
Author Organization [facility] Address [address] [place], [place] [id number] Care Team Providers Care Emergency Room Doctor Name Role Phone Shanna Ceja DO, Charles [...] tablet daily. 0 01/26/2007 Active Vit C-Vit R-Vnsqgq-Vkndof ls (OCUVITE LUTEIN) ORAL Cap Take one(1) tablet daily. 0 01/26/2007 Active [place]-3 Fatty Acids (FISH OIL) 500-100 mg ORAL [...] Vaccine (1 - 1-dose 75+ series) 2013 Advance Directive Discussion 07/07/2024 Influenza Vaccine (#1) 2025 Procedures Procedure Name Priority Date/Time Associated Diagnosis Comments BASIC METABOLIC PANEL Routine 01/26/2007 12:26 PM EDT Abd/Pel Swell/Mass/Lump Unsp Site from Last 3 Months or Most Recently Relevant to Health Maintenance Results * (ABNORMAL) BASIC METABOLIC PNL (01/26/2007 12:26 PM EDT) Glucose 103(H) 65 - 100 mg/dL [facility] BUN 15 8 - 25 mg/dL [facility] Creatinine 0.8 0.7 - 1.4 mg/dL [facility] Sodium 134 132 - 148 mmol/L [facility] Potassium 5.4(H) 3.5 - 5.0 mmol/L [facility] Chloride 98 98 - 110 mmol/L [facility] CO2 23 23 - 32 mmol/L [facility] Anion Gap 13 0 - 15 mmol/L [facility] Calcium 9.5 8.5 - 10.5 mg/dL [facility] Blood specimen (specimen) BLOOD SPECIMEN / Unknown 01/26/2007 12:26 PM EDT Aamir Salazar MD LABORATORY Final Result [facility] [address] [place] [address] from Last 3 Months or Most Recently Relevant to Health Maintenance Insurance MEDICARE BLUE CARD PPO OOS Care Teams Emergency Room Doctor Relationship Specialty Start Date End Date Bigg Otero Jr., [facility] [place] [address] PCP - General 10/01/06
--- OUTSIDE RECORDS SUMMARY | 2025-02-02 08:39 | XMS_ITS | Clinical Summary ---
Author Organization [facility] Address [address] [place] [address] Care Team Providers Care Panel Cutter Name Role Phone Bigg Otero MD Primary Care Provider [phone] Allergies Active Allergy Reactions Criticality Noted Date [...] 02/22/2019 12:00 PM EDT Plan of Treatment Upcoming Encounters Date Type Department Care Team (Late st Contact Info) Description 02/17/2025 1:00 PM EDT Office Visit [facility] [address] [facility] [address] [place] [address] Dexter Jim DPM [address] [facility] [address] [place] [address] Health Maintenance Due Date Last Done Comments Pneumococcal Vaccine: 65+ Ye ars (2 of 2 - PCV) 03/23/2015 03/23/2014 Influenza Vaccine (#1) 2025 04/18/2023, 2008 Insurance [employer] MEDICARE Care Teams Panel Cutter Relationship Specialty Start Date End Date Bigg Otero MD [address] [place] [address] PCP - General Internal Medicine 09/30/23
--- OUTSIDE RECORDS SUMMARY | 2025-02-02 08:39 | XMS_ITS | Patient Health Record ---
Author Organization [facility] [place] Address [address] [place] [address] Care Team Providers Care Lumber Hacker Name Role Phone None, Unknown or Primary Care Provider Unavailab gloria Lakisha Parnell Unavailable [phone] Allergies Allergen (clinical drug ingredient) Drug/Non Drug [...] Risk Notes Problem Pain in right foot (004773841496335 ) Right foot pain (M79.671) Active confirmed Problem Arthralgia of the ankle and/or foot (996859099) Right ankle pain (M25.571) Active confirmed Vital Signs Heart Rate 73 /min 02/05/2024 Temperature 98 degrees Fahrenheit 02/05/2024 Respiratory Rate 16 /min 02/05/2024 Encounters Encounter Location Date Provider Diagnosis [facility] (PODIAT[facility]) [address] [place] [address] [place] [address] 02/05/2024 Lakisha Parnell Displaced fracture of navicular [...] Insured Coverage Start Date Coverage End Date [facility] MEDICARE [facility] [id number] [place] [address] [id number] Hailey Chapin Self - patient is the [...] w/buckle R 2004 repair to elbow replacement 2005 rt arm tendon repair 2009 eyelid surgery 2010 RT open reduction internal f ixation of condyle of humerus; Poly exchange total eblow revision; triceps repair and synovectomy of rt elbow 2015 endovenous laser ablation Left 2018 sclerotherapy Left Leg 2018 marker left breast 2019 RT elbow Replacement 2000 anterior cervical fusion C5-6 C6-7 2010 PLIF L-45 2013 Hospitalization History Reason Date(Month/Year) see above
--- OUTSIDE RECORDS SUMMARY | 2025-02-02 08:39 | XMS_ITS | Clinical Summary ---
Author Organization [facility] Address [address] [facility], [address] [place] [address] Care Team Providers Care Locker Room Attendant Name Role Phone Bigg Otero Primary Care Provider + [phone] Allergies Active Allergy Reactions Criticality Noted Date [...] Modality Hip, C-spine, T-spine, L-spine [facility] Historical Provider IMG DEXA ORDERABLES Elaine l Result from Last 3 Months or Most Recently Relevant to Health Maintenance Insurance [employer] MEDICARE [facility] Advance Directives Documents on File Type Date Recorded Patient Home Health Care Respiratory Therapist Expl anation [facility] [facility] [employer] 06/17/2018 5:06 PM [facility] 06/25/18 Care Teams Locker Room Attendant Relationship Specialty Start Date End Date Bigg Otero DO [address] [place] [id number] PCP - General Internal Medicine 09/09/17
--- OUTSIDE RECORDS SUMMARY | 2025-02-02 08:55 | XMS_ITS | CCD ---
Author Organization [facility] CliniSynd Care Team Providers Care Remelt Furnace Expediter Name Role Phone Bigg Schultz Primary Care [...] Attending Unavailable VALONE, DR ARRIAGA Consulting Unavailable BorisebBrady dove Consulting Unavailable MISC, DR FAIRCHILD Attending Unavailable MISC, DR FAIRCHILD Admitting Unavailable MARION, DR ARRIAGA Primary Care Unavailable Bigg Schultz MD Primary Care Provider [phone] AALIYAH DREW Attending Unavailable YOGESH DEL REAL Attending Unavailable Brenda MESA, Rhoda Cervantes Attending Unavailable Brenda MESA, Rhoda Cervantes Attending Unavailable Lyle CARRENO Attending Unavailable PASQUALE, Lyle Feldman Attending Unavailable Lyle CARRENO Attending Unavailable Lyle CARRENO Attending Unavailable Allergies Allergy Classification Reported Allergen(s) Allergy Type Date of Onset Reaction(s) Facility (1 source) Meperidine Drug Allergy 01-27-20 07 [facility] (4 sources) Risedronate Drug Allergy 03-10-20 08 [facility] (1 source) Sertraline Drug Allergy 01-27-20 07 [facility] (1 source) Sulfonamides (Antibiotic) Propensity to adverse reactions 01-27-20 07 [facility] (7 sources) Tetracycline; Translations: [tetracycline] Drug Allergy 01-27-20 07 Unknown (qualifier value) [facility] (4 sources) venlafaxine Drug Allergy 01-27-20 07 [facility] (9 sources) Citalopram; Translations: [citalopram] Drug Allergy 09-12-19 18 Unknown (qualifier value) [facility] (6 sources) DULoxetine; Translations: [duloxetine] Drug Allergy Unknown (qualifier value) [facility] (9 sources) Meperidine; Translations: [meperidine] Drug Allergy 01-27-20 07 Unknown (qualifier value) [facility] (9 sources) Sertraline; Translations: [sertraline] Drug Allergy 01-27-20 07 Unknown (qualifier value) [facility] (6 sources) Sulfonamides (Antibiotic); Translations: [sulfa drugs] Drug allergy Unknown (qualifier value) [facility] (6 sources) telmisartan; Translations: [telmisartan] Drug Allergy Unknown (qualifier value) [facility] (6 sources) venlafaxine; Translations: [venlafaxine] Drug Allergy Unknown (qualifier value) [facility] (1 source) Citalopram Drug Allergy [facility] (1 source) DULoxetine Drug Allergy 01-25-20 15 [facility] (1 source) Meperidine Drug Allergy 11-30-19 13 [facility] (1 source) Sertraline Drug Allergy 11-30-19 13 [facility] (1 source) Sulfonamides (Antibiotic) Drug allergy (disorder) 11-30-19 13 [facility] (1 source) telmisartan Drug Allergy 11-30-19 13 [facility] (1 source) Tetracycline Drug Allergy 11-30-19 13 [facility] (1 source) venlafaxine Drug Allergy 11-30-19 13 [facility] (3 sources) Azithromycin Drug Allergy 09-12-[address] [facility] (3 sources) DULoxetine Drug Allergy 09-12-[address] [facility] (3 sources) Meperidine Drug Allergy 09-30-[address] [facility] (3 sources) Omeprazole Drug Allergy 09-30-[address] [facility] (3 sources) Sulfamethoxazole / Trimethoprim Drug Allergy 09-30-[address] [facility] (3 sources) Sulfonamides (Antibiotic) Drug Intolerance 01-27-[address] [facility] (3 sources) Telmisartan Propensity to adverse reactions 09-12-[address] [facility] (3 sources) Tetracycline (class of antibiotic) Drug Intolerance 01-27-[address] [facility] Medications Current Medications Medication Drug Class(es) Dates Sig (Normalized) Sig (Original) baclofen 10 mg oral tablet (8 sources) gamma-Aminobutyric Acid-ergic Agonist Start: 10-01-2021 baclofen 10 mg Tab Refills(s) 0 Start Date: 10/01/21 Status: Ordered Repeat number: 1 busPIRone hydrochloride 10 mg oral tablet (8 sources) Start: 10-01-2021 busPIRone 10 mg Tab Refills(s) 0 Start Date: 10/01/21 Status: Ordered Repeat number: 1 calcium carbonate 1500 mg oral tablet (3 sources) calcium carbonat e 1500 (600 Ca) MG tablet every 12 (twelve) hours Active candesartan cilexetil 32 mg oral tablet (8 sources) Angiotensin 2 Receptor Kenney Start: 10-01-2021 candesartan 32 mg Tab Refills(s) 0 Start Date: 10/01/21 Status: Ordered Repeat number: 1 carvedilol 6.25 mg oral tablet (8 sources) alpha-Adrenergic Kenney, beta-Adrenergic Kenney Start: 10-01-2021 carvedilol 6.25 mg Tab Refills(s) 0 Start Date: 10/01/21 Status: Ordered Repeat number: 1 carvedilol (Core g) 6.25 MG tablet every 12 (twelve) hours Active cephalexin 250 mg oral tablet (1 source) Cephalosporin Antibacterial Start: 01-31-2025 End: 02-05-2025 take 1 capsule by mouth every twelve hours Keflex 250 mg Cap 250 mg = 1 cap(s), Oral, q12hr, X 5 day(s), # 10 cap(s), Refills(s) 0, Pharmacy: [facility]/pharmacy #[id number], 165, cm, 01/31/25 12:15:00 EDT, Height/Length Dosing, 62, kg, 01/31/25 12:15:00 EDT, Weight Dosing Start Date: 01/31/25 Stop Date: 02/05/25 Status: Ordered Quantity: 10.0 Unit: cap(s) Repeat number: 1 Indications: Other chronic cystitis without hematuria; clobetasol propionate 0.0005 mg/mg topical ointment (3 sources) Corticosteroid Start: 10-10-2023 clobetasol propionate 0.05% top oint 1 cornelia, Topical, Daily Rash, 45 gm, Refill(s) 1, Daily as needed for vaginal irritation, [facility]/pharmacy #[id number], 165, cm, 10/10/23 10:56:00 EDT, Height/Length Dosing, 55, kg, 10/10/23 10:56:00 EDT, Weight Dosing Start Date: 10/10/23 Status: Ordered Quantity: 45.0 Unit: g Repeat number: 2 estrogens, conjugated (long-term) 0.625 mg/ml vaginal cream (7 sources) Estrogen Start: 12-08-2024 Premarin Vaginal 0.625 mg/g cream with applicator 1 gram, Vaginal, MonWedFri, 42.5 gram, Refill(s) 3, [facility], 165, cm, 09/24/24 12:05:00 EDT, Height/Length Dosing, 60, kg, 09/24/24 12:05:00 EDT, Weight Dosing Start Date: 12/08/24 Status: Ordered Quantity: 42.5 Unit: g Repeat number: 4 Start: 08-12-2023 Premarin Vagin al 0.625 mg/g [...] M G/GM cream as directed Vaginal Active famotidine 20 mg oral tablet (7 sources) Histamine-2 Receptor Antagonist Start: 10-04-2022 End: 08-11-2024 famotidine 20 mg Tab Refills(s) 0 Start Date: 10/04/22 Status: Ordered Repeat number: 1 gabapentin 100 mg oral capsule (8 sources) Anti-epileptic Agent Start: 10-01-2021 gabapenti n 100 mg Cap Refills(s) 0 Start Date: 10/01/21 Status: Ordered Repeat number: 1 levothyroxine sodium 0.025 mg oral tablet (8 sources) l-Thyroxine Start: 10-01-2021 levothyroxine 25 mcg (0.025 mg) Tab Refills(s) 0 Start Date: 10/01/21 Status: Ordered Repeat number: 1 Start: 10-01-2021 levothyroxine 25 mcg (0.025 mg) Tab Refills(s) 0 Start Date: 10/01/21 Status: Ordered montelukast 10 mg oral tablet (8 sources) Leukotriene Receptor Antagonist Start: 10-01-2021 montelukast [...] Refills(s) 0 Start Date: 10/04/22 Status: Ordered Problems Active Problems Problem Classification Problem Date Documented Date Episodic/Chronic Anal and rectal conditions (4 sources) Disorder of rectum 10-04-2022 Episodic Esophageal disorders (3 sources) Gastroesophageal reflux disease; Translations: [Gastro-esophageal reflux disease without esophagitis] Onset: 09-30-2023 09-30-2023 Chronic Essential hypertension (12 sources) Hypertensive disorder; Translations: [Essential (primary) hypertension] Onset: 06-17-2022 08-26-2019 Chronic Genitourinary symptoms and ill-defined conditions (11 sources) Overflow incontinence of urine; Translations: [Urge incontinence of urine] Onset: 10-10-2023 09-06-2019 Chronic Genitourinary symptoms and ill-defined conditions (15 sources) Nocturia; Translations: [Poor stream of urine] 10-06-2020 Episodic Mood disorders (3 sources) Depressive disorder; Translations: [Depression] Onset: 09-30-2023 09-30-2023 Chronic Osteoarthritis (5 sources) Osteoarthritis 08-26-2019 Chronic Other and unspecified benign neoplasm (5 sources) Adrenal adenoma 08-26-2019 Episodic Other bone disease and musculoskeletal deformities (5 sources) Osteopenia 08-26-2019 Episodic Other diseases of bladder and urethra (1 source) Detrusor overactivity; Translations: [Overactive bladder] Onset: 05-24-2024 Chronic Other diseases of bladder and urethra (2 sources) Overactive bladder 05-24-2024 Chronic Other diseases of bladder and urethra (5 sources) Urethral stricture; Translations: [Unspecified urethral stricture, female] Onset: 10-10-2023 Episodic Other endocrine disorders (1 source) Disorder of adrenal gland; Translations: [Unspecified disorder of adrenal glands] Onset: 02-09-2008 02-09-2008 Chronic Other female genital disorders (1 source) Noninflammatory disorder of the vagina; Translations: [Other specified noninflammatory disorders of vagina] Onset: 05-24-2024 Episodic Other female genital disorders (2 sources) Cyst of vagina 05-24-2024 Episodic Other nervous system disorders (1 source) Other chronic pain; Translations: [OTHER CHRONIC PAIN] Onset: 01-03-2022 Chronic Other screening for suspected conditions (not mental disorders or infectious disease) (4 sources) Encounter for screening mammogram for malignant neoplasm of breast; Translations: [ENC SCR MAMMO MALIG NEOPLASM BREAST] Onset: 11-11-2022 Episodic Prolapse of female genital organs (11 sources) Uterovaginal prolapse; Translations: [Uterovaginal prolapse, unspecified] Onset: 10-04-2022 Chronic Rehabilitation care; fitting of prostheses; and adjustment of devices (2 sources) Patient encounter status; Translations: [Encounter for fitting and adjustment of other specified devices] 08-11-2024 Chronic Residual codes; unclassified (5 sources) Sleep apnea 08-26-2019 Chronic Residual codes; [...] DIGESTIV ORGN] Onset: 11-14-2022 Episodic Thyroid disorders (5 sources) Hypothyroidism 08-26-2019 Chronic Unclassified (1 source) LOW BACK PAIN, UNSPECIFIED; Translations: [LOW BACK PAIN, UNSPECIFIED] Onset: 01-03-2022 Urinary tract infections (10 sources) Chronic cystitis; Translations: [Other chronic cystitis without hematuria] Onset: 10-01-2021 Chronic Urinary tract infections (8 sources) Postinfective urethral stricture of female; Translations: [...] Test Name Value Interpretation Reference Range Facility Urology Office/Clinic Noteon 01-31-2025 Urology Office/Clinic Note Urology Office/Clinic Note Chief Complaint urethral stricture HPI Staff 4 month f/u with UD. Dx: urethral stricture, chronic cystitis and cystocele with prolapse. Premarin cream 1gm 3x a week Pt states that at night she tends to have pressure in her bladder area at night. Pt states that she has incontinence sometimes with standing. he states that her stream is very weak. She is going through multiple pads daily. Denies any blood in urine. History of Present Illness Tests reviewed: reviewed [...] & Measurements T: 37 ???C(Temporal Artery) HR: 60(Peripheral) RR: 16 BP: 121/66 HT: 165 cm HT: 65 in WT: 136.686 lb WT: 62 kg BMI: 22.77 General Appearance: alert , no acute distress, [...] is: Tight The Urethra was dilated to: 20-30 Cuban with sounds. Specimens Removed: None Postoperative Information Patient is discharged home. Follow up arranged. Assessment/Plan 1. 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 Pt had IO UD wo complications today. Tolerated well. -6 mos for UD 2. Chronic cystitis (N30.20: Other chronic cystitis without hematuria) UA today shows moderate blood, small leuks, positive nitrites. Asx. Uses Premarin cream 1g MWF. Also Clobetasol 0.05% cream qd prn for vaginal irritation. -Urine sample to be sent for cx. Will call pt if abx are resistant and need adjusted. -Take Keflex 250mg bid x5 days 3. Cystocele with prolapse (N81.4: Uterovaginal prolapse, unspecified) Grade 2-3. -Re-referr to Dr Drew for pessary (pt did not comply previously) Follow-up With When Contact Information PASQUALE MESA, Lyle Feldman, URL [facility] [address] , [place] [address]- [phone] Additional Instructions: 6 mos for IO UD Patient Education Urinary Tract Infection, Adult I, Magalis Chávez, personally scribed for Dr. Carreno on 01/31/2025 12:34:46. . Documentation recorded by the scribe, Magalis Chávez, accurately reflects the services(s) I performed and decisions made by me. Authenticated by Dr. Carreno on 01/31/2025 12:36:29. Problem List/Past Medical History Ongoing Adrenal adenoma [...] 10 mg Tab candesartan 32 mg Tab carvedil (more content not included)... Normal [facility] Comment on above: Result Comment: Elec tronically Signed By: Lyle CARRENO MD\.br\Date and Time Signed: 01/31/25 12:36 EDT\.br\Electronically Co-Signed By: Magalis Chávez\.br\Date and Time Co-Signed: 01/31/25 12:35 EDT Ambulatory Visit Summaryon 0 09-24-2024 Ambulatory Visit [...] Lyle CARRENO MD Where: [facility] [place] [address] [place] [address]- You Need to Schedule the Following Appointments Follow Up with PASQUALE MESA, BLAYNE Gallego When: Where: [facility] [address], [facility] [place] [address]- Medications What How Much When Instructions Unchanged [...] tip o (more content not included)... Normal [facility] Urology Office/Clinic Noteon 09-24-2024 Urology Office/Clinic Note [...] Tight The Urethra was dilated to: 20-32 Cuban with sounds. Specimens Removed: None Postoperative Information [...] URL [facility] [address], [place] [address]- Additional Instructions: 6 mo UD Patient Education [...] (Unknown) E (more content not included)... Normal [facility] Comment on above: Result Comment: Elec tronically Signed By: Lyle CARRENO MD\.br\Date and Time Signed: 09/24/24 13:12 EDT\.br\Electronically Co-Signed By: Katey Barraza\.br\Date and Time Co-Signed: 09/24/24 13:11 EDT Ambulatory Visit Summaryon 1 07-24-2023 Ambulatory Visit Summary Ambulatory Visit Summary LELA CHENG Isaiah :1940 Visit Date:05/24/2024 Ambulatory Visit Instructions Your [...] Lyle CARRENO MD Where: [facility] [address] [facility] [place] [address]- You Need to Schedule the Following Appointments Follow Up with Lyle CARRENO MD, URL When: Comments: 6 mos for UD Where: [facility] [address] , [place] [address]- [phone] Someone Will Contact You Regarding These Appointments [facility] External Ambulatory Referral, Other (needs to be [...] Urethral dilati (more content not included)... Normal [facility] Urology Office/Clinic Noteon 05-24-2024 Urology Office/Clinic Note [...] Tight The Urethra was dilated to: 22-30 Cuban with sounds. Specimens Removed: None Postoperative Information [...] of pessary and risks/benefits. Recommended referral to TOW TRUCK OPERATOR to discuss this. Pt wishes to proceed. -Referral to TOW TRUCK OPERATOR 4. OAB (overactive bladder) (N32.81: Overactive bladder) See #3. 5. Rectocele (N81.6: Rectocele) Grade 2. [2] 6. 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 3cm L -Referral to TOW TRUCK OPERATOR Follow-up With When Contact Information PASQUALE MESA, Lyle Feldman, URL [facility] [address] , [place] [address]- [phone] Additional Instructions: 6 mos for UD Patient [...] Urinary urg (more content not included)... Normal [facility] Comment on above: Result Comment: Elec tronically Signed By: PASQUALE MESA, Lyle Feldman\.br\Date and Time Signed: 05/24/24 10:13 EST\.br\Electronically Co-Signed By: Magalis Chávez\.br\Date and Time Co-Signed: 05/24/24 10:11 EST MG MAMM SCREEN ROSANGELA W CADon 0 11-11-2022 MG MAMM SCREEN ROSANGELA W CAD Patient: LELA CHENG Exam Date: 11/11/2022 : 1940 Gender:F Ordering : DR BGIG SCHULTZ D.O. Admission #: [id number] Family : Order #: [id number] CLICK HERE TO VIEW EXAM RADIOLOGY REPORT [...] lung cancer at age 53. LOCATION: [facility] BREAST COMPOSITION: Heterogeneously dense,which may obscure [...] Harry M.D. on 11/11/2022 at 13:50 Normal [facility] ELECTROLYTESon 06-17-2022 Anion gap [Moles/Vol] 10.9 mmol/L Normal [facility] Comment on above: Performed By: #### E LEC, TSH #### [facility] [address] [address] [address] Lillian Hurley Chloride [Moles/Vol] 92 mmol/L Critically low 98-107 [facility] Comment on above: Performed By: #### E LEC, TSH #### [facility] [address] [address] [address] Lillian Hurley CO2 [Moles/Vol] 30.4 mmol/L Normal 21.0-32.0 [facility] Comment on above: Performed By: #### E LEC, TSH #### [facility] [address] [address] [address] Lillain Hurley Potassium [Moles/Vol] 4.3 mmol/L Normal 3.5-5.1 [facility] Comment on above: Performed By: #### E LEC, TSH #### [facility] [address] [address] [address] Lillian Hurley Sodium [Moles/Vol] 129 mmol/L Critically low 136-145 [facility] Comment on above: Performed By: #### E LEC, TSH #### [facility] [address] [address] [address] Lillian Hurley TSHon 06-17-2022 TSH 0.675 uIU/mL Normal 0.358-3.740 [facility] Comment on above: Performed By: #### E LEC, TSH #### [facility] [address] [address] [address] Lillian Hurley Otheron 12-22-2000 CONVERTED ELECTRONIC SIGNATURE GEN HENDRIX M.D., PATHOLOGIST (Electronic signature on file) Final Signed Out: 12/22/2000 14:36 [facility] CONVERTED FINAL DIAGNOSIS BONE, RIGHT ELBOW, EXCISION - SEGMENTS OF OSSEOUS TISSUE WITH CHANGES CONSISTENT WITH CHANGES OF DEGENERATIVE OSTEOARTHROPATHY. REACTIVE SYNOVIUM WITH FOCAL OLD HEMORRHAGE. [facility] CONVERTED ORDERING PROVIDER Ordering Provider: JOSE ALMONTE [facility] Vital Signs Date Time Vital Sign Value Performing Clinician Facility 08-11-2024 13:54-0500 Body mass index (BMI) [Ratio] 24.03 kg/m2 Aaliyah Rajendra DO Work Phone: [facility] 08-11-2024 13:54-0500 Body weight 62.51 kg Aaliyah Rajendra DO Work Phone: [facility] 08-11-2024 13:54-0500 Diastolic blood pressure 70 mm[Hg] Aaliyah Rajendra DO Work Phone: [facility] 08-11-2024 13:54-0500 Systolic blood pressure 128 mm[Hg] Aaliyah Rajendra DO Work Phone: [facility] 05-24-2024 09:38-0500 Blood Pressure Location Lyle CARRENO [facility] 05-24-2024 09:38-0500 Body temperature 98.42 [degF] Lyle CARRENO [facility] 05-24-2024 09:38-0500 Diastolic blood pressure 66 mm[Hg] Lyle CARRENO [facility] 05-24-2024 09:38-0500 Heart rate 67 /min Lyle CARRENO [facility] 05-24-2024 09:38-0500 Respiratory rate 18 /min Lyle CARRENO [facility] 05-24-2024 09:38-0500 Systolic blood pressure 108 mm[Hg] Lyle CARRENO [facility] 10-10-2023 10:54-0400 Blood Pressure Location Lyle CARRENO [facility] 10-10-2023 10:54-0400 Diastolic blood pressure 79 mm[Hg] Lyle CARRENO [facility] 10-10-2023 10:54-0400 Heart rate 73 /min Lylelexi CARRENO [facility] 10-10-2023 10:54-0400 Respiratory rate 16 /min Lylelexi CARRENO [facility] 10-10-2023 10:54-0400 Systolic blood pressure 127 mm[Hg] Lyle CARRENO [facility] 10-04-2022 10:17-0400 Blood Pressure Location Lylelexi CARRENO [facility] 10-04-2022 10:17-0400 Diastolic blood pressure 71 mm[Hg] Lylelexi CARRENO [facility] 10-04-2022 10:17-0400 Heart rate 60 /min Lylelexi CARRENO [facility] 10-04-2022 10:17-0400 Respiratory rate 16 /min Lylelexi CARRENO [facility] 10-04-2022 10:17-0400 Systolic blood pressure 125 mm[Hg] Lylelexi CARRENO [facility] Encounters Encounter Date Encounter Type Care Provider Facility Start: 08-08-2025 ambulatory Lyle Jacomei ty:[facility] Start: 01-31-2025 End: 01-31-2025 ambulatory L[facility] CARRENO [facility] Start: 01-31-2025 End: 01-31-2025 Patient encounter procedure Lyle CARRENO [facility] Start: 01-10-2025 End: 01-10-2025 ambulatory Rhoda Gutierrez MD Facility:[facility] Start: 09-24-2024 End: 09-24-2024 ambulatory Lyle CARRENO Facility: [facility] Start: 08-11-2024 End: 08-11-2024 Bamboo flowsheet Aaliyah [...] Start: 05-24-2024 End: 05-24-2024 ambulatory Lyle CARRENO Facility: [facility] Start: 05-24-2024 End: 05-24-2024 Patient encounter procedure Lyle CARRENO [facility] Start: 05-03-2024 End: 05-03-2024 ambulatory Rhoda Gutierrez MD Facility:[facility] Start: 10-10-2023 End: 10-10-2023 Patient encounter procedure Lyle CARRENO [facility] Start: 09-30-2023 End: 09-30-2023 ambulatory YOGESH DEL REAL Not Available Start: 11-11-2022 End: 11-12-[address] BIGG SCHULTZ Facility:[facility] Start: 10-04-2022 End: 10-04-2022 Patient encounter procedure Lyle CARRENO [facility] Start: 06-17-2022 End: 06-18-[address] BIGG SCHULTZ Facility:[facility] Start: 01-03-2022 End: 01-31-[address] BIGG SCHULTZ Facility:[facility] Start: 11-22-2021 End: 12-15-[address] DOCTOR COREAS Facility:[facility] Start: 10-01-2021 End: 10-01-2021 Patient encounter procedure Lyle CARRENO [facility] Start: 12-16-1920 End: 12-16-1920 Patient encounter procedure Jose Almonte Work Phone: [facility] Start: 12-16-1920 Results Only Jose Almonte Work Phone: [facility] Procedures Date Procedure Procedure Detail Performing Clinician Start: 09-24-2024 Urethral dilatation - female Lyle CARRENO Start: 05-24-2024 Dilation of urethra Pat lexi [...] Rosa CARRENO Start: 07-21-2015 Dilation of urethra Rosa CARRENO Start: 07-18-2014 Dilation of urethra Pat lexi CARRENO Start: 12-27-2013 Dilation of urethra Pat lexi CARRENO Start: 07-14-2013 Procedure on neck Patri pernell CARRENO Start: 06-11-2013 Dilation of urethra Rosa CARRENO Start: 08-07-2009 Dilation of urethra Rosa CARRENO Start: 09-04-2006 Cystourethroscopy wi th dilation of urethral stricture Lyle CARRENO Start: 12-16-1920 CONVERTED SURGICAL PATHOLOGY Jose Francia Sarahlong Work Phone: Appendectomy Lyle CARRENO Breast [...] 03-07-2024 Influenza vaccination Influenza Vacc ine (#1) [facility] Start: 03-07-2020 Influenza vaccination INFLUENZA (#1) [facility] Start: 03-23-2015 Pneumococcal Vaccine : 65+ Years (2 of 2 - PCV) Pneumococcal Vaccine: 65+ Years (2 of 2 - PCV) [facility] Start: 01-26-2010 DIABETES SCREEN DIABETES SCREEN [facility] Start: 2003 ADVANCE DIRECTIVE DISCUSSION ADVANCE DIRECTIVE DISCUSSION [facility] Start: 2003 BONE DENSITY BONE DENSITY [facility] Start: 2003 PNEUMOVAX AGE 65 AND OVER WITH 5YR LOOKBACK (#1) PNEUMOVAX AGE 65 AND OVER WITH 5YR LOOKBACK (#1) [facility] Start: 1988 SHINGRIX VACCINE (1 of 2) SHINGRIX V ACCINE (1 of 2) [facility] Start: 1957 Urine microalbumin profile DTAP,TDAP,TD (1 - Tdap) [facility] Immunizations Immunization Date Immunization Notes Care Provider Stephanie briceño 04-18-2023 influenza virus vacc ine, unspecified formulation Lyle CARRENO [facility] 03-29-2022 SARS-CoV-2 (COVID-19 ) [id number] Lyle CARRENO [facility] Comment on above: Result Comment: 2023: [id number] 11-02-2021 SARS-CoV-2 mRNA (wddbgwzxnge-clwg-lewoxm e) vaccine Lyle CARRENO [facility] Comment on above: Result Comment: 2023: [id number] 04-16-2021 SARS-CoV-2 (COVID-19 ) mRNA BNT-162b2 vax Lyle CARRENO [facility] Comment on above: Result Comment: 2023: [id number] 08-23-2020 SARS-CoV-2 (COVID-19 ) mRNA BNT-162b2 vax Lyle CARRENO [facility] 07-31-2020 SARS-CoV-2 (COVID-19 ) mRNA BNT-162b2 vax Lyle CARRENO [facility] Comment on above: Result Comment: 2nd dose given 08/23/2020 07-23-2018 zoster vaccine recombinant Lyle CARRENO [facility] 11-28-2017 zoster vaccine recombinant Lyle CARRENO [facility] 03-23-2014 pneumococcal polysaccharide vaccine, 23 valent Lyle CARRENO [facility] 05-05-2013 zoster vaccine, live Lyle CARRENO [facility] 04-25-2009 influenza, whole Lyle CARBALLO [facility] Payers Date Payer Category Payer Medicare (Managed Care) [facility] MED[facility] [id number] 2023 Medicare 1961 Medicare [id number] 1959 Medicare [id number] 1938 Unknown [id number] [id number]. 593 1938 Unknown [id number] 2.16.840.1.526917.3.579.2. 593 1938 Unknown [id number] 2.16.840.1.050523.3.579.2. 593 1938 Unknown [id number] 2.16.840.1.089381.3.579.2. 593 1938 Unknown [id number] 2.16.840.1.531311.3.579.2. 1259 1938 Unknown [id number] 2.16.840.1.567948.3.579.2. 1259 1938 Unknown [id number] 2.16.840.1.142356.3.579.2. 196 1938 Unknown [id number] 2.16.840.1.669358.3.579.2. 196 1938 Unknown [id number] 2.16.840.1.330428.3.579.2. 727 1938 Unknown [id number] 2.16.840.1.508091.3.579.2. 727 1938 Unknown [id number] 2.16.840.1.067843.3.579.2. 727 1938 Unknown [id number] 2.16.840.1.891625.3.579.2. 727 Social History Date Type Detail [facility] Start: 1940 Sex Assigned At Not on file [facility] Start: 09-06-2019 End: 09-24-2024 Tobacco smoking status Never smoked tobacco (finding) [facility] Start: 09-30-2023 Sex Assigned At Female [facility] Tobacco smoking status Never [facility] Start: 09-30-2023 Tobacco use and exposure Smoke less tobacco non-user [facility] Start: 09-30-2023 History of Social function [facility] Sexual Orientation [facility] Start: 02-09-2019 Sex Female (finding) [facility] Functional Status Date Assessment Result Facility 05-24-2024 Functional Status N/A [facility] 10-10-2023 Functional Status N/A [facility] 10-04-2022 Functional Status N/A [facility] Clinical Notes 10-01-2021 to 01-31-2025 Aaliyah RajendraDO eugenia - 08/11/2024 1:30 PM EST Note Date & Type Note Facility 01-31-2025 Hospital Discharg e instructions Patient Education 01/31/2025 12:24:56 Urinary Tract Infection, Adult Urinary Tract Infection, Adult A urinary tract infection (UTI) is an infection of any part of the urinary tract. The urinary tract includes the kidneys, ureters, bladder, and urethra. These organs make, store, and get rid of urine in the body. An upper UTI affects the [...] more likely to develop this condition if: You have a urinary catheter that stays in place. You are not able to control when you urinate or have a bowel movement (incontinence). You are female and you: ?Use a spermicide or diaphragm for control. ?Have low estrogen levels. ?Are . You have certain genes that increase your risk. You are sexually active. You take antibiotic medicines. You have a condition that causes your flow of urine to slow down, such as: ?An enlarged prostate, if you are male. ?Blockage in your urethra. ?A kidney stone. ?A nerve condition that affects your bladder control (neurogenic bladder). ?Not getting enough to drink, or not urinating often. You have certain medical conditions, such as: ?Diabetes. ?A weak disease-fighting system (immunesystem). ?Sickle cell disease. ?Gout. ?Spinal cord injury. What are the signs or symptoms? Symptoms of this condition include: Needing to urinate right away (urgency). Frequent urination. This may include small amounts of urine each time you urinate. Pain or burning with urination. Blood in the urine. Urine that smells bad or unusual. Trouble urinating. Cloudy urine. Vaginal discharge, if you are female. Pain in the abdomen or the lower back. You may also have: Vomiting or a decreased appetite. Confusion. Irritability or tiredness. A fever or chills. Diarrhea. The first symptom in older adults may be confusion. In some cases, they may not have any symptoms until the infection has worsened. How is this diagnosed? This condition is diagnosed based on your medical history and a physical exam. You may also have other tests, including: Urine tests. Blood tests. Tests for STIs (sexually transmitted infections). If you have had more than one UTI, a cystoscopy or imaging studies may be done to determine the cause of the infections. How is this treated? Treatment for this condition includes: Antibiotic medicine. Nnmu-arv-hhlfeno medicines to treat discomfort. Drinking enough water to stay hydrated. If you have frequent infections or have other conditions such as a kidney stone, you may need to see a health care provider who specializes in the urinary tract (urologist). In rare cases, urinary tract infections can cause sepsis. Sepsis is a life-threatening condition that occurs when the body responds to an infection. Sepsis is treated in the hospital with IV antibiotics, fluids, and other medicines. Follow these instructions at home: Medicines Take vdyl-ejn-cynljyf and prescription medicines only as told by your health care provider. If you were prescribed an antibiotic medicine, take it as told by your health care provider. Do not stop using the antibiotic even if you start to feel better. General instructions Make sure you: ?Empty your bladder often and completely. Do not hold urine for long periods of time. ?Empty your bladder after sex. ?Wipe from front to back after urinating or having a bowel movement if you are female. Use each tissue only one time when you wipe. Drink enough fluid to keep your urine pale yellow. Keep all follow-up visits. This is important. Contact a health care provider if: Your symptoms do not get better after 1 2 days. Your symptoms go away and then return. Get help right away if: You have severe pain in your back or your lower abdomen. You have a fever or chills. You have nausea or vomiting. Summary A urinary tract infection (UTI) is an infection of any part of the urinary tract, which includes the kidneys, ureters, bladder, and urethra. Most urinary tract infections are caused by bacteria in your genital area. Treatment for this condition often includes antibiotic medicines. If you were prescribed an antibiotic medicine, take it as told by your health care provider. Do not stop using the antibiotic even if you start to feel better. Keep all follow-up visits. This is important. This information is not intended to replace advice given to you by your health care provider. Make sure you discuss any questions you have with your health care provider. Document Revised: 01/28/2021 Document Reviewed: 02/02/2021 [employer] Patient Education 2023 Locationary. Follow Up Care 09/24/2024 13:22:42 With:PASQUALE MESA, Lyle Feldman, URL Address: [facility] [address] [place] [phone]- [phone] When: Unknown Comments:6 mos for IO UD [facility] [place] 01-31-2025 Note Patient Education Obstetrics and Gynecology Urinary Tract Infection, Adult A urinary tract infection (UTI) is an infection of any part of the urinary tract. The urinary tract includes the kidneys, ureters, bladder, and urethra. These organs make, store, and get rid of urine in the body. An upper UTI affects the [...] (incontinence). ??? You are female and you: ? Use a spermicide or diaphragm for control. ? Have low estrogen levels. ? Are . ??? You have certain genes that increase your risk. ??? You are sexually active. ??? You take antibiotic medicines. ??? You have a condition that causes your flow of urine to slow down, such as: ? An enlarged prostate, if you are male. ? Blockage in your urethra. ? A kidney stone. ? A nerve condition that affects your bladder control (neurogenic bladder). ? Not getting enough to drink, or not urinating often. ??? You have certain medical conditions, such as: ? Diabetes. ? A weak disease-fighting system (immunesystem). ? Sickle cell disease. ? Gout. ? Spinal cord injury. What are the signs [...] this condition includes: ??? Antibiotic medicine. ??? Ahgk-ugy-fuauxrs medicines to treat discomfort. ??? Drinking enough water to stay hydrated. If you have frequent infections or have other conditions such as a kidney stone, you may need to see a health care provider who specializes in the urinary tract (urologist). In rare cases, urinary tract infections can cause sepsis. Sepsis is a life-threatening condition that occurs when the body responds to an infection. Sepsis is treated in the hospital with IV antibiotics, fluids, and other medicines. Follow these instructions at home: Medicines ??? Take kmuj-shx-dhbuzit and prescription medicines only as told by your health care provider. ??? If you were prescribed an antibiotic medicine, take it as told by your health care provider. Do not stop using the antibiotic even if you start to feel better. General instructions ??? Make sure you: ? Empty your bladder often and completely. Do not hold urine for long periods of time. ? Empty your bladder after sex. ? Wipe from front to back after urinating or having a bowel movement if you are female. Use each tissue only one time when you wipe. ??? Drink enough fluid to keep your urine pale yellow. ??? Keep all follow-up visits. This is important. Contact a health care provider if: ??? Your symptoms do not get better after 1?2 days. ??? Your symptoms go away and [...] your health care provider. Do not stop using the antibiotic even if you start to feel better. ??? Keep all follow-up visits. This is important. This information is not intended to replace advice given to you by your health care provider. Make sure you di (more content not included)... [facility] 09-24-2024 Note Patient Education Urology Urethral Dilation [...] including vitamins, herbs, eye drops, creams, and biar-lzo-nmyjhtk medicines. ??? Any problems you or family [...] your provider tells you to. ??? Taking cwwv-ked-fcdtfvd medicines, vitamins, herbs, and supplements. General instructions [...] these instructions at home: Medicines ??? Take bnjb-wcb-yzedobi and prescription medicines only as told by [...] to prevent or treat constipation: ? Take zedr-dhy-nypbcrf or prescription medicines. ? Eat foods that [...] soft tube (catheter) (more content not included)... [facility] 08-11-2024 History of Presen t illness Narrative Reason for Appointment: Patient ID: Lela Cheng is a 84 y.o. female who presents for pessary fitting Patient presents today for Acute Visit. Current Medications: has a current medication list which includes the following prescription(s): baclofen, buspirone, calcium carbonate, candesartan, carvedilol, gabapentin, levothyroxine, montelukast, and premarin. Medical History: Active Ambulatory Problems Diagnosis Date Noted Thyroid disease ([facility]) 09/30/2023 HTN (hypertension) ([facility]) 09/30/2023 GERD (gastroesophageal reflux disease) 09/30/2023 Depression ([facility]) 09/30/2023 Resolved Ambulatory Problems Diagnosis Date Noted [...] nursing note reviewed. Exam conducted with a paste up copy camera operator present. Vitals: Estimated body mass index is [...] Aaliyah Drew DO documented in this encounter [facility] 05-24-2024 Hospital Discharg e instructions Patient Education [...] including vitamins, herbs, eye drops, creams, and oqhr-wmf-dmfsteh medicines. Any problems you or family members [...] unless your provider tells you to. Taking yxcu-zqx-kpcfvpz medicines, vitamins, herbs, and supplements. General instructions [...] Follow these instructions at home: Medicines Take kpox-gtj-yiefaam and prescription medicines only as told by [...] actions to prevent or treat constipation: ?Take vmwh-jlx-nebqpum or prescription medicines. ?Eat foods that are [...] provider. Document Revised: 04/17/2023 Document Reviewed: 04/17/2023 [employer] Patient Education 2023 Locationary. Follow Up Care 10/10/2023 11:32:21 With:PASQUALE MESA, Lyle Feldman, URL Address: [facility] [address], [place] [phone]- [phone] When: Unknown Comments:6 mos for UD [facility] 05-24-2024 Note Patient Education Urology Urethral Dilation [...] including vitamins, herbs, eye drops, creams, and palj-nxv-lvmizyu medicines. ??? Any problems you or family [...] your provider tells you to. ??? Taking zhio-xur-ratdnyg medicines, vitamins, herbs, and supplements. General instructions [...] these instructions at home: Medicines ??? Take wdgg-kuq-qbgvpel and prescription medicines only as told by [...] to prevent or treat constipation: ? Take vtir-yvd-cdhsxav or prescription medicines. ? Eat foods that [...] soft tube (catheter) (more content not included)... [facility] 10-10-2023 Hospital Discharg e instructions Patient Education [...] reconstructed. Follow these instructions at home: Take xpgw-peg-tkhyxqk and prescription medicines only as told by [...] Document Reviewed: 04/30/2022 Elsevier Patient Education 2022 Locationary. Follow Up Care 10/04/2022 10:57:38 With:PASQUALE MESA, Lyle Feldman, URL Address: [address] [place], [place] [id number]- When: Unknown [facility] 10-04-2022 Hospital Discharg e instructions Patient [...] including vitamins, herbs, eye drops, creams, and tuyc-day-pxthyaz medicines. Any problems you or family members [...] provider tells you to take them. Taking gwcq-nih-rjmoffp medicines, vitamins, herbs, and supplements. General instructions [...] Follow these instructions at home: Medicines Take qfwo-qwm-lntjgqs and prescription medicines only as told by [...] actions to prevent or treat constipation: ?Take gaxs-nyg-enpahaf or prescription medicines. ?Eat foods that are [...] 07/19/2016 Document Revised: 08/05/2019 Document Reviewed: 08/05/2019 [employer] Patient Education 2019 Locationary. Follow Up Care 10/01/2021 13:26:16 With:PASQUALE MESA, Lyle Feldman, URL Address: [address] [place] [address]- When: Unknown [facility] 10-01-2021 Hospital Discharg e instructions Patient Education [...] reconstructed. Follow these instructions at home: Take gsgd-vsm-cexhgpc and prescription medicines only as told by [...] 07/19/2016 Document Revised: 02/03/2019 Document Reviewed: 02/03/2019 [employer] Patient Education 2020 Locationary. [facility] Evaluation + Plan note Future Appointments Appointment Date:10/04/2022 09:45:00 AM Scheduled Provider:Lyle CARRENO MD Location:[facility] Appointment Type:URO Office Visit [facility] Evaluation + Plan note Future Appointments Appointment Date:10/10/2023 10:15:00 AM Scheduled Provider:Lyle CARRENO MD Location:[facility] Appointment Type:URO Office Visit [facility] Evaluation + Plan note Future Appointments Appointment Date:05/03/2024 09:15:00 AM Scheduled Provider:Lyle CARRENO MD Location:[facility] Appointment Type:URO Office Visit [facility] Evaluation + Plan note Future Appointments Appointment Date:11/22/2024 10:30:00 AM Scheduled Provider:Lyle CARRENO MD Location:[facility] Appointment Type:URO Procedure 15 min [facility] Evaluation + Plan note Future Appointments Appointment Date:08/08/2025 11:15:00 AM Scheduled Provider:Lyle CARRENO MD Location:[facility] Appointment Type:URO Office Visit [facility] Evaluation note Diagnosis Encounter for fitting and adjustment of pessary [facility] Narrative No data available for this section [facility] progress note No data available for this section [facility] reason for referral (narrative) Referred by: Lyle CARRENO MD Referred by: Lyle CARRENO MD [facility] Summary Purpose Family History No Family History Records Found No data available for this section No data available for this section No [...] or prosecute any alcohol or drug abuse patient.[facility] Patient Care team informatio n (unrecognized section and content) Remelt Furnace Expediter Relationship Specialty Start Date End Date Bigg Schultz MD [address] [place] [address] PCP - General Internal Medicine 09/30/23 Remelt Furnace Expediter Relationship Specialty Start Date End Date Bigg Schultz MD [address] [place] [id number] PCP - General Internal Medicine 09/30/23 INFORMATION SOURCE (unrecogn ized section and content) DATE CREATED AUTHOR [facility]/15/[address] [facility] DATE CREATED AUTHOR AUTHOR'S ORGANIZ ATION 08/13/2024 [facility] EPIC DATE CREATED AUTHOR AUTHOR'S ORGANIZ ATION 01/22/2025 [facility] DATE CREATED AUTHOR AUTHOR'S ORGANIZ ATION 02/01/2025 [facility] Reason for Visit (unrecogniz ed section and [...] BE BASED ON THE PRIMARY CLINICAL RECORDS. [facility]. provides no warranty or guarantee of the accuracy or completeness of information in this document.
== END 2025-02-02 08:35 | disposition home or self-care (01) ==
LOC: MRI 08:34
PROVIDERS: PCP Internal Medicine; Visit Provider Nurse Practitioner
DX: M48.062 Spinal stenosis, lumbar region with neurogenic claudication (principal); M51.369 Other intervertebral disc degeneration, lumbar region without mention of lumbar back pain or lower extremity pain
CPT/HCPCS: 72148

== ENCOUNTER 2025-02-10 15:15 | Outpatient (OUT) | payer MEDICARE, SELFPAY ==
--- OUTSIDE RECORDS SUMMARY | 2024-01-14 10:15 | XMS_ITS ---
Author Organization [facility] in [place] Address [address] [place] [address] Care Team Providers Care Stock Preparer Name Role Phone None, Unknown or Primary Care Provider Unavailab Costa Cardona Unavailable [phone] Allergies Allergen (clinical drug ingredient) Drug/Non Drug [...] Encounters Encounter Location Date Provider Diagnosis [facility] (PODIATRY) [address] [place] [address] 01/14/2024 Costa Lombardo Right foot pain M79.671 [...] (ICD-10 - M25.571) 01/14/2024 Other Referral from [facility] emergency department Plan Of Treatment Treatment Notes [...] new x-rays are needed Other Referral from [facility] emergency department Progress Notes * Fco CHENGhollisDOB:[birth year] (83 yo F)Acc No.[id number]:01/14/2024 New Patient Patient: Hailey MAK Provider: Lizy Lombardo DPM, MS :1940 A ge:83 Y S ex:Female Date:01/14/2024 Address:[address] [place] [address] [place], [id number] Pcp:Unknown or None Check In:01:56 PM ESTCheck [...] Cancelled) 4. O thers Notes: Referral from [facility] emergency department * Procedure Codes: * Preventive Medicine: Screenings/Counseling: B [place] ACTION PLAN Above Normal BMI Follow-up D ietary management education, guidance, and counseling F ALL RISK SCREENING Fall Risk Assessment: N o falls in the past year * * Sign off status: Completed Visit Status: C HK (Check Out) true * Provider: Lizy Lombardo DPM, MS Date: 01/14/2024 Generated for Lizandro cristina/Agustin/Macieitting on: 0 02/10/2025 03:20 PM EDT History and Physical Notes * HPI [...]
--- OUTSIDE RECORDS SUMMARY | 2024-02-05 06:40 | XMS_ITS ---
Author Organization [facility] in [place] Address [address] [place] [address] Care Team Providers Care Agricultural Extension Educator Name Role Phone None, Unknown or Primary Care Provider Unavailab Lakisha Mercado Unavailable [phone] Allergies Allergen (clinical drug ingredient) Drug/Non Drug [...] Encounters Encounter Location Date Provider Diagnosis [facility] (PODIATRY) [address] [place] [address] [place] [address] 02/05/2024 Lakisha Parnell Displaced fracture of navicular [...] Notes * Hailey CHENGDOB:[birth year] (83 yo F)Acc No.[id number]:02/05/2024 Follow Up Patient: Hailey MAK Provider: Denise Parnell PA-C :1940 A ge:83 Y S ex:Female Date:02/05/2024 Address:[address] [place] [place], [id number] Pcp:Unknown or None Check In:10:30 AM ESTCheck [...] M usculoskeletal: Bone/Joint Symptoms d enies. C half-way Pain d enies.?Leg cramps d enies. N [...] Medical History: * Surgical History: h ysterectomy 1984breast biopsy 1988deviated septum repair 1989heel spur surgery, [...] Procedure Codes: * Preventive Medicine: Screenings/Counseling: B [place] ACTION PLAN Above Normal BMI Follow-up D ietary management education, guidance, and counseling F ALL RISK SCREENING Fall Risk Assessment: N o falls in the past year * Follow Up: p rn * * Sign off status: Completed Visit Status: C HK (Check Out) true * Provider: Denise Parnell PA-C Date: 02/05/2024 Generated for Lizandro cristina/Agustin/Rickysmitting on: 02/10/2025 03:20 PM EDT History and Physical [...]
--- OUTSIDE RECORDS SUMMARY | 2025-02-10 15:20 | XMS_ITS | Clinical Summary ---
Author Organization [facility] Address [address], [address] [place] [address] Care Team Providers Care Multiple Resaw Operator Name Role Phone Bigg Otero Primary Care Provider + [phone] Allergies Active Allergy Reactions Criticality Noted Date [...] Modality Hip, C-spine, T-spine, L-spine O [facility]r [facility] Historical Provider IMG DEXA ORDERABLES Elaine l Result from Last 3 Months or Most Recently Relevant to Health Maintenance Insurance [employer] MEDICARE [facility] Advance Directives Documents on File Type Date Recorded Patient Emotionally Impaired Teacher Expl anation ACP-Power of Tire Tester 06/17/2018 5:06 PM [facility] POWER OF ATTORNE 06/25/18 Care Teams Multiple Resaw Operator Relationship Specialty Start Date End Date Bigg Otero DO [address] [place] [phone] PCP - General Internal Medicine 09/09/17
--- OUTSIDE RECORDS SUMMARY | 2025-02-10 15:20 | XMS_ITS | Encounter Summary ---
Author Organization [facility] Address [address], [address] [place] [address] Care Team Providers Care Pricing Analyst Name Role Phone Bigg Otero DO Primary Care Provider + [phone] Encounter Details Date Type Department Care Team (Late st Contact Info) Description 09/09/2017 Orders Only [facility] [address], [address] [place] [address] Gregg Jacob MD Lumbar spondylosis Social History [...] myelopathy documented in this encounter Care Teams Pricing Analyst Relationship Specialty Start Date End Date Bigg Otero DO [facility] [place] [address] PCP - General Internal Medicine 09/09/17 documented as of this encounter
--- OUTSIDE RECORDS SUMMARY | 2025-02-10 15:20 | XMS_ITS | Clinical Summary ---
Author Organization [facility] Address [address] [place] [address] Care Team Providers Care Boat Rental Clerk Name Role Phone Bigg Otero MD Primary [...] EDT Office Visit [facility] [address] [facility] [address] [place] [address] Dexter Jim DPM [address] [facility] [address] [place] [address] Health Maintenance Due Date Last Done Comments Pneumococcal Vaccine: 65+ Ye ars (2 of 2 - PCV) 03/23/2015 03/23/2014 Influenza Vaccine (#1) 2025 04/18/2023, 2008 Insurance [employer] MEDICARE Care Teams Boat Rental Clerk Relationship Specialty Start Date End Date iBgg Otero MD [address] [place] [address] PCP - General Internal Medicine 09/30/23
--- OUTSIDE RECORDS SUMMARY | 2025-02-10 15:20 | XMS_ITS | Patient Health Record ---
Author Organization [facility] [place] Address [address] [place] [address] Care Team Providers Care Bolt Maker Name Role Phone None, Unknown or Primary Care Provider Unavailab le Allergies Allergen (clinical drug ingredient) Drug/Non Drug [...] Risk Notes Problem Pain in right foot (642628785683129 ) Right foot pain (M79.671) Active confirmed Problem Arthralgia of the ankle and/or foot (459773919) Right ankle pain (M25.571) Active confirmed Plan Of Treatment No Information Insurance Providers Payer Name Payer Address Payer Phone Subscriber Number Group Number Insured Name Patient Relationship to Insured Coverage Start Date Coverage End Date [facility] MEDIC[employer] SOL[employer]IONS [address] [address] [place] [address] [id number] Hailey Chapin Self - patient is the insured Medical (General) History Medical History History ICD Code Arthritis gastroesophageal reflux disease (GERD) high blood pressure thyroid disease joint replacement arm Surgical History Surgery Date(Month/Year) hysterectomy 1983 breast biopsy 1988 deviated septum repair 1989 heel spur surgery, RT 1990 Plate w/ 7 screws rt elbow 1995 cataract removal 2000 detached retina pneumatic retinopexy, R 2002 virectomy with gas fluid exchange, R 200 3 recurrent detachment w/buckle R 2004 repair to elbow replacement 2004 rt arm tendon repair 2009 eyelid surgery 2009 RT open reduction internal f ixation of condyle of humerus; Poly exchange total eblow revision; triceps repair and synovectomy of rt elbow 2015 endovenous laser ablation Left 2018 sclerotherapy Left Leg 2018 marker left breast 2020 RT elbow Replacement 2000 anterior cervical fusion C5-6 C6-7 2010 PLIF L-45 2013 Hospitalization History Reason Date(Month/Year) see above
--- OUTSIDE RECORDS SUMMARY | 2025-02-10 15:20 | XMS_ITS | Clinical Summary ---
Author Organization [facility] Address [address] [place], [place] [address] Care Team Providers Care Business Applications Specialist Name Role Phone Shanna Ceja DO, Charles [...] tablet daily. 0 01/26/2007 Active Vit C-Vit L-Tyjldk-Ersvsd ls (OCUVITE LUTEIN) ORAL Cap Take one(1) tablet daily. 0 01/26/2007 Active [place]-3 Fatty Acids (FISH OIL) 500-100 mg ORAL [...] EDT) Glucose 103(H) 65 - 100 mg/dL [facility] BUN 15 8 - 25 mg/dL [facility] Creatinine 0.8 0.7 - 1.4 mg/dL [facility] Sodium 134 132 - 148 mmol/L [facility] Potassium 5.4(H) 3.5 - 5.0 mmol/L [facility] Chloride 98 98 - 110 mmol/L [facility] CO2 23 23 - 32 mmol/L [facility] Anion Gap 13 0 - 15 mmol/L [facility] Calcium 9.5 8.5 - 10.5 mg/dL [facility] Blood specimen (specimen) BLOOD SPECIMEN / Unknown 01/26/2007 12:26 PM EDT Aamir Salazar MD LABORATORY Final Result [facility] [address] [place] [address] from Last 3 Months or Most Recently Relevant to Health Maintenance Insurance MEDICARE BLUE CARD PPO OOS Care Teams Business Applications Specialist Relationship Specialty Start Date End Date Bigg Otero Jr., [facility] [place] [address] PCP - General 10/01/06
--- NOTE | 2025-02-10 15:31 | PM.CN ---
Consult Note: HPI Data of Consult Patient: known to practice within the last 3 years Consult date: 02/10/25 Requesting Physician: Zakia Claros NP Primary Care Provider: BART SCHULTZ DO Consult Narrative Reason for consult: cervical radiculopathy and low back pain Narrative: Hailey Cheng a pleasant 84 year old female presents for evaluation of cervical radiculopathy and low back pain. Patient has a longstanding hx of neck pain, low back pain, and generalized pain, had 3 falls without injury January 2024 and has had increased pain since, 1 fall in the last 6 months. Patient has had a C5-6 C6-7 fusion in 2013, also hx of right elbow replacement in 2000. Patient has been following with her PCP and has completed 6 weeks of PT without improvement for cervical radiculopathy, mild relief with baclofen 5mg HS PRN gabapentin 100mg AM, tylenol 500-1000mg daily, CBD oil, voltaren cream HS with mild improvement. recently underwent bilateral C5-6 TFESI with significant ongoing relief. as for low back she has a hx of L4-S1 fusion. she is noticing significant increase in low back pain over the last 6 months. not finding benefit to career coordinator and HEP. recent lumbar mri with results below. pain today 5/10 dull grabby increasing to 10/10 with twisting pushing pulling bending activity cc:: CC: Zakia Claros NP Review of Systems ROS Status of ROS 10 or more systems reviewed and unremarkable except as noted in history and below Musculoskeletal Reports: extremity pain; Denies: back pain or neck pain PFSH PFS Medical History (Updated 01/20/25 @ 10:56 by Zakia Claros NP) Deviated septum ?J34.2 - Deviated nasal septum (ICD-10) Osteoarthritis ?M19.90 - Unspecified osteoarthritis, unspecified site (ICD-10) Low back pain ?M54.50 - Low back pain, unspecified (ICD-10) Acid reflux ?K21.9 - Gastro-esophageal reflux disease without esophagitis (ICD-10) Hypothyroid ?E03.9 - Hypothyroidism, unspecified (ICD-10) Sleep apnea ?G47.30 - Sleep apnea, unspecified (ICD-10) Hypertension ?I10 - Essential (primary) hypertension (ICD-10) Cataract fragments in eye following surgery ?H59.029 - Cataract (lens) fragments in eye following cataract surgery, unspecified eye (ICD-10) Heel spur ?M77.30 - Calcaneal spur, unspecified foot (ICD-10) History of deviated nasal septum ?Z87.09 - Personal history of other diseases of the respiratory system (ICD-10) Surgical History (Updated 01/11/25 @ 14:16 by Malini Cox) H/O vein stripping ?Z98.890 - Other specified postprocedural states (ICD-10) H/O vitrectomy ?Z98.890 - Other specified postprocedural states (ICD-10) S/P sclerotherapy of varicose veins ?Z98.890 - Other specified postprocedural states (ICD-10) ?Z86.79 - Personal history of other diseases of the circulatory system (ICD-10) History of fusion of cervical spine ?Z98.1 - Arthrodesis status (ICD-10) History of lumbar surgery ?Z98.890 - Other specified postprocedural states (ICD-10) H/O elbow replacement ?Z96.629 - Presence of unspecified artificial elbow joint (ICD-10) H/O elbow surgery ?Z98.890 - Other specified postprocedural states (ICD-10) History of hysterectomy ?Z90.710 - Acquired absence of both cervix and uterus (ICD-10) Meds Home Medications and Allergies Home Medications ?Medication ?Instructions ?Recorded ?Confirmed ?Type buspirone 10 mg tablet 5 mg PO BID 01/08/24 01/10/25 History candesartan 32 mg tablet 32 mg PO DAILY 01/08/24 01/10/25 History carvedilol 6.25 mg tablet 6.25 mg PO Q12H 01/08/24 01/10/25 History levothyroxine 25 mcg tablet 25 mcg PO DAILY 01/08/24 01/10/25 History montelukast 10 mg tablet 10 mg PO DAILY 01/08/24 01/10/25 History CALCIUM D3 04/07/24 History CBD OIL 04/07/24 History EYE PROMISE 04/07/24 History Lactobacillus acidophilus 25 mmu cells PO DAILY 04/07/24 01/10/25 History VOLTAREN CREAM PRN pain 04/07/24 History acetaminophen 500 mg tablet 500 mg PO BID PRN pain 04/07/24 01/10/25 History (Tylenol Extra Strength) baclofen 10 mg tablet mg 04/07/24 History calcium 333 mg 1 tab PO DAILY 04/07/24 01/10/25 History (carbonate)-magnesium 133 mg-zinc 5 mg (sulfate) tablet famotidine 20 mg tablet mg 04/07/24 History fluticasone propionate 50 1 spray intranasal DAILY PRN 04/07/24 01/10/25 History mcg/actuation nasal allergy symptoms spray,suspension (24 Hour Allergy Relief) folic acid 1 mg tablet 1 mg PO BID 04/07/24 01/10/25 History gabapentin 100 mg capsule 100 mg PO DAILY 04/07/24 01/10/25 History melatonin 3 mg capsule 3 mg PO DAILY 04/07/24 01/10/25 History vitamin B complex (Vitamins B 1 cap PO DAILY 04/07/24 01/10/25 History Complex capsule) polyethylene glycol 3350 17 17 g PO BID 05/03/24 01/10/25 History gram/dose oral powder (ClearLax) Allergies Allergy/AdvReac Type Severity Reaction Status Date / Time citalopram (From Celexa) Allergy Mild Confusion Verified 01/10/25 10:26 duloxetine (From Cymbalta) Allergy Mild Confusion Verified 01/10/25 10:26 meperidine (From Demerol) Allergy Mild Unknown Verified 01/10/25 10:26 sertraline (From Zoloft) Allergy Mild Confusion Verified 01/10/25 10:26 Sulfa (Sulfonamide Allergy Mild Abdominal Verified 01/10/25 10:26 Antibiotics) Pain telmisartan (From Micardis) Allergy Mild Unknown Verified 01/10/25 10:26 tetracycline Allergy Mild Abdominal Verified 01/10/25 10:26 Pain venlafaxine (From Effexor) Allergy Mild Confusion Verified 01/10/25 10:26 Exam Constitutional Documenting provider has reviewed patient's vital signs: yes Common normals: no apparent distress, oriented x3, healthy appearing, alert and well nourished General appearance: cooperative [facility] Common normals: normocephalic, hearing grossly normal bilaterally and moist oral mucous membranes Head and scalp: normocephalic Eye Common normals: PERRL Pupil: PERRL Neck & C-Spine Common normals: full ROM General: normal visual inspection Cervical spine: pain with cervical ROM; no cervical spine tenderness, no paracervical muscle tenderness, no paracervical muscle spasm and no trapezius muscle tenderness Other: negative spurlings strength 5/5 in BUE Chest Common normals: inspection of chest normal Respiratory Common normals: normal respiratory effort, no retractions and no use of accessory muscles Back & Pelvis Lumbar spine/lower back: pain with ROM, lumbar spinal tenderness and straight leg raise negative bilaterally Sacroiliac joints: SI joint(s) abnormal Other: bilateral sij positive gabe(patricks), gaenslens, thigh thrust, compression test strength 4/5 in BLE decreased sensation bilateral l2,3,4 increased pain with standing/walking improves with forward flexion and sitting Extremity Common normals: normal to inspection and full ROM Other: bilateral elbows tender to touch, full ROM, no edema Neuro Common normals: oriented x3 Sensorium/orientation: alert Motor exam: no movement abnormalities noted Psych Common normals: mental status grossly normal, thought process normal, cooperative, affect normal, speech normal and activity/motor behavior normal Speech: normal speech Thought process: normal thought process Results Imaging lumbar MRI : Attestation: I have reviewed the pertinent imaging results. Radiologist's impression: FINDINGS: Posterior hardware fixation L4-S1 with associated blooming artifact limiting evaluation. Vertebral body heights appear maintained. No bone marrow edema is present. Spinal cord terminates in normal position without abnormal cord signal. No paraspinal mass. Visualized retroperitoneum demonstrates no acute findings. At L1-L2: Diffuse broad-based disc bulge is present with ligamentum flavum hypertrophy and facet joint degenerative changes causing moderate canal and severe bilateral neural foraminal stenosis. At L2-L3: 5 mm of retrolisthesis. Diffuse broad-based disc bulge is present with ligamentum flavum hypertrophy and facet joint degenerative changes causing severe canal and bilateral neural foraminal stenosis. At L3-L4: Diffuse broad-based disc bulge is present with ligamentum flavum hypertrophy and facet joint degenerative changes causing moderate canal and bilateral neural foraminal stenosis. At L4-L5: Postsurgical changes. No significant canal stenosis. At L5-S1: Postsurgical changes. No significant canal stenosis. Additional Findings Additional findings: If on a controlled substance or opioids, I have checked an [place] report on this patient and there are no aberrancies noted in the prescribing history.??If on a controlled substance or opioid a drug screen was completed and reviewed within the last year, and if there has not been a drug screen completed we ordered one today to monitor higher risk, state monitored pain medication use. As part of providing excellent, safe, comprehensive care, the following was completed at our patient's visit: 1. A medication reconciliation and review to ensure accurate knowledge of current/active medications, including asking our patients to inform us about any [id number] medications or herbal remedies/nutritional supplements/alternative remedies. 2. A review to specifically ensure our patients have had annual screening for screening for depression, screening for tobacco use, and screening for unhealthy alcohol use. For concerning screenings had a discussion with the patient, provided patient education, and recommended follow-up with primary care provider when appropriate. If patient noted with a risk of falling, they received education on strength, gait, and balance training to prevent future risk of falling. Portions of this note may have been carried over from the previous visit and updated as appropriate. Please note this office utilizes paper charting in addition to the electronic medical record. A list of current medications, vitals, and PMH is available there as the clinical staff outside of myself do not have access to [employer] charting during the clinic day operations. As part of providing quality comprehensive care the current medications, vitals, and PMH were reviewed in the paper chart. Assessment and Plan Assessment and Plan (1) Failed back syndrome: Assessment and Plan: The patient has had over 3 months of moderate to severe low back pain with functional impairment and inadequate response to conservative care including NSAIDS (unless there are contraindication such as concurrent blood thinners), multiple oral or topical pain medications, and home exercise program/physical therapy.? Patient has completed >6 weeks of guided home exercise program and/or formal physical therapy program without relief of their symptoms.? The Oswestry Disability Index was completed, and the patient scored a 8%.? (2) Lumbar stenosis with neurogenic claudication: (3) Bilateral sacroiliitis: (4) Cervical radiculopathy: Assessment and Plan: 01/10/25 bilateral C5-6 TFESI 80% improvement ongoing (5) Degenerative disc disease, cervical: (6) Cervical spondylosis: (7) Status post cervical spinal fusion: Plan lumbar MRI reviewed, proceed with bilateral L3-4 TFESI under fluoroscopy consider bilateral L2-3 TFESI continue medication management through PCP continue HEP as tolerated continue career coordinator PRN f/u 2 weeks after injection
== END 2025-02-10 15:16 | disposition home or self-care (01) ==
LOC: PM 15:15
PROVIDERS: PCP Internal Medicine; Visit Provider Nurse Practitioner
DX: M96.1 Postlaminectomy syndrome, not elsewhere classified (principal); M48.062 Spinal stenosis, lumbar region with neurogenic claudication; M46.1 Sacroiliitis, not elsewhere classified; M54.12 Radiculopathy, cervical region; M50.30 Other cervical disc degeneration, unspecified cervical region; M47.812 Spondylosis without myelopathy or radiculopathy, cervical region; M43.22 Fusion of spine, cervical region
CPT/HCPCS: G0463

== ENCOUNTER 2025-02-21 10:12 | Day surgery (SDC) | payer MEDICARE, SELFPAY ==
--- OUTSIDE RECORDS SUMMARY | 2025-02-17 13:00 | XMS_ITS | Encounter Summary ---
Author Organization [facility] Address [address] [place] [address] Care Team Providers Care Account Service Associate Name Role Phone Bigg Otero MD Primary Care Provider + [phone] Reason for Visit * Reason Comments Toenail Care Encounter Details Date Type Department Care Team ([facility] st Contact Info) Description 02/17/2025 1:00 PM EDT Office Visit [facility] [address] [facility] [address] [place] [address] Dexter Jim DPM [address] [facility] [address] [place] [address] Venous insufficiency (Primary Dx); Pain [...] edema. Discussed condition in detail. Recommendation for eavk-taa-fizvenx compression stockings at this time and may consider prescription stockings in the future. Dexter Jim DPM documented in this encounter Plan of Treatment Upcoming Encounters Date Type Department Care Team (Late st Contact Info) Description 03/01/2025 11:30 AM EDT Office Visit [facility] [address] [place] [address] [place] [address] Oneil Drew, DO [address] [facility] [place] [address] 07/14/2025 1:00 PM EST Procedure Visit [facility] [address] [facility] [address] [place] [phone] Dexter Jim DPM [address] [facility] [address] [place] [address] documented as of this encounter Visit Diagnoses Diagnosis Venous insufficiency- Primary Unspecified venous (peripheral) insufficiency Pain due to onychomycosis of toenails of both feet documented in this encounter Care Teams Account Service Associate Relationship Specialty Start Date End Date Bigg Otero MD [facility] [place] [address] PCP - General Internal Medicine 09/30/23 documented as of this encounter
--- OUTSIDE RECORDS SUMMARY | 2025-02-21 10:14 | XMS_ITS | Clinical Summary ---
Author Organization [facility] Address [address] [place], [place] [id number] Care Team Providers Care Cold Rolling Machine Setter Name Role Phone Shanna Ceja DO, Charles [...] tablet daily. 0 01/26/2007 Active Vit C-Vit C-Ayqzkf-Fxeilg ls (OCUVITE LUTEIN) ORAL Cap Take one(1) tablet daily. 0 01/26/2007 Active [place]-3 Fatty Acids (FISH OIL) 500-100 mg ORAL [...] EDT) Glucose 103(H) 65 - 100 mg/dL [facility] BUN 15 8 - 25 mg/dL [facility] Creatinine 0.8 0.7 - 1.4 mg/dL [facility] Sodium 134 132 - 148 mmol/L [facility] Potassium 5.4(H) 3.5 - 5.0 mmol/L [facility] Chloride 98 98 - 110 mmol/L [facility] CO2 23 23 - 32 mmol/L [facility] Anion Gap 13 0 - 15 mmol/L [facility] Calcium 9.5 8.5 - 10.5 mg/dL [facility] Blood specimen (specimen) BLOOD SPECIMEN / Unknown 01/26/2007 12:26 PM EDT Aamir Salazar MD LABORATORY Final Result [facility] [address] [place] [address] from Last 3 Months or Most Recently Relevant to Health Maintenance Insurance MEDICARE BLUE CARD PPO OOS Care Teams Cold Rolling Machine Setter Relationship Specialty Start Date End Date Bigg Otero Jr., [facility] [place] [address] PCP - General 10/01/06
--- OUTSIDE RECORDS SUMMARY | 2025-02-21 10:14 | XMS_ITS | Encounter Summary ---
Author Organization [facility] Address [address] [place] [address] Care Team Providers Care Saw Repairer Name Role Phone Bigg Otero MD Primary Care Provider [phone] Encounter Details Date Type Department Care Team (Late Contact Info) Description 02/17/2025 Bamboo flowsheet [facility] [address] [facility] [address] [place] [address] Dexter Jim DPM [address] [id number] Social History Tobacco Use Types Packs/Day Years Used Date Smoking Tobacco: Never Smokeless Tobacco: Never Comments Unknown Sex and Gender Information Value Date Recorded Sex Assigned at Not on file Legal Sex Female 7:36 PM EDT Gender Identity Not on file Sexual Orientation Not on file documented as of this encounter Plan of Treatment Upcoming Encounters Date Type Department Care Team (Late Contact Info) Description 03/01/2025 11:30 AM EDT Office Visit [facility] [address] [facility] [place] [address] Oneil Drew DO [address] [facility] [place] [address] 07/14/2025 1:00 PM EST Procedure Visit [facility] [address] [facility] [address] [place] [address] Dexter Jim DPM [address] [address] documented as of this encounter Visit Diagnoses Not on filedocumented in this encounter Care Teams Saw Repairer Relationship Specialty Start Date End Date Bigg Otero MD [facility] [place] [address] PCP - General Internal Medicine 09/30/23 documented as of this encounter
--- OUTSIDE RECORDS SUMMARY | 2025-02-21 10:14 | XMS_ITS | Encounter Summary ---
Author Organization [facility] Address [address] [place] [address] Care Team Providers Care Forestry Biology Specialist Name Role Phone Bigg Otero MD Primary Care Provider + [phone] Encounter Details Date Type Department Care Team (Latest Contact Info) Description 02/17/2025 Travel Social History Tobacco Use Types Packs/Day Years [...] Description 03/01/2025 11:30 AM EDT Office Visit [facility] [address] [facility] [place] [address] Oneil Drew DO [address] [facility] [address] [place], [place] [id number] 07/14/2025 1:00 PM EST Procedure Visit [facility] [address] [facility] 120 [place] [address] Dexter Jim, DPM [address] [facility] [address] [place] [address] documented as of this encounter Visit Diagnoses Not on filedocumented in this encounter Care Teams Forestry Biology Specialist Relationship Specialty Start Date End Date Bigg Otero MD [address] [place] [address] [place] [id number] PCP - General Internal Medicine 09/30/23 documented as of this encounter
--- OUTSIDE RECORDS SUMMARY | 2025-02-21 10:14 | XMS_ITS | Clinical Summary ---
Author Organization [facility] Address [address] [place] [address] Care Team Providers Care Unit Nurse Name Role Phone Bigg Otero MD Primary Care Provider [phone] Allergies Active Allergy Reactions Criticality Noted Date [...] 09/30/2023 GERD (gastroesophageal reflux disease) Depression 09/30/2023 Encounters Date Type Department Care Team Description 02/17/2025 1:00 PM EDT Office Visit [facility] [address] [facility] [address] [place] [phone] Dexter Jim DPM Venous insufficiency (Primary Dx); Pain due to onychomycosis of toenails of both feet 02/17/2025 Bamboo flowsheet [facility] [address] [facility] [address] [place] [phone] Dexter Jim DPM 02/17/2025 Travel from Last 3 Months Social History Tobacco Use Types Packs/Day Years [...] Mass Index 22.85 02/17/2025 1:13 PM EDT Plan of Treatment Upcoming Encounters Date Type Department Care Team (Late st Contact Info) Description 03/01/2025 11:30 AM EDT Office Visit [facility] [address] [facility] [place] [phone] Oneil Drew DO [address] [place] [address] 07/14/2025 1:00 PM EST Procedure Visit [facility] [address] [facility] 120 [place] [address] Dexter Jim, DPM [address] [facility] [address] [place] [address] Health Maintenance Due Date Last Done Comments Pneumococcal Vaccine: 65+ Ye ars (2 of 2 - PCV) 03/23/2015 03/23/2014 Influenza Vaccine (#1) 2025 04/18/2023, 2008 Insurance [employer] Care Teams Unit Nurse Relationship Specialty Start Date End Date Bigg Otero MD [facility] [place] [address] PCP - General Internal Medicine 09/30/23
--- OUTSIDE RECORDS SUMMARY | 2025-02-21 10:14 | XMS_ITS | Clinical Summary ---
Author Organization [facility] Address [address] [facility], [address] [place] [address] Care Team Providers Care Surgical Services Manager Name Role Phone Bigg Otero Primary Care Provider + [phone] Allergies Active Allergy Reactions Criticality Noted Date [...] Modality Hip, C-spine, T-spine, L-spine O ther [facility] Historical Provider IMG DEXA ORDERABLES Elaine l Result from Last 3 Months or Most Recently Relevant to Health Maintenance Insurance [employer] MED[employer]ARE [facility] Advance Directives Documents on File Type Date Recorded Patient Death Surveys Coder Expl anation ACP-Power of Professor Of French 06/17/2018 5:06 PM [facility] P[facility] [place] 06/25/18 Care Teams Surgical Services Manager Relationship Specialty Start Date End Date Bigg Otero DO [address] [place] [phone] PCP - General Internal Medicine 09/09/17
--- OUTSIDE RECORDS SUMMARY | 2025-02-21 10:23 | XMS_ITS | CCD ---
Author Organization [facility] Care Team Providers Care Supervisor Dental Laboratory Name Role Phone Bigg Schultz Primary Care Provider BIGG SCHULTZ JR Primary Care Physician [phone] MARION, DR ARRIAGA Primary Care Unavailable VALONE, DR ARRIAGA Admitting Unavailable VALONE, DR ARRIAGA Attending Unavailable VALONE, DR ARRIAGA Primary Care Unavailable VALONE, DR ARRIAGA Admitting Unavailable VALONE, DR ARRIAGA Attending Unavailable VALONE, DR ARRIAGA Consulting Unavailable VALONE, DR ARRIAGA Primary Care Unavailable VALONE, DR ARRIAGA Admitting Unavailable VALONE, DR ARRIAGA Attending Unavailable VALONE, DR ARRIAGA Consulting Unavailable ZieberBrady Consulting Unavailable MISC, DR FAIRCHILD Attending Unavailable MISC, DR FAIRCHILD Admitting Unavailable VALONE, DR RARIAGA Primary Care Unavailable Bigg Schultz MD Primary Care Provider Brenda MESA, Rhoda Cervantes Attending Unavailable Brenda MESA, Rhoda Cervantes Attending Unavailable Lyle CARRENO Attending Unavailable PASQUALE, Lyle Feldman Attending Unavailable Lyle CARRENO Attending Unavailable Lyle CARRENO Attending Unavailable AALIYAH DREW Attending Unavailable DEXTER JIM Attending Unavailable Allergies Allergy Classification Reported Allergen(s) Allergy Type Date of Onset Reaction(s) Facility (1 source) Meperidine Drug Allergy 01-27-20 07 [facility] (7 sources) Risedronate Drug Allergy 03-10-20 08 [facility] (1 source) Sertraline Drug Allergy 01-27-20 07 [facility] (1 source) Sulfonamides (Antibiotic) Propensity to adverse reactions 01-27-20 07 [facility] (7 sources) Tetracycline; Translations: [tetracycline] Drug Allergy 01-27-20 Unknown (qualifier value) [facility] (7 sources) venlafaxine Drug Allergy 01-27-20 07 [facility] (12 sources) Citalopram; Translations: [citalopram] Drug Allergy 09-12-19 18 Unknown (qualifier value) [facility] (6 sources) DULoxetine; Translations: [duloxetine] Drug Allergy Unknown (qualifier value) [facility] (12 sources) Meperidine; Translations: [meperidine] Drug Allergy 01-27-20 07 Unknown (qualifier value) [facility] (12 sources) Sertraline; Translations: [sertraline] Drug Allergy 01-27-20 07 Unknown (qualifier value) [facility] (6 sources) Sulfonamides (Antibiotic); Translations: [sulfa drugs] Drug allergy Unknown (qualifier value) [facility] (6 sources) telmisartan; Translations: [telmisartan] Drug Allergy Unknown (qualifier value) [facility] (6 sources) venlafaxine; Translations: [venlafaxine] Drug Allergy Unknown (qualifier value) [facility] (1 source) Citalopram Drug Allergy [facility] (1 source) DULoxetine Drug Allergy 01-25-20 15 [facility] (1 source) Meperidine Drug Allergy 11-30-19 13 [facility] (1 source) Sertraline Drug Allergy 11-30-19 13 [facility] (1 source) Sulfonamides (Antibiotic) Drug allergy (disorder) 11-30-19 13 [facility] (1 source) telmisartan Drug Allergy 11-30-19 13 [facility] (1 source) Tetracycline Drug Allergy 11-30-19 13 [facility] (1 source) venlafaxine Drug Allergy 11-30-19 13 [facility] (6 sources) Azithromycin Drug Allergy 09-12-19 18 [facility] (6 sources) DULoxetine Drug Allergy 09-12-19 18 [facility] (6 sources) Meperidine Drug Allergy 09-30-19 24 [facility] (6 sources) Omeprazole Drug Allergy 09-30-19 24 [facility] (6 sources) Sulfamethoxazole / Trimethoprim Drug Allergy 09-30-19 24 [facility] (6 sources) Sulfonamides (Antibiotic) Drug Intolerance 01-27-20 07 [facility] (6 sources) Telmisartan Propensity to adverse reactions 09-12-19 18 [facility] (6 sources) Tetracycline (class of antibiotic) Drug Intolerance 01-27-20 07 [facility] Medications Current Medications Medication Drug Class(es) Dates Sig (Normalized) Sig (Original) baclofen 10 mg oral tablet (11 sources) gamma-Aminobutyric Acid-ergic Agonist Start: 10-01-2021 baclofen 10 mg Tab Refills(s) 0 Start Date: 10/01/21 Status: Ordered Repeat number: 1 busPIRone hydrochloride 10 mg oral tablet (11 sources) Start: 10-01-2021 busPIRone 10 mg Tab Refills(s) 0 Start Date: 10/01/21 Status: Ordered Repeat number: 1 calcium carbonate 1500 mg oral tablet (6 sources) calcium carbonat e 1500 (600 Ca) MG tablet every 12 (twelve) hours Active candesartan cilexetil 32 mg oral tablet (11 sources) Angiotensin 2 Receptor Kenney Start: 10-01-2021 candesartan 32 mg Tab Refills(s) 0 Start Date: 10/01/21 Status: Ordered Repeat number: 1 carvedilol 6.25 mg oral tablet (11 sources) alpha-Adrenergic Kenney, beta-Adrenergic Kenney Start: 10-01-2021 [...] day(s), # 10 cap(s), Refills(s) 0, Pharmacy: [facility]/pharmacy #[id number], 165, cm, 01/31/25 12:15:00 EDT, [...] 1, Daily as needed for vaginal irritation, [facility]/pharmacy #[id number], 165, cm, 10/10/23 10:56:00 EDT, Height/Length Dosing, 55, kg, 10/10/23 10:56:00 EDT, Weight Dosing Start Date: 10/10/23 Status: Ordered Quantity: 45.0 Unit: g Repeat number: 2 estrogens, conjugated (retirement) 0.625 mg/ml vaginal cream (10 sources) Estrogen Start: 12-08-2024 Premarin Vaginal 0.625 [...] number: 1 gabapentin 100 mg oral capsule (11 sources) Anti-epileptic Agent Start: 10-01-2021 gabapenti n 100 mg Cap Refills(s) 0 Start Date: 10/01/21 Status: Ordered Repeat number: 1 levothyroxine sodium 0.025 mg oral tablet (11 sources) l-Thyroxine Start: 10-01-2021 levothyroxine 25 mcg (0.025 mg) Tab Refills(s) 0 Start Date: 10/01/21 Status: Ordered Start: 10-01-2021 levothyroxine 25 mcg (0.025 mg) Tab Refills(s) 0 Start Date: 10/01/21 Status: Ordered Repeat number: 1 montelukast 10 mg oral tablet (11 sources) Leukotriene Receptor Antagonist Start: 10-01-2021 montelukast [...] 04/10/20 12:12:00 EDT, Weight Dosing Start Date: 2/23/21 Status: Ordered Completed/Discontinued Medications Medication Drug Class(es) [...] Disorder of rectum 10-04-2022 Episodic Esophageal disorders (6 sources) Gastroesophageal reflux disease; Translations: [Gastro-esophageal reflux disease without esophagitis] Onset: 09-30-2023 09-30-2023 Chronic Essential hypertension (15 sources) Hypertensive disorder; Translations: [Essential (primary) hypertension] Onset: 06-17-2022 08-26-2019 Chronic Genitourinary symptoms and ill-defined conditions (11 sources) Overflow incontinence of urine; Translations: [Urge incontinence of urine] Onset: 10-10-2023 09-06-2019 Chronic Genitourinary symptoms and ill-defined conditions (15 sources) Nocturia; Translations: [Poor stream of urine] 10-06-2020 Episodic Mood disorders (6 sources) Depressive disorder; Translations: [Depression] Onset: 09-30-2023 09-30-2023 Chronic Mycoses (2 sources) Pain in toe; Translations: [Tinea unguium] 02-17-2025 Episodic Osteoarthritis (5 sources) Osteoarthritis 08-26-2019 Chronic Other [...] urethral stricture, female] Onset: 10-10-2023 Episodic Other diseases of veins and lymphatics (2 sources) Vascular insufficiency; Translations: [Venous insufficiency (chronic) (peripheral)] 02-17-2025 Episodic Other endocrine disorders (1 source) Disorder [...] UNSPECIFIED; Translations: [LOW BACK PAIN, UNSPECIFIED] Onset: 06-30-2022 Urinary tract infections (10 sources) Chronic cystitis; [...] RIGHT SHOULDER] Onset: 11-22-2021 Episodic Thyroid disorders (6 sources) Disorder of thyroid gland; Translations: [Disorder [...] Tight The Urethra was dilated to: 20-30 Stateless with sounds. Specimens Removed: None Postoperative Information [...] [facility] [address] [place] [address] [phone] Additional Instructions: 6 mos for IO UD [...] Tab carvedil (more content not included)... Normal [facility] Comment on above: Result Comment: Elec tronically Signed By: Lyle CARRENO MD\.br\Date and Time Signed: 01/31/25 12:36 EDT\.br\Electronically Co-Signed By: Magalis Chávez\Date and Time Co-Signed: 01/31/25 12:35 EDT Ambulatory [...] Lyle CARRENO MD Where: [facility] [address] [place] [address]- You Need to Schedule the Following Appointments Follow Up with Lyle CARRENO MD, BLAYNE When: Where: [facility] [address], [place] [address]- Medications What How Much When Instructions Unchanged [...] tip o (more content not included)... Normal [facility] Urology Office/Clinic Noteon 09-24-2024 Urology Office/Clinic [...] Tight The Urethra was dilated to: 20-32 Stateless with sounds. Specimens Removed: None Postoperative Information [...] [facility] [address], [place] [address]- Additional Instructions: 6 mo UD Patient Education [...] (Unknown) E (more content not included)... Normal [facility] Comment on above: Result Comment: Elec tronically Signed By: Lyle CARRENO MD\.br\Date and Time Signed: 09/24/24 13:12 EDT\.br\Electronically Co-Signed By: Katey Barraza\.br\Date and Time Co-Signed: 09/24/24 13:11 EDT Ambulatory Visit Summaryon 1 07-24-2023 Ambulatory Visit Summary Ambulatory Visit Summary LELA CHENG :1940 Visit Date:05/24/2024 Ambulatory Visit Instructions Your [...] Lyle CARRENO MD [facility] [address] [place] [address]- You Need to Schedule the Following Appointments Follow Up with PASQUALE MESA, BLAYNE Gallego When: Comments: 6 mos for UD Where: [facility] [address], [place] [address]- [phone] Someone Will Contact You Regarding These Appointments [facility] [place] Referral, Other (needs to be [...] Urethral dilati (more content not included)... Normal [facility] Urology Office/Clinic Noteon 05-24-2024 Urology Office/Clinic [...] Tight The Urethra was dilated to: 22-30 Stateless with sounds. Specimens Removed: None Postoperative Information [...] of pessary and risks/benefits. Recommended referral to DAYCARE PROVIDER to discuss this. Pt wishes to proceed. -Referral to DAYCARE PROVIDER 4. OAB (overactive bladder) (N32.81: Overactive bladder) See #3. 5. Rectocele (N81.6: Rectocele) Grade 2. [2] 6. 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 3cm L -Referral to DAYCARE PROVIDER Follow-up With When Contact Information Lyle ACRRENO MD, URL [facility] [address] [place] [address]- [phone] Additional Instructions: 6 mos for UD Patient [...] Urinary urg (more content not included)... Normal [facility] Comment on above: Result Comment: Elec tronically Signed By: Lyle CARRENO MD\.br\Date and Time Signed: 05/24/24 10:13 EST\.br\Electronically Co-Signed By: Magalis Chávez\.br\Date and Time Co-Signed: 05/24/24 10:11 EST MG MAMM SCREEN ROSANGELA W CADon 0 11-11-2022 MG MAMM SCREEN ROSANGELA W CAD Patient: LELA CHENG Exam Date: 11/11/2022 : 1940 Gender:F Ordering : DR BIGG SCHULTZ D.O. Admission #: [id number] Family : Order #: [id number] CLICK HERE TO VIEW EXAM RADIOLOGY REPORT [...] lung cancer at age 53. LOCATION: [facility] BREAST COMPOSITION: Heterogeneously dense,which may obscure [...] Harry M.D. on 11/11/2022 at 13:50 Normal [facility] ELECTROLYTESon 06-17-2022 Anion gap [Moles/Vol] 10.9 mmol/L Normal [facility] Comment on above: Performed By: #### E LEC, TSH #### [facility] [address] [place] [address] Dr. Lillian Hurley Chloride [Moles/Vol] 92 mmol/L Critically low 98-107 [facility] Comment on above: Performed By: #### E LEC, TSH #### [facility] [address] [address] [address] Lillian Hurley CO2 [Moles/Vol] 30.4 mmol/L Normal 21.0-32.0 [facility] Comment on above: Performed By: #### E LEC, TSH #### [facility] [address] [address] [address] Lillian Hurley Potassium [Moles/Vol] 4.3 mmol/L Normal 3.5-5.1 [facility] Comment on above: Performed By: #### E LEC, TSH #### [facility] [address] [address] [address] Lillian Hurley Sodium [Moles/Vol] 129 mmol/L Critically low 136-145 [facility] Comment on above: Performed By: #### E LEC, TSH #### [facility] [address] [place] [address] Dr. Lillian Hurley TSHon 06-17-2022 TSH 0.675 uIU/mL Normal 0.358-3.740 [facility] Comment on above: Performed By: #### E LEC, TSH #### [facility] [address] [place] [address] Dr. Lillian Castro 12-22-2000 CONVERTED ELECTRONIC SIGNATURE GEN HENDRIX M.D., PATHOLOGIST (Electronic signature on file) Final Signed Out: 12/22/2000 14:36 [facility] CONVERTED FINAL DIAGNOSIS BONE, RIGHT ELBOW, EXCISION - SEGMENTS OF OSSEOUS TISSUE WITH CHANGES CONSISTENT WITH CHANGES OF DEGENERATIVE OSTEOARTHROPATHY. REACTIVE SYNOVIUM WITH FOCAL OLD HEMORRHAGE. [facility] CONVERTED ORDERING PROVIDER Ordering Provider: JOSE ALMONTE [facility] Vital Signs Date Time Vital Sign Value Performing Clinician Facility 02-17-2025 13:13-0400 Body height 160 cm Dexter Jim DPM Work Phone: [facility] 02-17-2025 13:13-0400 Body mass index (BMI) [Ratio] 22.85 kg/m2 Dexter Jim DPM Work Phone: [facility] 02-17-2025 13:13-0400 Body weight 58.51 kg Dexter Jim DPM Work Phone: [facility] 02-17-2025 13:13-0400 Respiratory rate 16 /min Dexter Jim DPM Work Phone: [facility] 08-11-2024 13:54-0500 Body mass index (BMI) [Ratio] 24.03 kg/m2 Aaliyah Rajendra DO Work Phone: [facility] 08-11-2024 13:54-0500 Body weight 62.51 kg Aaliyah Rajendra DO Work Phone: [facility] 08-11-2024 13:54-0500 Diastolic blood pressure 70 mm[Hg] Aaliyah Rajendra DO Work Phone: [facility] 08-11-2024 13:54-0500 Systolic blood pressure 128 mm[Hg] Aaliyah Rajendra DO Work Phone: [facility] 05-24-2024 09:38-0500 Blood Pressure Location Lyle CARREON [facility] 05-24-2024 09:38-0500 Body temperature 98.42 [degF] Lyle CARRENO [facility] 05-24-2024 09:38-0500 Diastolic blood pressure 66 mm[Hg] Lyle CARRENO [facility] 05-24-2024 09:38-0500 Heart rate 67 /min Lyle CARRENO [facility] 05-24-2024 09:38-0500 Respiratory rate 18 /min Lylelexi CARRENO [facility] 05-24-2024 09:38-0500 Systolic blood pressure 108 mm[Hg] Lyle CARRENO [facility] 10-10-2023 10:54-0400 Blood Pressure Location Lylelexi CARRENO [facility] 10-10-2023 10:54-0400 Diastolic blood pressure 79 mm[Hg] Lylelexi CARRENO [facility] 10-10-2023 10:54-0400 Heart rate 73 /min Lyle CARRENO [facility] 10-10-2023 10:54-0400 Respiratory rate 16 /min Lyle CARRENO [facility] 10-10-2023 10:54-0400 Systolic blood pressure 127 mm[Hg] Lyle CARRENO [facility] 10-04-2022 10:17-0400 Blood Pressure Location Lylelexi CARRENO [facility] 10-04-2022 10:17-0400 Diastolic blood pressure 71 mm[Hg] Lyle CARRENO [facility] 10-04-2022 10:17-0400 Heart rate 60 /min Lyle CARRENO [facility] 10-04-2022 10:17-0400 Respiratory rate 16 /min Lyle CARRENO [facility] 10-04-2022 10:17-0400 Systolic blood pressure 125 mm[Hg] Lyle CARRENO [facility] Encounters Encounter Date Encounter Type Care Provider Facility Start: 08-08-2025 ambulatory Lyle CARRENO Facili ty:[facility] Start: 02-17-2025 End: 02-17-2025 Bamboo flowsheet Dexter Jim DPM Work Phone: [facility] Start: 02-17-2025 End: 02-17-2025 Bamlathao flowsheet Dexter Jim DPM Work Phone: [facility] Start: 02-17-2025 End: 02-17-2025 Office outpatient visit 15 minutes Dexter Jim DPM Work Phone: [facility] Comment on above: Venous insufficiency (Primary Dx); Pain due to onychomycosis of toenails of both feet Start: 02-17-2025 End: 02-17-2025 ambulatory DEXTER JIM Not Available Start: 01-31-2025 End: 01-31-2025 ambulatory Lyle CARRENO Facility:[facility] Start: 01-31-2025 End: 01-31-2025 Patient encounter procedure Lyle CARRENO [facility] Start: 01-10-2025 End: 01-10-2025 ambulatory Rhoda Gutierrez MD Facility:[facility] Start: 09-24-2024 End: 09-24-2024 ambulatory Lyle CARRENO Facility:[facility] Start: 08-11-2024 End: 08-11-2024 Bamboo flowsheet Aaliyah [...] Start: 05-24-2024 End: 05-24-2024 ambulatory Lyle CARRENO Facility:[facility] Start: 05-24-2024 End: 05-24-2024 Patient encounter procedure Lyle CARRENO [facility] Start: 05-03-2024 End: 05-03-2024 ambulatory Rhoda Gutierrez MD Facility:[facility] Start: 10-10-2023 End: 10-10-2023 Patient encounter procedure Lyle CARRENO [facility] Start: 11-11-2022 End: 11-12-[address] BIGG SCHULTZ Facility: Start: 10-04-2022 End: 10-04-2022 Patient encounter procedure Lyle CARRENO [facility] Start: 06-17-2022 End: 06-18-[address] BIGG SCHULTZ Facility:[facility] Start: 01-03-2022 End: 01-31-[address] BIGG SCHULTZ Facility:[facility] Start: 11-22-2021 End: 12-15-[address] DOCTOR COREAS Facility:[facility] Start: 10-01-2021 End: 10-01-2021 Patient encounter procedure Lylelexi CARRENO [facility] Start: 12-16-1920 End: 12-16-1920 Patient encounter procedure Jose Almonte Work Phone: [facility] Start: 12-16-1920 Results Only Jose Almonte Work Phone: [facility] Procedures Date Procedure Procedure Detail Performing [...] 09-10-2016 Cystourethroscopy wi dilation of urethral stricture Lylelexi CARRENO Start: 01-19-2016 Dilation of urethra Pat lexi CARRENO Start: 07-21-2015 Dilation of urethra Pat lexi CARRENO Start: 07-18-2014 Dilation of urethra Pat lexi CARRENO Start: 12-27-2013 Dilation of urethra Rosa CARRENO Start: 07-14-2013 Procedure on neck Patri pernell CARRENO Start: 06-11-2013 Dilation of urethra Rosa CARRENO Start: 08-07-2009 Dilation of urethra Rosa CARRENO Start: 09-04-2006 Cystourethroscopy [facility] dilation of urethral stricture Lyle CARRENO Start: [...] fasciectomy Lyle CARRENO Procedure on elbow Lyle Banerjee ATELUCI Procedure on retina Lyle CARRENO Repair of single tendon Rosar katerin CARRENO Plan of Treatment Date Care Activity Detail Author Start: 03-07-2025 Influenza vaccination Influenza Vacc ine (#1) [facility] Start: 03-01-2025 End: 03-01-2025 Patient encounter procedure 03/01/2025 11:30 AM EDT Office Visit [facility] [place] [facility] [address] [place] [address] Aaliyah Drew, DO [address] [place] [address] [facility] Start: 03-07-2024 Influenza vaccination Influenza Vacc ine (#1) [facility] Start: 03-07-2020 Influenza vaccination INFLUENZA (#1) [facility] Start: 03-23-2015 Pneumococcal Vaccine : 65+ Years (2 of 2 - PCV) Pneumococcal Vaccine: 65+ Years (2 of 2 - PCV) [facility] Start: 01-26-2010 DIABETES SCREEN DIABETES SCREEN [facility] Start: 2003 ADVANCE DIRECTIVE DISCUSSION ADVANCE DIRECTIVE DISCUSSION [facility] Start: 2003 BONE DENSITY BONE DENSITY [facility] Start: 2003 PNEUMOVAX AGE 65 AND OVER WITH 5YR LOOKBACK (#1) PNEUMOVAX AGE 65 AND OVER WITH 5YR LOOKBACK (#1) [facility] Start: 1988 SHINGRIX VACCINE (1 of 2) SHINGRIX VACCINE (1 of 2) [facility] Start: 1957 Urine microalbumin profile DTAP,TDAP,TD (1 - Tdap) [facility] Immunizations Immunization Date Immunization Notes Care Provider Fa cility 04-18-2023 influenza virus vacc ine, unspecified formulation Lyle CARRENO [facility] 03-29-2022 SARS-CoV-2 (COVID-19 ) [id number] Lyle CARRENO [facility] Comment on above: Result Comment: 2023: [id number] 11-02-2021 SARS-CoV-2 mRNA (izblugswosa-poyk-wkuiil e) vaccine Lyle CARRENO [facility] Comment on above: Result Comment: 2023: [id number] 04-16-2021 SARS-CoV-2 (COVID-19 ) mRNA BNT-162b2 vax Llye CARRENO [facility] Comment on above: Result Comment: 2023: [id number] 08-23-2020 SARS-CoV-2 (COVID-19 ) mRNA BNT-162b2 vax Lyle CARRENO [facility] 07-31-2020 SARS-CoV-2 (COVID-19 ) mRNA BNT-162b2 vax Lyle CARRENO [facility] Comment on above: Result Comment: 2nd dose given 08/23/2020 07-23-2018 zoster vaccine recombinant Lyle CARRENO [facility] 11-28-2017 zoster vaccine recombinant Lyle CARRENO [facility] 03-23-2014 pneumococcal polysaccharide vaccine, 23 valent Lyle PASQUALE [facility] 05-05-2013 zoster vaccine, live Lyle CARRENO [facility] 04-25-2009 influenza, whole Lyle KATERIN CARBALLO [facility] Payers Date Payer Category Payer Medicare (Managed Care) [employer] [id number] 2023 Medicare 1961 Medicare [id number] 1961 Medicare [id number] 1940 Unknown [id number] [id number]. 593 1940 Unknown [id number] 2.16.840.1.121133.3.579.2. 593 1940 Unknown [id number] 2.16.840.1.063133.3.579.2. 593 1940 Unknown [id number] 2.16.840.1.102784.3.579.2. 593 1940 Unknown [id number] 2.16.840.1.420443.3.579.2. 196 1940 Unknown [id number] 2.16.840.1.241909.3.579.2. 196 1940 Unknown [id number] 2.16.840.1.325162.3.579.2. 727 1940 Unknown [id number] 2.16.840.1.898213.3.579.2. 727 1940 Unknown [id number] 2.16.840.1.161470.3.579.2. 727 1940 Unknown [id number] 2.16.840.1.360750.3.579.2. 727 1940 Unknown [id number] 2.16.840.1.811637.3.579.2. 1259 1940 Unknown [id number] 2.16.840.1.363052.3.579.2. 1259 Social History Date Type Detail [facility] Start: 1940 Sex Assigned At Not on file [facility] Start: 09-06-2019 End: 09-30-2023 Tobacco smoking status Never smoked tobacco (finding) [facility] Start: 09-30-2023 Sex Assigned At Female [facility] Tobacco smoking status Never [facility] Start: 09-30-2023 Tobacco use and exposure Smoke less tobacco non-user [facility] Start: 09-30-2023 History of Social function [facility] Sexual Orientation [facility] Start: 02-09-2019 Sex Female (finding) [facility] Functional Status Date Assessment Result Facility 05-24-2024 Functional Status N/A [facility] 10-10-2023 Functional Status N/A [facility] 10-04-2022 Functional Status N/A [facility] Clinical Notes 10-01-2021 to 02-17-2025 Dexter Jim DPM - 02/17/2025 1:00 PM Tara Drew DO - 08/11/2024 1:30 PM EST Note Date & Type Note Facility 02-17-2025 History of Presen t illness Narrative Patient: Lela Cheng : 1940 PCP: Bigg Schultz MD SUBJECTIVE This is a 84 y.o. [...] have tried no treatments for the condition. States swelling worstens with prolonged standing activities. Allergies: Allergies [...] edema. Discussed condition in detail. Recommendation for tqhf-qba-diwtrdh compression stockings at this time and may consider prescription stockings in the future. Dexter Jim DPM documented in this encounter [facility] 01-31-2025 Hospital Discharg e instructions Patient Education [...] Treatment for this condition includes: Antibiotic medicine. Usyh-xow-qcdyqgp medicines to treat discomfort. Drinking enough water [...] Follow these instructions at home: Medicines Take oyyd-dft-erysitf and prescription medicines only as told by [...] provider. Document Revised: 01/28/2021 Document Reviewed: 02/02/2021 [employer] Patient Education 2023 [employer]. Follow Up Care 09/24/2024 13:22:42 With:PASQUALE MESA, Lyle Feldman, URL Address: [facility] [address] , [place] [place] [address]- [phone] When: Unknown Comments:6 mos for IO UD [facility] 01-31-2025 Note Patient Education Obstetrics and Gynecology [...] this condition includes: ??? Antibiotic medicine. ??? Ydjl-xxj-ogoewxq medicines to treat discomfort. ??? Drinking enough [...] these instructions at home: Medicines ??? Take ixhv-sdu-qtyozra and prescription medicines only as told by [...] sure you di (more content not included)... [facility] 09-24-2024 Note Patient Education Urology Urethral [...] including vitamins, herbs, eye drops, creams, and ntix-yug-mkakyie medicines. ??? Any problems you or family [...] your provider tells you to. ??? Taking glwz-uwx-atxhyra medicines, vitamins, herbs, and supplements. General instructions [...] these instructions at home: Medicines ??? Take fyuf-uqs-lavgmiz and prescription medicines only as told by [...] to prevent or treat constipation: ? Take gizb-pvt-kujsdzh or prescription medicines. ? Eat foods that [...] soft tube (catheter) (more content not included)... [facility] 08-11-2024 History of Presen t illness [...] Ambulatory Problems Diagnosis Date Noted Thyroid disease ([facility]) 09/30/2023 HTN (hypertension) ([facility]) 09/30/2023 GERD (gastroesophageal reflux disease) 09/30/2023 Depression ([facility]) 09/30/2023 Resolved Ambulatory Problems Diagnosis Date Noted [...] nursing note reviewed. Exam conducted with a hospital pharmacy director present. Vitals: Estimated body mass index is 24.03 kg/m as calculated from the following: Height as of 02/22/19: 5' 3.5 . Weight as of this encounter: 137 lb 12.8 oz. BP: 128/70 No LMP recorded. Assessment/Plan Encounter Diagnosis: ICD-10-CM 1. Encounter for fitting and adjustment of pessary Z46.[address] georgiana pt refusing pessary at this time, all options reviewed including conservative mgmt Documented by Aaliyah Drew DO on behalf of: Aaliyah Drew DO documented in this encounter [facility] 05-24-2024 Hospital Discharg e instructions Patient Education [...] including vitamins, herbs, eye drops, creams, and halm-iso-gqfphzx medicines. Any problems you or family members [...] unless your provider tells you to. Taking lcfi-gve-lkfxpdb medicines, vitamins, herbs, and supplements. General instructions [...] Follow these instructions at home: Medicines Take pduf-vha-wmmitfz and prescription medicines only as told by [...] actions to prevent or treat constipation: ?Take zntx-ypj-omggfxj or prescription medicines. ?Eat foods that are [...] provider. Document Revised: 04/17/2023 Document Reviewed: 04/17/2023 [employer] Patient Education 2023 [employer]. Follow Up Care 10/10/2023 11:32:21 With:PASQUALE MESA, Lyle Feldman, URL Address: [facility] [address] [place] [address] [phone] When: Unknown Comments:6 mos for [facility] Fred 05-24-2024 Note Patient Education Urology Urethral [...] including vitamins, herbs, eye drops, creams, and hgaa-rhx-qjehbcv medicines. ??? Any problems you or family [...] your provider tells you to. ??? Taking qmhg-ebj-zdxyxtw medicines, vitamins, herbs, and supplements. General instructions [...] these instructions at home: Medicines ??? Take ohxo-nqf-htujjbz and prescription medicines only as told by [...] to prevent or treat constipation: ? Take qzmo-lzj-tkiovrf or prescription medicines. ? Eat foods that [...] soft tube (catheter) (more content not included)... [facility] 10-10-2023 Hospital Discharg e instructions Patient [...] reconstructed. Follow these instructions at home: Take ibep-neu-acltwbr and prescription medicines only as told by [...] provider. Document Revised: 04/30/2022 Document Reviewed: 04/30/2022 [employer] Patient Education 2022 [employer]. Follow Up Care 10/04/2022 10:57:38 With:PASQUALE MESA, Lyle Feldman, URL Address: [address] [place] [address] When: Unknown [facility] 10-04-2022 Hospital Discharg e instructions Patient Education [...] including vitamins, herbs, eye drops, creams, and qcqu-owf-udsjuzs medicines. Any problems you or family members [...] provider tells you to take them. Taking cnoh-zqh-lbxdyvr medicines, vitamins, herbs, and supplements. General instructions [...] Follow these instructions at home: Medicines Take wqbn-fpn-yikjcty and prescription medicines only as told by [...] actions to prevent or treat constipation: ?Take izdx-jik-crffkvz or prescription medicines. ?Eat foods that are [...] 07/19/2016 Document Revised: 08/05/2019 Document Reviewed: 08/05/2019 [employer] Patient Education 2020 [employer]. Follow Up Care 10/01/2021 13:26:16 With:PASQUALE MESA, Lyle Feldman, URL Address: [address] [place] [address]- When: Unknown [facility] Fred 10-01-2021 Hospital Discharg e instructions Patient [...] reconstructed. Follow these instructions at home: Take gffa-blp-toaipta and prescription medicines only as told by [...] 07/19/2016 Document Revised: 02/03/2019 Document Reviewed: 02/03/2019 [employer] Patient Education 2020 [employer]. [facility] Evaluation + Plan note Future Appointments Appointment Date:10/04/2022 09:45:00 AM Scheduled Provider:Lyle CARRENO MD Location:[facility] Appointment Type:URO Office Visit [facility] Evaluation + Plan note Future Appointments Appointment Date:10/10/2023 10:15:00 AM Scheduled Provider:Lyle CARRENO MD Location:[facility] Appointment Type:URO Office Visit [facility] Evaluation + Plan note Future Appointments Appointment Date:05/03/2024 09:15:00 AM Scheduled Provider:Lyle CARRENO MD Location:[facility] Appointment Type:URO Office Visit [facility] Evaluation + Plan note Future Appointments Appointment Date:11/22/2024 10:30:00 AM Scheduled Provider:Lyle CARRENO MD Location:[facility] Appointment Type:URO Procedure 15 min [facility] Evaluation + Plan note Future Appointments Appointment Date:08/08/2025 11:15:00 AM Scheduled Provider:Lyle CARRENO MD Location:[facility] Appointment Type:URO Office Visit [facility] Evaluation note Diagnosis Encounter for fitting and adjustment of pessary [facility] Diagnosis Venous insufficiency- Primary Unspecified venous (peripheral) insufficiency Pain due to onychomycosis of toenails of both feet [facility] Narrative No data available for this section [facility] progress note No data available for this section [facility] reason for referral (narrative) Referred by: Lyle CARRENO MD Referred by: Lyle CARRENO MD [facility] Summary Purpose Family History No Family History [...] or prosecute any alcohol or drug abuse patient.[facility] Patient Care team informatio n (unrecognized section and content) Supervisor Dental Laboratory Relationship Specialty Start Date End Date Bigg Schultz MD [address] [place] [id number] PCP - General Internal Medicine 09/30/23 Supervisor Dental Laboratory Relationship Specialty Start Date End Date Bigg Schultz MD [address] [place] [id number] PCP - General Internal Medicine 09/30/23 Supervisor Dental Laboratory Relationship Specialty Start Date End Date Bigg Schultz MD [address] [place] [id number] PCP - General Internal Medicine 09/30/23 Supervisor Dental Laboratory Relationship Specialty Start Date End Date Bigg Schultz MD [address] [place] [address] PCP - General Internal Medicine 09/30/23 INFORMATION SOURCE (unrecogn ized section and content) DATE CREATED AUTHOR 11/15/2022 [facility] DATE CREATED AUTHOR AUTHOR'S ORGANIZ ATION 01/22/[address] [facility] DATE CREATED AUTHOR AUTHOR'S ORGANIZ ATION 02/01/2025 [facility] DATE CREATED AUTHOR AUTHOR'S ORGANIZ ATION 02/19/2025 [facility] EPIC Reason for Visit (unrecogniz ed section and content) Reason Comments pessary fitting Reason Comments Toen[facility] Care FOR RECORDS PERTAINING TO PATIENTS WHO ARE [...] BE BASED ON THE PRIMARY CLINICAL RECORDS. [employer] provides no warranty or guarantee of the accuracy or completeness of information in this document.
[2025-02-21 10:38] VITALS: BP 172/77; PULSE 71; TEMP 36.3; O2SAT 98
[2025-02-21 11:26] VITALS: BP 191/84; BP 199/95; PULSE 76; O2SAT 98
[2025-02-21] MEDS: 0.9 % SODIUM CHLORIDE 10 ML SYRINGE - SALINE FLUSH INJ (11:29)
[2025-02-21] MEDS: BUPIVACAINE HCL 0.25% PF 25 MG/10 ML VIAL INJ (11:29)
[2025-02-21] MEDS: LIDOCAINE HCL 2% 400 MG/20 ML MDV 5 ML INJ (11:29)
[2025-02-21] MEDS: IOHEXOL 240 MG/ML - 10 ML VIAL INJ (11:29)
[2025-02-21] MEDS: DEXAMETHASONE SOD PHOS 10 MG/ML VIAL INJ (11:30)
--- NOTE | 2025-02-21 11:30 | W.PM.PROCNOT ---
Date of procedure: 02/21/25 Pre-op diagnosis: Pain due to lumbar stenosis with neurogenic claudication Post-op diagnosis: same as pre-op Procedure: Procedure: Bilateral L3-4 transforaminal epidural steroid injection Medications: Bupivacaine 0.25% 2cc, lidocaine 2% 1cc, dexamethasone 10mg The patient was seen and examined in the preoperative holding area.? Informed consent was obtained and placed on the chart.? Patient was brought to the medical procedure unit and placed in the prone position where a timeout was completed verifying the correct patient, procedure site, position, and planned special equipment using sterile aseptic technique.? Under direct fluoroscopic visualization a 25-gauge Quincke tipped spinal needle was advanced at level left L3-4 to the designated neural foramen where contrast dye was injected to show adequate spread.? There was no evidence of vascular or adverse uptake.? Epidural spread was appreciated.? The above-mentioned injectate was then placed in a 1.5 mL aliquot preceded by negative aspiration.? The needle was removed. The same procedure, at the same level, was completed on the opposite side. ? Patient was taken to the postprocedural recovery area and monitored for an appropriate length of time before found suitable for discharge in the accompaniment of a responsible adult. Anesthesia: Local Surgeon: Rhoda Gutierrez Pathology: none sent Condition: stable Disposition: no change
== END 2025-02-21 11:36 | disposition home or self-care (01) ==
LOC: SURGOUT 10:12
PROVIDERS: PCP Internal Medicine; Visit Provider Anesthesiology
DX: M48.062 Spinal stenosis, lumbar region with neurogenic claudication (principal); M54.50 Low back pain, unspecified
CPT/HCPCS: 64483; J0665; J1100; Q9966

== ENCOUNTER 2025-03-03 11:12 | Outpatient (OUT) | payer MEDICARE, SELFPAY ==
--- OUTSIDE RECORDS SUMMARY | 2025-02-17 13:00 | XMS_ITS | Encounter Summary ---
Author Organization [facility] Address [address] [place] [address] Care Team Providers Care Yeast Washer Name Role Phone Bigg Otero MD Primary Care Provider + [phone] Reason for Visit * Reason Comments Toenail Care Encounter Details Date Type Department Care Team ([facility] st Contact Info) Description 02/17/2025 1:00 PM EDT [facility] Visit [facility] [address] [facility] [address] [place] [address] Dexter Jim DPM [address] [facility] [address] [place] [address] Venous insufficiency (Primary Dx); Pain due to onychomycosis of toenails of both feet Social History Tobacco Use Types Packs/Day Years Used Date Smoking Tobacco: Never Smokeless Tobacco: Never Tobacco Cessation:Counseling Given: Yes Comments Unknown Sex and Gender Information Value Date Recorded Sex Assigned at Not on file Legal Sex Female 7:36 PM EDT Gender Identity Not on file Sexual Orientation Not on file documented as of this encounter Last Filed Vital Signs Vital Sign Reading Time Taken Comments Blood Pressure - - Pulse - - Temperature - - Respiratory Rate 16 02/17/2025 1:13 PM EDT Oxygen Saturation - - Inhaled Oxygen Concentration - - Weight 58.5 kg (129 lb) 02/17/2025 1:13 PM EDT Height 160 cm (5' 3 ) 02/17/2025 1:13 PM EDT Body Mass Index 22.85 02/17/2025 1:13 PM EDT documented in this encounter Progress Notes * Dexter Jim DPM - 02/17/2025 1:00 PM EDT Patient: Hailey Cheng : 1940 PCP: Bigg Otero MD SUBJECTIVE This is a 84 y.o. female that presents today with a CC of elongated, thick nails. Pt states nails have been elongated and thick for many years and cause pain with ambulation in shoegear. Pt has tried previous treatment with minimal relief. Pt presents today for nail care and treatment. Pt also presents today for secondary complaint of swelling to b/l ankle regions and feet. They state that condition is starting to worsten have tried no treatments for the condition. Statesswelling worstens with prolonged standing activities. Allergies: Allergies Allergen Reactions Azithromycin Citalopram Other Reaction(s): Unknown Duloxetine Hcl Other Reaction(s): Unknown Meperidine Meperidine Hcl Other Reaction(s): Unknown Omeprazole Other Reaction(s): GI upset w diarrhea Risedronate Sodium cramps Sertraline Other Reaction(s): Unknown Sulfa Antibiotics Other Reaction(s): Unknown Sulfamethoxazole-Trimethoprim Other Reaction(s): Unknown Telmisartan Other Reaction(s): Unknown Tetracyclines & Related Other Reaction(s): Unknown Venlafaxine Hcl Past Medical History: Past Medical History: Diagnosis Date Depression GERD (gastroesophageal reflux disease) HTN (hypertension) Thyroid disease Medications: Current Outpatient Medications: baclofen (Lioresal) 10 MG tablet, Take 10 mg by mouth every 8 (eight) hours if needed, Disp: , Rfl: busPIRone (Buspar) 10 MG tablet, Take 10 mg by mouth in the morning and 10 mg before bedtime., Disp: , Rfl: calcium carbonate 1500 (600 Ca) MG tablet, every 12 (twelve) hours, Disp: , Rfl: candesartan (Atacand) 32 MG tablet, 1 (one) time each day at the same time, Disp: , Rfl: carvedilol (Coreg) 6.25 MG tablet, every 12 (twelve) hours, Disp: , Rfl: gabapentin (Neurontin) 100 MG capsule, Take 100 capsules by mouth, Disp: , Rfl: levothyroxine (Synthroid, Levoxyl) 25 MCG tablet, Take 25 mcg by mouth Daily, Disp: , Rfl: montelukast (Singulair) 10 MG tablet, 1 (one) time each day at the same time, Disp: , Rfl: Premarin 0.625 MG/GM cream, as directed Vaginal, Disp: , Rfl: Social History: Social History Socioeconomic History Marital status: Spouse name: Not on file Number of children: Not on file Years of education: Not on file Highest education level: Not on file Occupational History Not on file Tobacco Use Smoking status: Never Smokeless tobacco: Never Substance and Sexual Activity Alcohol use: Not on file Drug use: Not on file Sexual activity: Not on file Other Topics Concern Not on file Social History Narrative Not on file Social Drivers of Health Financial Resource Strain: Not on file Food Insecurity: Not on file Transportation Needs: Not on file Physical Activity: Not on file Stress: Not on file Social Connections: Not on file Intimate Partner Violence: Not on file Housing Stability: Not on file ROS: Gastrointestinal: denies abdominal pain, ulcers, or changes in appetite or bowel habits Musculoskeletal: positive hx of arthritis, loss of strength, with positive history of back pain Cardiovascular: denies CP, palpitations, irregular rhythms OBJECTIVE LE EXAM: DERM: Elongated thick yellow crumbly nails digits 1 through 10. diminishedhair growth b/l feet. +1 pitting edema noted to bilateral ankles Vascular: Negative DP and positive PT pedal pulses NEURO: Gross sensation intact to bilateral feet ORTHO: Positive pain on palpation to toenails of the left 1,2,3,4,5 toes and right 1,2,3,4,5 toes ASSESSMENT 1. Venous insufficiency 2. Pain due to onychomycosis of toenails of both feet PLAN Discussed proper foot care with patient today. Debride nails in length and thickness digits 1 through 10 Visit spent with patient education on condition and treatment of condition. Pt to continue with elevation of feet while resting or NWB. Discussed compression hose and the use of stockings for edema. Discussed condition in detail. Recommendation for [id number] compression stockings at this time and may consider prescription stockings in the future. Dexter Jim DPM documented in this encounter Plan of Treatment Upcoming Encounters Date Type Department Care Team (Late st Contact Info) Description 03/16/2025 11:30 AM EDT Procedure Visit [facility] [address] [place] [address] [place] [phone] Katiana Falcon PA [address] [facility] [place] [address] 07/14/2025 1:00 PM EST Procedure Visit [facility] [address] [facility] [address] [place] [phone] Dexter Jim DPM [address] [facility] [address] [place] [address] documented as of this encounter Visit Diagnoses Diagnosis Venous insufficiency- Primary Unspecified venous (peripheral) insufficiency Pain due to onychomycosis of toenails of both feet documented in this encounter Care Teams Yeast Washer Relationship Specialty Start Date End Date Bigg Otero MD [facility] [place] [address] PCP - General Internal Medicine 09/30/23 documented as of this encounter
--- OUTSIDE RECORDS SUMMARY | 2025-03-01 11:30 | XMS_ITS | Encounter Summary ---
Author Organization [facility] Address [address] [place] [address] Care Team Providers Care Framework Developer Name Role Phone Bigg Otero MD Primary Care Provider + [phone] Reason for Visit * Reason Comments Pessary fitting Encounter Details Date Type Department Care Team (Late st Contact Info) Description 03/01/2025 11:30 AM EDT Office Visit [facility] [address] [facility] [place] [address] Oneil Drew DO [address] [facility] [address] [place], [facility] Fitting and adjustment of pessary Social History Tobacco Use Types Packs/Day Years Used Date Smoking Tobacco: Never Smokeless Tobacco: Never Comments Unknown Sex and Gender Information Value Date Recorded Sex Assigned at Not on file Legal Sex Female 7:36 PM EDT Gender Identity Not on file Sexual Orientation Not on file documented as of this encounter Progress Notes * KIRA Holder - 03/01/2025 11:30 AM EDT Reason for Appointment: Patient ID: Hailey Cheng is a 84 y.o. female who presents for Pessary fitting Patient presents today for Acute Visit. MEDICATIONS Current Outpatient Medications Medication Instructions baclofen (LIORESAL) 10 mg, Every 8 hours PRN busPIRone (BUSPAR) 10 mg, 2 times daily calcium carbonate 1500 (600 Ca) MG tablet Every 12 hours candesartan (Atacand) 32 MG tablet Every 24 hours carvedilol (Coreg) 6.25 MG tablet Every 12 hours CRANBERRY-D MANNOSE PO Take by mouth Cranberry-Vitamin C-Inulin (UTI-Stat) liquid Take by mouth gabapentin (Neurontin) 100 MG capsule 100 capsules levothyroxine (SYNTHROID, LEVOXYL) 25 mcg, Daily montelukast (Singulair) 10 MG tablet Every 24 hours Premarin 0.625 MG/GM cream as directed Vaginal ALLERGIES Allergies Allergen Reactions Azithromycin Citalopram Other Reaction(s): Unknown Duloxetine Hcl Other Reaction(s): Unknown Meperidine Meperidine Hcl Other Reaction(s): Unknown Omeprazole Other Reaction(s): GI upset w diarrhea Risedronate Sodium cramps Sertraline Other Reaction(s): Unknown Sulfa Antibiotics Other Reaction(s): Unknown Sulfamethoxazole-Trimethoprim Other Reaction(s): Unknown Telmisartan Other Reaction(s): Unknown Tetracyclines & Related Other Reaction(s): Unknown Venlafaxine Hcl PROBLEMS Active Ambulatory Problems Diagnosis Date Noted Thyroid disease 09/30/2023 HTN (hypertension) 09/30/2023 GERD (gastroesophageal reflux disease) 09/30/2023 Depression 09/30/2023 Resolved Ambulatory Problems Diagnosis Date Noted No Resolved Ambulatory Problems No Additional Past Medical History HISTORY PAST MEDICAL HISTORY SOCIAL HISTORY Past Medical History: Diagnosis Date Depression GERD (gastroesophageal reflux disease) HTN (hypertension) Thyroid disease Social History Tobacco Use Smoking status: Never Smokeless tobacco: Never Substance Use Topics Alcohol use: Not on file Drug use: Not on file FAMILY HISTORY No family history on file. SURGICAL HISTORY Past Surgical History: Procedure Laterality Date CERVICAL FUSION ELBOW SURGERY Right HEEL SPUR SURGERY Right HYSTERECTOMY NASAL SEPTUM SURGERY N/A REVIEW OF SYSTEMS Review of Systems: Review of Systems Constitutional: Negative. HENT: Negative. Eyes: Negative. Respiratory: Negative. Cardiovascular: Negative. Gastrointestinal: Negative. Genitourinary: Negative. Musculoskeletal: Negative. Skin: Negative. Neurological: Negative. All other systems reviewed and are negative. Hematological: Negative. Endocrine: Negative. Allergic/Immunologic: Negative. OBJECTIVE Objective: Physical Exam Constitutional: Appearance: Normal appearance. Genitourinary: Right Adnexa: not tender and no mass present. Left Adnexa: not tender and no mass present. Cervix is absent. No cervical discharge. Uterus is absent. Breasts: Breasts are soft. Right: Normal. Left: Normal. HENT: Head: Normocephalic. Nose: Nose normal. Mouth/Throat: Mouth: Mucous membranes are moist. Cardiovascular: Rate and Rhythm: Normal rate. Pulmonary: Effort: Pulmonary effort is normal. Abdominal: General: Bowel sounds are normal. Palpations: Abdomen is soft. Musculoskeletal: General: Normal range of motion. Cervical back: Normal range of motion. Neurological: General: No focal deficit present. Mental Status: She is alert. Skin: General: Skin is warm and dry. Psychiatric: Mood and Affect: Mood normal. Vitals and nursing note reviewed. Exam conducted with a harbor pilot present. Vitals: Estimated body mass index is 22.85 kg/m?? as calculated from the following: Height as of 02/17/25: 5' 3 . Weight as of 02/17/25: 129 lb. BP: No LMP recorded. ASSESSMENT & PLAN ICD-10-CM 1. Fitting and adjustment of pessary Z46.89 Patient presents for possible pesary fitting. Pt fitted for ring #4. She will return in one month for cleaning and follow up Documented by KIRA Holder on behalf of: Oneil Drew DO documented in this encounter Plan of Treatment Upcoming Encounters Date Type Department Care Team (Late st Contact Info) Description 03/16/2025 11:30 AM EDT Procedure Visit [facility] [address] [place] [address] Katiana Falcon PA [address] [facility] [address] [place] [address] 07/14/2025 1:00 PM EST Procedure Visit [facility] [address] [facility] 120 [place] [address] Dexter Jim DPM [address] [facility] 5 [place] [address] documented as of this encounter Visit Diagnoses Diagnosis Fitting and adjustment of pessary documented in this encounter Care Teams Framework Developer Relationship Specialty Start Date End Date Bigg Otero MD [facility] [place] [address] PCP - General Internal Medicine 09/30/23 documented as of this encounter
--- OUTSIDE RECORDS SUMMARY | 2025-03-03 11:15 | XMS_ITS | Clinical Summary ---
Author Organization [facility] Address [address] [place] [address] Care Team Providers Care Systems Technologist Name Role Phone Bigg Otero MD Primary [...] Take 25 mcg by mouth Daily Active Cranberry-Vitam in C-Inulin (UTI-Stat) liquid Take by mouth Active CRANBERRY-D MANNOSE PO Take by mouth Activ e Active Problems Problem Noted Date Diagnosed Date Thyroid disease 09/30/2023 HTN (hypertension) 09/30/2023 GERD (gastroesophageal reflux disease) Depression 09/30/2023 Encounters Date Type Department Care Team Description 03/01/2025 11:30 AM EDT Office Visit [facility] [address] [place] [phone] Oneil Drew DO Fitting and adjustment of pessary 03/01/2025 Bamboo flowsheet [facility] [address] [facility] [place] [address] Oneil Drew DO 02/17/2025 1:00 PM EDT Office Visit [facility] [address] [facility] 120 [place] [address] Dexter Jim DPM Venous insufficiency (Primary Dx); Pain due to onychomycosis of toenails of both feet 02/17/2025 Bamboo flowsheet [facility] [address] [facility] 120 [place] [address] Dexter Jim DPM 02/17/2025 Travel from Last [...] 11:30 AM EDT Procedure Visit [facility] [address] [facility] [place] [address] Katiana Falcon PA [address] [place] [address] 07/14/2025 1:00 PM EST Procedure Visit [facility] [address] [facility] 120 [place] [address] Dexter Jim, DPM [address] [facility] 5 [place] [address] Health Maintenance Due Date Last Done Comments Pneumococcal Vaccine: 65+ Ye ars (2 of 2 - PCV) 03/23/2015 03/23/2014 Influenza Vaccine (#1) 2025 04/18/2023, 2008 Insurance [employer]ARE Care Teams Systems Technologist Relationship Specialty Start Date End Date Bigg Otero MD [address] [place] [address] [place] [address] PCP - General Internal Medicine 09/30/23
--- OUTSIDE RECORDS SUMMARY | 2025-03-03 11:15 | XMS_ITS | Encounter Summary ---
Author Organization [facility] Address [address] [facility], [address] [place] [address] Care Team Providers Care Mobile Sales Assistant Name Role Phone Bigg Otero DO Primary Care Provider + [phone] Encounter Details Date Type Department Care Team (Late st Contact Info) Description 09/09/2017 Orders Only [facility] [address] [place] [address] Gregg Jacob MD Lumbar spondylosis Social History [...] myelopathy documented in this encounter Care Teams Mobile Sales Assistant Relationship Specialty Start Date End Date Bigg Otero DO [facility] [place] [address] PCP - General Internal Medicine 09/09/17 documented as of this encounter
--- OUTSIDE RECORDS SUMMARY | 2025-03-03 11:15 | XMS_ITS | Encounter Summary ---
Author Organization [facility] Address [address] [place] [address] Care Team Providers Care Molded Goods Spot Picker Name Role Phone Bigg Otero MD Primary Care Provider + [phone] Encounter Details Date Type Department Care Team [...] EDT Procedure Visit [facility] [address] [facility] [place] [address] Katiana Falcon PA [address] [facility] [address] [place], [place] [id number] 07/14/2025 1:00 PM EST Procedure Visit [facility] [address] [facility] 120 [place] [address] Dexter Jim DPDanika [address] [facility] 5 [place] [address] documented as of this encounter Visit Diagnoses Not on filedocumented in this encounter Care Teams Molded Goods Spot Picker Relationship Specialty Start Date End Date Bigg Otero MD [address] [place] [address] [place] [id number] PCP - General Internal Medicine 09/30/23 documented as of this encounter
--- OUTSIDE RECORDS SUMMARY | 2025-03-03 11:15 | XMS_ITS | Encounter Summary ---
Author Organization [facility] Address [address] [place] [address] Care Team Providers Care Yardage Caller Name Role Phone Bigg Otero MD Primary Care Provider [phone] Encounter Details Date Type Department Care Team (Late Contact Info) Description 03/01/2025 Bamboo flowsheet [facility] [address] [facility] [place] [address] Oneil Drew DO [address] [facility] [place] [address] Social History Tobacco Use Types Packs/Day Years [...] Department Care Team (Late Contact Info) Description 03/16/2025 11:30 AM EDT Procedure Visit [facility] [address] [facility] [place] [address] Katiana Falcon PA [address] [facility] [place] [address] 07/14/2025 1:00 PM EST Procedure Visit [facility] [address] [facility] 120 [place] [address] Dexter Jim DPM [address] [facility] 5 [place] [address] documented as of this encounter Visit Diagnoses Not on filedocumented in this encounter Care Teams Yardage Caller Relationship Specialty Start Date End Date Bigg Otero MD [address] [place] [id number] PCP - General Internal Medicine 09/30/23 documented as of this encounter
--- OUTSIDE RECORDS SUMMARY | 2025-03-03 11:15 | XMS_ITS | Encounter Summary ---
Author Organization [facility] Address [address] [place] [address] Care Team Providers Care Electroformer Name Role Phone Bigg Otero MD Primary Care Provider [phone] Encounter Details Date Type Department Care Team (Late Contact Info) Description 02/17/2025 Bamboo flowsheet [facility] [address] [facility] [address] [place] [address] Dexter Jim DPM [address] [address] Social History Tobacco Use Types Packs/Day Years [...] 03/16/2025 11:30 AM EDT Procedure Visit [facility] [address] [place] [address] Katiana Falcon PA [address] [facility] [place] [address] 07/14/2025 1:00 PM EST Procedure Visit [facility] [address] [facility] [address] [place] [address] Dexter Jim DPM [address] [address] documented as of this encounter Visit Diagnoses Not on filedocumented in this encounter Care Teams Electroformer Relationship Specialty Start Date End Date Bigg Otero MD [facility] [place] [phone] PCP - General Internal Medicine 09/30/23 documented as of this encounter
--- OUTSIDE RECORDS SUMMARY | 2025-03-03 11:15 | XMS_ITS | Clinical Summary ---
Author Organization [facility] Address [address] [facility], [address] [place] [address] Care Team Providers Care Director Case Management Name Role Phone Bigg Otero Primary Care Provider + [phone] Allergies Active Allergy Reactions Criticality Noted Date [...] Modality Hip, C-spine, T-spine, L-spine [facility] Historical Provider IMG DEXA ORDERABLES Elaine l Result from Last 3 Months or Most Recently Relevant to Health Maintenance Insurance [employer] MEDICARE [facility] Advance Directives Documents on File Type Date Recorded 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
--- OUTSIDE RECORDS SUMMARY | 2025-03-03 11:22 | XMS_ITS | CCD ---
Author Organization [facility] Care Team Providers Care Data Management Consultant Name Role Phone Bigg Schultz Primary Care Provider BIGG SHCULTZ JR Primary Care Physician [phone] MARION, DR ARRIAGA Primary Care Unavailable VALONE, DR ARRIAGA Admitting Unavailable VALONE, DR ARRIAGA Attending Unavailable VALONE, DR ARRIAGA Primary Care Unavailable VALONE, DR ARRIAAG Admitting Unavailable VALONE, DR ARRIAGA Attending Unavailable VALONE, DR ARRIAGA Consulting Unavailable VALONE, DR ARRIAGA Primary Care Unavailable VALONE, DR ARRIAGA Admitting Unavailable VALONE, DR ARRIAGA Attending Unavailable VALONE, DR ARRIAGA Consulting Unavailable ZieberBrady Consulting Unavailable MISC, DR FAIRCHILD Attending Unavailable MISC, DR FAIRCHILD Admitting Unavailable ANDRAONE, DR ARRIAGA Primary Care Unavailable Bigg Schultz MD Primary Care Provider [phone] Lyle CARRENO Attending Unavailable Lyle CARRENO Attending Unavailable Lyle CARRENO Attending Unavailable Lyle CARRENO Attending Unavailable Brenda MESA, Rhoda Cervantes Attending Unavailable Brenda MESA, Rhoda Cervantes Attending Unavailable Brenda MESA, Rhoda Cervantes Attending Unavailable AALIYAH DREW Attending Unavailable DEXTER JIM Attending Unavailable AALIYAH DREW Attending Unavailable Allergies Allergy Classification Reported Allergen(s) Allergy Type Date of Onset Reaction(s) Facility (1 source) Meperidine Drug Allergy 01-27-20 07 [facility] (10 sources) Risedronate Drug Allergy 03-10-20 08 [facility] (1 source) Sertraline Drug Allergy 01-27-20 07 [facility] (1 source) Sulfonamides (Antibiotic) Propensity to adverse reactions 01-27-20 07 [facility] (7 sources) Tetracycline; Translations: [tetracycline] Drug Allergy 01-27-20 07 Unknown (qualifier value) [facility] (10 sources) venlafaxine Drug Allergy 01-27-20 07 [facility] (15 sources) Citalopram; Translations: [citalopram] Drug Allergy 09-12-19 18 Unknown (qualifier value) [facility] (6 sources) DULoxetine; Translations: [duloxetine] Drug Allergy Unknown (qualifier value) [facility] (15 sources) Meperidine; Translations: [meperidine] Drug Allergy 01-27-20 07 Unknown (qualifier value) [facility] (15 sources) Sertraline; Translations: [sertraline] Drug Allergy 01-27-20 07 Unknown (qualifier value) [facility] (6 sources) Sulfonamides (Antibiotic); Translations: [sulfa drugs] Drug allergy Unknown (qualifier value) [facility] (6 sources) telmisartan; Translations: [telmisartan] Drug Allergy Unknown (qualifier value) [facility] (6 sources) venlafaxine; Translations: [venlafaxine] Drug Allergy Unknown (qualifier value) [facility] (1 source) Citalopram Drug Allergy [facility] (1 source) DULoxetine Drug Allergy 01-25-20 15 [facility] (1 source) Meperidine Drug Allergy 11-30-19 13 [facility] (1 source) Sertraline Drug Allergy 11-30-19 13 [facility] (1 source) Sulfonamides (Antibiotic) Drug allergy (disorder) 11-30-19 13 [facility] (1 source) telmisartan Drug Allergy 11-30-19 13 [facility] (1 source) Tetracycline Drug Allergy 11-30-19 13 [facility] (1 source) venlafaxine Drug Allergy 11-30-19 13 [facility] (9 sources) Azithromycin Drug Allergy 09-12-19 18 [facility] (9 sources) DULoxetine Drug Allergy 09-12-19 18 [facility] (9 sources) Meperidine Drug Allergy 09-30-19 24 [facility] (9 sources) Omeprazole Drug Allergy 09-30-19 24 [facility] (9 sources) Sulfamethoxazole / Trimethoprim Drug Allergy 09-30-19 24 [facility] (9 sources) Sulfonamides (Antibiotic) Drug Intolerance 01-27-20 07 [facility] (9 sources) Telmisartan Propensity to adverse reactions 09-12-19 18 [facility] (9 sources) Tetracycline (class of antibiotic) Drug Intolerance 01-27-20 07 [facility] Medications Current Medications Medication Drug Class(es) Dates Sig (Normalized) Sig (Original) baclofen 10 mg oral tablet (14 sources) gamma-Aminobutyric Acid-ergic Agonist Start: 10-01-2021 baclofen 10 mg Tab Refills(s) 0 Start Date: 10/01/21 Status: Ordered Repeat number: 1 busPIRone hydrochloride 10 mg oral tablet (14 sources) Start: 10-01-2021 busPIRone 10 mg Tab Refills(s) 0 Start Date: 10/01/21 Status: Ordered Repeat number: 1 calcium carbonate 1500 mg oral tablet (9 sources) calcium carbonat e 1500 (600 Ca) MG tablet every 12 (twelve) hours Active candesartan cilexetil 32 mg oral tablet (14 sources) Angiotensin 2 Receptor Kenney Start: 10-01-2021 candesartan 32 mg Tab Refills(s) 0 Start Date: 10/01/21 Status: Ordered Repeat number: 1 carvedilol 6.25 mg oral tablet (14 sources) alpha-Adrenergic Kenney, beta-Adrenergic Kenney Start: 10-01-2021 [...] day(s), # 10 cap(s), Refills(s) 0, Pharmacy: [facility]/pharmacy #[id number], 165, cm, 01/31/25 12:15:00 [...] 1, Daily as needed for vaginal irritation, [facility]/pharmacy #[id number], 165, cm, 10/10/23 10:56:00 EDT, Height/Length Dosing, 55, kg, 10/10/23 10:56:00 EDT, Weight Dosing Start Date: 10/10/23 Status: Ordered Quantity: 45.0 Unit: g Repeat number: 2 CRANBERRY-D MANNOSE PO (2 sources) CRANBERRY-D ESCALANTE OSE PO Take by mouth Active Cranberry-Vitamin C-Inulin (UTI-Stat) liquid (2 sources) Cranberry-Vitami n C-Inulin (UTI-Stat) liquid Take by mouth Active estrogens, conjugated (nursing home) 0.625 mg/ml vaginal cream (13 sources) Estrogen Start: 12-08-2024 Premarin Vaginal 0.625 [...] number: 1 gabapentin 100 mg oral capsule (14 sources) Anti-epileptic Agent Start: 10-01-2021 gabapenti n 100 mg Cap Refills(s) 0 Start Date: 10/01/21 Status: Ordered Repeat number: 1 levothyroxine sodium 0.025 mg oral tablet (14 sources) l-Thyroxine Start: 10-01-2021 levothyroxine 25 mcg (0.025 mg) Tab Refills(s) 0 Start Date: 10/01/21 Status: Ordered Start: 10-01-2021 levothyroxine 25 mcg (0.025 mg) Tab Refills(s) 0 Start Date: 10/01/21 Status: Ordered Repeat number: 1 montelukast 10 mg oral tablet (14 sources) Leukotriene Receptor Antagonist Start: 10-01-2021 montelukast [...] Disorder of rectum 10-04-2022 Episodic Esophageal disorders (9 sources) Gastroesophageal reflux disease; Translations: [Gastro-esophageal reflux disease without esophagitis] Onset: 09-30-2023 09-30-2023 Chronic Essential hypertension (18 sources) Hypertensive disorder; Translations: [Essential (primary) hypertension] Onset: 06-17-2022 08-26-2019 Chronic Genitourinary symptoms and ill-defined conditions (11 sources) Overflow incontinence of urine; Translations: [Urge incontinence of urine] Onset: 10-10-2023 09-06-2019 Chronic Genitourinary symptoms and ill-defined conditions (15 sources) Nocturia; Translations: [Poor stream of urine] 10-06-2020 Episodic Mood disorders (9 sources) Depressive disorder; Translations: [Depression] Onset: 09-30-2023 [...] fitting of prostheses; and adjustment of devices (4 sources) Patient encounter status; Translations: [Encounter for [...] RIGHT SHOULDER] Onset: 11-22-2021 Episodic Thyroid disorders (9 sources) Disorder of thyroid gland; Translations: [Disorder [...] Tight The Urethra was dilated to: 20-30 Sudanese with sounds. Specimens Removed: None Postoperative Information [...] Lyle Feldman, URL [facility] [address] [place] [address] [phone] Additional Instructions: 6 mos for IO UD [...] Tab carvedil (more content not included)... Normal [facility] Comment on above: Result Comment: Elec tronically [...] Lyle CARRENO MD Where: [facility] [address] [place] [address]- You Need to Schedule the Following Appointments Follow Up with Lyle CARRENO MD, URL When: Where: [facility] [address], [place] [address]- Medications What How Much When Instructions Unchanged [...] tip o (more content not included)... Normal [facility] Urology Office/Clinic Noteon 09-24-2024 Urology Office/Clinic Note [...] Tight The Urethra was dilated to: 20-32 Sudanese with sounds. Specimens Removed: None Postoperative Information [...] [facility] [address] [place] [place] [address]- Additional Instructions: 6 mo UD Patient Education Urethral Dilation Katey Serrato, personally scribed for Dr. Carreno on 09/24/2024 12:57:17. . Documentation recorded by the scribeKatey, accurately reflects the services(s) I performed and [...] (Unknown) E (more content not included)... Normal [facility] Comment on above: Result Comment: Elec tronically [...] Lyle CARRENO MD [facility] [address] [place] [address]- You Need to Schedule the Following Appointments Follow Up with Lyle CARRENO MD, URL When: Comments: 6 mos for UD Where: [facility] [address], [facility] [place] [address] [phone] Someone Will Contact You Regarding These Appointments [facility] External Ambulatory Referral, Other (needs to be [...] Urethral dilati (more content not included)... Normal [facility] Urology Office/Clinic Noteon 05-24-2024 Urology Office/Clinic Note [...] Tight The Urethra was dilated to: 22-30 Sudanese with sounds. Specimens Removed: None Postoperative Information [...] of pessary and risks/benefits. Recommended referral to MANAGER PIPELINE to discuss this. Pt wishes to proceed. -Referral to MANAGER PIPELINE 4. OAB (overactive bladder) (N32.81: Overactive bladder) See #3. 5. Rectocele (N81.6: Rectocele) Grade 2. [2] 6. 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 3cm L -Referral to MANAGER PIPELINE Follow-up With When Contact Information Lyle CARRENO MD, L [facility] [address], [place] [address] [phone] Additional Instructions: 6 mos for UD Patient [...] Urinary urg (more content not included)... Normal [facility] Comment on above: Result Comment: Elec tronically Signed By: Lyle CARRENO MD\.br\Date and Time Signed: 05/24/24 10:13 EST\.br\Electronically Co-Signed By: Magalis Chávez\.br\Date and Time Co-Signed: 05/24/24 10:11 EST MG MAMM SCREEN ROSANGELA W CADon 0 11-11-2022 MG MAMM SCREEN ROSANGELA W CAD Patient: LELA CHENG Exam Date: 11/11/2022 : 1940 Gender:F Ordering : DR BIGG SCHULTZ D.O. Admission #: [id number] Family : Order #: [id number] CLICK HERE TO VIEW EXAM RADIOLOGY REPORT [...] lung cancer at age 53. LOCATION: [facility] BREAST COMPOSITION: Heterogeneously dense,which may obscure small [...] M.D. on 11/11/2022 at 13:50 Normal [facility] ELECTROLYTESon 06-17-2022 Anion gap [Moles/Vol] 10.9 mmol/L Normal [facility] Comment on above: Performed By: #### E LEC, TSH #### [facility] [address] [address] [address] Lillian Hurley Chloride [Moles/Vol] 92 mmol/L Critically low 98-107 [facility] Comment on above: Performed By: #### E LEC, TSH #### [facility] [address] [address] [address] Lillian Hurley CO2 [Moles/Vol] 30.4 mmol/L Normal 21.0-32.0 [facility] Comment on above: Performed By: #### E LEC, TSH #### [facility] [address] [address] [address] Lillian Hurley Potassium [Moles/Vol] 4.3 mmol/L Normal 3.5-5.1 [facility] Comment on above: Performed By: #### E LEC, TSH #### [facility] [address] [address] [address] Lillian Hurley Sodium [Moles/Vol] 129 mmol/L Critically low 136-145 [facility] Comment on above: Performed By: #### E LEC, TSH #### [facility] [address] [address] [address] Lillian Hurley TSHon 06-17-2022 TSH 0.675 uIU/mL Normal 0.358-3.740 [facility] Comment on above: Performed By: #### E LEC, TSH #### [facility] [address] [address] [address] Lillian Hurley Otheron 12-22-2000 CONVERTED ELECTRONIC SIGNATURE GEN HENDRIX M.D., PATHOLOGIST (Electronic signature on file) Final Signed Out: 12/22/2000 14:36 [facility] CONVERTED FINAL DIAGNOSIS BONE, RIGHT ELBOW, EXCISION - SEGMENTS OF OSSEOUS TISSUE WITH CHANGES CONSISTENT WITH CHANGES OF DEGENERATIVE OSTEOARTHROPATHY. REACTIVE SYNOVIUM WITH FOCAL OLD HEMORRHAGE. [facility] CONVERTED ORDERING PROVIDER Ordering Provider: JOSE ALMONTE [facility] Vital Signs Date Time Vital Sign Value Performing Clinician Facility 02-17-2025 13:13-0400 Body height 160 cm Dexter Jim DPM Work Phone: [facility] 02-17-2025 13:13-0400 Body mass index (BMI) [Ratio] 22.85 kg/m2 Dexter Jim DPM Work Phone: [facility] 02-17-2025 13:13-0400 Body weight 58.51 kg Dexter iJm DPM Work Phone: [facility] 02-17-2025 13:13-0400 Respiratory rate 16 /min Dexter Jim DPM Work Phone: [facility] 08-11-2024 13:54-0500 Body mass index (BMI) [Ratio] 24.03 kg/m2 Aaliyah Rajendra DO Work Phone: [facility] 08-11-2024 13:54-0500 Body weight 62.51 kg Aaliyah Rajendra DO Work Phone: [facility] 08-11-2024 13:54-0500 Diastolic blood pressure 70 mm[Hg] Aaliyah Rajendra DO Work Phone: [facility] 08-11-2024 13:54-0500 Systolic blood pressure 128 mm[Hg] Aaliyah Rajendra DO Work Phone: [facility] 05-24-2024 09:38-0500 Blood Pressure Location Lyle CARRENO [facility] 05-24-2024 09:38-0500 Body temperature 98.42 [degF] Lyle CARRENO [facility] 05-24-2024 09:38-0500 Diastolic blood pressure 66 mm[Hg] Lyle CARRENO [facility] 05-24-2024 09:38-0500 Heart rate 67 /min Lyle CARRENO [facility] 05-24-2024 09:38-0500 Respiratory rate 18 /min Lyle CARRENO [facility] 05-24-2024 09:38-0500 Systolic blood pressure 108 mm[Hg] Lyle CARRENO [facility] 10-10-2023 10:54-0400 Blood Pressure Location Lyle CARRENO [facility] 10-10-2023 10:54-0400 Diastolic blood pressure 79 mm[Hg] Lyle CARRENO [facility] 10-10-2023 10:54-0400 Heart rate 73 /min Lyle CARRENO [facility] 10-10-2023 10:54-0400 Respiratory rate 16 /min Lyle CARRENO [facility] 10-10-2023 10:54-0400 Systolic blood pressure 127 mm[Hg] Lyle CARRENO [facility] 10-04-2022 10:17-0400 Blood Pressure Location Lyle CARRENO [facility] 10-04-2022 10:17-0400 Diastolic blood pressure 71 mm[Hg] Lyle CARRENO [facility] 10-04-2022 10:17-0400 Heart rate 60 /min Lyle CARRENO [facility] 10-04-2022 10:17-0400 Respiratory rate 16 /min Lyle CARRENO [facility] 10-04-2022 10:17-0400 Systolic blood pressure 125 mm[Hg] Lyle CARRENO [facility] Encounters Encounter Date Encounter Type Care Provider Facility Start: 08-08-2025 ambulatory Lyle CARRENO Facili ty:[facility] [place] Start: 03-01-2025 End: 03-01-2025 Bamboo flowsheet Aaliyah Rajendra DO Work Phone: [facility] Start: 03-01-2025 End: 03-01-2025 Bamboo flowsheet Aaliyah Rajendra DO Work Phone: [facility] Start: 03-01-2025 End: 03-01-2025 Office outpatient visit 15 minutes Aaliyah Rajendra DO Work Phone: [facility] Comment on above: Fitting and adjustme nt of pessary Start: 03-01-2025 End: 03-01-2025 ambulatory AALIYAH RAJENDRA Not Available Start: 02-21-2025 End: 02-21-2025 ambulatory Rhoda Gutierrez MD Facility: [facility] Start: 02-17-2025 End: 02-17-2025 Bamboo flowsheet Dexter Jim DPM Work Phone: [facility] Start: 02-17-2025 End: 02-17-2025 Bamboo flowsheet Dexter Jim DPM Work Phone: [facility] Start: 02-17-2025 End: 02-17-2025 Office outpatient visit 15 minutes Dexter Jim DPM Work Phone: [facility] Comment on above: Venous insufficiency (Primary Dx); Pain due to onychomycosis of toenails of both feet Start: 02-17-2025 End: 02-17-2025 ambulatory DEXTER JIM Not Available Start: 01-31-2025 End: 01-31-2025 ambulatory Lyle CARRENO Facility:[facility] Start: 01-31-2025 End: 01-31-2025 Patient encounter procedure Lyle CARRENO [facility] Start: 01-10-2025 End: 01-10-2025 ambulatory Rhoda Gutierrez MD Facility: [facility] Start: 09-24-2024 End: 09-24-2024 ambulatory Lyle CARRENO [facility] Start: 08-11-2024 End: 08-11-2024 Bamboo flowsheet Aaliyah Rajendra DO Work Phone: [facility] Start: 08-11-2024 End: 08-11-2024 Bamboo flowsheet Aaliyah Rajendra DO Work Phone: [facility] Start: 08-11-2024 End: 08-11-2024 ambulatory AALIYAH RAJENDRA Not Available Start: 08-11-2024 End: 08-11-2024 Office outpatient new 20 minutes Aaliyah Rajendra DO Work Phone: [facility] Comment on above: Encounter for fittin g and adjustment of pessary Start: 05-24-2024 End: 05-24-2024 ambulatory Lyle CARRENO Facility:[facility] Start: 05-24-2024 End: 05-24-2024 Patient encounter procedure Lyle CARRENO [facility] Start: 05-03-2024 End: 05-03-2024 ambulatory Rhoda Gutierrez MD Facility:[facility] Start: 10-10-2023 End: 10-10-2023 Patient encounter procedure Lyle CARRENO [facility] Start: 11-11-2022 End: 11-12-[address] BIGG SCHULTZ Facility:[facility] Start: 10-04-2022 End: 10-04-2022 Patient encounter procedure Lyle CARRENO [facility] Start: 06-17-2022 End: 06-18-[address] BIGG SCHULTZ Facility:[facility] Start: 01-03-2022 End: 01-31-[address] BIGG SCHULTZ Facility:[facility] Start: 11-22-2021 End: 12-15-[address] DOCTOR COREAS Facility:[facility] Start: 10-01-2021 End: 10-01-2021 Patient encounter procedure Lyle CARRENO [facility] Start: 12-16-1920 End: 12-16-1920 Patient encounter procedure Jose Almonte Work Phone: [facility] Start: 12-16-1920 Results Only Jose Almonte Work Phone: [facility] Procedures Date Procedure Procedure Detail Performing Clinician [...] Lyle CARRENO Start: 01-19-2016 Dilation of urethra Pat lexi CARRENO Start: 07-21-2015 Dilation of urethra Pat lexi CARRENO Start: 07-18-2014 Dilation of urethra Pat lexi CARRENO Start: 12-27-2013 Dilation of urethra Pat lexi CARRENO Start: 07-14-2013 Procedure on neck Patadair CARRENO Start: 06-11-2013 Dilation of urethra Pat lexi CARRENO Start: 08-07-2009 Dilation of urethra Pat lexi CARRENO Start: 09-04-2006 Cystourethroscopy wi th dilation of urethral stricture Lyle CARRENO Start: 12-16-1920 CONVERTED SURGICAL PATHOLOGY Jose Almonte Work Phone: Appendectomy Lyle CARRENO Breast biopsy and re lated procedures Lyle CARRENO Cataract surgery Lylelexi [email or web address] Colonoscopy Lyle CARRENO Dilation of urethra Lyle CARRENO Excision of lipoma Lyle FLORES eyelid lift Lyle CARRENO Hysterectomy Lyle CARRENO Nasal sinus procedure Andrea CARRENO Plantar fasciectomy Lyle CARRENO Procedure on elbow Lyle FLORES Procedure on retina Lyle CARRENO Repair of single tendon Patr katerin CARRENO Plan of Treatment Date Care Activity Detail Author Start: 07-14-2025 End: 07-14-2025 Patient encounter procedure 07/14/2025 1:00 PM EST Procedure Visit [facility] [address] [facility] [address] [place] [address] Dexter Jim DPM [address] [facility] [address] [place] [address] [facility] Start: 03-07-2025 Influenza vaccination Influenza Vacc ine (#1) [facility] Start: 03-01-2025 End: 03-01-2025 Patient encounter procedure [facility] Comment on above: Arrived Start: 03-07-2024 Influenza vaccination Influenza Vacc ine (#1) [facility] Start: 03-07-2020 Influenza vaccination INFLUENZA (#1) [facility] Start: 03-23-2015 Pneumococcal Vaccine : 65+ Years (2 of 2 - PCV) Pneumococcal Vaccine: 65+ Years (2 of 2 - PCV) [facility] Start: 01-26-2010 DIABETES SCREEN DIABETES SCREEN [facility] Start: 2003 ADVANCE DIRECTIVE DISCUSSION ADVANCE DIRECTIVE DISCUSSION [facility] Start: 2003 BONE DENSITY BONE DENSITY [facility] Start: 2003 PNEUMOVAX AGE 65 AND OVER WITH 5YR LOOKBACK (#1) PNEUMOVAX AGE 65 AND OVER WITH 5YR LOOKBACK (#1) [facility] Start: 1988 SHINGRIX VACCINE (1 of 2) SHINGRIX VACCINE (1 of 2) [facility] Start: 1957 Urine microalbumin profile DTAP,TDAP,TD (1 - Tdap) [facility] Immunizations Immunization Date Immunization Notes Care Provider Stephanie keyanna 04-18-2023 influenza virus vacc ine, unspecified formulation Lyle CARRENO [facility] 03-29-2022 SARS-CoV-2 (COVID-19 ) [id number] Lyle CARRENO [facility] Comment on above: Result Comment: 2023: [id number] 11-02-2021 SARS-CoV-2 mRNA (knofxmkckjn-ofdo-pnmcwz e) vaccine Lyle CARRENO [facility] Comment on above: Result Comment: 2023: [id number] 04-16-2021 SARS-CoV-2 (COVID-19 ) mRNA BNT-162b2 vax yLle CARRENO [facility] Comment on above: Result Comment: 2023: [id number] 08-23-2020 SARS-CoV-2 (COVID-19 ) mRNA BNT-162b2 vax Lyle CARRENO [facility] 07-31-2020 SARS-CoV-2 (COVID-19 ) mRNA BNT-162b2 vax Lyle CARRENO [facility] Comment on above: Result Comment: 2nd dose given 08/23/2020 07-23-2018 zoster vaccine recombinant Lyle CARRENO [facility] 11-28-2017 zoster vaccine recombinant Lyle CARRENO [facility] 03-23-2014 pneumococcal polysaccharide vaccine, 23 valent Lyle CARRENO [facility] 05-05-2013 zoster vaccine, live Lyle CARRENO [facility] 04-25-2009 influenza, whole Lyle AKTERIN CARBALLO [facility] Payers Date Payer Category Payer Medicare (Managed Care) [facility] MEDIC[facility] [id number] 2023 Medicare [id number] 1961 Medicare [id number] 1961 Medicare [id number] 1940 Unknown [id number] 2.16.840.1.039313.3.579.2. 593 1940 Unknown [id number] 2.16.840.1.261154.3.579.2. 593 1940 Unknown [id number] 2.16.840.1.383944.3.579.2. 593 1938 Unknown [id number] 2.16.840.1.360676.3.579.2. 593 1940 Unknown [id number] 2.16.840.1.084225.3.579.2. 727 1940 Unknown [id number] 2.16.840.1.635833.3.579.2. 727 1938 Unknown [id number] 2.16.840.1.499463.3.579.2. 727 1938 Unknown [id number] 2.16.840.1.625179.3.579.2. 727 1938 Unknown [id number] 2.16.840.1.621255.3.579.2. 196 1940 Unknown [id number] 2.16.840.1.852254.3.579.2. 196 1938 Unknown [id number] 2.16.840.1.391248.3.579.2. 196 1938 Unknown [id number] 2.16.840.1.297733.3.579.2. 1259 1940 Unknown [id number] 2.16.840.1.336108.3.579.2. 1259 1940 Unknown [id number] 2.16.840.1.236674.3.579.2. 1259 Social History Date Type Detail Facility Tobacco smoking stat [facility] Unknown if [facility] smoked [facility] [facility] Start: 1940 Sex Assigned At Not on file C [facility] Start: 09-06-2019 End: 09-30-2023 Tobacco smoking status Never smoked tobacco (finding) [facility] Start: 09-30-2023 End: 02-17-2025 Sex Assigned At Female [facility] Tobacco smoking status Never [facility] Start: 09-30-2023 Tobacco use and exposure Smoke less tobacco non-user [facility] Start: 09-30-2023 End: 02-17-2025 History of Social function [facility] Sexual Orientation [facility] Start: 02-09-2019 Sex Female (finding) [facility] Functional Status Date Assessment Result Facility 05-24-2024 Functional Status N/A [facility] 10-10-2023 Functional Status N/A [facility] 10-04-2022 Functional Status N/A [facility] Clinical Notes 10-01-2021 to 03-01-2025 KIRA Holder - 03/01/2025 11:30 AM EDTDexter Jim, ASHTYN - 02/17/2025 1:00 PM Tara Drew DO - 08/11/2024 1:30 PM EST Note Date & Type Note Facility 03-01-2025 History of Presen t illness Narrative Reason [...] nursing note reviewed. Exam conducted with a wire turning machine operator present. Vitals: Estimated body mass index is 22.85 kg/m as calculated from the following: Height as of 02/17/25: 5' 3 . Weight as of 02/17/25: 129 lb. BP: No LMP recorded. ASSESSMENT & PLAN ICD-10-CM 1. Fitting and adjustment of pessary Z46.89 Patient presents for possible pesary fitting. Pt fitted for ring #4. She will return in one month for cleaning and follow up Documented by KIRA Holder on behalf of: Aaliyah Drew DO documented in this encounter [facility] 02-17-2025 History of Presen t illness Narrative [...] edema. Discussed condition in detail. Recommendation for jxkb-ewz-xzbagte compression stockings at this time and may consider prescription stockings in the future. Dexter Jim DPM documented in this encounter [facility] 01-31-2025 [facility] Discharg e instructions Patient Education 01/31/2025 12:24:56 [...] Treatment for this condition includes: Antibiotic medicine. Tdwd-tvr-wkuwthj medicines to treat discomfort. Drinking enough water [...] Follow these instructions at home: Medicines Take tlqp-axb-pzprvvi and prescription medicines only as told by [...] provider. Document Revised: 01/28/2021 Document Reviewed: 02/02/2021 [employer] Patient Education 2023 KIXEYE. Follow Up Care 09/24/2024 13:22:42 With:PASQUALE MESA, Lyle Feldman, URL Address: [facility] [address] [place] [address]- [phone] When: Unknown Comments:6 mos for IO UD [facility] 01-31-2025 Note Patient Education Obstetrics and Gynecology [...] this condition includes: ??? Antibiotic medicine. ??? Nrsl-zin-djuvihq medicines to treat discomfort. ??? Drinking enough [...] these instructions at home: Medicines ??? Take mzbl-tvf-urjsado and prescription medicines only as told by [...] sure you di (more content not included)... [facility] 09-24-2024 Note Patient Education Urology Urethral Dilation [...] including vitamins, herbs, eye drops, creams, and kumv-tov-nrdffrn medicines. ??? Any problems you or family [...] your provider tells you to. ??? Taking ecem-sfb-zhrbxii medicines, vitamins, herbs, and supplements. General instructions [...] these instructions at home: Medicines ??? Take dsdh-pir-duoqypd and prescription medicines only as told by [...] to prevent or treat constipation: ? Take ckah-dxd-nwpfbso or prescription medicines. ? Eat foods that [...] soft tube (catheter) (more content not included)... [facility] 08-11-2024 History of Presen t illness Narrative Reason for Appointment: Patient ID: Lela Cheng is a 84 y.o. female who presents for pessary fitting Patient presents today for Acute Visit. Current Medications: has a current medication list which includes the following prescription(s): baclofen, buspirone, calcium carbonate, candesartan, carvedilol, gabapentin, levothyroxine, montelukast, and premarin. Medical History: Active Ambulatory Problems Diagnosis Date Noted Thyroid disease ([facility]) 09/30/2023 HTN (hypertension) ([facility]) 09/30/2023 GERD (gastroesophageal reflux disease) 09/30/2023 Depression ([facility]) 09/30/2023 Resolved Ambulatory Problems Diagnosis [...] nursing note reviewed. Exam conducted with a wire turning machine operator present. Vitals: Estimated body mass index is 24.03 kg/m as calculated from the following: Height as of 02/22/19: 5' 3.5 . Weight as of this encounter: 137 lb 12.8 oz. BP: 128/70 No LMP recorded. Assessment/Plan Encounter Diagnosis: ICD-10-CM 1. Encounter for fitting and adjustment of pessary Z46.[address] croak, pt refusing pessary at this time, all options reviewed including conservative mgmt Documented by Aaliyah Drew DO on behalf of: Aaliyah Drew DO documented in this encounter [facility] 05-24-2024 Hospital Discharg e instructions Patient [...] including vitamins, herbs, eye drops, creams, and wliu-aum-gzngvyu medicines. Any problems you or family members [...] unless your provider tells you to. Taking pfcs-imf-ujbblbi medicines, vitamins, herbs, and supplements. General instructions [...] Follow these instructions at home: Medicines Take iepe-txv-hbcdtrv and prescription medicines only as told by [...] actions to prevent or treat constipation: ?Take leab-qdq-zqbpagj or prescription medicines. ?Eat foods that are [...] provider. Document Revised: 04/17/2023 Document Reviewed: 04/17/2023 [employer] Patient Education 2023 KIXEYE. Follow Up Care 10/10/2023 11:32:21 With:PASQUALE MESA, Lyle Feldman, URL Address: [facility] [address] , [place] [address]- [phone] When: Unknown Comments:6 mos for [facility] [place] 05-24-2024 Note Patient Education Urology [...] including vitamins, herbs, eye drops, creams, and mnan-zcp-bxldygb medicines. ??? Any problems you or family [...] your provider tells you to. ??? Taking yyrk-mzd-cclpnjx medicines, vitamins, herbs, and supplements. General instructions [...] these instructions at home: Medicines ??? Take aiby-rjm-xkiiuli and prescription medicines only as told by [...] to prevent or treat constipation: ? Take dwaj-hbb-zyeakpc or prescription medicines. ? Eat foods that [...] soft tube (catheter) (more content not included)... [facility] 10-10-2023 Hospital Discharg e instructions Patient Education [...] reconstructed. Follow these instructions at home: Take ykev-lhe-wapgjnv and prescription medicines only as told by [...] Document Reviewed: 04/30/2022 Elsevier Patient Education 2022 KIXEYE. Follow Up Care 10/04/2022 10:57:38 With:PASQUALE MESA, Lyle Feldman, URL Address: [address] [place] [address] [place] [address]- When: Unknown [facility] [place] 10-04-2022 Hospital Discharg e instructions Patient Education [...] including vitamins, herbs, eye drops, creams, and ezys-jjc-iljusvm medicines. Any problems you or family members [...] provider tells you to take them. Taking aqzq-uag-nywbcff medicines, vitamins, herbs, and supplements. General instructions [...] Follow these instructions at home: Medicines Take bsbg-skm-pohybqy and prescription medicines only as told by [...] actions to prevent or treat constipation: ?Take pbiw-qln-zglwzqr or prescription medicines. ?Eat foods that are [...] 07/19/2016 Document Revised: 08/05/2019 Document Reviewed: 08/05/2019 [employer]ee Patient Education 2020 KIXEYE. Follow Up Care 10/01/2021 13:26:16 With:PASQUALE MESA, Lyle Feldman, URL Address: [address] [place], [place] [id number]- When: Unknown [facility] 10-01-2021 Hospital Discharg e instructions [...] reconstructed. Follow these instructions at home: Take sibn-mos-bmlfzmi and prescription medicines only as told by [...] 07/19/2016 Document Revised: 02/03/2019 Document Reviewed: 02/03/2019 [employer] Patient Education 2020 KIXEYE. [facility] Evaluation + Plan note Future Appointments Appointment Date:10/04/2022 09:45:00 AM Scheduled Provider:Lyle CARRENO MD Location:[facility] Appointment Type:URO Office Visit [facility] Evaluation + Plan note Future Appointments Appointment Date:10/10/2023 10:15:00 AM Scheduled Provider:Lyle CARRENO MD Location:[facility] Appointment Type:URO Office Visit [facility] Evaluation + Plan note Future Appointments Appointment Date:05/03/2024 09:15:00 AM Scheduled Provider:Lyle CARRENO MD Location:[facility] Appointment Type:URO Office Visit [facility] Evaluation + Plan note Future Appointments Appointment Date:11/22/2024 10:30:00 AM Scheduled Provider:Lyle CARRENO MD Location:[facility] Appointment Type:URO Procedure 15 min [facility] Evaluation + Plan note Future Appointments Appointment Date:08/08/2025 11:15:00 AM Scheduled Provider:Lyle CARRENO MD Location:[facility] Appointment Type:URO Office Visit [facility] Evaluation note Diagnosis Encounter for fitting and adjustment of pessary [facility] Diagnosis Venous insufficiency- Primary Unspecified venous (peripheral) insufficiency Pain due to onychomycosis of toenails of both feet [facility] Diagnosis Fitting and adjustment of pessary [facility] Narrative No data available for this section [facility] progress note No data available for this section [facility] reason for referral (narrative) Referred by: Lyle CARRENO MD Referred by: Lyle CARRENO MD [facility] Summary Purpose Family History No Family History [...] or prosecute any alcohol or drug abuse patient.[facility] Patient Care team informatio n (unrecognized section and content) Data Management Consultant Relationship Specialty Start Date End Date Bigg Schultz MD [address] [place] [address] PCP - General Internal Medicine 09/30/23 Data Management Consultant Relationship Specialty Start Date End Date Bigg Schultz MD [address] [facility] [place] [address] PCP - General Internal Medicine 09/30/23 Data Management Consultant Relationship Specialty Start Date End Date Bigg Schultz MD [address] [facility] [place] [address] PCP - General Internal Medicine 09/30/23 Data Management Consultant Relationship Specialty Start Date End Date Bigg Schultz MD [address] [facility] [place] [address] PCP - General Internal Medicine 09/30/23 Data Management Consultant Relationship Specialty Start Date End Date Bigg Schultz MD [address] [facility] [place] [address] PCP - General Internal Medicine 09/30/23 Data Management Consultant Relationship Specialty Start Date End Date Bigg Schultz MD [facility] [place] [address] PCP - General Internal Medicine 09/30/23 INFORMATION SOURCE (unrecogn ized section and content) DATE CREATED AUTHOR 11/15/2022 [facility] DATE CREATED AUTHOR AUTHOR'S ORGANIZ ATION 02/01/2025 [facility] DATE CREATED AUTHOR AUTHOR'S ORGANIZ ATION 02/27/2025 [facility] DATE CREATED AUTHOR AUTHOR'S ORGANIZ ATION 03/03/2025 [facility] EPIC Reason for Visit (unrecogniz ed section and content) Reason Comments pessary fitting Reason Comments Toenail Care Reason Comments Pessary fitting FOR RECORDS PERTAINING TO PATIENTS WHO [...] BE BASED ON THE PRIMARY CLINICAL RECORDS. [employer] provides no warranty or guarantee of the accuracy or completeness of information in this document.
--- NOTE | 2025-03-03 11:35 | PM.CN ---
Consult Note: HPI Data of Consult Patient: known to practice within the last 3 years Consult date: 03/03/25 Requesting Physician: Zakia Claros NP Primary Care Provider: BART SCHULTZ DO Consult Narrative Reason for consult: low back pain Narrative: Hailey Cheng a pleasant 84 year old female presents for evaluation of low back pain. Patient has a longstanding hx of neck pain, low back pain, and generalized pain, had 3 falls without injury January 2024 and has had increased pain since, 1 fall in the last 6 months. Patient has had a C5-6 C6-7 fusion in 2013, also hx of right elbow replacement in 2000. Patient has been following with her PCP and has completed 6 weeks of PT without improvement for cervical radiculopathy, mild relief with baclofen 5mg HS PRN gabapentin 100mg AM, tylenol 500-1000mg daily, CBD oil, voltaren cream HS with mild improvement. has a hx of L4-S1 fusion. she is noticing significant increase in low back pain over the last 6 months. 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 recent lumbar mri with results below. pain today 0/10, noting significant improvement post bilateral L3/4 TFESI. cc:: CC: Zakia Claros NP [facility] Medical History (Updated 01/20/25 @ 10:56 by Zakia Claros NP) Deviated septum ?J34.2 - Deviated nasal septum (ICD-10) Osteoarthritis ?M19.90 - Unspecified osteoarthritis, unspecified site (ICD-10) Low back pain ?M54.50 - Low back pain, unspecified (ICD-10) Acid reflux ?K21.9 - Gastro-esophageal reflux disease without esophagitis (ICD-10) Hypothyroid ?E03.9 - Hypothyroidism, unspecified (ICD-10) Sleep apnea ?G47.30 - Sleep apnea, unspecified (ICD-10) Hypertension ?I10 - Essential (primary) hypertension (ICD-10) Cataract fragments in eye following surgery ?H59.029 - Cataract (lens) fragments in eye following cataract surgery, unspecified eye (ICD-10) Heel spur ?M77.30 - Calcaneal spur, unspecified foot (ICD-10) History of deviated nasal septum ?Z87.09 - Personal history of other diseases of the respiratory system (ICD-10) Surgical History (Updated 01/11/25 @ 14:16 by Malini Cox) H/O vein stripping ?Z98.890 - Other specified postprocedural states (ICD-10) H/O vitrectomy ?Z98.890 - Other specified postprocedural states (ICD-10) S/P sclerotherapy of varicose veins ?Z98.890 - Other specified postprocedural states (ICD-10) ?Z86.79 - Personal history of other diseases of the circulatory system (ICD-10) History of fusion of cervical spine ?Z98.1 - Arthrodesis status (ICD-10) History of lumbar surgery ?Z98.890 - Other specified postprocedural states (ICD-10) H/O elbow replacement ?Z96.629 - Presence of unspecified artificial elbow joint (ICD-10) H/O elbow surgery ?Z98.890 - Other specified postprocedural states (ICD-10) History of hysterectomy ?Z90.710 - Acquired absence of both cervix and uterus (ICD-10) Meds Home Medications and Allergies Home Medications ?Medication ?Instructions ?Recorded ?Confirmed ?Type buspirone 10 mg tablet 5 mg PO BID 01/08/24 02/21/25 History candesartan 32 mg tablet 32 mg PO DAILY 01/08/24 02/21/25 History carvedilol 6.25 mg tablet 6.25 mg PO Q12H 01/08/24 02/21/25 History levothyroxine 25 mcg tablet 25 mcg PO DAILY 01/08/24 02/21/25 History montelukast 10 mg tablet 10 mg PO DAILY 01/08/24 02/21/25 History CALCIUM D3 04/07/24 History CBD OIL 04/07/24 History EYE PROMISE 04/07/24 History Lactobacillus acidophilus 25 mmu cells PO DAILY 04/07/24 02/21/25 History VOLTAREN CREAM PRN pain 04/07/24 History acetaminophen 500 mg tablet 500 mg PO BID PRN pain 04/07/24 02/21/25 History (Tylenol Extra Strength) baclofen 10 mg tablet mg 04/07/24 History calcium 333 mg 1 tab PO DAILY 04/07/24 02/21/25 History (carbonate)-magnesium 133 mg-zinc 5 mg (sulfate) tablet famotidine 20 mg tablet mg 04/07/24 History fluticasone propionate 50 1 spray intranasal DAILY PRN 04/07/24 02/21/25 History mcg/actuation nasal allergy symptoms spray,suspension (24 Hour Allergy Relief) folic acid 1 mg tablet 1 mg PO BID 04/07/24 02/21/25 History gabapentin 100 mg capsule 100 mg PO DAILY 04/07/24 02/21/25 History melatonin 3 mg capsule 3 mg PO DAILY 04/07/24 02/21/25 History vitamin B complex (Vitamins B 1 cap PO DAILY 04/07/24 02/21/25 History Complex capsule) polyethylene glycol 3350 17 17 g PO BID 05/03/24 02/21/25 History gram/dose oral powder (ClearLax) Allergies Allergy/AdvReac Type Severity Reaction Status Date / Time citalopram (From Celexa) Allergy Mild Confusion Verified 02/21/25 10:46 duloxetine (From Cymbalta) Allergy Mild Confusion Verified 02/21/25 10:46 meperidine (From Demerol) Allergy Mild Unknown Verified 02/21/25 10:46 sertraline (From Zoloft) Allergy Mild Confusion Verified 02/21/25 10:46 Sulfa (Sulfonamide Allergy Mild Abdominal Verified 02/21/25 10:46 Antibiotics) Pain telmisartan (From Micardis) Allergy Mild Unknown Verified 02/21/25 10:46 tetracycline Allergy Mild Abdominal Verified 02/21/25 10:46 Pain venlafaxine (From Effexor) Allergy Mild Confusion Verified 02/21/25 10:46 Exam Constitutional Documenting provider has reviewed patient's vital signs: yes Common normals: no apparent distress, oriented x3, healthy appearing, alert and well nourished General appearance: cooperative [facility] Common normals: normocephalic, hearing grossly normal bilaterally and moist oral mucous membranes Head and scalp: normocephalic Eye Common normals: PERRL Pupil: PERRL Neck & C-Spine Common normals: full ROM General: normal visual inspection Chest Common normals: inspection of chest normal Respiratory Common normals: normal respiratory effort, no retractions and no use of accessory muscles Back & Pelvis Lumbar spine/lower back: ROM limited and straight leg raise negative bilaterally; no pain with ROM Other: strength 5/5 in BLE Neuro Common normals: oriented x3 Sensorium/orientation: alert Psych Common normals: mental status grossly normal, thought process normal, cooperative, affect normal, speech normal and activity/motor behavior normal Speech: normal speech Thought process: normal thought process Results Additional Findings Additional findings: If on a controlled substance or opioids, I have checked an [place]AR[place] report on this patient and there are no aberrancies noted in the prescribing history.??If on a controlled substance or opioid a drug screen was completed and reviewed within the last year, and if there has not been a drug screen completed we ordered one today to monitor higher risk, state monitored pain medication use. As part of providing excellent, safe, comprehensive care, the following was completed at our patient's visit: 1. A medication reconciliation and review to ensure accurate knowledge of current/active medications, including asking our patients to inform us about any ekfh-yaw-ahirasi medications or herbal remedies/nutritional supplements/alternative remedies. 2. A review to specifically ensure our patients have had annual screening for screening for depression, screening for tobacco use, and screening for unhealthy alcohol use. For concerning screenings had a discussion with the patient, provided patient education, and recommended follow-up with primary care provider when appropriate. If patient noted with a risk of falling, they received education on strength, gait, and balance training to prevent future risk of falling. Portions of this note may have been carried over from the previous visit and updated as appropriate. Please note this office utilizes paper charting in addition to the electronic medical record. A list of current medications, vitals, and PMH is available there as the clinical staff outside of myself do not have access to [facility] charting during the clinic day operations. As part of providing quality comprehensive care the current medications, vitals, and PMH were reviewed in the paper chart. Assessment and Plan Assessment and Plan (1) Lumbar stenosis with neurogenic claudication: Assessment and Plan: 02/21/25 bilateral L3/4 TFESI >50% improvement (2) Failed back syndrome: Plan pain well controlled at this time continue medication management through pcp information provided on scs f/u 3 months, sooner if needed
== END 2025-03-03 11:13 | disposition home or self-care (01) ==
LOC: PM 11:12
PROVIDERS: PCP Internal Medicine; Visit Provider Nurse Practitioner
DX: M48.062 Spinal stenosis, lumbar region with neurogenic claudication (principal); M96.1 Postlaminectomy syndrome, not elsewhere classified
CPT/HCPCS: G0463

== ENCOUNTER 2025-05-26 10:57 | Outpatient (OUT) | payer MEDICARE, SELFPAY ==
--- OUTSIDE RECORDS SUMMARY | 2025-05-26 11:02 | XMS_ITS | Patient Health Record ---
Author Organization [facility] [place] Address [address] [place] [address] Care Team Providers Care Core Winder Name Role Phone None, Unknown or Primary Care Provider Unavailab le Allergies Allergen (clinical drug ingredient) Drug/Non Drug Allergy documented on EMR Reaction Allergy Type Onset Date Status citalopram CeleXA Unknown Drug Allergy ActiveduloxetineCymbaltaUnknownDrug AllergyActivemeperidineDemerolUnknownDrug AllergyActiveEffexorUnknownDrug AllergyActivetelmisartanMicardisUnknownDrug AllergyActivesertralineZoloftUnknownDrug AllergyActiveSubstance with sulfonamide structure and antibacterial mechanism of action (substance)Sulfa Antibiotics UnknownDrug AllergyActivetetracyclineTetracyclineUnknownDrug AllergyActive Reason For Referral No Information Medications Medication SIG (Take, Route, Frequency, Duration) Notes Start Date End Date Status Carvedilol 6.25 MG 1 tablet with food Orally Twi ce a day ActiveFamotidine 20 MG1 tablet at bedtime as needed Orally Once a dayActive Gabapentin 100 MG1 capsule Orally Once a dayActiveBenefiberActivebusPIRone HCl 10 MG1 tablet Orally Twice a dayActiveCalciumActiveCandesartan Cilexetil 32 MG1 tablet Orally Once a dayActiveLevothyroxine Sodium 25 MCG1 tablet in the morning on an empty stomach Orally Once a dayActiveMontelukast Sodium 10 MG1 tablet Orally Once a dayActiveOlmesartan Medoxomil 40 MG1 tablet Orally Once a day ActiveBaclofen 10 MG1 tablet as needed Orally Twice a dayActive Social History Tobacco Use: Social History Observation Description Date Details (start date - stop date) Never Smoker NA - NA Tobacco Control (Standard) Question Answer Notes Tobacco use: Nonsmoker Problems Problem Type SNOMED Code ICD Code Onset Dates Problem Status W/U Status Risk Notes Problem Pain in right foot (465113576072741) Righ t foot pain (M79.671) ActiveconfirmedProblemArthralgia of the ankle and/or foot ([id number])Right ankle pain (M25.571)Activeconfirmed Plan Of Treatment No Information Insurance Providers Payer Name Payer Address Payer Phone Subscriber Number Group Number Insured Name Patient Relationship to Insured Coverage Start Date Coverage End Date [facility] [employer] [address] [address] [place] [address] [id number] AlexanderantoniaHailey francisco Self - patient is the insured Medical (General) History Medical History History ICD Code Arthritis gastroesophageal reflux disease (GERD)high blood pressurethyroid diseasejoint replacement armSurgical History Surgery Date(Month/Year) hysterectomy 1983 breast biopsy [...]
--- NOTE | 2025-05-26 11:23 | PM.CN ---
Consult Note: HPI Data of Consult Patient: known to practice within the last 3 years Consult date: 05/26/25 Requesting Physician: Zakia Claros NP Primary Care Provider: BART SCHULTZ DO Consult Narrative Reason for consult: low back pain Narrative: Hailey Cheng a pleasant 84 year old female presents for evaluation of low back pain. Patient has a longstanding hx of neck pain, low back pain, and generalized pain, had 3 falls without injury January 2024 and has had increased pain since, 1 fall in the last 6 months. Patient has been following with her PCP and has completed 6 weeks of PT without improvement for cervical radiculopathy, mild relief with baclofen 5mg HS PRN gabapentin 100mg AM, tylenol 500-1000mg daily, CBD oil, voltaren cream HS with mild improvement. has a hx of L4-S1 fusion. 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 recent lumbar mri with results below. pain today 4/10, increasing to 6/10 with standing, walking, activity. notes at least 50% improvement greater than 3 months from prior bilateral L3/4 TFESI. cc:: CC: Zakia Claros NP [facility] Medical History (Updated 01/20/25 @ 10:56 by Zakia Claros NP) Deviated septum ?J34.2 - Deviated nasal septum (ICD-10) Osteoarthritis ?M19.90 - Unspecified osteoarthritis, unspecified site (ICD-10) Low back pain ?M54.50 - Low back pain, unspecified (ICD-10) Acid reflux ?K21.9 - Gastro-esophageal reflux disease without esophagitis (ICD-10) Hypothyroid ?E03.9 - Hypothyroidism, unspecified (ICD-10) Sleep apnea ?G47.30 - Sleep apnea, unspecified (ICD-10) Hypertension ?I10 - Essential (primary) hypertension (ICD-10) Cataract fragments in eye following surgery ?H59.029 - Cataract (lens) fragments in eye following cataract surgery, unspecified eye (ICD-10) Heel spur ?M77.30 - Calcaneal spur, unspecified foot (ICD-10) History of deviated nasal septum ?Z87.09 - Personal history of other diseases of the respiratory system (ICD-10) Surgical History (Updated 01/11/25 @ 14:16 by Malini Brooke, RN) H/O vein stripping ?Z98.890 - Other specified postprocedural states (ICD-10) H/O vitrectomy ?Z98.890 - Other specified postprocedural states (ICD-10) S/P sclerotherapy of varicose veins ?Z98.890 - Other specified postprocedural states (ICD-10) ?Z86.79 - Personal history of other diseases of the circulatory system (ICD-10) History of fusion of cervical spine ?Z98.1 - Arthrodesis status (ICD-10) History of lumbar surgery ?Z98.890 - Other specified postprocedural states (ICD-10) H/O elbow replacement ?Z96.629 - Presence of unspecified artificial elbow joint (ICD-10) H/O elbow surgery ?Z98.890 - Other specified postprocedural states (ICD-10) History of hysterectomy ?Z90.710 - Acquired absence of both cervix and uterus (ICD-10) Meds Home Medications and Allergies Home Medications ?Medication ?Instructions ?Recorded ?Confirmed ?Type buspirone 10 mg tablet 5 mg PO BID 01/08/24 02/21/25 History candesartan 32 mg tablet 32 mg PO DAILY 01/08/24 02/21/25 History carvedilol 6.25 mg tablet 6.25 mg PO Q12H 01/08/24 02/21/25 History levothyroxine 25 mcg tablet 25 mcg PO DAILY 01/08/24 02/21/25 History montelukast 10 mg tablet 10 mg PO DAILY 01/08/24 02/21/25 History CALCIUM D3 04/07/24 History CBD OIL 04/07/24 History EYE PROMISE 04/07/24 History Lactobacillus acidophilus 25 mmu cells PO DAILY 04/07/24 02/21/25 History VOLTAREN CREAM PRN pain 04/07/24 History acetaminophen 500 mg tablet 500 mg PO BID PRN pain 04/07/24 02/21/25 History (Tylenol Extra Strength) baclofen 10 mg tablet mg 04/07/24 History calcium 333 mg 1 tab PO DAILY 04/07/24 02/21/25 History (carbonate)-magnesium 133 mg-zinc 5 mg (sulfate) tablet famotidine 20 mg tablet mg 04/07/24 History fluticasone propionate 50 1 spray intranasal DAILY PRN 04/07/24 02/21/25 History mcg/actuation nasal allergy symptoms spray,suspension (24 Hour Allergy Relief) folic acid 1 mg tablet 1 mg PO BID 04/07/24 02/21/25 History gabapentin 100 mg capsule 100 mg PO DAILY 04/07/24 02/21/25 History melatonin 3 mg capsule 3 mg PO DAILY 04/07/24 02/21/25 History vitamin B complex (Vitamins B 1 cap PO DAILY 04/07/24 02/21/25 History Complex capsule) polyethylene glycol 3350 17 17 g PO BID 05/03/24 02/21/25 History gram/dose oral powder (ClearLax) Allergies Allergy/AdvReac Type Severity Reaction Status Date / Time citalopram (From Celexa) Allergy Mild Confusion Verified 02/21/25 10:46 duloxetine (From Cymbalta) Allergy Mild Confusion Verified 02/21/25 10:46 meperidine (From Demerol) Allergy Mild Unknown Verified 02/21/25 10:46 sertraline (From Zoloft) Allergy Mild Confusion Verified 02/21/25 10:46 Sulfa (Sulfonamide Allergy Mild Abdominal Verified 02/21/25 10:46 Antibiotics) Pain telmisartan (From Micardis) Allergy Mild Unknown Verified 02/21/25 10:46 tetracycline Allergy Mild Abdominal Verified 02/21/25 10:46 Pain venlafaxine (From Effexor) Allergy Mild Confusion Verified 02/21/25 10:46 Exam Constitutional Documenting provider has reviewed patient's vital signs: yes Common normals: no apparent distress, oriented x3 and alert General appearance: cooperative HENMT Common normals: normocephalic, hearing grossly normal bilaterally and moist oral mucous membranes Head and scalp: normocephalic Eye Common normals: PERRL Pupil: PERRL Neck & C-Spine Common normals: full ROM General: normal visual inspection Chest Common normals: inspection of chest normal Respiratory Common normals: normal respiratory effort, no retractions and no use of accessory muscles Back & Pelvis Lumbar spine/lower back: ROM limited and pain with ROM Other: radiculopathy noted to bilateral L3/4 strength 4/5 in BLE Extremity Common normals: normal to inspection and full ROM Other: bilateral elbows tender to touch, full ROM, no edema Neuro Common normals: oriented x3 Sensorium/orientation: alert Gait (neuro): antalgic and assistive device used cane Motor exam: no movement abnormalities noted Psych Common normals: mental status grossly normal, thought process normal, cooperative, affect normal, speech normal and activity/motor behavior normal Speech: normal speech Thought process: normal thought process Results Additional Findings Additional findings: If on a controlled substance or opioids, I have checked an [place] report on this patient and there are no aberrancies noted in the prescribing history.??If on a controlled substance or opioid a drug screen was completed and reviewed within the last year, and if there has not been a drug screen completed we ordered one today to monitor higher risk, state monitored pain medication use. As part of providing excellent, safe, comprehensive care, the following was completed at our patient's visit: 1. A medication reconciliation and review to ensure accurate knowledge of current/active medications, including asking our patients to inform us about any [id number] medications or herbal remedies/nutritional supplements/alternative remedies. 2. A review to specifically ensure our patients have had annual screening for screening for depression, screening for tobacco use, and screening for unhealthy alcohol use. For concerning screenings had a discussion with the patient, provided patient education, and recommended follow-up with primary care provider when appropriate. If patient noted with a risk of falling, they received education on strength, gait, and balance training to prevent future risk of falling. Portions of this note may have been carried over from the previous visit and updated as appropriate. Please note this office utilizes paper charting in addition to the electronic medical record. A list of current medications, vitals, and PMH is available there as the clinical staff outside of myself do not have access to [employer] charting during the clinic day operations. As part of providing quality comprehensive care the current medications, vitals, and PMH were reviewed in the paper chart. Assessment and Plan Assessment and Plan (1) Lumbar stenosis with neurogenic claudication: Assessment and Plan: 02/21/25 bilateral L3/4 TFESI >50% improvement for at least 3 months (2) Failed back syndrome: Plan The patient has had over 3 months of moderate to severe low back pain with functional impairment and inadequate response to conservative care including NSAIDS (unless there are contraindication such as concurrent blood thinners), multiple oral or topical pain medications, and home exercise program/physical therapy.? Patient has completed >6 weeks of guided home exercise program and/or formal physical therapy program without relief of their symptoms.? I have reviewed the imaging of the lumbar spine and no red flags were identified.? The Oswestry Disability Index was completed, and the patient scored a 26%.? repeat bilateral L3/4 TFESI under fluoroscopy continue medication management through pcp continue HEP as tolerated f/u after injection
--- OUTSIDE RECORDS SUMMARY | 2025-05-26 11:30 | XMS_ITS | CCD ---
Author Organization [facility] [place] [facility] Care Team Providers Care Lumber Sticker Name Role Phone Bigg Schultz Primary Care Provider [phone] BIGG SCHULTZ JR Primary Care Physician MARION, [...] Unavailable Bigg Schultz MD Primary Care Provider Lyle CARRENO Attending Unavailable Lyle CARRENO Attending Unavailable Lyle CARRENO Attending Unavailable Lyle CARRENO Attending Unavailable Brenda MESA, Rhoda Cervantes Attending Unavailable Brenda MESA, Rhoda Cervantes Attending Unavailable Brenda MESA, Rhoda Cervantes Attending Unavailable Bigg Schultz MD Primary Care Provider AALIYAH DREW Attending Unavailable DEXTER JIM Attending Unavailable AALIYAH DREW Attending Unavailable KATIANA LOPEZ Attending Unavailable KATIANA LOPEZ Attending Unavailable KATIANA LOPEZ Attending Unavailable Allergies Allergy ClassificationReported Allergen(s)Allergy TypeDate of OnsetReaction(s) Facility (1 source)MeperidineDrug Qrlknzf92-52-5070[facility] (15 sources)RisedronateDrug Dubiecv81-46-0782Rliuwtsbk [facility] (1 source)SertralineDrug Ndxxaje73-44-1882[facility]la [facility] (1 source)Sulfonamides (Antibiotic)Propensity to adverse vrizyxkfq18-11-2188 [facility] (12 sources)Tetracycline; Translations: [tetracycline]Drug Ncmugpt07-91-2905 Unknown (qualifier value)[facility] (15 sources)venlafaxineDrug Ugkevbh14-70-6265[facility] (20 sources)Citalopram; Translations: [citalopram]Drug Kzjtzyb79-69-6915Ddprbau (qualifier value)[facility] (11 sources)DULoxetine; Translations: [duloxetine]Drug Vwkvhbr99-95-8572Oelnbev (qualifier value), [facility]omitingExec[facility] (20 sources)Meperidine; Translations: [meperidine]Drug Akspvlf32-86-8956Qnanfef (qualifier value)[facility] (20 sources)Sertraline; Translations: [sertraline]Drug Hslpiav30-07-6278Pgczyrp (qualifier value)[facility] (6 sources)Sulfonamides (Antibiotic); Translations: [sulfa drugs]Drug allergy Unknown (qualifier value)[facility] (6 sources)telmisartan; Translations: [telmisartan]Drug AllergyUnknown (qualifier value)[facility] (11 sources)venlafaxine; Translations: [venlafaxine]Drug Ddlyyhl11-14-8000 Unknown (qualifier value)[facility] (1 source)CitalopramDrug AllergyThe [facility] (1 source)DULoxetineDrug Ioivhir28-71-2315Kty [facility] (1 source)MeperidineDrug Kfscmkm61-47-8561Xyw [facility] (1 source)SertralineDrug Fgbxrfq20-65-2409Yhu [facility] (1 source)Sulfonamides (Antibiotic)Drug allergy (disorder)08-92-2777Bdz [facility] (1 source)telmisartanDrug Lncblvm96-75-9815Dgb [facility] (1 source)TetracyclineDrug Okxvrpl29-77-4219Xrc [facility] (1 source)venlafaxineDrug Gcvmmft00-65-4831Idw [facility] (14 sources)AzithromycinDrug Toiaztv29-17-0925JZ[facility] (14 sources)DULoxetineDrug Htvorqc60-17-1610DODF [facility] (14 sources)MeperidineDrug Oxiquiu37-44-4560QUZN [facility] (14 sources)OmeprazoleDrug Pouvgru91-99-5848ICAX [facility] (14 sources)Sulfamethoxazole / TrimethoprimDrug Caibqut18-60-0416DYJT [facility] (14 sources)Sulfonamides (Antibiotic)Drug Eqblizerrvy25-06-2927RBCW [facility] (14 sources)TelmisartanPropensity to adverse audsddxkv35-20-4549NUOE [facility] (14 sources)Tetracycline (class of antibiotic)Drug Pkgdwgmgcys92-72-5513UKGB [facility] Medications Current Medications MedicationDrug Class(es)DatesSig (Normalized)Sig (Original)baclofen 10 mg oral tablet (19 sources)gamma-Aminobutyric Acid-ergic AgonistStart: 11-89-5321nxtfqofz 10 mg Tab Refills(s) 0 Start Date: 10/01/21 Status: Ordered Repeat number: 1busPIRone hydrochloride 10 mg oral tablet (19 sources)Start: 88-58-4244zklYONucb 10 mg Tab Refills(s) 0 Start Date: 10/01/21 Status: Ordered Repeat number: 1calcium carbonate 1500 mg oral tablet (14 sources)calcium carbonate 1500 (600 Ca) MG tablet every 12 (twelve) hours Activecandesartan cilexetil 32 mg oral tablet (19 sources)Angiotensin 2 Receptor BlockerStart: 95-66-6450citrxlwslkk 32 mg Tab Refills(s) 0 Start Date: 10/01/21 Status: Ordered Repeat number: 1carvedilol 6.25 mg oral tablet (19 sources)alpha-Adrenergic Kenney, beta-Adrenergic BlockerStart: 10-01-2021 carvedilol 6.25 mg Tab Refills(s) 0 Start Date: 10/01/21 Status: Ordered Repeat number: 1carvedilol (Coreg) 6.25 MG tablet every 12 (twelve) hours Active cephalexin 250 mg oral tablet (1 source)Cephalosporin AntibacterialStart: 01-31-2025 End: 90-57-8758hmco 1 capsule by mouth every twelve hoursKeflex 250 mg Cap 250 mg = 1 cap(s), Oral, q12hr, X 5 day(s), # 10 cap(s), Refills(s) 0, Pharmacy: [id number], 165, cm, 01/31/25 12:15:00 EDT, Height/Length Dosing, 62, kg, 01/31/25 12:15:00 EDT, Weight Dosing Start Date: 01/31/25 Stop Date: 02/05/25 Status: Ordered Quantity: 10.0 Unit: cap(s)Repeat number: 1 Indications: Other chronic cystitis without hematuria;clobetasol propionate 0.0005 mg/mg topical ointment (3 sources)CorticosteroidStart: 37-15-6120vhqrmiotdv propionate 0.05% top oint 1 cornelia, Topical, Daily Rash, 45 gm, Refill(s) 1, Daily as needed for vaginal irritation, [id number], 165, cm, 10/10/23 10:56:00 EDT, Height/Length Dosing, 55, kg, 10/10/23 10:56:00 EDT, Weight Dosing Start Date: 10/10/23 Status: Ordered Quantity: 45.0 Unit:g Repeat number: 2CRANBERRY-D MANNOSE PO (7 sources)CRANBERRY-D MANNOSE PO Take by mouth ActiveCranberry-Vitamin C-Inulin (UTI-Stat) liquid (7 sources)Cranberry-Vitamin C-Inulin (UTI-Stat) liquid Take by mouth Active estrogens, conjugated (custodial) 0.625 mg/ml vaginal cream (18 sources)EstrogenStart: 31-84-2608Binlezuu Vaginal 0.625 mg/g cream with applicator 1 gram, Vaginal, MonWedFri, 42.5 gram, Refill(s) 3, [facility], 165, cm, 09/24/24 12:05:00 EDT, Height/Length Dosing, 60, kg, 09/24/24 12:05:00 EDT, Weight Dosing Start Date: 12/08/24 Status: Ordered Quantity: 42.5 Unit: g Repeat number: 4Start: 68-94-7124Fcefpwuk Vaginal 0.625 mg/g cream with applicator 1 gram, Vaginal, MonWedFri, 42.5 gram, Refill(s) 3, [facility], 165, cm, 10/04/22 10:37:00 EDT, Height/Length Dosing, 65, kg, 10/04/22 10:37:00 EDT, Weight Dosing Start Date: 08/12/23 Status: OrderedStart: 01-02-2022 Premarin Vaginal 0.625 mg/g cream with applicator 1 gram, Vaginal, MonWedFri, 42.5 gram, Refill(s) 3, [facility], 162, cm, 10/06/20 10:19:00 EDT, Height/Length Dosing, 70.5, kg, 10/06/20 10:19:00 EDT, Weight Dosing Start Date: 01/02/22 Status: OrderedPremarin 0.625 MG/GM cream as directed Vaginal Activefamotidine 20 mg oral tablet (7 sources)Histamine-2 Receptor AntagonistStart: 10-04-2022 End: 61-20-2643farceffxfs 20 mg Tab Refills(s) 0 Start Date: 10/04/22 Status: Ordered Repeat number: 1gabapentin 100 mg oral capsule (19 sources)Anti-epileptic AgentStart: 84-47-2532bgdmwcaqgu 100 mg Cap Refills(s) 0 Start Date: 10/01/21 Status: Ordered Repeat number: 1levothyroxine sodium 0.025 mg oral tablet (19 sources)l-ThyroxineStart: 63-07-5414jcarvpeauycdy 25 mcg (0.025 mg) Tab Refills(s) 0 Start Date: 10/01/21 Status: OrderedStart: 34-06-0159pbopgffjrbrgx 25 mcg (0.025 mg) Tab Refills(s) 0 Start Date: 10/01/21 Status: Ordered Repeat number:1montelukast 10 mg oral tablet (19 sources)Leukotriene Receptor AntagonistStart: 10-14-6925pgkmxzmkbsr 10 mg Tab Refills(s) 0 Start Date: 10/01/21 Status: Ordered Repeat number: 1Premarin Vaginal 0.625 mg/g cream with applicator (1 source)Start: 82-60-6582Xkvzjfsh Vaginal 0.625 mg/g cream with applicator 1 gram, Vaginal, MonWedFri, 42.5 gram, Refill(s) 3, [facility], 162, cm, 04/10/20 12:12:00 EDT, Height/Length Dosing, 70, kg, 04/10/20 12:12:00 EDT, Weight Dosing Start Date: 08/29/20 Status: Ordered Completed/Discontinued Medications MedicationDrug Class(es)DatesSig (Normalized)Sig (Original)aspirin 81 mg chewable tablet (3 sources)Platelet Aggregation Inhibitor, Nonsteroidal Anti-inflammatory Drug End: 99-77-2818nbia 1 tablet by mouth every weekaspirin 81 MG chewable tablet 1 tablet Orally Once a week 08/11/2024 Discontinuedempagliflozin 10 mg oral tablet (4 sources)Sodium-Glucose Cotransporter 2 InhibitorStart: 03-18-2023 End: 64-64-5833Onupnzzfo 10 MG 03/18/2023 08/11/2024 DiscontinuedStart: 43-71-5860Vmqbexlnq 10 mg oral tablet Refills(s) 0 Start Date: 10/04/22 Status: Ordered Problems Active Problems Problem ClassificationProblemDateDocumented DateEpisodic/ChronicAnal and rectal conditions (4 sources)Disorder of xufwmd23-21-2927KoqtouitSljjmdsvyy disorders (14 sources)Gastroesophageal reflux disease; Translations: [Gastro-esophageal reflux disease without esophagitis]Onset: 060487-01-6759HsavxgcHhcpvbwub hypertension (20 sources)Hypertensive disorder; Translations: [Essential (primary) hypertension]Onset: 058881-01-9907ZzzfsbgXlxunzanjrbcc symptoms and ill- defined conditions (11 sources)Overflow incontinence of urine; Translations: [Urge incontinence of urine]Onset: 235682-08-9099BeodmsdKuvjuodilxank symptoms and ill-defined conditions (15 sources)Nocturia; Translations: [Poor stream of urine]74-48-9584GkvlmajjRaym disorders (14 sources)Depressive disorder; Translations: [Depression]Onset: 09-30-2023 98-21-3936XwrixmqSonenzy (2 sources)Pain in toe; Translations: [Tinea unguium]83-93-3987Pxtubvhe Osteoarthritis (5 sources)Oueqentorzlyxq44-38-8068IyvkfhcDskrb and unspecified benign neoplasm (5 sources)Adrenal uzimkme43-74-5670KgbgioajIjsqf bone disease and musculoskeletal deformities (5 sources)Xzdxlypgyq52-43-7336HbeicsgbTqocl diseases of bladder and urethra (1 source)Detrusor overactivity; Translations: [Overactive bladder]Onset: 77-33-4107YzotwzxMgimr diseases of bladder and urethra (2 sources)Overactive vodbekd69-36-4256XcotmihPnzwa diseases of bladder and urethra (5 sources)Urethral stricture; Translations: [Unspecified urethral stricture, female]Onset: 50-29-8699DlsbobfbPmcig diseases of veins and lymphatics (2 sources)Vascular insufficiency; Translations: [Venous insufficiency (chronic) (peripheral)]46-93-4500YtiidyszSupyp endocrine disorders (1 source)Disorder of adrenal gland; Translations: [Unspecified disorder of adrenal glands]Onset: 004225-40-8265SkpeqivMyxyi female genital disorders (1 source)Noninflammatory disorder of the vagina; Translations: [Other specified noninflammatory disorders ofvagina]Onset: 22-61-6643QbbhxyptKxqqk female genital disorders (2 sources)Cyst of nxreve75-87-4758QehodyqmNrwid nervous system disorders (1 source)Other chronic pain; Translations: [OTHER CHRONIC PAIN]Onset: 27-03-2687ThbgwosRlcic screening for suspected conditions (not mental disorders or infectious disease) (4 sources)Encounter for screening mammogram for malignant neoplasm of breast; Translations: [ENC SCR MAMMO MALIG NEOPLASM BREAST]Onset: 90-44-0310Otqxyirq Prolapse of female genital organs (11 sources)Uterovaginal prolapse; Translations: [Uterovaginal prolapse, unspecified]Onset: 60-50-3949JcsljbwCvrtoeeayjebxw care; fitting of prostheses; and adjustment of devices (8 sources)Patient encounter status; Translations: [Encounter for fitting and adjustment of other specified devices]72-25-4764EcyqgdaOmetkwhg codes; unclassified (5 sources)Sleep hptyk76-38-1794UjoiciaYxyqiteb codes; unclassified (1 source)Family history of malignant neoplasm of breast; Translations: [FAMILY HX MALIG NEOPLASM OF BREAST]Onset: 27-28-8972ZvskgzpzPdfdqxck codes; unclassified (1 source)Family history of malignant neoplasm of trachea, bronchus and lung; Translations: [FAM HX MALIG NEOPLSM TRACH BRON LNG]Onset: 00-69-3588Jfgtwfmu Residual codes; unclassified (1 source)Family history of malignant neoplasm of digestive organs; Translations: [FAM HX MALIG NEOPLASM DIGESTIV ORGN]Onset: 59-78-2637Ahjpkbcv Thyroid disorders (5 sources)Xloznxodixwzow42-75-4756XqzkjrpDuqsmkdhyuyg (1 source)LOW BACK PAIN, UNSPECIFIED; Translations: [LOW BACK PAIN, UNSPECIFIED] Onset: 02-54-4663Kynaxtt tract infections (10 sources)Chronic cystitis; Translations: [Other chronic cystitis without hematuria]Onset: 00-23-8786RgzklkaZpvckfv tract infections (8 sources)Postinfective urethral stricture of female; Translations: [Postinfective urethral stricture, not elsewhere classified, female]Onset: 96-79-9621Vawofuma Past or Other Problems Problem ClassificationProblemDateDocumented DateEpisodic/ChronicMalaise and fatigue (1 source)Weakness; Translations: [WEAKNESS]Onset: 49-91-5187VfvmwsdiClnpt connective tissue disease (4 sources)Impingement syndrome of right shoulder; Translations: [IMPINGEMENT SYNDROME RIGHT SHOULDER]Onset: 55-54-4621AwtatxvwVezcp nervous system disorders (4 sources)Ataxia, unspecified; Translations: [ATAXIA UNSPECIFIED]Onset: 65-32-2535YkkodllaNhagr non-traumatic joint disorders (1 source)Pain in right shoulder; Translations: [PAIN IN RIGHT SHOULDER]Onset: 15-68-8624EcewvezuKotwsom disorders (14 sources)Disorder of thyroid gland; Translations: [Disorder of thyroid, unspecified]Onset: 903856-92-1659Rnierutf Results Test NameValueInterpretationReference RangeFacilityUrology Office/Clinic Noteon 94-00-7262Bzpnwgr Office/Clinic NoteUrology Office/Clinic Note Chief Complaint urethral stricture HPI Staff 4 month f/u with UD. Dx: urethral stricture, chronic cystitis and cystocele with prolapse. Premarin cream 1gm 3x a week Pt states that at night she tends to have pressure in her bladder area at night. Pt states that shehas incontinence sometimes with standing. he states that [...] Tight The Urethra was dilated to: 20-30 Citizen [place] with sounds. Specimens Removed: None Postoperative Information [...] [facility] [address], [place] [phone] Additional Instructions: 6 mos for IO UD [...] stricture (09/2006), Appendectomy, Breast biopsy and related procedures,Cataract surgery, Colonoscopy, Dilation of urethra, Excision of lipoma, eyelid lift, Hysterectomy, Nasal sinus procedure, Plantar fasciectomy, Procedure on elbow, Procedure on retina, Repair of single tendon. Medications baclofen 10 mg Tab busPIRone 10 mg Tab candesartan 32 mg Tab carvedil (more content not included)...[facility] CenterComment on above:Result Comment: Electronically Signed By: Lyle CARRENO MD\.br\Date and Time Signed: 01/31/25 12:36 EDT\.br\Electronically Co-Signed By: Magalis Chávez\.br\Date and Time Co-Signed: 01/31/25 12:35 EDTAmbulatory Visit Summaryon 87-18-2009Rxkmxqymri Visit SummaryAmbulatory Visit Summary LELA CHENG :1940 Visit Date:09/24/2024 [...] stricture (09/2006), Appendectomy, Breast biopsy and related procedures,Cataract surgery, Colonoscopy, Dilation of urethra, Excision of [...] Lyle CARRENO MD Where: [facility] [address] [place] [address]- You Need to Schedule the Following Appointments Follow Up with Lyle CARRENO MD, URL When: Where: [facility] [address], [place] [address]- Medications What How Much When Instructions Unchanged clobetasol topical (clobetasol propionate 0.05% top oint) 1 Application Topical Every dayas needed for Rash Daily as needed for [...] the urethra. The urethra is the tube thatdrains pee (urine) from the bladder out of the body. In females, the urethra opens above the vaginal opening. In males, the urethra opens at the tip o (more content not included)...[facility] CenterUrology Office/Clinic Noteon 21-76-5287Yeyixea Office/Clinic NoteUrology Office/Clinic Note Chief Complaint 6 month UD [...] Tight The Urethra was dilated to: 20-32 Citizen [place] with sounds. Specimens Removed: None Postoperative Information [...] Lyle Feldman, URL [facility] [address] [place] [address]- Additional Instructions: 6 mo UD Patient Education Urethral Dilation I, Katey Barraza, personally scribed for Dr. Carreno on 09/24/2024 12:57:17. . Documentation recorded by the scribe, Katey Barraaz, accurately reflects the services(s) I performed and [...] stricture (09/2006), Appendectomy, Breast biopsy and related procedures,Cataract surgery, Colonoscopy, Dilation of urethra, Excision of [...] (Unknown) Demerol (Unknown) E (more content not included)...[facility] CenterComment on above:Result Comment: Electronically Signed By: Lyle CARRENO MD\.br\Date and Time Signed: 09/24/24 13:12 EDT\.br\Electronically Co-Signed By: Katey Barraza\.br\Date and Time Co-Signed: 09/24/24 13:11 EDTAmbulatory Visit Summary on 89-31-7023Powyprnnpy Visit SummaryAmbulatory Visit Summary LELA CHENG :1940 Visit Date:05/24/2024 [...] (05/19/2017), Cystourethroscopy with dilation of urethral stricture ( 017), Dilation of urethra (01/19/2016), Dilation of urethra [...] Lyle CARRENO MD Where: [facility] [address] [place] [address]- You Need to Schedule the Following Appointments Follow Up with Lyle CARRENO MD, URL When: Comments: 6 mos for UD Where: [facility] [address], [place] [address] [phone] Someone Will Contact You Regarding These Appointments [facility] Referral, Other (needs to be filled in), Other Referral, Referral to Gynecology for vaginal wall cyst and to discuss possible pessary, 05/24/24 10:12:00 EST, Vaginal wall cyst Cystocele with prolapse Medications What How Much When Instructions Unchanged clobetasol topical (clobetasol propionate 0.05% top oint) 1 Application Topical Every dayas needed for Rash Daily as needed for [...] Urethral Dilation Urethral dilati (more content not included)...[facility] Urology Office/Clinic Noteon 89-48-6755Isqceda Office/Clinic NoteUrology Office/Clinic Note Chief Complaint urethral stricture HPI [...] not feeling the urge to void and willhave incontinence Abdominal pain: denies Flank pain: denies [...] Tight The Urethra was dilated to: 22-30 Citizen Of [place] with sounds. Specimens Removed: None Postoperative Information [...] of pessary and risks/benefits. Recommended referral to DATABASE TESTER to discuss this. Pt wishes to proceed. -Referral to DATABASE TESTER 4. OAB (overactive bladder) (N32.81: Overactive bladder) See #3. 5. Rectocele (N81.6: Rectocele) Grade 2. [2] 6. 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 3cm L -Referral to DATABASE TESTER Follow-up With When Contact Information PASQUALE MESA, Lyle Feldman, URL [facility] [address], [place] [address]- [phone] Additional Instructions: 6 mos for UD Patient [...] Urge incontinence Urinary urg (more content not included)...[facility] Comment on above:Result Comment: Electronically Signed By: Lyle CARRENO MD\.br\Date and Time Signed: 05/24/24 10:13 EST\.br\Electronically Co-Signed By: Magalis Chávez.bárbara\Date and Time Co-Signed: 05/24/24 10:11 ESTMG MAMM SCREEN ROSANGELA W CADon 40-36-4309CX MAMM SCREEN ROSANGELA W CADPatient: LELA CHENG Exam Date: 11/11/2022 : 1940 Gender:F Ordering : DR BIGG SCHULTZ D.O. Admission #: [id number] Family : Order #: [id number] CLICK HERE TO VIEW EXAM RADIOLOGY REPORT [...] by: Brady Harry M.D. on 11/11/2022 at 13:50NoRegency Hospital CompanyELECTROLYTESon 70-85-9150Rismq gap [Moles/Vol]10.9 mmol/LNormalThe [facility] HospitalComment on above:Performed By: #### ELEC, TSH #### [facility] [address] [place] [address] Dr. Yilan ChangChloride [Moles/Vol]92 mmol/LCritically yyz17-531Haz [facility] HospitalComment on above:Performed By: #### ELEC, TSH #### [facility] [address] [address] [address] Lillian HurleyCO2 [Moles/Vol]30.4 mmol/GEngmbc91.0-32.0[facility] Comment on above:Performed By: #### ELEC, TSH #### [facility] [address] [address] [address] Lillian HurleyPotassium [Moles/Vol]4.3 mmol/LNormal3.5-5.1The [facility] Comment on above:Performed By: #### ELEC, TSH #### [facility] [address] [place] [address] Dr. Lillian HurleySodium [Moles/Vol]129 mmol/LCritically rzh885-749Wor [facility] HospitalComment on above:Performed By: #### ELEC, TSH #### [facility] [address] [place] [address] Dr. Lillian Thompson 10-84-5914CYN3.675 uIU/mLNormal0.358-3.740The [facility] HospitalComment on above:Performed By: #### ELEC, TSH #### [facility] [address] [place] [address] Dr. Lillian Adams 11-27-1786ETZLSWDVE ELECTRONIC SIGNATUREGEN HENDRIX M.D., PATHOLOGIST (Electronic signature on file) Final Signed Out: 12/22/2000 14:36 [facility] HospitalCONVERTED FINAL DIAGNOSISBONE, RIGHT ELBOW, EXCISION - SEGMENTS OF OSSEOUS TISSUE WITH CHANGES CONSISTENT WITH CHANGES OF DEGENERATIVE OSTEOARTHROPATHY. REACTIVE SYNOVIUM WITH FOCAL OLD HEMORRHAGE. [facility] HospitalCONVERTED ORDERING PROVIDEROrdering Provider: JOAN ALMONTE [facility] Vital Signs Date TimeVital SignValuePerforming PfjwenzjzEctamqsl01-36-2098 10:44-0400Body mass index (BMI) [Ratio]22.64 kg/m2Katiana MALONE Work Phone: [facility] HospitalJihwvochjn32-28-5588 10:44-0400Body cygybz85.97 kgAmy Fryburg PA Work Phone: [facility] HospitalBlhudqsexh14-57-8059 10:44-0400Diastolic blood tzfezyok86 mm[Hg]Katiana Terrie PA Work Phone: [facility] HospitalXbfcyniclu89-44-9513 10:44-0400Systolic blood loxdorng552 mm[Hg]Katiana Terrie PA Work Phone: [facility] HospitalMoxbtgbkrm42-16-0277 14:40-0400Body mass index (BMI) [Ratio]22.85 kg/m2Amy Fryburg PA Work Phone: [facility] HospitalCqsuvmqpct47-41-4583 14:40-0400Body vhyuvy05.51 kgAmy Fryburg PA Work Phone: [place] [address]Vuummdvioe55-38-1211 14:40-0400Diastolic blood mm[Hg]Katiana Fryburg PA Work Phone: [facility] HospitalXjotfxipvw57-70-1968 14:40-0400Systolic blood jvywcpxk840 mm[Hg]Katiana Terrie PA Work Phone: [facility] HospitalJahdevrysu79-66-7003 11:38-0400Body mass index (BMI) [Ratio]22.5 kg/m2Amy Terrie PA Work Phone: [facility] HospitalSeeazcssmt85-38-9420 11:38-0400Body .61 kgAmy Terrie PA Work Phone: [phone] HospitalQvwcycegkz64-84-3295 11:38-0400Diastolic blood plaqmgbv05 mm[Hg]Katiana Fryburg PA Work Phone: [facility] HospitalXqvrmnqbwm14-83-5770 11:38-0400Systolic blood frjuzyat921 mm[Hg]Katiana Terrie PA Work Phone: [facility] HospitalYbwucrrzdp12-97-5002 13:13-0400Body cm Dexter Jim DPM Work Phone: [facility] HospitalFsnrizwgnv54-49-4380 13:13-0400Body mass index (BMI) [Ratio]22.85 kg/n9XwkpaiurDexter Jim DPM Work Phone: [facility] HospitalBuwvldwqqj16-69-3938 13:13-0400Body egivlz06.51 kgDexter Jim DPM Work Phone: [facility] HospitalFfrzspuqsu02-27-1503 13:13-0400Respiratory rate16 /minDexter Jim DPM Work Phone: [facility] HospitalNppuflbtmn39-06-7095 13:54-0500Body mass index (BMI) [Ratio]24.03 kg/z9Uyfem Rajendra DO Work Phone: [facility] HospitalLkjclzdyme00-65-4972 13:54-0500Body .51 kgCorey Rajendra DO Work Phone: [facility] HospitalLciszdcisk64-35-4426 13:54-0500Diastolic blood rbpaeowr58 mm[Hg]Aaliyah Rajendra DO Work Phone: [facility] HospitalWwwnmqwbza19-81-0469 13:54-0500Systolic blood oxubilre301 mm[Hg]Aaliyah Rajendra DO Work Phone: [facility] HospitalDhsoawdjib05-15-6554 09:38-0500Blood Pressure LocationPatrick CARRENO [facility]11-18-2024 09:38-0500Body xkovylpbvkt62.42 [degF]Lyle [employer] [facility]11-18-2024 09:38-0500Diastolic blood snewhjfj99 mm[Hg]Lyle CARRENO [facility] [place] [address]-18-2024 09:38-0500Heart rate67 /minPatrick CARRENO [facility] [place] [address]-18-2024 09:38-0500Respiratory rate18 /minPatrick CARRENO [facility] [address]18-2024 09:38-0500Systolic blood iztjpwkv424 mm[Hg]Lyle CARRENO [facility]04-05-2024 10:54-0400Blood Pressure LocationPatrick CARRENO [facility] [facility]04-05-2024 10:54-0400Diastolic blood falzogup42 mm[Hg]Lyle CARRENO [facility]04-05-2024 10:54-0400Heart rate73 /minPatrick CARRENO [facility]04-05-2024 10:54-0400Respiratory rate16 /minPatrick CARRENO [facility]04-05-2024 10:54-0400Systolic blood mm[Hg]Lyle CARRENO [facility]03-31-2023 10:17-0400Blood Pressure LocationPatrick CARRENO [facility]03-31-2023 10:17-0400Diastolic blood bvtuyram23 mm[Hg]Lyle CARRENO [facility]03-31-2023 10:17-0400Heart rate60 /minPatrick CARRENO [facility]03-31-2023 10:17-0400Respiratory rate16 /minPatrick CARRENO [facility]03-31-2023 10:17-0400Systolic blood xnoiivzt083 mm[Hg]Lyle CARRENO [facility] Encounters Encounter DateEncounter TypeCare ProviderFacilityStart: 38-59-0046udwkykzpaj Lyle CARRENOFacility:EU BellevueStart: 05-03-2025 End: 41-04-7916Uhwony outpatient visit 10 minutesKatiana MALONE Work Phone: [facility] OBGYNComment on above:Pessary maintenanceStart: 05-03-2025 End: 12-70-7526kfqzygnvybNDI RAMEYNot AvailableStart: 03-30-2025 End: 04-67-2279Mvgfyon encounter procedureKatiana MALONE Work Phone: [facility] OBGYNComment on above:Fitting and adjustment of pessary (Primary Dx)Start: 03-30-2025 End: 87-40-7430Vyilvw Sangeetha MALONE Work Phone: [facility] [place] OBGYNStart: 03-30-2025 End: 39-50-2297Grwngk Sangeetha MALONE Work Phone: [facility] OBGYNStart: 03-30-2025 End: 62-20-9213tqfgoiwndtJGL RAMEYNot AvailableStart: 03-16-2025 End: 79-69-5924Cqmhpt outpatient visit 15 minutesKatiana MALONE Work Phone: [facility] OBGYNComment on above:Pessary maintenanceStart: 03-16-2025 End: 63-07-3720pnonmmmaubULN RAMEYNot AvailableStart: 03-01-2025 End: 87-65-7630Aarvhz flowsheetCorey Rajendra DO Work Phone: [facility] OBGYNStart: 03-01-2025 End: 23-12-6339Grfzpu flowsheetCorey Rajendra DO Work Phone: [facility] [place] OBGYNStart: 03-01-2025 End: 28-35-1935Mqizib outpatient visit 15 minutesCorey Rajendra DO Work Phone: [facility] [place] OBGYNComment on above:Fitting and adjustment of pessaryStart: 03-01-2025 End: 61-09-5953egbaymgkebMOJSU FAZIONot AvailableStart: 02-21-2025 End: 95-83-1969smguwhsdsvKfrnpkq Vytautas Giedraitis MDFacility:PM [facility] Start: 02-17-2025 End: 90-12-0658Gydsoj flowsDhruv Jim DPM Work Phone: [facility] CI PODIATRYStart: 02-17-2025 End: 63-58-4102Erazyj flowsheetNicrandall A Brown DPM Work Phone: [facility] CI PODIATRYStart: 02-17-2025 End: 84-14-6660Kicvtl outpatient visit 15 minutesNicrandall Jim DPM Work Phone: n[facility] CI PODIATRYComment on above:Venous insufficiency (Primary Dx); Pain due to onychomycosis of toenails of both feetStart: 02-17-2025 End: 34-65-3739hedbtshcetTYUTKJEZ A BROWNNot AvailableStart: 01-31-2025 End: 59-36-2691jrkxdvevewKjskczm R WATERSFacility:EU evueStart: 01-31-2025 End: 79-32-6408Uvvcsji encounter procedureLyle CARRENO [facility] [place] start: 01-10-2025 End: 01-04-2370uswyhpgypcZzlipof Vytautas Giedraitis MDFacility:PM [place] Start: 09-24-2024 End: 60-22-5594dmgcgnmecvVfbhdad R WATERSFacility:EU BellevueStart: 08-11-2024 End: 19-84-7524Iktrdb flowsheetCorey Rajendra DO Work Phone: [facility] BCP OBStart: 08-11-2024 End: 89-72-2917Silvfa flowsheetCorey Rajendra DO Work Phone: [facility] BCP OBStart: 08-11-2024 End: 59-13-8945cbqppsgloiIIQHQ FAZIONot AvailableStart: 08-11-2024 End: 80-32-4161Kmuzug outpatient new 20 minutesCorey Rajendra DO Work Phone: [facility] BCP OBComment on above:Encounter for fitting and adjustment of pessaryStart: 05-24-2024 End: 91-37-0287fivwuxlaffUbcreba R WATERSFacility:EU BellevueStart: 05-24-2024 End: 48-99-1159Vzrzrri encounter procedureLyle CARRENO [facility] start: 05-03-2024 End: 67-07-9366uqjpejxkwiGzldric Billy Gutierrez MDFacility:[facility] [place] Start: 10-10-2023 End: 78-86-8659Tvitcfc encounter procedureLyle CARRENO [facility] start: 11-11-2022 End: 93-40-7075fiwtmwxyrcCP CHARLES VALONEFacility:X2Yqhld: 10-04-2022 End: 50-00-1278Iwdhlet encounter procedureLyle CARRENO [facility] start: 06-17-2022 End: 17-89-1181wtvuzcirtdUO BIGG VALONEFacility:K7Ganun: 01-03-2022 End: 30-06-8769qrzcxyesluZI BIGG VALONEFacility:R4Bzgag: 11-22-2021 End: 79-34-9705uxecommdhwEX DOCTOR MISCFacility:P9Qstft: 10-01-2021 End: 23-75-1166Fnrmxwx encounter procedurePatrick R CARRENO [facility] start: 12-16-1920 End: 64-87-1932Jcapliy encounter procedureDrvalorie Almonte Work Phone: [place] [facility]Start: 89-37-8314Ovhpnhd OnlyDrvalorie Almonte Work Phone: [facility] Procedures DateProcedureProcedure DetailPerforming ClinicianStart: 73-70-1215Blkrnstc dilatation - femalePatrick CARRENO Start: 42-84-3338Lkiimvud of urethraPatrick CARRENO Start: 88-54-6345Gyxuhhiu of urethraPatrick CARRENO Start: 48-41-9081Umghhfhw of urethraPatrick CARRENO Start: 03-12-8182Qsdbfxwr of urethraPatrick CARRENO Start: 61-05-7419Jdgmaxnl of urethraPatrick CARRENO Start: 75-54-7055Kkpxpqvh of urethraPatrick CARRENO Start: 29-25-3875Mozdjgtg of urethraPatrick CARRENO Start: 51-09-3852Rhrerxsmxxqgdylgv with dilation of urethral stricturePatrick CARRENO Start: 49-38-6486Qgqvtanc of urethraPatrick CARRENO Start: 71-81-7654Vhvcwjgd of urethraPatrick CARRENO Start: 85-81-9178Upyrhbio of urethraPatrick CARRENO Start: 78-55-0400Owmmhbrm of urethraPatrick CARRENO Start: 09-71-7638Letisqrdj on neckPatrick CARRENO Start: 20-07-8847Nmxukbzl of urethraPatrick CARRENO Start: 58-04-3868Zeqknfub of urethraPatrick CARRENO Start: 61-31-8366Rmmlcwcqjmtafpzez with dilation of urethral stricturePatrick CARRENO Start: 62-05-4645AVRLFGHSC SURGICAL PATHOLOGYDrvalorie Almonte Work Phone: AppendectomyPatrick CARRENO Breast biopsy and related proceduresPatrick CARRENO Cataract surgeryPatrick CARRENO ColonoscopyPatrick CARRENO Dilation of urethraPatrick CARRENO Excision of lipomaPatrick CARRENO eyelid liftPatrick CARRENO HysterectomyPatrick CARRENO Nasal sinus procedurePatrick CARRENO Plantar fasciectomyPatrick CARRENO Procedure on elbowPatrick CARRENO Procedure on retinaPatrick CARRENO Repair of single tendonPatrick CARRENO Plan of Treatment DateCare ActivityDetailAuthorStart: 08-01-2025 End: 21-00-0237Dqxwxhz encounter lqoxlnliu57/26/2026 10:30 AM EST Procedure Visit [facility] [address] [place], [id number] Katiana Lopez, KIRA [address] [place] [address] [facility] OBGYNStart: 07-14-2025 End: 11-49-2146Ntrbmbk encounter rlivoxjsq49/08/2026 1:00 PM EST Procedure Visit [facility] [address] [facility] [address] [place] [id number] Dexter Jim, DPM [address] [facility] [address] [place] [address] [facility] CI PODIATRYStart: 04-20-2025 End: 64-24-3976Ixhjzuv encounter jhyrbrkud07/15/2025 2:30 PM EDT Procedure Visit NOM[facility]aila [facility] [address] [place] [address] Katiana Lopez PA [address] [place] [address] [facility] OBGYNStart: 04-15-2025 End: 63-40-3147Mrzddrh encounter bckavywrj76/10/2025 10:00 AM EDT Office Visit [facility]OM[facility]aila [facility] [address] [place] [address] Katiana Lopez PA [address] [place], [place] [id number] [facility] OBGYNStart: 03-30-2025 End: 03-09-3010Ufiputc encounter wejkvpwsn42/24/2025 2:20 PM EDT Office Visit NOMLaila FERNANDEZN [address] [place] [address] Katiana Lopez PA [address] [place], [place] [id number] ArrivedNOMS Fred OBGYNComment on above:ArrivedStart: 16-04-2346TTLPP-19 Vaccine (2024- season)COVID-19 Vaccine (2024- season)[facility] HealthcareStart: 71-45-0042Taogiiodr vaccinationInfluenza Vaccine (#1)[facility] HealthcareStart: 03-01-2025 End: 50-32-6401Qgiucyq encounter procedureNOMS [place] OBGYNComment on above: ArrivedStart: 30-76-6716Sudvrusae vaccinationInfluenza Vaccine (#1)[facility] HealthcareStart: 27-85-1541Isaobpqfr vaccinationINFLUENZA (#1)[facility] Start: 17-81-5215Fbureplnjbxs Vaccine: 65+ Years (2 of 2 - PCV)Pneumococcal Vaccine: 65+ Years (2 of 2 - PCV)[facility] HealthcareStart: 81-48-9570BQQYWUEZ SCREEN DIABETES SCREENWilson Street Hospitaltart: 53-96-7293CKNXMXX DIRECTIVE DISCUSSION ADVANCE DIRECTIVE DISCUSSIONWilson Street Hospitaltart: 36-74-9496UWEO DENSITYBONE DENSITYClemercy health [facility] ClinicStart: 59-73-2489CLLPTNKTU AGE 65 AND OVER WITH 5YR LOOKBACK (#1)PNEUMOVAX AGE 65 AND OVER WITH 5YR LOOKBACK (#1)[facility] Start: 52-22-7233YEFMJNTN VACCINE (1 of 2)SHINGRIX VACCINE (1 of 2)[address] Hospitaltart: 43-92-5244Dosfj microalbumin profileDTAP,TDAP,TD (1 - Tdap) [facility] Hospital[facility]: 38-36-5022XNvM/Tdap/Td Vaccines (1 - Tdap)DTaP/Tdap/Td Vaccines (1 - Tdap)[facility] Immunizations Immunization DateImmunizationNotesCare ZcljtqpkQivpuzub97-47-1600cpthorzqq virus vaccine, unspecified formulationLyle CARRENO [facility]2022SARS-CoV-2 (COVID-19) mRNAMUL.ORD![id number] CARRENO [facility] BellevueComment on above:Result Comment: 2023-10-10: [id number]-GgM-4 mRNA (qqarubzijyf-ndwn-bsmrjaa) vaccinePatrick [employer] [facility] on above:Result Comment: 2023-10-10: [id number]-HwL-8 (COVID-19) mRNA BNT-162b2 vaxPatrick [employer] [facility] on above:Result Comment: 2023-10-10: [id number]-YhM-2 (COVID-19) mRNA BNT-162b2 vaxPaCinedigm [facility]01-25-2021SARS-CoV-2 (COVID-19) mRNA BNT-162b2 vaxPaCinedigm [facility] comabyn on above:Result Comment: 2nd dose given [id number] vaccine recombinantPaPrime Financial Servicesk [employer] [facility]05-25-2018zoster vaccine recombinantPatrick [employer] [facility]09-17-2014pneumococcal polysaccharide vaccine, 23 valentPatrick [employer] [facility]10-30-2013zoster vaccine, livePatrick [employer] [facility]10-20-2009influenza, wholePatrick [employer] [facility] Payers DatePayer CategoryPayerPolicy [id number] (Managed Care)[employer] MEDICARE Member Subscriber Plan / Payer (Effective 2023- Present) Name: Lela Cheng Relation to Subscriber: Self Name: Lela Cheng Payer ID: [id number] (NAIC) Type: Not on file Address: [address] [id number] [id number] [id number] [id number] [id number] 2.0.1.706364.3.57[id number] 2.0.1.401791.3.57[id number] 2.0.1.457794.3.57[id number] 2.840.1.085001.3.57[id number] 2.0.1.940852.3.57[id number] 2.16840.1.955609.3.57[id number] 2.16840.1.602991.3.57[id number] 2.16840.1.787261.3.57[id number] 2.840.1.410684.3.57[id number] 2.16.840.1.576027.3.57[id number] 2.16.840.1.666250.3.57[id number] 2.16.840.1.138701.3.57[id number] 2.16.840.1.756564.3.57[id number] 2.16.840.1.711098.3.57[id number] 2.16.840.1.548552.3.57[id number] 2.16.840.1.957716.3.57[id number] 2.16.840.1.226547.3.579.2.1259 Social History DateTypeDetailFacilityTobacco smoking status NHISUnknown if ever smokedWilson Street Hospitaltart: 83-94-6840Qes Assigned At BirthNot on fileWilson Street Hospitaltart: 09-06-2019 End: 24-07-5888Dvjcbmj smoking statusNever smoked tobacco (finding)[facility] start: 09-30-2023 End: 02-50-8371Hwv Assigned At BirthFemaleExec[facility] of [facility] start: 38-48-9639Yzoejbi smoking statusNeverExecutive Urology of [facility] Hospitaltart: 02-16-9745Ikryfup use and exposureSmokeless tobacco non-userNOMS HealthcareStart: 09-30-2023 End: 51-11-6021Zjsocha of Social functionNOMS HealthcareSexual Orientation [facility] start: 01-32-4192SyhItfaee (finding)[facility] Functional Status FocwZeknczgoqyRepkloRkijccpp67-80-6882Rtqxrjbquk StatusN/AExec[facility]04-05-2024Functional StatusN/A[facility]03-31-2023Functional StatusN/A [facility] Clinical Notes 10-01-2021 to 05-03-2025 Note Date & HlgcLfkzNlkskjtc58-44-1694 History of Present illness Narrative* KIRA Holder - 05/03/2025 10:40 AM EDT Reason for Appointment: Patient ID: Lela Cheng is a 85 y.o. female who presents for Gynecologic Exam Patient presents today for pessary fitting /cleaning MEDICATIONS Current Outpatient Medications Medication Instructions baclofen [...] Other Reaction(s): Unknown Telmisartan Other Reaction(s): Unknown Tetracycline Other Reaction(s): Unknown Tetracyclines & Related Other Reaction(s): Unknown Venlafaxine Other Reaction(s): Unknown Venlafaxine Hcl Duloxetine Nausea And Vomiting Other Reaction(s): Other (See Comments) PROBLEMS Active Ambulatory Problems Diagnosis Date Noted [...] Objective: Physical Exam Constitutional: Appearance: Normal appearance. She is normal weight. HENT: Head: Normocephalic. Cardiovascular: Rate and Rhythm: Normal rate. Pulses: Normal pulses. Pulmonary: Effort: Pulmonary effort is normal. Breath sounds: Normal breath sounds. Abdominal: Palpations: Abdomen is soft. Musculoskeletal: General: Normal range of motion. Neurological: General: No focal deficit present. Mental Status: She is alert and oriented to person, place, and time. Psychiatric: Mood and Affect: Mood normal. Behavior: Behavior normal. Thought Content: Thought content normal. Judgment: Judgment normal. Vitals and nursing note reviewed. Vitals: Estimated body mass index is 22.64 kg/m as calculated from the following: Height as of 02/17/25: 5' 3 . Weight as of this encounter: 127 lb 12.8 oz. BP: 138/78 No LMP recorded. Patient has had a hysterectomy. Assessment/Plan ICD-10-CM 1. Pessary maintenance Z46.89 Patient presents for pessary placement. Pt has been seen in past and new pessary came in for placement. Pt tolerated well and will follow up in 3 mo for check up and cleaning Documented by KIRA Holder on behalf of: KIRA Holder documented in this encounterChristian HospitalTejdzjqrnd93-53-9085 History of Present illness Narrative* KIRA Holder - 03/30/2025 2:20 PM EDT Reason for Appointment: Patient ID: Lela Cheng is a 84 y.o. female who presents for Pessary Fitting Patient presents today for pessary fitting MEDICATIONS Current Outpatient Medications Medication Instructions baclofen [...] Other Reaction(s): Unknown Telmisartan Other Reaction(s): Unknown Tetracycline Other Reaction(s): Unknown Tetracyclines & Related Other Reaction(s): Unknown Venlafaxine Other Reaction(s): Unknown Venlafaxine Hcl Duloxetine Nausea And Vomiting Other Reaction(s): Other (See Comments) PROBLEMS Active Ambulatory Problems Diagnosis Date Noted [...] Objective: Physical Exam Constitutional: Appearance: Normal appearance. She is normal weight. Genitourinary: Genitourinary Comments: Prolapsed bladder HENT: Head: Normocephalic. Cardiovascular: Rate and Rhythm: Normal rate. Pulses: Normal pulses. Pulmonary: Effort: Pulmonary effort is normal. Breath sounds: Normal breath sounds. Abdominal: Palpations: Abdomen is soft. Musculoskeletal: General: Normal range of motion. Neurological: General: No focal deficit present. Mental Status: She is alert and oriented to person, place, and time. Psychiatric: Mood and Affect: Mood normal. Behavior: Behavior normal. Thought Content: Thought content normal. Judgment: Judgment normal. Vitals and nursing note reviewed. Exam conducted with a molder wax ball present. Vitals: Estimated body mass index is 22.85 kg/m as calculated from the following: Height as of 02/17/25: 5' 3 . Weight as of this encounter: 129 lb. BP: 128/84 No LMP recorded. Patient has had a hysterectomy. ASSESSMENT & PLAN ICD-10-CM 1. Fitting and adjustment of pessary Z46.89 Patient returns for new pessary fitting, we increased size from 4-7. Pt feels much improved, she will return once new pessary arrives Documented by KIRA Holder on behalf of: KIRA Holder documented in this encounterChristian HospitalWopauhjldc61-96-0445 History of Present illness Narrative* KIRA Holder - 03/16/2025 11:30 AM EDT Reason for Appointment: Patient ID: Lela Cheng is a 84 y.o. female who presents for Pessary Check (Pt present today for a f/up pessary placement visit. (Pt already had fitting)) Patient presents today for Consult appointment. MEDICATIONS Current Outpatient Medications Medication Instructions baclofen [...] Other Reaction(s): Unknown Telmisartan Other Reaction(s): Unknown Tetracycline Other Reaction(s): Unknown Tetracyclines & Related Other Reaction(s): Unknown Venlafaxine Other Reaction(s): Unknown Venlafaxine Hcl Duloxetine Nausea And Vomiting Other Reaction(s): Other (See Comments) PROBLEMS Active Ambulatory Problems Diagnosis Date Noted [...] Objective: Physical Exam Constitutional: Appearance: Normal appearance. She is well-developed. Genitourinary: Vulva normal. Cardiovascular: Rate and Rhythm: Normal rate and [...] nursing note reviewed. Exam conducted with a molder wax ball present. Vitals: Estimated body mass index is 22.5 kg/m as calculated from the following: Height as of 25: 5' 3 . Weight as of this encounter: 127 lb. BP: 128/78 No LMP recorded. Patient has had a hysterectomy. ASSESSMENT & PLAN ICD-10-CM 1. Pessary maintenance Z46.89 Patient presents to office today for Pessary insertion. Patient received Size #4 Ring without support, which was ordered in from [employer] supplier. Patient to return to clinic in 1 month for pessary cleaning. Patient tolerated procedure well and feels like pessary is good fit. Patient to reach out to office with any question/ concerns. Documented by Ruma Gutierrez LPN on behalf of: KIRA Holder documented in this encounterChristian HospitalEdeskykxsu04-73-8714 History of Present illness Narrative* KIRA Holder - 03/01/2025 11:30 AM EDT Reason for Appointment: Patient ID: Lela Cheng [...] nursing note reviewed. Exam conducted with a molder wax ball present. Vitals: Estimated body mass index is [...] of: Aaliyah Drew DO documented in this encounterChristian HospitalPmmvndwxzr24-59-4930 History of Present illness Narrative* Dexter Jim DPM - 02/17/2025 1:00 PM EDT Patient: Lela Cheng : 1940 PCP: [facility] [...] edema. Discussed condition in detail. Recommendation for mjrm-dnd-hflfoqk compression stockings at this time and may consider prescription stockings in the future. Dexter Jim DPM documented in this encounterChristian HospitalEaqdstsvpl48-45-5428 Hospital Discharge instructions Patient Education 01/31/2025 12:24:56 Urinary Tract [...] Treatment for this condition includes: Antibiotic medicine. Cyip-atb-hxqpgwu medicines to treat discomfort. Drinking enough water [...] Follow these instructions at home: Medicines Take cnpk-clq-vsqfmfz and prescription medicines only as told by your health care provider. If you were prescribed an antibiotic medicine, take it as told by your health care provider. Do notstop using the antibiotic even if you start [...] told by your health care provider. Do notstop using the antibiotic even if you start to feel better. Keep all follow-up visits. This is important. This information is not intended to replace advice given to you by your health care provider. Make sure you discuss any questions you have with your health care provider. Document Revised: 01/28/2021 Document Reviewed: 02/02/2021 [employer] Patient Education 2023 Newser. Follow Up Care 09/24/2024 13:22:42 With:PASQUALE MESA, Lyle Feldman, URL Address: [facility] [address] [place] [phone] When: Unknown Comments:6 mos for IO [facility] 07-28-2025 NotePatient Education Obstetrics and Gynecology Urinary Tract Infection, [...] this condition includes: ??? Antibiotic medicine. ??? Ghkh-iwj-nvwsysn medicines to treat discomfort. ??? Drinking enough [...] these instructions at home: Medicines ??? Take lmzf-cze-lovbkyn and prescription medicines only as told by [...] Make sure you di (more content not included)...[facility]03-21-2025 NotePatient Education Urology Urethral Dilation Urethral dilation is a procedure to stretch open (dilate) the urethra. The urethra is the tube thatdrains pee (urine) from the bladder out of the body. In females, the urethra opens above the vaginal opening. In males, the urethra opens at the tip of the penis. Urethral dilation is usually done to treat narrowing of the urethra (urethral stricture), which canmake it difficult to pee (urinate). Urethral strictures [...] including vitamins, herbs, eye drops, creams, and cwye-mvg-miauatm medicines. ??? Any problems you or family [...] your provider tells you to. ??? Taking pdew-jrb-hvyblnz medicines, vitamins, herbs, and supplements. General instructions [...] these instructions at home: Medicines ??? Take mxrp-uvr-dmqcptv and prescription medicines only as told by [...] to prevent or treat constipation: ? Take iabf-eup-umttlze or prescription medicines. ? Eat foods that [...] a soft tube (catheter) (more content not included)...[facility]02-05-2025 History of Present illness Narrative* Aaliyah Drew DO - 08/11/2024 1:30 PM EST Reason for Appointment: Patient ID: Lela Cheng is a 84 y.o. female who presents for pessary fitting Patient presents today for Acute Visit. Current Medications: has a current medication list which includes the following prescription(s): baclofen, buspirone, calcium carbonate, candesartan, carvedilol, gabapentin, levothyroxine, montelukast, and premarin. Medical History: Active Ambulatory Problems Diagnosis Date Noted Thyroid disease ([facility]) 09/30/2023 HTN (hypertension) ([facility]) 09/30/2023 GERD (gastroesophageal reflux disease) 09/30/2023 Depression ([facility]) 09/30/2023 Resolved Ambulatory Problems Diagnosis Date Noted [...] nursing note reviewed. Exam conducted with a molder wax ball present. Vitals: Estimated body mass index is [...] of: Aaliyah Drew DO documented in this encounterChristian HospitalYbcmeqjmum20-24-8327 Hospital Discharge instructions Patient Education 05/24/2024 10:05:26 Urethral Dilation Urethral Dilation Urethral dilation is a procedure to stretch open (dilate) the urethra. The urethra is the tube thatdrains pee (urine) from the bladder out of the body. In females, the urethra opens above the vaginal opening. In males, the urethra opens at the tip of the penis. Urethral dilation is usually done to treat narrowing of the urethra (urethral stricture), which canmake it difficult to pee (urinate). Urethral strictures [...] including vitamins, herbs, eye drops, creams, and ctzz-aqs-tkcasaj medicines. Any problems you or family members [...] These include any diabetes medicines or blood thinnersyou take. Taking medicines such as aspirin and ibuprofen. These medicines can thin your blood. Do not take them unless your provider tells you to. Taking psbi-ebt-adujibm medicines, vitamins, herbs, and supplements. General instructions [...] Follow these instructions at home: Medicines Take bsng-uua-iypzkiy and prescription medicines only as told by [...] actions to prevent or treat constipation: ?Take vmrf-pkl-ffojdxf or prescription medicines. ?Eat foods that are [...] provider. Document Revised: 04/17/2023 Document Reviewed: 04/17/2023 [employer] Patient Education 2023 Newser. Follow Up Care 10/10/2023 11:32:21 With:PASQUALE MESA, Lyle Feldman, URL Address: [facility] [address] , [place] [place] [address]- [phone] When: Unknown Comments:6 mos for UD [facility] 11-18-2024 NotePatient Education Urology Urethral Dilation Urethral dilation is a procedure to stretch open (dilate) the urethra. The urethra is the tube thatdrains pee (urine) from the bladder out of the body. In females, the urethra opens above the vaginal opening. In males, the urethra opens at the tip of the penis. Urethral dilation is usually done to treat narrowing of the urethra (urethral stricture), which canmake it difficult to pee (urinate). Urethral strictures [...] including vitamins, herbs, eye drops, creams, and ageb-bos-imvyugv medicines. ??? Any problems you or family [...] your provider tells you to. ??? Taking kxej-njj-kzopslx medicines, vitamins, herbs, and supplements. General instructions [...] these instructions at home: Medicines ??? Take xeet-khc-xrzhqtv and prescription medicines only as told by [...] to prevent or treat constipation: ? Take otlk-sap-olzybur or prescription medicines. ? Eat foods that [...] a soft tube (catheter) (more content not included)...[facility]04-05-2024 Hospital Discharge instructions Patient Education 10/10/2023 11:25:49 Urethral Stricture [...] camera on the end (urethroscope) is used tolook at the urethra. How is this treated? [...] reconstructed. Follow these instructions at home: Take nfgc-nyq-xggecjm and prescription medicines only as told by your health care provider. If you were prescribed an antibiotic medicine, take it as told by your health care provider. Do notstop taking the antibiotic even if you start [...] Document Reviewed: 04/30/2022 Elsevier Patient Education 2022 Newser. Follow Up Care 10/04/2022 10:57:38 With:PASQUALE MESA, Lyle Feldman, URL Address: [address] [place] [phone]- When: Unknown [facility] 03-31-2023 Hospital Discharge instructions Patient Education 10/04/2022 10:43:19 Urethral Dilation Urethral Dilation Urethral dilation is a procedure to stretch open (dilate) the urethra. The urethra is the tube thatdrains urine from the bladder out of the [...] including vitamins, herbs, eye drops, creams, and snlu-jng-iitmgyr medicines. Any problems you or family members [...] provider tells you to take them. Taking zolz-uwh-xfhucfv medicines, vitamins, herbs, and supplements. General instructions [...] Follow these instructions at home: Medicines Take pywd-hes-heqcvcg and prescription medicines only as told by your health care provider. If you were prescribed an antibiotic medicine, take it as told by your health care provider. Do notstop taking the antibiotic even if you start to feel better. Ask your health care provider if the medicine prescribed to you: ?Requires you to avoid driving or using heavy machinery. ?Can cause constipation. You may need to take these actions to prevent or treat constipation: ?Take gcwt-lwo-uwdnzup or prescription medicines. ?Eat foods that are [...] narrowing of the urethra (urethral stricture), which canmake it difficult to pass urine. Ask your [...] 07/19/2016 Document Revised: 08/05/2019 Document Reviewed: 08/05/2019 [employer] Patient Education 2019 Newser. Follow Up Care 10/01/2021 13:26:16 With:PASQUALE MESA, Lyle Feldman, URL Address: [address] [place] [phone]- When: Unknown [facility] 03-28-2022 Hospital Discharge instructions Patient Education 10/01/2021 13:21:33 Urethral Stricture [...] camera on the end (urethroscope) is used tolook at the urethra. How is this treated? [...] reconstructed. Follow these instructions at home: Take yplo-bld-bppshqs and prescription medicines only as told by your health care provider. If you were prescribed an antibiotic medicine, take it as told by your health care provider. Do notstop taking the antibiotic even if you start [...] 07/19/2016 Document Revised: 02/03/2019 Document Reviewed: 02/03/2019 [employer] Patient Education [employer]. [facility] evaluation + Plan note Future Appointments Appointment Date:10/04/2022 09:45:00 AM Scheduled Provider:Lyle CARRENO MD Location:[facility] Appointment Type:URO Office Visit [facility] evaluation + Plan note Future Appointments Appointment Date:10/10/2023 10:15:00 AM Scheduled Provider:Lyle CARRENO MD Location:[facility] Appointment Type:URO Office Visit [facility] evaluation + Plan note Future Appointments Appointment Date:05/03/2024 09:15:00 AM Scheduled Provider:Lyle CARRENO MD Location:[facility] Appointment Type:URO Office Visit [facility] evaluation + Plan note Future Appointments Appointment Date:11/22/2024 10:30:00 AM Scheduled Provider:Lyle CARRENO MD Location:[facility] Appointment Type:URO Procedure 15 min [facility] evaluation + Plan note Future Appointments Appointment Date:08/08/2025 11:15:00 AM Scheduled Provider:Lyle CARRENO MD Location:[facility] Appointment Type:URO Office Visit [facility] evaluation note* Diagnosis Encounter for fitting and adjustment of pessary documented in this encounter [facility]* Diagnosis Venous insufficiency- Primary Unspecified venous (peripheral) insufficiency Pain due to onychomycosis of toenails of both feet documented in this encounter [facility] note* Diagnosis Fitting and adjustment of pessary documented in this encounter [facility] note* Diagnosis Pessary maintenance Fitting and adjustment of other device documented in this encounter [facility] note* Diagnosis Fitting and adjustment of pessary- Primary documented in this encounter [facility] note* Diagnosis Pessary maintenance Fitting and adjustment of other device documented in this encounter [facility] Healthcare[facility]ospital course Narrative No data available for this section [facility] progress note No data available for this section [facility] reason for referral (narrative) Referred by: Lyle CARRENO MD Referred by: Lyle CARRENO MD [facility] Summary Purpose Family History No Family [...] or prosecute any alcohol or drug abuse patient.[facility] Patient Care team informatio n (unrecognized section and content) Team MemberRelationshipSpecialtyStart DateEnd Date Bigg Schultz MD [address] [place] [address] PCP - GeneralInternal Medicine09/30/23am MemberRelationshipSpecialtyStart Date End Date Bigg Schultz MD [address] [place] [address] PCP - GeneralInternal Medicine09/30/23am MemberRelationshipSpecialtyStart Date End Date Bigg Schultz MD [address] [place] [address] PCP - GeneralInternal Medicine09/30/23am MemberRelationshipSpecialtyStart Date End Date Bigg Schultz MD [address] [place] [address] PCP - GeneralInternal Medicine09/30/23am MemberRelationshipSpecialtyStart Date End Date Bigg Schultz MD [address] [place] [address] PCP - GeneralInternal Medicine09/30/23Team MemberRelationshipSpecialtyStart Date End Date Bigg Schultz MD [address] [place] [address] PCP - GeneralInternal Medicine09/30/23Team MemberRelationshipSpecialtyStart Date End Date Bigg Schultz MD [address] [place] [address] PCP - GeneralInternal Medicine09/30/23Te MemberRelationshipSpecialtyStart Date End Date Bigg Schultz MD [facility] [place] [address] PCP - GeneralInternal Medicine09/30/23Te MemberRelationshipSpecialtyStart Date End Date Bigg Schultz MD [facility] [place] [address] PCP - GeneralInternal Medicine09/30/23 INFORMATION SOURCE (unrecogn ized section and content) DATE CREATED AUTHOR 11/15/[address] [facility] DATE CREATED AUTHOR AUTHOR'S ORGANIZ ATION 02/01/2025 [facility] DATE CREATED AUTHOR AUTHOR'S ORGANIZ ATION 02/27/2025 [facility] DATE CREATED AUTHOR AUTHOR'S ORGANIZ ATION 05/04/2025 [facility] EPIC Reason for Visit (unrecogniz ed section and content) ReasonCommentspessary fittingReasonCommentsToenail CareReasonCommentsPessary fittingReasonCommentsPessary CheckPt present today for a f/up pessary placement visit. (Pt already had fitting)ReasonCommentsPessary FittingReasonComments Gynecologic Exam FOR RECORDS PERTAINING TO PATIENTS WHO ARE [...] BE BASED ON THE PRIMARY CLINICAL RECORDS. [employer] [facility]. provides no warranty or guarantee of the accuracy or completeness of information in this document.
== END 2025-05-26 10:58 | disposition home or self-care (01) ==
PROVIDERS: PCP Internal Medicine; Visit Provider Nurse Practitioner
DX: M48.062 Spinal stenosis, lumbar region with neurogenic claudication (principal); M96.1 Postlaminectomy syndrome, not elsewhere classified
CPT/HCPCS: G0463